=== PATIENT | male | born 1965 | race Caucasian/White ===

== ENCOUNTER 2023-11-13 15:38 | Inpatient (IN) ==
--- NOTE | 2023-11-13 16:05 | Emergency Department Note ---
Impression & Plan Severe sepsis, DKA (diabetic ketoacidosis), High anion gap metabolic acidosis, Acute pancreatitis, Pneumonia, Elevated troponin, Lactic acidosis, Cirrhosis, Symptomatic anemia ED Provider Note NAME: KATIANA [id number] ESTRELLITA AGE: 58 SEX: M : 1965 ARRIVES VIA: Ambulance INFORMANT: Patient ED PROVIDER(S): Saturnino Thompson MD CHIEF COMPLAINT: Cough congestion, nausea, vomiting, diarrhea, hypotension PLAN: Disposition: Admit MEDICAL DECISION MAKING: The patient is a 58-year-old gentleman, present inmate with a past medical history of type 2 diabetes, cirrhosis,liver cancer per his report who presents to his department via EMS for evaluation of nausea, vomiting, diarrhea and dizziness with hypotension in the setting of having symptoms of nausea and vomiting with mild congestion over the past week. Patient reports his blood sugars have been "all over the place." Patient denies any bloody or black stools. He reports his diarrhea has been brown. On arrival emergency department patient ill-appearing, afebrile with heart rate in the 110s and blood pressure 90s/50s 1. O2 saturation is 92% on room air. Patient has dry cracked mucous membranes. Abdomen is nontender. EKG without overt acute ischemia. CXR demonstrates peribronchial thickening without focal consolidation per my personal preliminary review/interpretation. WBC 12.6 K with neutrophil predominance. H/H 6.6/20.4 with MCV of 93. Platelets of 178K. INR was 1.5. VBG with a pH of 7.15 and pCO2 of 35 with lactic acid initially 16.2. Chemistry demonstrates anion gap metabolic acidosis with anion gap of 23 and bicarbonate of 13. Creatinine is within normal limits open BUN is elevated at 65. Glucose is 620 with sodium of 134 until corrects to 142. Potassium is 4.9. Serum osmolality is 337 consistent with free water deficit and so further suspect patient's anemia likely more severe. Magnesium 1.6 with repletion initiated. Total bili 1.9 with direct bilirubin 0.4 with LFTs otherwise normal. Lipase is mildly elevated 149. Procalcitonin is elevated at 0.63. UA without evidence of infection. Only trace ketones are noted and so suspect metabolic acidosis predominantly driven by lactic acidosis. Respiratory BioFire was negative. CT of the chest was performed and was negative for PE. Bronchial wall thickening and diffuse groundglass opacities consistent with pneumonia. CT of the abdomen pelvis demonstrates evidence of pancreatitis without evidence of acute peripancreatic collection. Prominent stomach with fat stranding about the duodenum. Suspect to be reactive to pancreatitis. Evidence of cirrhosis with splenomegaly and portal hypertension are seen. Heterogeneity of the liver is described in the setting of the patient's reported hepatocellular carcinoma. Patient was treated with 2 L of normal saline for initial IV fluid hydration/resuscitation with improvement in patient's blood pressure. He was also consented and transfused 2 units of PRBCs. Additionally, the patient was treated with 40 mg of IV Protonix and plan milligrams of IV Pepcid as well as Zofran. Empiric treatment of sepsis initiated with Zosyn. Insulin drip and maintenance IV fluids with KCl ordered. Case was discussed with Cecile Campos PAC with [facility], who will evaluate the patient for admission. Further management per admitting team. Triage Nursing notes reviewed and agree them. Prior/external medical records reviewed Vital Signs: reviewed Differential diagnosis: Sepsis, UTI, pneumonia, metabolic, electrolyte abnormalities, cardiac sources, intracerebral event, toxicologic, neurologic, as well as other pathologies. ER treatment provided: See below. Diagnostics interpreted by me: ECG: Sinus tachycardia, 111 bpm, no ectopy, no overt ST ovation or depression. Cardiac Monitoring: An order for continuous cardiac monitoring was placed and demonstrated Sinus tachycardia, 111 bpm, no ectopy. Laboratory studies: See below Imaging studies: See below Consultation(s): Cecile Campos [facility] HPI: The patient is a 58-year-old gentleman, present inmate with a past medical history of type 2 diabetes, cirrhosis,liver cancer per his report who presents to his department via EMS for evaluation of nausea, vomiting, diarrhea and dizziness with hypotension in the setting of having symptoms of nausea and vomiting with mild congestion over the past week. Patient reports his blood sugars have been "all over the place." Patient denies any bloody or black stools. He reports his diarrhea has been brown. ROS: See above HPI for pertinent positives & negatives. A total of 10 systems reviewed and were otherwise negative. VITALS:See Below PHYSICAL EXAMINATION: GENERAL: Awake, alert, ill-appearing, in no distress HENT: Normocephalic, atraumatic. Oropharynx dry/cracked MM. EYES: Normal conjunctiva. Sclera non-icteric. NECK: Supple. No nuchal rigidity. FROM. No JVD. RESPIRATORY: Rhonchi bilateral lower lung medrano and otherwise clear. CARDIAC: Tachycardic rate, normal rhythm. Extremities warm and well perfused. Pulses equal. ABDOMEN: Soft, non-distended. No tenderness to palpation. No rebound or guarding. No masses. MUSCULOSKELETAL: Chest examination reveals no tenderness. The back is symmetrical on inspection without obvious abnormality. There is no CVA tenderness to palpation. No joint edema. LOWER EXTREMITIES: Calves are equal size bilaterally and non-tender. No edema. No discoloration. NEURO: Normal sensorium. No sensory or motor deficits noted. SKIN: Moderate pallor. No rash or jaundice noted. ED COURSE: Critical Care: I have personally spent greater than 95 minutes of critical care time in the direct management of this patient. This includes bedside care, interpretation of diagnostic studies, and testing, discussion with consultants, patient, and family members, and other required patient management activities. This 95 minutes is in excess of all separately billable procedures. Saturnino Thompson MD Past Med/Surg History Problem List (Updated 11/14/23 @ 04:27 by Saturnino Thompson MD) Symptomatic anemia (Acute) ROMANA (acute kidney injury) High anion gap metabolic acidosis (Acute) Electrolyte abnormality Septic shock Elevated troponin (Acute) Lactic acidosis (Acute) Cirrhosis (Acute) Anemia Pneumonia (Acute) Acute pancreatitis (Acute) DKA (diabetic ketoacidosis) (Acute) Severe sepsis (Acute) Medical History HLD (hyperlipidemia) Neuropathy T2DM (type 2 diabetes mellitus) Hepatocellular carcinoma Surgical History Hx of cervical spine surgery Hx of bilateral hip replacements Family History Father Throat cancer Mother Diabetes Social History Smoking Status: Former smoker Second Hand Exposure: No; Do You Dip or Chew Tobacco: No; Tobacco Cessation Education Requested by Patient: No Hx Alcohol Use: No Hx Substance Use: No Preferred Language: Turkish Communication Ability: Effective Hop Strainer Required: No Beliefs That Will Affect Care: None Current Living Situation: Other Current Living Situation Comment: [facility] Other Information That Helps Us Care for You: No Feels Safe at Home: Yes Safety Concerns: Feels Safe At This Time Assistive Devices: None Allergies Allergies Allergy/AdvReac Type Severity Reaction Status Date / Time Fish Containing Products Allergy Unknown Verified 11/13/23 16:52 Home Meds Home Medications Medication Instructions Recorded Confirmed cetirizine 10 mg capsule 10 mg PO DAILY 11/13/23 11/13/23 diphenhydramine HCl 25 mg capsule 25 mg PO HS PRN allergies 11/13/23 11/13/23 (Banophen) insulin glargine 100 unit/mL 48 unit subcut BID 11/13/23 11/13/23 subcutaneous cartridge insulin regular human 100 unit/mL 1 sliding scale dose subcut 11/13/23 11/13/23 injection solution (Novolin R USEASDIRECTD Regular U-100 Insulin) metformin 1,000 mg tablet 1,000 mg PO BID 11/13/23 11/13/23 rosuvastatin 10 mg tablet 10 mg PO DAILY 11/13/23 11/13/23 thiamine HCl (vitamin B1) 50 mg 50 mg PO DAILY 11/13/23 11/13/23 tablet (Vitamin B-1) Results & Data (ED) Vital Signs Vital Signs - 24 hr 11/13/23 15:50 11/13/23 16:00 11/13/23 16:02 Temperature 35.8 C L Temperature Source Oral Pulse Rate 113 H 106 H Pulse Rate from SpO2 Sensor Pulse Rhythm Pulse Strength Respiratory Rate 24 Respiratory Depth Shallow Respiratory Pattern Rapid/Shallow Blood Pressure 90/56 L Blood Pressure Mean 67 Pulse Oximetry 92 Oxygen Delivery Method Room Air Room Air Oxygen Flow Rate Sepsis Recent Fever Within 48 Hours No Sepsis New/Unexplained Change in Mental Status No Sepsis Action Taken by Nursing Physician Notified Pulse Oximetry Post Tiitration 95 11/13/23 16:02 11/13/23 16:03 11/13/23 16:03 Temperature Temperature Source Pulse Rate 107 H Pulse Rate from SpO2 Sensor 107 H Pulse Rhythm Pulse Strength Respiratory Rate 18 Respiratory Depth Respiratory Pattern Blood Pressure 84/48 L Blood Pressure Mean 77 Pulse Oximetry 95 97 Oxygen Delivery Method Room Air Oxygen Flow Rate Sepsis Recent Fever Within 48 Hours Sepsis New/Unexplained Change in Mental Status Sepsis Action Taken by Nursing Pulse Oximetry Post Tiitration 11/13/23 16:04 11/13/23 16:15 11/13/23 16:27 Temperature 36.4 C L Temperature Source Oral Pulse Rate 109 H Pulse Rate from SpO2 Sensor 109 H Pulse Rhythm Pulse Strength Respiratory Rate 19 Respiratory Depth Respiratory Pattern Blood Pressure 93/53 L Blood Pressure Mean 61 Pulse Oximetry 94 Oxygen Delivery Method Oxygen Flow Rate Sepsis Recent Fever Within 48 Hours Sepsis New/Unexplained Change in Mental Status Sepsis Action Taken by Nursing Pulse Oximetry Post Tiitration 11/13/23 16:30 11/13/23 16:34 11/13/23 16:34 Temperature Temperature Source Pulse Rate Pulse Rate from SpO2 Sensor Pulse Rhythm Pulse Strength Respiratory Rate Respiratory Depth Respiratory Pattern Blood Pressure 74/55 L 89/57 L 89/57 L Blood Pressure Mean 65 64 64 Pulse Oximetry Oxygen Delivery Method Oxygen Flow Rate Sepsis Recent Fever Within 48 Hours Sepsis New/Unexplained Change in Mental Status Sepsis Action Taken by Nursing Pulse Oximetry Post Tiitration 11/13/23 16:36 11/13/23 16:42 11/13/23 16:59 Temperature Temperature Source Pulse Rate 108 H 111 H Pulse Rate from SpO2 Sensor 108 H 112 H Pulse Rhythm Pulse Strength Respiratory Rate 19 24 Respiratory Depth Respiratory Pattern Blood Pressure 107/57 L Blood Pressure Mean 89 Pulse Oximetry 95 93 Oxygen Delivery Method Oxygen Flow Rate Sepsis Recent Fever Within 48 Hours Sepsis New/Unexplained Change in Mental Status Sepsis Action Taken by Nursing Pulse Oximetry Post Tiitration 11/13/23 17:00 11/13/23 17:00 11/13/23 17:00 Temperature Temperature Source Pulse Rate Pulse Rate from SpO2 Sensor Pulse Rhythm Pulse Strength Respiratory Rate Respiratory Depth Respiratory Pattern Blood Pressure 99/68 L 99/68 L 99/68 L Blood Pressure Mean 84 84 84 Pulse Oximetry Oxygen Delivery Method Oxygen Flow Rate Sepsis Recent Fever Within 48 Hours Sepsis New/Unexplained Change in Mental Status Sepsis Action Taken by Nursing Pulse Oximetry Post Tiitration 11/13/23 17:00 11/13/23 17:03 11/13/23 17:06 Temperature Temperature Source Pulse Rate 115 H 114 H Pulse Rate from SpO2 Sensor 115 H 115 H Pulse Rhythm Pulse Strength Respiratory Rate 18 18 Respiratory Depth Respiratory Pattern Blood Pressure 99/68 L Blood Pressure Mean 84 Pulse Oximetry 94 95 Oxygen Delivery Method Oxygen Flow Rate Sepsis Recent Fever Within 48 Hours Sepsis New/Unexplained Change in Mental Status Sepsis Action Taken by Nursing Pulse Oximetry Post Tiitration 11/13/23 17:15 11/13/23 17:21 11/13/23 17:30 Temperature Temperature Source Pulse Rate 123 H Pulse Rate from SpO2 Sensor 124 H Pulse Rhythm Pulse Strength Respiratory Rate 25 H Respiratory Depth Respiratory Pattern Blood Pressure 98/66 L 119/94 Blood Pressure Mean 83 108 Pulse Oximetry 94 Oxygen Delivery Method Oxygen Flow Rate Sepsis Recent Fever Within 48 Hours Sepsis New/Unexplained Change in Mental Status Sepsis Action Taken by Nursing Pulse Oximetry Post Tiitration 11/13/23 17:30 11/13/23 17:39 11/13/23 17:42 Temperature Temperature Source Pulse Rate 124 H Pulse Rate from SpO2 Sensor 124 H 136 H Pulse Rhythm Pulse Strength Respiratory Rate 24 Respiratory Depth Respiratory Pattern Blood Pressure 119/94 Blood Pressure Mean 108 Pulse Oximetry 92 94 Oxygen Delivery Method Room Air Oxygen Flow Rate Sepsis Recent Fever Within 48 Hours Sepsis New/Unexplained Change in Mental Status Sepsis Action Taken by Nursing Pulse Oximetry Post Tiitration 11/13/23 17:45 11/13/23 17:45 11/13/23 17:45 Temperature Temperature Source Pulse Rate Pulse Rate from SpO2 Sensor Pulse Rhythm Pulse Strength Respiratory Rate Respiratory Depth Respiratory Pattern Blood Pressure 104/71 104/71 104/71 Blood Pressure Mean 79 79 79 Pulse Oximetry Oxygen Delivery Method Oxygen Flow Rate Sepsis Recent Fever Within 48 Hours Sepsis New/Unexplained Change in Mental Status Sepsis Action Taken by Nursing Pulse Oximetry Post Tiitration 11/13/23 17:52 11/13/23 17:54 11/13/23 17:57 Temperature 36.4 C L Temperature Source Oral Pulse Rate 121 H 121 H 120 H Pulse Rate from SpO2 Sensor 121 H 120 H Pulse Rhythm Regular Pulse Strength Normal Respiratory Rate 20 19 18 Respiratory Depth Respiratory Pattern Blood Pressure 104/71 Blood Pressure Mean 82 Pulse Oximetry 93 94 93 Oxygen Delivery Method Oxygen Flow Rate 0 Sepsis Recent Fever Within 48 Hours Sepsis New/Unexplained Change in Mental Status Sepsis Action Taken by Nursing Pulse Oximetry Post Tiitration 11/13/23 18:00 11/13/23 18:03 11/13/23 18:10 Temperature 36.4 C L Temperature Source Oral Pulse Rate 119 H 120 H Pulse Rate from SpO2 Sensor 119 H Pulse Rhythm Pulse Strength Respiratory Rate 18 20 Respiratory Depth Respiratory Pattern Blood Pressure 106/80 106/74 Blood Pressure Mean 91 84 Pulse Oximetry 94 94 Oxygen Delivery Method Oxygen Flow Rate Sepsis Recent Fever Within 48 Hours Sepsis New/Unexplained Change in Mental Status Sepsis Action Taken by Nursing Pulse Oximetry Post Tiitration 11/13/23 18:12 11/13/23 18:15 11/13/23 18:15 Temperature Temperature Source Pulse Rate 118 H Pulse Rate from SpO2 Sensor 119 H Pulse Rhythm Pulse Strength Respiratory Rate 24 Respiratory Depth Respiratory Pattern Blood Pressure 124/83 124/83 Blood Pressure Mean 100 100 Pulse Oximetry 94 Oxygen Delivery Method Oxygen Flow Rate Sepsis Recent Fever Within 48 Hours Sepsis New/Unexplained Change in Mental Status Sepsis Action Taken by Nursing Pulse Oximetry Post Tiitration 11/13/23 18:15 Temperature Temperature Source Pulse Rate Pulse Rate from SpO2 Sensor Pulse Rhythm Pulse Strength Respiratory Rate Respiratory Depth Respiratory Pattern Blood Pressure 124/83 Blood Pressure Mean 100 Pulse Oximetry Oxygen Delivery Method Oxygen Flow Rate Sepsis Recent Fever Within 48 Hours Sepsis New/Unexplained Change in Mental Status Sepsis Action Taken by Nursing Pulse Oximetry Post Tiitration Laboratory Data Attestation: I reviewed the patient's lab results. 11/13/23 22:36 11/14/23 00:34 Lab Results 11/13/23 11/13/23 11/13/23 Range/Units 16:02 16:07 16:10 WBC 12.60 H (4.8-10.8) K/ul RBC 2.19 L (4.70-6.10) M/uL Hgb 6.6 L* (14.0-18.0) g/dl POC Hgb 6.1 L* (14.0-18.0) g/dl Hct 20.4 L* (42.0-52.0) % POC Hct 18 L* (42-52) % MCV 93.2 (80.0-100.0) fL MCH 30.1 (25.0-34.0) pg MCHC 32.4 (32.0-36.0) g/dL RDW Std Deviation 53.7 H (36.4-46.3) fL RDW Coeff of Lauren 15.9 H (11.5-14.5) % Plt Count 178 (130-400) K/uL MPV 11.5 (9.4-12.4) fL Reticulocyte % (Auto) 4.07 H (0.50-2.00) % Reticulocyte # 0.090 (0.020-0.100) 10^6/uL Neutrophils % (Manual) 95 % Lymphocytes % (Manual) 3 % Monocytes % (Manual) 1 % Eosinophils % (Manual) 1 % Neutrophils # (Manual) 11.97 H (1.40-6.50) K/uL Total Absolute Neuts 11.97 H (1.4-6.5) K/uL Lymphocytes # (Manual) 0.38 L (1.2-3.4) K/uL Total Abs Lymphocytes 0.38 L (1.2-3.4) K/uL Monocytes # (Manual) 0.13 (0.11-0.59) K/uL Eosinophils # (Manual) 0.13 (0-0.50) K/uL RBC Morphology Unremarkable PT 15.6 H (9.0-12.0) Seconds INR 1.5 H (0.9-1.1) APTT 23 (21-31) Seconds PTT Ratio 0.9 VBG pH 7.15 L (7.36-7.41) VBG pCO2 35 L (38-50) mmHg VBG pO2 27 mmHg VBG HCO3 12 mmol/L VBG O2 Saturation < 60.0 % VBG Base Excess -15.7 mEq/L POC Sodium 132 L (135-144) mmol/L Sodium 134 L (136-145) mmol/L POC Potassium 4.8 (3.3-5.0) mmol/L Potassium 4.9 (3.5-5.1) mmol/L POC Chloride 100 L (101-112) mmol/L Chloride 98 (98-107) mmol/L Carbon Dioxide 13 L (21-32) mmol/L POC Total CO2 12 L (24-31) mmol/L Anion Gap 23 H (3-11) POC Anion Gap 26.0 H (16-25) mmol/L POC BUN 69 H (7-18) mg/dl BUN 65 H (6-23) mg/dl Creatinine 1.19 (0.6-1.4) mg/dl POC Creatinine 1.1 (0.6-1.3) mg/dl Est Cr Clr Drug Dosing 62.5 ml/min Est GFR ( Amer) 77.0 ml/min Est GFR (Non-Af Amer) 66.5 ml/min BUN/Creatinine Ratio 54.6 H (10-20) Glucose 620 H* (70-99(Fasting)) mg/dl POC Glucose (70-99) mg/dl POC Glucose (other) 552 H* (70-99) mg/dl Osmolality 337 H (280-300) mOsm/kg Lactate 16.2 H* (0.4-2.0) mmol/L Calcium 8.5 L (8.6-10.3) mg/dl POC Ioniz Calcium Bill 1.09 L (1.12-1.32) mmol/l Magnesium 1.6 L (1.7-2.4) mg/dl Iron 226 H (35-175) mcg/dl Unsaturated IBC < 55 L (155-355) mcg/dl Transferrin 194 L (200-360) mg/dl Ferritin 37.8 (8-388) ng/ml Total Bilirubin 1.9 H (0.2-1.0) mg/dl Direct Bilirubin 0.4 H (0-0.2) mg/dl AST 31 (13-39) U/L ALT 27 (7-52) U/L Alkaline Phosphatase 85 (34-104) U/L Troponin I High Sens 277.7 H* (0-20) pg/ml Total Protein 4.8 L (6.0-8.3) gm/dl Albumin 2.8 L (3.4-5.0) gm/dl Globulin 2.0 L (2.5-4.0) gm/dl Albumin/Globulin Ratio 1.4 (0.9-2) Lipase 149 H (11-82) U/L Vitamin B12 756 (180-914) pg/ml Folate > 22.30 (>5.38) ng/ml Procalcitonin 0.63 H (0-0.5) ng/ml Urine Color Urine Appearance (Clear) Urine pH (4.5-7.5) Ur Specific [place] (1.000-1.030) Urine Protein (Negative) Urine Glucose (UA) (Negative) Urine Ketones (Negative) Urine Blood (Negative) Urine Nitrite (Negative) Urine Bilirubin (Negative) Urine Urobilinogen (Negative) Ur Leukocyte Esterase (Negative) Adenovirus (PCR) Not Detected (NotDetected) B. pertussis DNA (PCR) Not Detected (NotDetected) B.parapertussis DNA PCR Not Detected (NotDetected) C. pneumoniae DNA (PCR) Not Detected (NotDetected) Coronavirus OC43 (PCR) Not Detected (NotDetected) Coronavirus HKU1 (PCR) Not Detected (NotDetected) Coronavirus 229E (PCR) Not Detected (NotDetected) SARS-CoV-2 (PCR) Not Detected (NotDetected) Coronavirus NL63 (PCR) Not Detected (NotDetected) Human Metapneumovir PCR Not Detected (NotDetected) Influenza Type A (PCR) Not Detected (NotDetected) Influenza Type B (PCR) Not Detected (NotDetected) M. pneumoniae (PCR) Not Detected (NotDetected) Parainfluenza 1 (PCR) Not Detected (NotDetected) Parainfluenza 2 (PCR) Not Detected (NotDetected) Parainfluenza 3 (PCR) Not Detected (NotDetected) Parainfluenza 4 (PCR) Not Detected (NotDetected) RSV (PCR) Not Detected (NotDetected) Entero/Rhino (PCR) Not Detected (NotDetected) Blood Type Blood Type Recheck Antibody Screen Crossmatch 11/13/23 11/13/23 11/13/23 Range/Units 16:29 17:36 17:55 WBC (4.8-10.8) K/ul RBC (4.70-6.10) M/uL Hgb (14.0-18.0) g/dl POC Hgb (14.0-18.0) g/dl Hct (42.0-52.0) % POC Hct (42-52) % MCV (80.0-100.0) fL MCH (25.0-34.0) pg MCHC (32.0-36.0) g/dL RDW Std Deviation (36.4-46.3) fL RDW Coeff of Lauren (11.5-14.5) % Plt Count (130-400) K/uL MPV (9.4-12.4) fL Reticulocyte % (Auto) (0.50-2.00) % Reticulocyte # (0.020-0.100) 10^6/uL Neutrophils % (Manual) % Lymphocytes % (Manual) % Monocytes % (Manual) % Eosinophils % (Manual) % Neutrophils # (Manual) (1.40-6.50) K/uL Total Absolute Neuts (1.4-6.5) K/uL Lymphocytes # (Manual) (1.2-3.4) K/uL Total Abs Lymphocytes (1.2-3.4) K/uL Monocytes # (Manual) (0.11-0.59) K/uL Eosinophils # (Manual) (0-0.50) K/uL RBC Morphology PT (9.0-12.0) Seconds INR (0.9-1.1) APTT (21-31) Seconds PTT Ratio VBG pH (7.36-7.41) VBG pCO2 (38-50) mmHg VBG pO2 mmHg VBG HCO3 mmol/L VBG O2 Saturation % VBG Base Excess mEq/L POC Sodium (135-144) mmol/L Sodium (136-145) mmol/L POC Potassium (3.3-5.0) mmol/L Potassium (3.5-5.1) mmol/L POC Chloride (101-112) mmol/L Chloride (98-107) mmol/L Carbon Dioxide (21-32) mmol/L POC Total CO2 (24-31) mmol/L Anion Gap (3-11) POC Anion Gap (16-25) mmol/L POC BUN (7-18) mg/dl BUN (6-23) mg/dl Creatinine (0.6-1.4) mg/dl POC Creatinine (0.6-1.3) mg/dl Est Cr Clr Drug Dosing ml/min Est GFR ( Amer) ml/min Est GFR (Non-Af Amer) ml/min BUN/Creatinine Ratio (10-20) Glucose (70-99(Fasting)) mg/dl POC Glucose (70-99) mg/dl POC Glucose (other) (70-99) mg/dl Osmolality (280-300) mOsm/kg Lactate (0.4-2.0) mmol/L Calcium (8.6-10.3) mg/dl POC Ioniz Calcium Bill (1.12-1.32) mmol/l Magnesium (1.7-2.4) mg/dl Iron (35-175) mcg/dl Unsaturated IBC (155-355) mcg/dl Transferrin (200-360) mg/dl Ferritin (8-388) ng/ml Total Bilirubin (0.2-1.0) mg/dl Direct Bilirubin (0-0.2) mg/dl AST (13-39) U/L ALT (7-52) U/L Alkaline Phosphatase (34-104) U/L Troponin I High Sens (0-20) pg/ml Total Protein (6.0-8.3) gm/dl Albumin (3.4-5.0) gm/dl Globulin (2.5-4.0) gm/dl Albumin/Globulin Ratio (0.9-2) Lipase (11-82) U/L Vitamin B12 (180-914) pg/ml Folate (>5.38) ng/ml Procalcitonin (0-0.5) ng/ml Urine Color Yellow Urine Appearance Clear (Clear) Urine pH 5.0 (4.5-7.5) Ur Specific [place] 1.038 H (1.000-1.030) Urine Protein Negative (Negative) Urine Glucose (UA) 3+ H (Negative) Urine Ketones Trace H (Negative) Urine Blood Negative (Negative) Urine Nitrite Negative (Negative) Urine Bilirubin Negative (Negative) Urine Urobilinogen Negative (Negative) Ur Leukocyte Esterase Negative (Negative) Adenovirus (PCR) (NotDetected) B. pertussis DNA (PCR) (NotDetected) B.parapertussis DNA PCR (NotDetected) C. pneumoniae DNA (PCR) (NotDetected) Coronavirus OC43 (PCR) (NotDetected) Coronavirus HKU1 (PCR) (NotDetected) Coronavirus 229E (PCR) (NotDetected) SARS-CoV-2 (PCR) (NotDetected) Coronavirus NL63 (PCR) (NotDetected) Human Metapneumovir PCR (NotDetected) Influenza Type A (PCR) (NotDetected) Influenza Type B (PCR) (NotDetected) M. pneumoniae (PCR) (NotDetected) Parainfluenza 1 (PCR) (NotDetected) Parainfluenza 2 (PCR) (NotDetected) Parainfluenza 3 (PCR) (NotDetected) Parainfluenza 4 (PCR) (NotDetected) RSV (PCR) (NotDetected) Entero/Rhino (PCR) (NotDetected) Blood Type O Positive Blood Type Recheck O Positive Antibody Screen NEGATIVE Crossmatch See Detail 11/13/23 11/13/23 Range/Units 17:56 18:20 WBC (4.8-10.8) K/ul RBC (4.70-6.10) M/uL Hgb (14.0-18.0) g/dl POC Hgb (14.0-18.0) g/dl Hct (42.0-52.0) % POC Hct (42-52) % MCV (80.0-100.0) fL MCH (25.0-34.0) pg MCHC (32.0-36.0) g/dL RDW Std Deviation (36.4-46.3) fL RDW Coeff of Lauren (11.5-14.5) % Plt Count (130-400) K/uL MPV (9.4-12.4) fL Reticulocyte % (Auto) (0.50-2.00) % Reticulocyte # (0.020-0.100) 10^6/uL Neutrophils % (Manual) % Lymphocytes % (Manual) % Monocytes % (Manual) % Eosinophils % (Manual) % Neutrophils # (Manual) (1.40-6.50) K/uL Total Absolute Neuts (1.4-6.5) K/uL Lymphocytes # (Manual) (1.2-3.4) K/uL Total Abs Lymphocytes (1.2-3.4) K/uL Monocytes # (Manual) (0.11-0.59) K/uL Eosinophils # (Manual) (0-0.50) K/uL RBC Morphology PT (9.0-12.0) Seconds INR (0.9-1.1) APTT (21-31) Seconds PTT Ratio VBG pH (7.36-7.41) VBG pCO2 (38-50) mmHg VBG pO2 mmHg VBG HCO3 mmol/L VBG O2 Saturation % VBG Base Excess mEq/L POC Sodium (135-144) mmol/L Sodium (136-145) mmol/L POC Potassium (3.3-5.0) mmol/L Potassium (3.5-5.1) mmol/L POC Chloride (101-112) mmol/L Chloride (98-107) mmol/L Carbon Dioxide (21-32) mmol/L POC Total CO2 (24-31) mmol/L Anion Gap (3-11) POC Anion Gap (16-25) mmol/L POC BUN (7-18) mg/dl BUN (6-23) mg/dl Creatinine (0.6-1.4) mg/dl POC Creatinine (0.6-1.3) mg/dl Est Cr Clr Drug Dosing ml/min Est GFR ( Amer) ml/min Est GFR (Non-Af Amer) ml/min BUN/Creatinine Ratio (10-20) Glucose (70-99(Fasting)) mg/dl POC Glucose 529 H* (70-99) mg/dl POC Glucose (other) (70-99) mg/dl Osmolality (280-300) mOsm/kg Lactate 16.3 H* (0.4-2.0) mmol/L Calcium (8.6-10.3) mg/dl POC Ioniz Calcium Bill (1.12-1.32) mmol/l Magnesium (1.7-2.4) mg/dl Iron (35-175) mcg/dl Unsaturated IBC (155-355) mcg/dl Transferrin (200-360) mg/dl Ferritin (8-388) ng/ml Total Bilirubin (0.2-1.0) mg/dl Direct Bilirubin (0-0.2) mg/dl AST (13-39) U/L ALT (7-52) U/L Alkaline Phosphatase (34-104) U/L Troponin I High Sens 338.3 H* D (0-20) pg/ml Total Protein (6.0-8.3) gm/dl Albumin (3.4-5.0) gm/dl Globulin (2.5-4.0) gm/dl Albumin/Globulin Ratio (0.9-2) Lipase (11-82) U/L Vitamin B12 (180-914) pg/ml Folate (>5.38) ng/ml Procalcitonin (0-0.5) ng/ml Urine Color Urine Appearance (Clear) Urine pH (4.5-7.5) Ur Specific [place] (1.000-1.030) Urine Protein (Negative) Urine Glucose (UA) (Negative) Urine Ketones (Negative) Urine Blood (Negative) Urine Nitrite (Negative) Urine Bilirubin (Negative) Urine Urobilinogen (Negative) Ur Leukocyte Esterase (Negative) Adenovirus (PCR) (NotDetected) B. pertussis DNA (PCR) (NotDetected) B.parapertussis DNA PCR (NotDetected) C. pneumoniae DNA (PCR) (NotDetected) Coronavirus OC43 (PCR) (NotDetected) Coronavirus HKU1 (PCR) (NotDetected) Coronavirus 229E (PCR) (NotDetected) SARS-CoV-2 (PCR) (NotDetected) Coronavirus NL63 (PCR) (NotDetected) Human Metapneumovir PCR (NotDetected) Influenza Type A (PCR) (NotDetected) Influenza Type B (PCR) (NotDetected) M. pneumoniae (PCR) (NotDetected) Parainfluenza 1 (PCR) (NotDetected) Parainfluenza 2 (PCR) (NotDetected) Parainfluenza 3 (PCR) (NotDetected) Parainfluenza 4 (PCR) (NotDetected) RSV (PCR) (NotDetected) Entero/Rhino (PCR) (NotDetected) Blood Type Blood Type Recheck Antibody Screen Crossmatch Administered Medications Insulin Human Regular 250 (units/ Sodium Chloride) 250 mls @ 10.3 mls/hr IV .Q24H [facility]; Protocol Stop: 12/13/23 18:14 Last Titration: 11/13/23 22:24 Dose: 10.3 mls/hr, 10.3 mls/hr Documented By: CF Co-signed By: ARR Titration: 11/13/23 20:54 Dose: 8.6 mls/hr, 8.6 mls/hr Documented By: CF Co-signed By: GUNNER Admin: 11/13/23 20:06 Dose: 7.2 mls/hr, 7.2 mls/hr Documented By: CF Co-signed By: JENSEN Piperacillin Sod/Tazobactam Sod (Zosyn) 4.5 gm in 100 mls @ 25 mls/hr IV Q8H [facility] Stop: 11/21/23 00:00 Last Infusion: 11/14/23 03:56 Dose: Infused Documented By: ROSE MARIE Admin: 11/13/23 23:30 Dose: 25 mls/hr Documented By: ROSE MARIE Lactated Ringer's (Lr) 1,000 mls @ 150 mls/hr IV .Q6H40M [facility] Stop: 12/13/23 19:59 Last Admin: 11/14/23 04:07 Dose: 110 mls/hr Documented By: ROSE MARIE Infusion: 11/14/23 04:07 Dose: Infused Documented By: Admin: 11/13/23 20:12 Dose: 110 mls/hr Documented By: CF Pantoprazole Sodium 40 mg/ (Syringe) 10 mls @ 5 mls/min IV BID [facility] Stop: 12/13/23 20:59 Last Admin: 11/13/23 21:51 Dose: 5 mls/min Documented By: CF Doxycycline Hyclate 100 mg/ (Dextrose) 100 mls @ 50 mls/hr IV Q12H [facility] Stop: 11/20/23 20:59 Last Infusion: 11/14/23 03:09 Dose: Infused Documented By: Admin: 11/13/23 21:25 Dose: 50 mls/hr Documented By: ROSE MARIE Insulin Aspart (Insulin Aspart Per Unit Charge) 0 units SC ACHS [facility] Stop: 12/13/23 20:59 Last Admin: 11/13/23 20:09 Dose: Not Given Documented By: ROSE MARIE Miscellaneous (Pending D5 1/2ns+20meq Kcl Ivf) 1 each N/A Q2H [facility] Stop: 12/13/23 19:59 Last Admin: 11/14/23 03:56 Dose: Not Given Documented By: Admin: 11/14/23 01:30 Dose: Not Given Documented By: Admin: 11/13/23 23:30 Dose: Not Given Documented By: Admin: 11/13/23 21:51 Dose: Not Given Documented By: Admin: 11/13/23 20:11 Dose: Not Given Documented By: CF Discontinued Medications Sodium Chloride (Nss) 1,000 mls @ 999 mls/hr IV .Q1H1M [facility] Stop: 11/13/23 18:15 Last Infusion: 11/13/23 17:59 Dose: Infused Documented By: Admin: 11/13/23 16:24 Dose: 999 mls/hr Documented By: Infusion: 11/13/23 16:24 Dose: Infused Documented By: Admin: 11/13/23 16:23 Dose: 999 mls/hr Documented By: ELIJAH Famotidine (Pepcid 20mg Iv Push) 20 mg in 5 mls @ 2.5 mls/min IV NOW STA Stop: 11/13/23 16:05 Last Admin: 11/13/23 16:24 Dose: 2.5 mls/min Documented By: ELIJAH Pantoprazole Sodium 40 mg/ (Syringe) 10 mls @ 5 mls/min IV NOW ONE Stop: 11/13/23 16:42 Last Admin: 11/13/23 17:29 Dose: 5 mls/min Documented By: CONG Magnesium Sulfate/Dextrose (Magnesium Sulfate / D5w) 1 gm in 100 mls @ 100 mls/hr IV NOW STA Stop: 11/13/23 19:08 Last Infusion: 11/13/23 20:15 Dose: Infused Documented By: Admin: 11/13/23 18:20 Dose: 100 mls/hr Documented By: AWAIS Piperacillin Sod/Tazobactam Sod (Zosyn) 4.5 gm in 100 mls @ 200 mls/hr IV NOW ONE Stop: 11/13/23 18:39 Last Infusion: 11/13/23 19:52 Dose: Infused Documented By: Admin: 11/13/23 18:55 Dose: 200 mls/hr Documented By: ELIJAH Potassium Chloride/Sodium Chloride (1/2 Nss + 20meq Kcl 1000ml) 20 meq in 1,000 mls @ 250 mls/hr IV .Q4H [facility] Stop: 12/13/23 18:14 Last Admin: 11/13/23 20:18 Dose: Not Given Documented By: ROSE MARIE Magnesium Sulfate/Dextrose (Magnesium Sulfate / D5w) 1 gm in 100 mls @ 100 mls/hr IV Q1H [facility] Stop: 11/13/23 18:31 Last Infusion: 11/13/23 20:15 Dose: Infused Documented By: Admin: 11/13/23 19:11 Dose: 100 mls/hr Documented By: ELIJAH Lactated Ringer's (Lr) 1,000 mls @ 999 mls/hr IV .Q1H1M ONE Stop: 11/13/23 20:05 Last Infusion: 11/13/23 20:15 Dose: Infused Documented By: Admin: 11/13/23 19:11 Dose: 999 mls/hr Documented By: ELIJAH Calcium Gluconate () 1,000 mg in 60 mls @ 240 mls/hr IV Q15M [facility] Stop: 11/13/23 19:44 Last Infusion: 11/13/23 21:04 Dose: Infused Documented By: Admin: 11/13/23 20:43 Dose: 240 mls/hr Documented By: Infusion: 11/13/23 20:43 Dose: Infused Documented By: Admin: 11/13/23 20:28 Dose: 240 mls/hr Documented By: ROSE MARIE Magnesium Sulfate/Dextrose (Magnesium Sulfate / D5w) 1 gm in 100 mls @ 50 mls/hr IV Q2H [facility] Stop: 11/13/23 23:14 Last Infusion: 11/13/23 22:27 Dose: Infused Documented By: Admin: 11/13/23 20:11 Dose: 50 mls/hr Documented By: Infusion: 11/13/23 20:11 Dose: Infused Documented By: Admin: 11/13/23 20:10 Dose: 50 mls/hr Documented By: ROSE MARIE Potassium Chloride/Sodium Chloride (1/2 Nss + 20meq Kcl 1000ml) 20 meq in 1,000 mls @ 200 mls/hr IV .Q5H [facility] Stop: 12/13/23 19:44 Last Admin: 11/13/23 20:19 Dose: Not Given Documented By: ROSE MARIE Thiamine HCl 100 mg/ Syringe 10 mls @ 2 mls/min IV NOW STA Stop: 11/13/23 20:49 Last Admin: 11/13/23 21:25 Dose: 2 mls/min Documented By: ROSE MARIE Lactated Ringer's (Lr) 500 mls @ 999 mls/hr IV .Q31M ONE Stop: 11/13/23 22:00 Last Infusion: 11/13/23 22:28 Dose: Infused Documented By: Admin: 11/13/23 21:27 Dose: 999 mls/hr Documented By: ROSE MARIE Lactated Ringer's (Lr) 1,000 mls @ 999 mls/hr IV .Q1H1M ONE Stop: 11/14/23 00:05 Last Infusion: 11/14/23 03:09 Dose: Infused Documented By: Admin: 11/13/23 23:29 Dose: 999 mls/hr Documented By: ROSE MARIE Potassium Chloride (K Micah / Wtr) 10 meq in 100 mls @ 100 mls/hr IV Q1H [facility] Stop: 11/14/23 03:29 Last Admin: 11/14/23 03:56 Dose: 100 mls/hr Documented By: ROSE MARIE Infusion: 11/14/23 03:56 Dose: Infused Documented By: ROSE MARIE Admin: 11/14/23 02:57 Dose: 100 mls/hr Documented By: ROSE MARIE Ioversol (Optiray 320 125ml) 115 ml IV ONCE ONE Stop: 11/13/23 16:55 Last Admin: 11/13/23 16:54 Dose: 115 ml Documented By: SHAHIDA Tavares (Hhs Goal Range 250-350 Mg/Dl) 1 each N/A ONE ONE Stop: 11/13/23 18:11 Last Admin: 11/13/23 20:18 Dose: Not Given Documented By: ROSE MARIE Tavares (Stat Iv Infusion Titration Per Protocol) 1 each N/A NOW STA Stop: 11/13/23 18:11 Last Admin: 11/13/23 20:07 Dose: 1 each Documented By: ROSE MARIE Tavares (Dka Goal Range 150-250 Mg/Dl) 1 each N/A ONE ONE Stop: 11/13/23 19:35 Last Admin: 11/13/23 20:08 Dose: 1 each Documented By: ROSE MARIE Tavares (Pending D5 1/2ns+20meq Kcl Ivf) 1 each N/A Q2H [facility] Stop: 12/13/23 19:33 Last Admin: 11/13/23 20:19 Dose: Not Given Documented By: ROSE MARIE Ondansetron HCl (Ondansetron Inj 2 Mg/Ml 2 Ml Vial) 4 mg IV NOW STA Stop: 11/13/23 16:05 Last Admin: 11/13/23 16:24 Dose: 4 mg Documented By: AY Imaging Data Radiologist's Impression: Chest X-Ray 11/13/23 16:00 XR chest 1V portable CLINICAL HISTORY: Sepsis TECHNIQUE: Single frontal radiograph of the chest was obtained. Comparison: None available at the time of this dictation. FINDINGS: No lines and tubes are seen. The cardiomediastinal silhouette is normal. Peribronchial thickening is seen. No evidence of pleural effusion or pneumothorax. IMPRESSION: Peribronchial thickening is seen compatible with infectious/inflammatory airways disease or viral pneumonia. No latia consolidation is seen. ACT 112: Negative or not required by law. Electronically signed by: Eb Cullen M.D. 11/13/2023 4:48 PM Abdomen/Pelvis CT 11/13/23 16:39 CT abd pelvis IV con only CLINICAL HISTORY: sepsis, acute anemia TECHNIQUE: Helical axial images of the abdomen and pelvis were obtained and displayed. Automated dose lowering techniques and/or adjustment according to patient size were utilized for this exam. This exam was performed with intravenous contrast. COMPARISON: None available at the time of this dictation. FINDINGS: Lower chest: For findings above the diaphragm, please see CT chest performed same day. Liver: Nodular contour of the liver is seen compatible with cirrhosis. Heterogeneous appearance of the liver. Gallbladder and biliary tree: Cholelithiasis is seen without evidence of cholecystitis. No intra- or extrahepatic biliary ductal dilation. Pancreas: Pancreatic head edema is seen with peripancreatic fat stranding. No drainable fluid collections. Spleen: Splenomegaly is noted, the spleen measures 14 cm. Adrenals: Unremarkable. Kidneys and ureters: Unremarkable. Bladder: Unremarkable. Reproductive organs: Unremarkable. Bowel: Diverticulosis is seen without diverticulitis. The appendix is normal. There is markedly distention of the stomach. Lymph nodes Retroperitoneal: Unremarkable. Pelvic: Unremarkable. Mesenteric: Unremarkable. Peritoneum: Soft tissue stranding is seen in the mid abdomen. Vessels: Prominent paraesophageal varices are seen. Abdominal wall: Unremarkable. Bones: Degenerative changes in the visualized spine. IMPRESSION: 1. Findings are concerning for pancreatitis without evidence of acute peripancreatic collection. 2. Prominent stomach with fat stranding about the duodenum which is likely reactive from the pancreatitis. 3. Cirrhosis, splenomegaly, and findings of portal hypertension. There is heterogeneity of the liver in this patient with reported history of hepatocellular carcinoma. ACT 112: Negative or not required by law. Electronically signed by: Eb Cullen M.D. 11/13/2023 5:26 PM Chest CTA 11/13/23 16:39 CT angio chest PE protocol CLINICAL HISTORY: sepsis, tachy, hypoten, hypox r/o PE TECHNIQUE: Multidetector row helical CT of the chest was performed with angiographic protocol. Coronal and sagittal reformations were obtained. Coronal and sagittal MIPS were obtained from the axial data set and were submitted for review. Automated dose lowering techniques and/or adjustment according to patient size were utilized for this exam. CT DOSE: 1603.91 mGy.cm Comparison: Comparison is made to chest radiograph 11/13/2023 FINDINGS: Lungs and pleura: Bronchial wall thickening is seen. Faint diffuse groundglass opacities are in a tree-in-bud distribution. Heart and pericardium: Heart size is normal. No pericardial effusion. Vessels: Evaluation for pulmonary embolism is limited due to patient motion. No evidence of central or lobar embolus. Mediastinum and susana: Unremarkable. Chest wall and lower neck: Unremarkable. Abdomen: For findings below the diaphragm, please refer to CT of the abdomen dated the same. Bones: Unremarkable. IMPRESSION: Findings are compatible with pneumonia and bronchitis with no evidence of pulmonary embolus. ACT 112: Negative or not required by law. Electronically signed by: Eb Cullen M.D. 11/13/2023 5:16 PM Discharge Plan Visit Data Chief Complaint: Vomiting Stated Complaint: VOMITING, HIGH BLOOD SUGAR ED Provider: Saturnino Thompson Discharge Problem: Severe sepsis, DKA (diabetic ketoacidosis), High anion gap metabolic acidosis, Acute pancreatitis, Pneumonia, Elevated troponin, Lactic acidosis, Cirrhosis, Symptomatic anemia Patient Disposition: Admitted As Inpatient Discharge Instructions Interventions: ED Discharge Assessment Last Done: 11/13/23 19:32 Discharge Problem: DKA (diabetic ketoacidosis) Qualifiers: Diabetes mellitus type: type 2 Diabetes mellitus complication detail: without coma Qualified Code(s): E11.10 - Type 2 diabetes mellitus with ketoacidosis without coma Acute pancreatitis Qualifiers: Pancreatitis type: unspecified pancreatitis type Acute pancreatitis complication: unspecified Qualified Code(s): K85.90 - Acute pancreatitis without necrosis or infection, unspecified Pneumonia Qualifiers: Pneumonia type: due to unspecified organism Laterality: bilateral Lung location: unspecified part of lung Qualified Code(s): J18.9 - Pneumonia, unspecified organism Cirrhosis Qualifiers: Hepatic cirrhosis type: unspecified hepatic cirrhosis Ascites presence: u nspecified Qualified Code(s): K74.60 - Unspecified cirrhosis of liver
[2023-11-13 16:16] LABS: Base Excess VBG -15.7 mEq/L; HCO3 VBG 12 mmol/L; Oxygen Saturation VBG < 60.0 %; PCO2 VBG 35 mmHg (38-50); PO2 VBG 27 mmHg; pH VBG 7.15 (7.36-7.41)
[2023-11-13] MEDS: SODIUM CHLORIDE 0.9% 1,000 ML IV SCH (16:23)
[2023-11-13 16:24] LABS: iSTAT Creatinine 1.1 mg/dl (0.6-1.3); iSTAT Hemoglobin 6.1 g/dl (14.0-18.0); iSTAT Ionized Calcium 1.09 mmol/l (1.12-1.32); iSTAT Potassium 4.8 mmol/L (3.3-5.0)
[2023-11-13] MEDS: FAMOTIDINE 20MG IV PUSH 20 MG/5 ML SYR IV STA (16:24)
[2023-11-13] MEDS: ONDANSETRON INJ 2 MG/ML 2 ML VIAL IV STA (16:24)
--- NOTE | 2023-11-13 16:24 | Electrocardiogram Report ---
Test Reason : Blood Pressure : */* mmHG Vent. Rate : 111 BPM Atrial Rate : 111 BPM P-R Int : 138 ms QRS Dur : 90 ms QT Int : 362 ms P-R-T Axes : 53 28 57 degrees QTcB Int : 492 ms Sinus tachycardia Otherwise normal ECG No previous ECGs available Confirmed by Eliseo Mcdaniel ([id number]) on 11/13/2023 4:24:23 PM Referred By: Confirmed By: Eliseo Mcdaniel
[2023-11-13 16:27] LABS: Hematocrit (blood only) 20.4 % (42.0-52.0); Hemoglobin 6.6 g/dl (14.0-18.0); Mean Corpuscular Hemoglobin 30.1 pg (25.0-34.0); Mean Corpuscular Hgb Conc 32.4 g/dL (32.0-36.0); Mean Corpuscular Volume 93.2 fL (80.0-100.0); Mean Platelet Volume 11.5 fL (9.4-12.4); Platelet Count 178 K/uL (130-400); RDW Coefficient of Variation 15.9 % (11.5-14.5); RDW Standard Deviation 53.7 fL (36.4-46.3); Red Blood Count 2.19 M/uL (4.70-6.10)
[2023-11-13] MEDS ORDERED: SODIUM CHLORIDE 0.9% 250 ML IV PRN (16:28)
[2023-11-13 16:33] LABS: ALC (manual) 0.38 K/uL (1.2-3.4); ANC (manual) 11.97 K/uL (1.4-6.5); Eosinophils # (manual) 0.13 K/uL (0-0.50); Eosinophils % (manual) 1 %; Lymphocytes # (manual) 0.38 K/uL (1.2-3.4); Lymphocytes % (manual) 3 %; Monocytes # (manual) 0.13 K/uL (0.11-0.59); Monocytes % (manual) 1 %; Neutrophils # (manual) 11.97 K/uL (1.40-6.50); Neutrophils % (manual) 95 %; RBC Morphology Unremarkable
[2023-11-13 16:39] LABS: Reticulocyte % 4.07 % (0.50-2.00)
[2023-11-13 16:40] LABS: Alanine Aminotransferase 27 U/L (7-52); Albumin Globulin Ratio 1.4 (0.9-2); Albumin Level 2.8 gm/dl (3.4-5.0); Alkaline Phosphatase 85 U/L (34-104); Anion Gap 23 (3-11); Aspartate Aminotransferase 31 U/L (13-39); BUN Creatinine Ratio 54.6 (10-20); Bilirubin,Total 1.9 mg/dl (0.2-1.0); Blood Urea Nitrogen 65 mg/dl (6-23); Calcium 8.5 mg/dl (8.6-10.3); Carbon Dioxide 13 mmol/L (21-32); Chloride 98 mmol/L (98-107); Creatinine Clr Calc Pharmacy 62.5 ml/min; Est GFR (Non-African American) 66.5 ml/min; Glucose 620 mg/dl (70-99(Fasting)); Magnesium 1.6 mg/dl (1.7-2.4); Potassium 4.9 mmol/L (3.5-5.1); Sodium 134 mmol/L (136-145); Total Protein 4.8 gm/dl (6.0-8.3)
[2023-11-13 16:43] LABS: INR 1.5 (0.9-1.1); Partial Thromboplastin Ratio 0.9; Partial Thromboplastin Time 23 Seconds (21-31); Prothrombin Time 15.6 Seconds (9.0-12.0)
[2023-11-13 16:47] LABS: Troponin I High Sensitivity 277.7 pg/ml (0-20)
--- NOTE | 2023-11-13 16:49 | XRay Report ---
XR chest 1V portable CLINICAL HISTORY: Sepsis TECHNIQUE: Single frontal radiograph of the chest was obtained. Comparison: None available at the time of this dictation. FINDINGS: No lines and tubes are seen. The cardiomediastinal silhouette is normal. Peribronchial thickening is seen. No evidence of pleural effusion or pneumothorax. IMPRESSION: Peribronchial thickening is seen compatible with infectious/inflammatory airways disease or viral pne umonia. No latia consolidation is seen. ACT 112: Negative or not required by law. Electronically signed by: Eb Cullen M.D. 11/13/2023 4:48 PM
[2023-11-13] MEDS: OPTIRAY 320 125ml IV ONE (16:54)
[2023-11-13 17:13] LABS: Adenovirus PCR Not Detected (NotDetected); Bordetella parapertussis PCR Not Detected (NotDetected); Bordetella pertussis PCR Not Detected (NotDetected); Chlamydia pneumoniae PCR Not Detected (NotDetected); Coronavirus 229E PCR Not Detected (NotDetected); Coronavirus CoV-2 (COVID19)PCR Not Detected (NotDetected); Coronavirus HKU1 PCR Not Detected (NotDetected); Coronavirus NL63 PCR Not Detected (NotDetected); Coronavirus OC43PCR Not Detected (NotDetected); Human Metapneumovirus PCR Not Detected (NotDetected); Influenza A PCR Not Detected (NotDetected); Influenza B PCR Not Detected (NotDetected); Mycoplasma pneumoniae PCR Not Detected (NotDetected); Parainfluenza Virus 1 PCR Not Detected (NotDetected); Parainfluenza Virus 2 PCR Not Detected (NotDetected); Parainfluenza Virus 3 PCR Not Detected (NotDetected); Parainfluenza Virus 4 PCR Not Detected (NotDetected); Respiratory Syncytial VirusPCR Not Detected (NotDetected); Rhinovirus/Enterovirus PCR Not Detected (NotDetected)
--- NOTE | 2023-11-13 17:18 | CT Scan Report ---
CT angio chest PE protocol CLINICAL HISTORY: sepsis, tachy, hypoten, hypox r/o PE TECHNIQUE: Multidetector row helical CT of the chest was performed with angiographic protocol. Leon l and sagittal reformations were obtained. Coronal and sagittal MIPS were obtained from the axial elham a set and were submitted for review. Automated dose lowering techniques and/or adjustment according to patient size were utilized for this exam. CT DOSE: 1603.91 mGy.cm Comparison: Comparison is made to chest radiograph 11/13/2023 FINDINGS: Lungs and pleura: Bronchial wall thickening is seen. Faint diffuse groundglass opacities are in a bal e-in-bud distribution. Heart and pericardium: Heart size is normal. No pericardial effusion. Vessels: Evaluation for pulmonary embolism is limited due to patient motion. No evidence of central o r lobar embolus. Mediastinum and susana: Unremarkable. Chest wall and lower neck: Unremarkable. Abdomen: For findings below the diaphragm, please refer to CT of the abdomen dated the same. Bones: Unremarkable. IMPRESSION: Findings are compatible with pneumonia and bronchitis with no evidence of pulmonary embolus. ACT 112: Negative or not required by law. Electronically signed by: Eb Cullen M.D. 11/13/2023 5:16 PM
[2023-11-13 17:22] LABS: Iron 226 mcg/dl (35-175); Transferrin 194 mg/dl (200-360); Unsaturated Iron Binding Cap < 55 mcg/dl (155-355)
--- NOTE | 2023-11-13 17:28 | CT Scan Report ---
CT abd pelvis IV con only CLINICAL HISTORY: sepsis, acute anemia TECHNIQUE: Helical axial images of the abdomen and pelvis were obtained and displayed. Automated dose lowering techniques and/or adjustment according to patient size were utilized for this exam. This e xam was performed with intravenous contrast. COMPARISON: None available at the time of this dictation. FINDINGS: Lower chest: For findings above the diaphragm, please see CT chest performed same day. Liver: Nodular contour of the liver is seen compatible with cirrhosis. Heterogeneous appearance of th e liver. Gallbladder and biliary tree: Cholelithiasis is seen without evidence of cholecystitis. No intra- or extrahepatic biliary ductal dilation. Pancreas: Pancreatic head edema is seen with peripancreatic fat stranding. No drainable fluid collect ions. Spleen: Splenomegaly is noted, the spleen measures 14 cm. Adrenals: Unremarkable. Kidneys and ureters: Unremarkable. Bladder: Unremarkable. Reproductive organs: Unremarkable. Bowel: Diverticulosis is seen without diverticulitis. The appendix is normal. There is markedly diste ntion of the stomach. Lymph nodes Retroperitoneal: Unremarkable. Pelvic: Unremarkable. Mesenteric: Unremarkable. Peritoneum: Soft tissue stranding is seen in the mid abdomen. Vessels: Prominent paraesophageal varices are seen. Abdominal wall: Unremarkable. Bones: Degenerative changes in the visualized spine. IMPRESSION: 1. Findings are concerning for pancreatitis without evidence of acute peripancreatic collection. 2. Prominent stomach with fat stranding about the duodenum which is likely reactive from the pancrea titis. 3. Cirrhosis, splenomegaly, and findings of portal hypertension. There is heterogeneity of the liver in this patient with reported history of hepatocellular carcinoma. ACT 112: Negative or not required by law. Electronically signed by: Eb Cullen M.D. 11/13/2023 5:26 PM
[2023-11-13] MEDS: PANTOprazole 40 MG in SYRINGE 0 ML IV ONE (17:29)
[2023-11-13 17:43] LABS: Ferritin 37.8 ng/ml (8-388)
[2023-11-13 18:01] LABS: Folate (Folic Acid),Ser orPlas > 22.30 ng/ml (>5.38)
[2023-11-13 18:02] LABS: Vitamin B12 756 pg/ml (180-914)
[2023-11-13 18:06] LABS: Appearance Urine Clear (Clear); Bilirubin Urine Negative (Negative); Blood Urine Negative (Negative); Color Urine Yellow; Glucose Urine UA 3+ (Negative); Ketones Urine Trace (Negative); Leukocyte Esterase Urine Negative (Negative); Nitrite Urine Negative (Negative); Protein Urine Negative (Negative); Specific Gravity Urine 1.038 (1.000-1.030); Urobilinogen Urine Negative (Negative)
[2023-11-13] MEDS: MAGNESIUM SULFATE / D5W 1 GM/100 ML BAG IV STA (18:20)
[2023-11-13 18:34] LABS: Bilirubin Direct 0.4 mg/dl (0-0.2); Lipase 149 U/L (11-82)
[2023-11-13] MEDS ORDERED: PHARMACY GLYCEMIC MGMT CONSULT PRN ×2 (18:39→19:54)
[2023-11-13] MEDS: PIPERACILLIN/TAZOBACTAM 4.5 GM/100 ML BAG IV ONE (18:55)
[2023-11-13] MEDS: MAGNESIUM SULFATE / D5W 1 GM/100 ML BAG IV SCH ×2 (19:11→20:10)
[2023-11-13] MEDS: LACTATED RINGER'S 1,000 ML IV ONE ×2 (19:11→23:29)
[2023-11-13] MEDS ORDERED: CALCIUM GLUCONATE 1,000 MG/60 ML BAG IV STA (19:20)
[2023-11-13] MEDS ORDERED: GLUCOSE 40% GEL 15 GM TUBE PO PRN (19:30)
[2023-11-13] MEDS ORDERED: DEXTROSE 50% 50 ML SYRINGE IV PRN (19:30)
[2023-11-13] MEDS ORDERED: GLUCAGON FOR INJ 1 MG VIAL IM PRN (19:30)
[2023-11-13] MEDS ORDERED: GLUCOSE 10 TAB/TUBE PO PRN (19:30)
[2023-11-13] MEDS ORDERED: LACTATED RINGER'S 1,000 ML IV SCH (19:34)
--- NOTE | 2023-11-13 19:37 | Critical Care Consultation ---
Date of Consultation November 13, 2023 Assessment & Plan (1) DKA (diabetic ketoacidosis): (2) Acute pancreatitis: (3) Anemia: (4) Cirrhosis: (5) Lactic acidosis: (6) Elevated troponin: (7) Septic shock: (8) Electrolyte abnormality: (9) High anion gap metabolic acidosis: (10) ROMANA (acute kidney injury): Plan Reason Critically Ill: 58 YOM with reported history of hepatocellular carcinoma, reports to EMD for nausea, vomiting, diarrhea, and hyperglycemia. Found to be in DKA as well as with sever lactic acidosis and anemia to 6.6. He will be admitted to the ICU for management of his DKA, acid base disturbances, and trending of his HGB levels. Neuro - No acute needs CAM ICU: Negative - frequent re-orientation and attempt to maintain normal sleep wake cycle to prevent ICU delirium Cardiac - Elevated HsCTNI, Shock multifactorial, anemia - ECG without stemi- likely type II demand in setting of DKA, anemia, and lactic acidosis- -trend troponin- ECHO in am - Volume resuscitate- maintain MAPS >65 vasopressors if needed - anemia multifactorial however can't exclude possible UGIb- with vomiting hx and elevated BUN- transfused 1unit PRBC for HGB 6.6- will trend this and provide another unit of PRBC if downtrending HGB, worsening organ dysfunction, or ev idence of acute bleeding. Respiratory - Pneumonia/bronchitis - CTA chest without large PE - study limited secondary to patient movement - May have component of aspiration pneumonitis as well - CT with GGO - Continue Zosyn - will add doxy - respiratory biofire negative at this time GI - Distended stomach, pancreatitis, possible UGI, ? hepatic cancer - Patient with complaints of nausea/vomiting and abdomen is distended without evidence of obstruction- this may be multifactorial from possibly pancreatitis as well as elevated blood glucose levels causing gastroparesis- low threshold to place NGT if patient has another episode of vomiting. - Pancreatitis per imaging and with abdominal pain, n/v after eating- lipase 142 - NPO at this time - For his pancreatitis- volume resuscitate as above- will use urine output and end organ labs as resuscitation guide - ? Hepatic cancer dx- no records- liver is noted to be heterogenous and cirrhotic on imaging -- Check ammonia level- normal LFTS, but with elevated INR - consider vitamin K if INR continues to increase - Ammonia level now RENAL/LYTES - HAGAP metabolic acidosis, lactic acidosis, ROMANA pre-renal, multiple electrolyte disturbances - HAGAP metabolic acidosis- will send urine tox screen as well as ETOH level - ingestion less likely with normal renal indices, however will check for completness - resuscitate, insulin therapy, follow lactate levels- may be confounded by metformin use as well - if not clearing consider angio of abdomen to look for possible bowel infarction - should improve with correction of DKA and anemia - will need to follow closely as clinical picture becomes more clear and therapies that have been started have been completed - replete calcium, replete magnesium - No acute needs - lang if needed, however able to urinate on his own at this time ENDO - DKA - DKA with normal sodium, elevated glucose, acidosis, HCo3 <18 - DKA protocol with insulin infusion and crystalloid- goal decrease in BG no more than 150mg/dl/hour HEME - anemia - anemia that may be acute on chronic- however at this time can't exclude acute blood loss from GI bleed unspecified source - BN is elevated - Received 1 unit of PRBC in EMD- will hold on second unit at this time- transfuse for HGB <7, worsening end organ dysfunction, or evidence of acute blood loss - provide calcium following blood ID - Septic shock - source at this time- GI vs. pulm or both- continue with Zosyn and add doxy for now - organ dysfunction noted - romana, heart with elevated troponin- blood culture pending, stool culture ordered by primary service likely not useful but will follow. - provide liter of ringers now for his intravascular depletion - re-eval with repeat lactate, PH, and monitoring of UO- consider bedside POCUS for evaluation of IVC LINES/IV ACCESS - PIV x4, Continue use of these lines DVT PROPHYLAXIS - SCDS, hold on chemoprophylaxis at this time until clinical picture becomes more clear in regards to bleeding DISPO: ICU until acid base status improved and volume status improved, I have personally spent 50 minutes of critical care time in the direct management of this patient. This is a life/limb threatening event. This includes time spent evaluating patient, direct bedside care, chart review, placing orders, interpretation of diagnostic studies, discussion with consultants, patient, and family members, as well as other required patient management activities. This time is exclusive of all separately billable procedures, and teaching time and separate from and in addition to any other critical care service time. Thank you for allowing us to participate in the care of this patient. Please refer to my attending physician's documentation for any further recommendations. History of Present Illness Reason for Consultation: DKA with severe lactic acidosis Requesting Physician: Akilah Petty Attending Physician: Akilah Petty History of Present Illness 58 YOM prisoner with no records in our systme but he reports medical history of: Liver Cancer, Diabetes, bilateral hip replacement. Patient was brought to the EMD for complaints of persistent nausea, vomiting, abdominal pain and diarrhea. Patient reports that he has been having abdominal pain and nausea for the past week or so, however he is a difficult historian to keep on track. He reports that he has stopped eating over the past 2-3 days because of abdominal pain and nausea. He reports his blood sugars being elevated over the past few days. In the EMD he had routine labs performed, CT with IV contrast of abdomen, CTA of the chest completed and ECG with CXR. He was noted to be hyperglycemic with acidosis, low bicarb, lactate of 16 and HGB level of 6 with other associated electrolyte abnormalities. He was given 1 unit of blood, 2 liters of crystalloid infusion, and was started on insulin infusion. His imaging was reviewed as well as interpretation- concern for pancreatitis on imaging was not ed by the radiologist, as well as concern for pneumonia/bronchitis. Patient will be admitted to the ICU for continued resuscitation, management of his acid base disorder, electrolyte replacements. He may need NGT for gastric decompression as he is distended with frequent episodes of vomiting prior to arrival. The patient states he emesis has been brown to brick colored but he denies any latia blood, he also endorses his last normal BM 2 days ago that he reports was brown and soft. CODE: FULL Allergies Allergy/AdvReac Type Severity Reaction Status Date / Time Fish Containing Products Allergy Unknown Verified 11/13/23 16:52 Home Medications Medication Instructions Recorded Confirmed Type cetirizine 10 mg capsule 10 mg PO DAILY 11/13/23 11/13/23 History diphenhydramine HCl 25 mg capsule 25 mg PO HS PRN allergies 11/13/23 11/13/23 History (Banophen) insulin glargine 100 unit/mL 48 unit subcut BID 11/13/23 11/13/23 History subcutaneous cartridge insulin regular human 100 unit/mL 1 sliding scale dose subcut 11/13/23 11/13/23 History injection solution (Novolin R USEASDIRECTD Regular U-100 Insulin) metformin 1,000 mg tablet 1,000 mg PO BID 11/13/23 11/13/23 History rosuvastatin 10 mg tablet 10 mg PO DAILY 11/13/23 11/13/23 History thiamine HCl (vitamin B1) 50 mg 50 mg PO DAILY 11/13/23 11/13/23 History tablet (Vitamin B-1) Patient History Medical History HLD (hyperlipidemia) Neuropathy T2DM (type 2 diabetes mellitus) Hepatocellular carcinoma Surgical History Hx of cervical spine surgery Hx of bilateral hip replacements Family History Father Throat cancer Mother Diabetes Social History Smoking Status: Former smoker Second Hand Exposure: No; Do You Dip or Chew Tobacco: No; Tobacco Cessation Education Requested by Patient: No Hx Alcohol Use: No Hx Substance Use: No Preferred Language: Amharic Communication Ability: Effective Extension Service Specialist Required: No Beliefs That Will Affect Care: None Current Living Situation: Other Current Living Situation Comment: [facility] Other Information That Helps Us Care for You: No Feels Safe at Home: Yes Safety Concerns: Feels Safe At This Time Assistive Devices: None Review of Systems Review of Systems: REVIEW OF SYSTEMS: Constitutional: No fever, sweats or chills Eyes: No diplopia, no worsening or blurred vision ENT: normal hearing, no trouble swallowing Respiratory: (+) cough,dyspnea at rest or on exertion, no sputum Cardiovascular: No chest pain, tightness or palpitations Abdomen: (+) pain, nausea, vomiting, diarrhea Musculoskeletal: No joint pain, calf pain, swelling Neurologic: No weakness, numbness/tingling, or balance problems Skin: No rash or itch Physical Exam Physical Exam: PHYSICAL EXAM: General: awake, alert, Head: Normocephalic, atraumatic ENT: PERRL, EOMI, no pharyngeal exudate, mucous membranes dry Neuro: AAO x 3, speech clear difficult to keep on track with thoughts, strength intact bilaterally 5/5, sensation intact no pronator drift Chest: equal rise and fall of the chest, no accessory muscle use, expiratory wheeze, non productive cough Cardiac: Regular rate and rhythm, telemetry reviewed, skin warm dry, cap refill <3 seconds, peripheral pulses +2 no JVD, no murmur, no JVD, no edema GI: NABS x 4 quadrants, soft, nontender to palpation, no rebound, guarding or tenderness : Spontaneously voiding, no pain, no CVA tenderness, Extremities: Normal inspection, no peripheral edema or erythema, calfs no ntender to palpation Psych: Normal mood and affect Results & Data Results & Data Vital Signs (Past 12 Hours) Vital Signs Temp Pulse Resp BP Pulse Ox O2 Del Method O2 Flow Rate 11/13/23 19:17 36.5 C 122 H 20 117/62 95 0 11/13/23 19:00 94 Room Air 11/13/23 19:00 98/77 L 11/13/23 18:45 111/67 11/13/23 18:40 110/72 11/13/23 18:40 110/72 11/13/23 18:30 88/65 L 11/13/23 18:30 120 H 28 H 94 11/13/23 18:25 36.5 C 114 H 24 124/74 94 11/13/23 18:15 124/83 11/13/23 18:15 124/83 11/13/23 18:15 124/83 11/13/23 18:12 118 H 24 94 11/13/23 18:10 36.4 C L 120 H 20 106/74 94 11/13/23 18:03 119 H 18 94 11/13/23 18:00 106/80 11/13/23 17:57 120 H 18 93 11/13/23 17:54 121 H 19 94 11/13/23 17:52 36.4 C L 121 H 20 104/71 93 0 11/13/23 17:45 104/71 11/13/23 17:45 104/71 11/13/23 17:45 104/71 11/13/23 17:42 94 Room Air 11/13/23 17:39 124 H 24 92 11/13/23 17:30 119/94 11/13/23 17:30 119/94 11/13/23 17:21 123 H 25 H 94 11/13/23 17:15 98/66 L 11/13/23 17:06 114 H 18 95 11/13/23 17:03 115 H 18 94 11/13/23 17:00 99/68 L 11/13/23 17:00 99/68 L 11/13/23 17:00 99/68 L 11/13/23 17:00 99/68 L 11/13/23 16:59 107/57 L 11/13/23 16:42 111 H 24 93 11/13/23 16:36 108 H 19 95 11/13/23 16:34 89/57 L 11/13/23 16:34 89/57 L 11/13/23 16:30 74/55 L 11/13/23 16:27 109 H 19 94 11/13/23 16:15 93/53 L 11/13/23 16:04 36.4 C L 11/13/23 16:03 84/48 L 11/13/23 16:03 107 H 18 97 11/13/23 16:02 95 Room Air 11/13/23 16:02 Room Air 11/13/23 16:00 106 H 11/13/23 15:50 35.8 C L 113 H 24 90/56 L 92 Room Air Laboratory Results Abnormal lab results 11/13/23 11/13/23 11/13/23 Range/Units 16:02 16:10 16:29 WBC 12.60 H (4.8-10.8) K/ul RBC 2.19 L (4.70-6.10) M/uL Hgb 6.6 L* (14.0-18.0) g/dl POC Hgb 6.1 L* (14.0-18.0) g/dl Hct 20.4 L* (42.0-52.0) % POC Hct 18 L* (42-52) % RDW Std Deviation 53.7 H (36.4-46.3) fL RDW Coeff of Lauren 15.9 H (11.5-14.5) % Reticulocyte % (Auto) 4.07 H (0.50-2.00) % Neutrophils # (Manual) 11.97 H (1.40-6.50) K/uL Total Absolute Neuts 11.97 H (1.4-6.5) K/uL Lymphocytes # (Manual) 0.38 L (1.2-3.4) K/uL Total Abs Lymphocytes 0.38 L (1.2-3.4) K/uL PT 15.6 H (9.0-12.0) Seconds INR 1.5 H (0.9-1.1) VBG pH 7.15 L (7.36-7.41) VBG pCO2 35 L (38-50) mmHg POC Sodium 132 L (135-144) mmol/L Sodium 134 L (136-145) mmol/L POC Chloride 100 L (101-112) mmol/L Carbon Dioxide 13 L (21-32) mmol/L POC Total CO2 12 L (24-31) mmol/L Anion Gap 23 H (3-11) POC Anion Gap 26.0 H (16-25) mmol/L POC BUN 69 H (7-18) mg/dl BUN 65 H (6-23) mg/dl BUN/Creatinine Ratio 54.6 H (10-20) Glucose 620 H* (70-99(Fasting)) mg/dl POC Glucose (70-99) mg/dl POC Glucose (other) 552 H* (70-99) mg/dl Osmolality 337 H (280-300) mOsm/kg Lactate 16.2 H* (0.4-2.0) mmol/L Calcium 8.5 L (8.6-10.3) mg/dl POC Ioniz Calcium Bill 1.09 L (1.12-1.32) mmol/l Magnesium 1.6 L (1.7-2.4) mg/dl Iron 226 H (35-175) mcg/dl Unsaturated IBC < 55 L (155-355) mcg/dl Transferrin 194 L (200-360) mg/dl Total Bilirubin 1.9 H (0.2-1.0) mg/dl Direct Bilirubin 0.4 H (0-0.2) mg/dl Troponin I High Sens 277.7 H* (0-20) pg/ml Total Protein 4.8 L (6.0-8.3) gm/dl Albumin 2.8 L (3.4-5.0) gm/dl Globulin 2.0 L (2.5-4.0) gm/dl Lipase 149 H (11-82) U/L Procalcitonin 0.63 H (0-0.5) ng/ml Ur Specific [place] (1.000-1.030) Urine Glucose (UA) (Negative) Urine Ketones (Negative) Crossmatch See Detail 11/13/23 11/13/23 11/13/23 Range/Units 17:55 17:56 18:20 WBC (4.8-10.8) K/ul RBC (4.70-6.10) M/uL Hgb (14.0-18.0) g/dl POC Hgb (14.0-18.0) g/dl Hct (42.0-52.0) % POC Hct (42-52) % RDW Std Deviation (36.4-46.3) fL RDW Coeff of Lauren (11.5-14.5) % Reticulocyte % (Auto) (0.50-2.00) % Neutrophils # (Manual) (1.40-6.50) K/uL Total Absolute Neuts (1.4-6.5) K/uL Lymphocytes # (Manual) (1.2-3.4) K/uL Total Abs Lymphocytes (1.2-3.4) K/uL PT (9.0-12.0) Seconds INR (0.9-1.1) VBG pH (7.36-7.41) VBG pCO2 (38-50) mmHg POC Sodium (135-144) mmol/L Sodium (136-145) mmol/L POC Chloride (101-112) mmol/L Carbon Dioxide (21-32) mmol/L POC Total CO2 (24-31) mmol/L Anion Gap (3-11) POC Anion Gap (16-25) mmol/L POC BUN (7-18) mg/dl BUN (6-23) mg/dl BUN/Creatinine Ratio (10-20) Glucose (70-99(Fasting)) mg/dl POC Glucose 529 H* (70-99) mg/dl POC Glucose (other) (70-99) mg/dl Osmolality (280-300) mOsm/kg Lactate 16.3 H* (0.4-2.0) mmol/L Calcium (8.6-10.3) mg/dl POC Ioniz Calcium Bill (1.12-1.32) mmol/l Magnesium (1.7-2.4) mg/dl Iron (35-175) mcg/dl Unsaturated IBC (155-355) mcg/dl Transferrin (200-360) mg/dl Total Bilirubin (0.2-1.0) mg/dl Direct Bilirubin (0-0.2) mg/dl Troponin I High Sens 338.3 H* D (0-20) pg/ml Total Protein (6.0-8.3) gm/dl Albumin (3.4-5.0) gm/dl Globulin (2.5-4.0) gm/dl Lipase (11-82) U/L Procalcitonin (0-0.5) ng/ml Ur Specific [place] 1.038 H (1.000-1.030) Urine Glucose (UA) 3+ H (Negative) Urine Ketones Trace H (Negative) Crossmatch Diagnostic Findings Chest X-Ray 11/13/23 16:00 XR chest 1V portable CLINICAL HISTORY: Sepsis TECHNIQUE: Single frontal radiograph of the chest was obtained. Comparison: None available at the time of this dictation. FINDINGS: No lines and tubes are seen. The cardiomediastinal silhouette is normal. Peribronchial thickening is seen. No evidence of pleural effusion or pneumothorax. IMPRESSION: Peribronchial thickening is seen compatible with infectious/inflammatory airways disease or viral pneumonia. No latia consolidation is seen. ACT 112: Negative or not required by law. Electronically signed by: Eb Cullen M.D. 11/13/2023 4:48 PM Abdomen/Pelvis CT 11/13/23 16:39 CT abd pelvis IV con only CLINICAL HISTORY: sepsis, acute anemia TECHNIQUE: Helical axial images of the abdomen and pelvis were obtained and displayed. Automated dose lowering techniques and/or adjustment according to patient size were utilized for this exam. This exam was performed with int ravenous contrast. COMPARISON: None available at the time of this dictation. FINDINGS: Lower chest: For findings above the diaphragm, please see CT chest performed same day. Liver: Nodular contour of the liver is seen compatible with cirrhosis. Heterogeneous appearance of the liver. Gallbladder and biliary tree: Cholelithiasis is seen without evidence of cholecystitis. No intra- or extrahepatic biliary ductal dilation. Pancreas: Pancreatic head edema is seen with peripancreatic fat stranding. No drainable fluid collections. Spleen: Splenomegaly is noted, the spleen measures 14 cm. Adrenals: Unremarkable. Kidneys and ureters: Unremarkable. Bladder: Unremarkable. Reproductive organs: Unremarkable. Bowel: Diverticulosis is seen without diverticulitis. The appendix is normal. There is markedly distention of the stomach. Lymph nodes Retroperitoneal: Unremarkable. Pelvic: Unremarkable. Mesenteric: Unremarkable. Peritoneum: Soft tissue stranding is seen in the mid abdomen. Vessels: Prominent paraesophageal varices are seen. Abdominal wall: Unremarkable. Bones: Degenerative changes in the visualized spine. IMPRESSION: 1. Findings are concerning for pancreatitis without evidence of acute peripancreatic collection. 2. Prominent stomach with fat stranding about the duodenum which is likely reactive from the pancreatitis. 3. Cirrhosis, splenomegaly, and findings of portal hypertension. There is heterogeneity of the liver in this patient with reported history of hepatocellular carcinoma. ACT 112: Negative or not required by law. Electronically signed by: Eb Cullen M.D. 11/13/2023 5:26 PM Chest CTA 11/13/23 16:39 CT angio chest PE protocol CLINICAL HISTORY: sepsis, tachy, hypoten, hypox r/o PE TECHNIQUE: Multidetector row helical CT of the chest was performed with angiographic protocol. Coronal and sagittal reformations were obtained. Coronal and sagittal MIPS were obtained from the axial data set and were submitted for review. Automated dose lowering techniques and/or adjustment according to patient size were utilized for this exam. CT DOSE: 1603.91 mGy.cm Comparison: Comparison is made to chest radiograph 11/13/2023 FINDINGS: Lungs and pleura: Bronchial wall thickening is seen. Faint diffuse groundglass opacities are in a tree-in-bud distribution. Heart and pericardium: Heart size is normal. No pericardial effusion. Vessels: Evaluation for pulmonary embolism is limited due to patient motion. No evidence of central or lobar embolus. Mediastinum and susana: Unremarkable. Chest wall and lower neck: Unremarkable. Abdomen: For findings below the diaphragm, please refer to CT of the abdomen dated the same. Bones: Unremarkable. IMPRESSION: Findings are compatible with pneumonia and bronchitis with no evidence of pulmonary embolus. ACT 112: Negative or not required by law. Electronically signed by: Eb Cullen M.D. 11/13/2023 5:16 PM Medications Administered Home Medications cetirizine 10 mg capsule 10 mg PO DAILY 11/13/23 [History Confirmed 11/13/23] diphenhydramine HCl 25 mg capsule (Banophen) 25 mg PO HS PRN allergies 11/13/23 [History Confirmed 11/13/23] insulin glargine 100 unit/mL subcutaneous cartridge 48 unit subcut BID 11/13/23 [History Confirmed 11/13/23] insulin regular human 100 unit/mL injection solution (Novolin R Regular U-100 Insulin) 1 sliding scale dose subcut USEASDIRECTD 11/13/23 [History Confirmed 11/13/23] metformin 1,000 mg tablet 1,000 mg PO BID 11/13/23 [History Confirmed 11/13/23] rosuvastatin 10 mg tablet 10 mg PO DAILY 11/13/23 [History Confirmed 11/13/23] thiamine HCl (vitamin B1) 50 mg tablet (Vitamin B-1) 50 mg PO DAILY 11/13/23 [History Confirmed 11/13/23] Active Medications Dextrose (Dextrose 50% 50 Ml Syringe) 25 - 50 ml IV UD PRN; Protocol PRN Reason: Hypoglycemia Protocol Stop: 12/13/23 19:29 Glucagon (Glucagon For Inj 1 Mg Vial) 1 mg IM UD PRN; Protocol PRN Reason: Hypoglycemia Protocol Stop: 12/13/23 19:29 Glucose (Glucose 40% Gel 15 Gm Tube) 15 - 30 gm PO UD PRN; Protocol PRN Reason: Hypoglycemia Protocol Stop: 12/13/23 19:29 Glucose (Glucose 10 Tab/Tube) 4 - 8 tab PO UD PRN; Protocol PRN Reason: Hypoglycemia Protocol Stop: 12/13/23 19:29 Sodium Chloride (Nss) 250 mls @ 15 mls/hr IV .[id number] PRN PRN Reason: For Transfusion Duration Stop: 11/14/23 02:29 Insulin Human Regular 250 (units/ Sodium Chloride) 250 mls @ 2.7 mls/hr IV .Q24H CORDELL; Protocol Stop: 12/13/23 18:14 Lactated Ringer's (Lr) 1,000 mls @ 999 mls/hr IV .Q1H1M ONE Stop: 11/13/23 20:05 Last Admin: 11/13/23 19:11 Dose: 999 mls/hr Calcium Gluconate () 1,000 mg in 60 mls @ 240 mls/hr IV Q15M CORDELL Stop: 11/13/23 19:44 Magnesium Sulfate/Dextrose (Magnesium Sulfate / D5w) 1 gm in 100 mls @ 50 mls/hr IV Q2H CORDELL Stop: 11/13/23 23:14 Piperacillin Sod/Tazobactam Sod (Zosyn) 4.5 gm in 100 mls @ 25 mls/hr IV Q8H CORDELL Stop: 11/20/23 19:33 Potassium Chloride/Sodium Chloride (1/2 Nss + 20meq Kcl 1000ml) 20 meq in 1,000 mls @ 200 mls/hr IV .Q5H CORDELL Stop: 12/13/23 19:33 Insulin Aspart (Insulin Aspart Per Unit Charge) 0 units SC ACHS CORDELL Stop: 12/13/23 20:59 Insulin Aspart (Insulin Aspart Per Unit Charge) 0 units SC ACHS CORDELL Stop: 12/13/23 20:59 Miscellaneous (Carbohydrates For Hypoglycemia ) 15 - 30 gm PO UD PRN PRN Reason: Hypoglycemia Treatment Stop: 12/13/23 19:29 Miscellaneous (Icu Protocol For Hyperglycemia) 1 each N/A ACHS [facility] Stop: 11/15/23 20:59 Miscellaneous (Dka Goal Range 150-250 Mg/Dl) 1 each N/A ONE ONE Stop: 11/13/23 19:35 Miscellaneous (Pending D5 1/2ns+20meq Kcl Ivf) 1 each N/A Q2H CORDELL Stop: 12/13/23 19:33 Miscellaneous Information (Pharmacy Glycemic Mgmt Consult) 1 each N/A UD PRN; Protocol PRN Reason: Consult Stop: 12/13/23 18:38 Ondansetron HCl (Ondansetron Inj 2 Mg/Ml 2 Ml Vial) 4 mg IV Q6H PRN PRN Reason: Nausea And Vomiting Stop: 12/13/23 19:33 ECG Additional Comments: Vent. Rate : 111 BPM Atrial Rate : 111 BPM P-R Int : 138 ms QRS Dur : 90 ms QT Int : 362 ms P-R-T Axes : 53 28 57 degrees QTcB Int : 492 ms Sinus tachycardia Otherwise normal ECG No previous ECGs available Confirmed by Eliseo Mcdaniel ([id number]) on 11/13/2023 4:24:23 PM Coding Level of Care Code 69036 CRITICAL CARE 1ST 30-74M Diagnoses DKA (diabetic ketoacidosis) E11.10 Acute pancreatitis K85.90 Anemia D64.9 Cirrhosis K74.60 Lactic acidosis E87.20 Elevated troponin R79.89 Septic shock A41.9; R65.21 Electrolyte abnormality E87.8 High anion gap metabolic acidosis E87.29 ROMANA (acute kidney injury) N17.9
--- NOTE | 2023-11-13 19:40 | History & Physical Report ---
Date of Service November 13, 2023 Assessment & Plan (1) Severe sepsis: (2) DKA (diabetic ketoacidosis): (3) Acute pancreatitis: (4) Pneumonia: (5) Anemia: (6) T2DM (type 2 diabetes mellitus): (7) Hepatocellular carcinoma: Plan This is a 58 year old M who presents to ED from [facility] with PMH of Stage 3 Hepatocellular carcinoma, Uncontrolled T2DM, diabetic neuropathy and formal alcohol abuse 2/2 ill feeling x 2 weeks. Severe Sepsis in setting of Pneumonia and Acute Pancreatitis, possible odontogenic infection (pt being tx with oral antibiotic at residential per pt hx) DKA Lactic acidosis - pt started metformin 4 days ago admit to ICU - Dr. 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 Neuropathy: currently not on tx DVT ppx: SCDS for now in setting of anemia, unknown source FULL CODE Dispo: Admit to ICU, d/c to residential when medically able PCP: [facility] Pt was seen and examined in collaboration with Dr. Gore, please see addendum A total of 76 minutes was spent coordinating, documenting, and providing care for this patient excluding time spent in the performance of separately billed services. This included personally viewing all current laboratories and imaging studies, medication reconciliation, outpatient chart review, and discussion with specialists. History of Present Illness Chief Complaint: Ill feeling x 2 weeks. Primary Care Provider: LANDRY Connell This is a 58 year old M who presents to ED from [facility] with PMH of Stage 3 Hepatocellular carcinoma, Uncontrolled T2DM, diabetic neuropathy and formal alcohol abuse 2/2 ill feeling x 2 weeks. He states approx 2 weeks ago he developed URI sx and was just feeling unwell. 3-4 days ago after eating pudding and tacos he developed significant nausea, vomiting and diarrhea. He describes the vomit and diarrhea like, "pudding," but denies any latia blood. He has s ignificant nausea, abdominal pain and distension. He denies f/c/s, dizziness, lightheaded, chest pain, cough, dysuria or hematuria. He does complain of SOB at rest/exertion, wheezing, polyuria and polydipsia. He denies similar sx in the past. He previously was a heavy alcohol user drinking 1gallon of vodka daily. He quit 2.5 years ago. He states he was diagnosed with liver cancer 2.5 years ago at [facility] and at that time declined treatment. In ED pt was hypotensive and tachycardia. He was found to be severely acidotic with a pH of 7.15 and in DKA with BSG in 600s. He was notably anemic with hgb 6.6, elevated trop in 200s, lipase 149, mag 1.6, lactic acid 16.3. He was typed and crossed, started on 1 unit of PRBC, received 2L of IVF, magnesium supplementation and IV zosyn. Allergies Allergy/AdvReac Type Severity Reaction Status Date / Time Fish Containing Products Allergy Unknown Verified 11/13/23 16:52 Home Medications Medication Instructions Recorded Confirmed Type cetirizine 10 mg capsule 10 mg PO DAILY 11/13/23 11/13/23 History diphenhydramine HCl 25 mg capsule 25 mg PO HS PRN allergies 11/13/23 11/13/23 History (Banophen) insulin glargine 100 unit/mL 48 unit subcut BID 11/13/23 11/13/23 History subcutaneous cartridge insulin regular human 100 unit/mL 1 sliding scale dose subcut 11/13/23 11/13/23 History injection solution (Novolin R USEASDIRECTD Regular U-100 Insulin) metformin 1,000 mg tablet 1,000 mg PO BID 11/13/23 11/13/23 History rosuvastatin 10 mg tablet 10 mg PO DAILY 11/13/23 11/13/23 History thiamine HCl (vitamin B1) 50 mg 50 mg PO DAILY 11/13/23 11/13/23 History tablet (Vitamin B-1) Past Med/Surg History Problem List (Updated 08/21/24 @ 04:27 by Saturnino Thompson MD) Symptomatic anemia (Acute) ROMANA (acute kidney injury) High anion gap metabolic acidosis (Acute) Electrolyte abnormality Septic shock Elevated troponin (Acute) Lactic acidosis (Acute) Cirrhosis (Acute) Anemia Pneumonia (Acute) Acute pancreatitis (Acute) DKA (diabetic ketoacidosis) (Acute) Severe sepsis (Acute) Medical History HLD (hyperlipidemia) Neuropathy T2DM (type 2 diabetes mellitus) Hepatocellular carcinoma Surgical History Hx of cervical spine surgery Hx of bilateral hip replacements Family History Father Throat cancer Mother Diabetes Social History Smoking Status: Former smoker Second Hand Exposure: No; Do You Dip or Chew Tobacco: No; Tobacco Cessation Education Requested by Patient: No Hx Alcohol Use: No Hx Substance Use: No Preferred Language: Argentine Communication Ability: Unable Punchboard Inserter Required: No Beliefs That Will Affect Care: None Current Living Situation: Other Current Living Situation Comment: [facility] Other Information That Helps Us Care for You: No Feels Safe at Home: Yes Safety Concerns: Feels Safe At This Time Assistive Devices: None Review of Systems Review of Systems: All systems reviewed & are unremarkable except as noted in HPI & below Physical Exam Physical Exam: Constitutional: Acute ill appearing male, vitals as above, NAD, sitting up in bed, answers questions approp Head: Normocephalic, Atraumatic Eyes: PERRL, conjunctivae normal, anicteric sclerae ENMT: external ear and nose normal, oropharynx dry and very poor dentition Neck: trachea midline, no thyromegaly normal visual inspection Respiratory: increased respiratory effort, lungs clear to auscultation, +rhonchi, no rales. no accessory muscle use Cardiovascular: tachycardic rate, regular rhythm, no murmur, no edema Vessels: no JVD or carotid bruit Chest: normal inspection of chest Abdomen: distended abdomen, firm, absent bowel sounds, TTP, no rebound, guarding Musculoskeletal: no cyanosis or clubbing, extremities AROM x 4 Skin: no rashes, warm and dry normal turgor Neurologic: PERRL, EOMI, accommodation nl, no face palsy, no dysarthria CN's II-XI intact bilaterally and moves all extremities Psychiatric: A+Ox3, euthymic affect : deferred Results & Data Results & Data Vital Signs (Past 12 Hours) Vital Signs Temp Pulse Resp BP Pulse Ox O2 Del Method O2 Flow Rate 11/13/23 18:10 36.4 C L 120 H 20 106/74 94 11/13/23 17:52 36.4 C L 121 H 20 104/71 93 0 11/13/23 17:45 104/71 11/13/23 17:45 104/71 11/13/23 17:45 104/71 11/13/23 17:42 94 Room Air 11/13/23 17:39 124 H 24 92 11/13/23 17:30 119/94 11/13/23 17:30 119/94 11/13/23 17:21 123 H 25 H 94 11/13/23 17:15 98/66 L 11/13/23 17:06 114 H 18 95 11/13/23 17:03 115 H 18 94 11/13/23 17:00 99/68 L 11/13/23 17:00 99/68 L 11/13/23 17:00 99/68 L 11/13/23 17:00 99/68 L 11/13/23 16:59 107/57 L 11/13/23 16:42 111 H 24 93 11/13/23 16:36 108 H 19 95 11/13/23 16:34 89/57 L 11/13/23 16:34 89/57 L 11/13/23 16:30 74/55 L 11/13/23 16:27 109 H 19 94 11/13/23 16:15 93/53 L 11/13/23 16:04 36.4 C L 11/13/23 16:03 84/48 L 11/13/23 16:03 107 H 18 97 11/13/23 16:02 95 Room Air 11/13/23 16:02 Room Air 11/13/23 16:00 106 H 11/13/23 15:50 35.8 C L 113 H 24 90/56 L 92 Room Air Laboratory Results I have independently reviewed and interpreted patient's admitting labs including CBC, CMP, mag, trop, lipase, iron panel, procal, b12, folate, vbg Diagnostic Findings Chest X-Ray 11/13/23 16:00 XR chest 1V portable CLINICAL HISTORY: Sepsis TECHNIQUE: Single frontal radiograph of the chest was obtained. Comparison: None available at the time of this dictation. FINDINGS: No lines and tubes are seen. The cardiomediastinal silhouette is normal. Peribronchial thickening is seen. No evidence of pleural effusion or pneumothorax. IMPRESSION: Peribronchial thickening is seen compatible with infectious/inflammatory airways disease or viral pneumonia. No latia consolidation is seen. ACT 112: Negative or not required by law. Electronically signed by: Eb Cullen M.D. 11/13/2023 4:48 PM Abdomen/Pelvis CT 11/13/23 16:39 CT abd pelvis IV con only CLINICAL HISTORY: sepsis, acute anemia TECHNIQUE: Helical axial images of the abdomen and pelvis were obtained and displayed. Automated dose lowering techniques and/or adjustment according to patient size were utilized for this exam. This exam was performed with intravenous contrast. COMPARISON: None available at the time of this dictation. FINDINGS: Lower chest: For findings above the diaphragm, please see CT chest performed same day. Liver: Nodular contour of the liver is seen compatible with cirrhosis. Heterogeneous appearance of the liver. Gallbladder and biliary tree: Cholelithiasis is seen without evidence of cholecystitis. No intra- or extrahepatic biliary ductal dilation. Pancreas: Pancreatic head edema is seen with peripancreatic fat stranding. No drainable fluid collections. Spleen: Splenomegaly is noted, the spleen measures 14 cm. Adrenals: Unremarkable. Kidneys and ureters: Unremarkable. Bladder: Unremarkable. Reproductive organs: Unremarkable. Bowel: Diverticulosis is seen without diverticulitis. The appendix is normal. There is markedly distention of the stomach. Lymph nodes Retroperitoneal: Unremarkable. Pelvic: Unremarkable. Mesenteric: Unremarkable. Peritoneum: Soft tissue stranding is seen in the mid abdomen. Vessels: Prominent paraesophageal varices are seen. Abdominal wall: Unremarkable. Bones: Degenerative changes in the visualized spine. IMPRESSION: 1. Findings are concerning for pancreatitis without evidence of acute peripancreatic collection. 2. Prominent stomach with fat stranding about the duodenum which is likely re active from the pancreatitis. 3. Cirrhosis, splenomegaly, and findings of portal hypertension. There is heterogeneity of the liver in this patient with reported history of hepatocellular carcinoma. ACT 112: Negative or not required by law. Electronically signed by: Eb Cullen M.D. 11/13/2023 5:26 PM Chest CTA 11/13/23 16:39 CT angio chest PE protocol CLINICAL HISTORY: sepsis, tachy, hypoten, hypox r/o PE TECHNIQUE: Multidetector row helical CT of the chest was performed with angiographic protocol. Coronal and sagittal reformations were obtained. Coronal and sagittal MIPS were obtained from the axial data set and were submitted for review. Automated dose lowering techniques and/or adjustment according to patient size were utilized for this exam. CT DOSE: 1603.91 mGy.cm Comparison: Comparison is made to chest radiograph 11/13/2023 FINDINGS: Lungs and pleura: Bronchial wall thickening is seen. Faint diffuse groundglass opacities are in a tree-in-bud distribution. Heart and pericardium: Heart size is normal. No pericardial effusion. Vessels: Evaluation for pulmonary embolism is limited due to patient motion. No evidence of central or lobar embolus. Mediastinum and susana: Unremarkable. Chest wall and lower neck: Unremarkable. Abdomen: For findings below the diaphragm, please refer to CT of the abdomen dated the same. Bones: Unremarkable. IMPRESSION: Findings are compatible with pneumonia and bronchitis with no evidence of pulmonary embolus. ACT 112: Negative or not required by law. Electronically signed by: Eb Cullen M.D. 11/13/2023 5:16 PM Medications Administered Medication List Lactated Ringer's (Lr) 1,000 mls @ 999 mls/hr IV .Q1H1M ONE Stop: 11/13/23 20:05 Last Admin: 11/13/23 19:11 Dose: 999 mls/hr Documented By: ELIJAH Discontinued Medications Sodium Chloride (Nss) 1,000 mls @ 999 mls/hr IV .Q1H1M CORDELL Stop: 11/13/23 18:15 Last Infusion: 11/13/23 17:59 Dose: Infused Documented By: Admin: 11/13/23 16:24 Dose: 999 mls/hr Documented By: Infusion: 11/13/23 16:24 Dose: Infused Documented By: Admin: 11/13/23 16:23 Dose: 999 mls/hr Documented By: ELIJAH Famotidine (Pepcid 20mg Iv Push) 20 mg in 5 mls @ 2.5 mls/min IV NOW STA Stop: 11/13/23 16:05 Last Admin: 11/13/23 16:24 Dose: 2.5 mls/min Documented By: ELIJAH Pantoprazole Sodium 40 mg/ (Syringe) 10 mls @ 5 mls/min IV NOW ONE Stop: 11/13/23 16:42 Last Admin: 11/13/23 17:29 Dose: 5 mls/min Documented By: CONG Magnesium Sulfate/Dextrose (Magnesium Sulfate / D5w) 1 gm in 100 mls @ 100 mls/hr IV NOW STA Stop: 11/13/23 19:08 Last Admin: 11/13/23 18:20 Dose: 100 mls/hr Documented By: AWAIS Piperacillin Sod/Tazobactam Sod (Zosyn) 4.5 gm in 100 mls @ 200 mls/hr IV NOW ONE Stop: 11/13/23 18:39 Last Admin: 11/13/23 18:55 Dose: 200 mls/hr Documented By: ELIJAH Magnesium Sulfate/Dextrose (Magnesium Sulfate / D5w) 1 gm in 100 mls @ 100 mls/hr IV Q1H CORDELL Stop: 11/13/23 18:31 Last Admin: 11/13/23 19:11 Dose: 100 mls/hr Documented By: ELIJAH Ioversol (Optiray 320 125ml) 115 ml IV ONCE ONE Stop: 11/13/23 16:55 Last Admin: 11/13/23 16:54 Dose: 115 ml Documented By: SHAHIDA Ondansetron HCl (Ondansetron Inj 2 Mg/Ml 2 Ml Vial) 4 mg IV NOW STA Stop: 11/13/23 16:05 Last Admin: 11/13/23 16:24 Dose: 4 mg Documented By: ELIJAH ECG Additional Comments: I have independently reviewed and interpreted patient's admitting EKG which revealed: ST 111bpm, no st t wave change COVID-19 Results Results COVID-19 Adm Lab Results: RBC 2.25 M/uL (4.70-6.10) L 11/14/23 WBC 20.66 K/ul (4.8-10.8) H 11/14/23 Hgb 6.8 g/dl (14.0-18.0) L* 11/14/23 Hct 20.0 % (42.0-52.0) L* 11/14/23 Plt Count 94 K/uL (130-400) L 11/14/23 Neutrophils (%) (Auto) 84.8 % 11/14/23 Lymphocytes (%) (Auto) 6.0 % 11/14/23 Monocytes # (Auto) 1.73 K/uL (0.11-0.59) H 11/14/23 Eosinophils # (Auto) 0.03 K/uL (0.00-0.50) 11/14/23 Immature Granulocyte % (Auto) 0.6 % 11/14/23 Neutrophils # (Auto) 17.51 K/uL (1.40-6.50) H 11/14/23 Lymphocytes # (Auto) 1.24 K/uL (1.20-3.40) 11/14/23 Monocytes # (Auto) 1.73 K/uL (0.11-0.59) H 11/14/23 Eosinophils # (Auto) 0.03 K/uL (0.00-0.50) 11/14/23 Basophils # (Auto) 0.03 K/uL (0.00-0.20) 11/14/23 Immature Granulocyte # (Auto) 0.12 K/uL (0.01-0.20) 4 ANC 11.97 K/uL (1.4-6.5) H 11/13/23 ALC 0.38 K/uL (1.2-3.4) L 11/13/23 Neutrophils % (Manual) 95 % 11/13/23 Lymphocytes % (Manual) 3 % 11/13/23 Monocytes % (Manual) 1 % 11/13/23 Neutrophils # (Manual) 11.97 K/uL (1.40-6.50) H 11/13/23 Lymphocytes # (Manual) 0.38 K/uL (1.2-3.4) L 11/13/23 Monocytes # (Manual) 0.13 K/uL (0.11-0.59) 11/13/23 Eosinophils # (Manual) 0.13 K/uL (0-0.50) 11/13/23 Red Blood Cell Morphology Unremarkable 11/13/23 Polychromasia 1+ 11/14/23 Na 138 mmol/L (136-145) 11/14/23 K 4.3 mmol/L (3.5-5.1) 11/14/23 Cl 110 mmol/L (98-107) H 11/14/23 CO2 21 mmol/L (21-32) 11/14/23 Anion Gap 7 (3-11) 11/14/23 BUN 64 mg/dl (6-23) H 11/14/23 Creatinine 0.93 mg/dl (0.6-1.4) 11/14/23 BUN/Creatinine Ratio 68.8 (10-20) H 11/14/23 Glucose Level 167 mg/dl (70-99(Fasting)) H 11/14/23 Ca 9.1 mg/dl (8.6-10.3) 11/14/23 Phosphorus Level 2.7 mg/dl (2.5-4.9) 11/14/23 Total Bilirubin 1.9 mg/dl (0.2-1.0) H 11/13/23 Direct Bilirubin 0.4 mg/dl (0-0.2) H 11/13/23 AST/SGOT 31 U/L (13-39) 11/13/23 ALT/SGPT 27 U/L (7-52) 11/13/23 Alkaline Phosphatase 85 U/L (34-104) 11/13/23 Total Protein 4.8 gm/dl (6.0-8.3) L 11/13/23 Albumin 2.8 gm/dl (3.4-5.0) L 11/13/23 Globulin 2.0 gm/dl (2.5-4.0) L 11/13/23 Albumin/Globulin Ratio 1.4 (0.9-2) 11/13/23 Procalcitonin 0.63 ng/ml (0-0.5) H 11/13/23 Ferritin 37.8 ng/ml (8-388) 11/13/23 PTT 23 Seconds (21-31) 11/13/23 INR 1.5 (0.9-1.1) H 11/14/23 Triglycerides Level 90 mg/dl (0-150) 11/14/23 Adenovirus (PCR) Not Detected (NotDetected) 11/13/23 B. parapertussis DNA (PCR) Not Detected (NotDetected) 10/25 0 B. pertussis DNA (PCR) Not Detected (NotDetected) 11/13/23 C. pneumoniae DNA (PCR) Not Detected (NotDetected) 4 Coronavirus Type OC43 (PCR) Not Detected (NotDetected) Coronavirus Type HKU1 (PCR) Not Detected (NotDetected) Coronavirus Type 229E (PCR) Not Detected (NotDetected) COVID-19 PCR Not Detected (NotDetected) 11/13/23 Coronavirus Type NL63 (PCR) Not Detected (NotDetected) Human Metapneumovirus (PCR) Not Detected (NotDetected) Influenza Virus Type A (PCR) Not Detected (NotDetected) Influenza Virus Type B (PCR) Not Detected (NotDetected) M. pneumoniae (PCR) Not Detected (NotDetected) 11/13/23 Parainfluenza Type 1 (PCR) Not Detected (NotDetected) 10/25 Parainfluenza Type 2 (PCR) Not Detected (NotDetected) 10/25 Parainfluenza Type 3 (PCR) Not Detected (NotDetected) 10/25 Parainfluenza Type 4 (PCR) Not Detected (NotDetected) 10/25 RSV (PCR) Not Detected (NotDetected) 11/13/23 Enterovirus/Rhinovirus (PCR) Not Detected (NotDetected) Chest X-Ray 11/13/23 Code Status & VTE Plan Code Status FULL CODE VTE Prophylaxis Plan VTE Prophylaxis will be ordered: No Reason for no VTE drug order: Contraindicated Supervising Physician Co-Signing Physician Notes Pt was seen and examined by myself, Akilah Gore MD on the day of service. Care was coordinated with Cecile Patel PA-C. 58yoM presenting from the residential with N/V and concern for low blood pressure. On arrival noted to be significantly anemia with hgb in 6 range, septic with pneumonia, in DKA. Also noted pancreatitis. Pt has a Hx of liver cancer that he states he refused treatment for 2 years ago. Also notes chronic alcohol abuse history. On exam AAO, abdomen distended, firm and tender. No increased oxygen requirement. DKA- on insulin drip, IV fluids, glycemic consult, q4h BMP, mag, phos and VBG Anemia- anemia panel, transfuse as needed, goal hgb >7. Suspect GI bleed, pt noting questionable blood in stools. GI consulted, appreciate recs. Pancreatitis- lipase elevated, noted on CT, continue IVF Sepsis, pneumonia- procal elevated, continue Zosyn Otherwise as above. I spent a total [id number] coordinating, documenting, and providing care for this patient excluding time spent in the performance of separately billed services
[2023-11-13] MEDS ORDERED: PANTOprazole 40 MG in DEXTROSE 5% MINI-B 100 ML IV SCH ×2 (19:45→20:00)
[2023-11-13] MEDS: INSULIN REGULAR 250 UNITS in SODIUM CHLORIDE 0.9% 247.5 ML IV SCH (20:06)
[2023-11-13] MEDS: STAT IV Infusion **Titration per Protocol STA (20:07)
[2023-11-13] MEDS: DKA GOAL RANGE 150-250 mg/dl ONE (20:08)
[2023-11-13] MEDS: INSULIN ASPART PER UNIT CHARGE SC SCH (20:09)
[2023-11-13] MEDS: PENDING D5 1/2NS+20mEq KCL IVF SCH ×2 (20:11→20:19)
[2023-11-13] MEDS: LACTATED RINGER'S 1,000 ML IV SCH (20:12)
[2023-11-13] MEDS: HHS GOAL RANGE 250-350 mg/dl ONE (20:18)
[2023-11-13] MEDS: SODIUM CHLOR 0.45% + 20MEQ KCL 20 MEQ/1,000 ML BAG IV SCH ×2 (20:18→20:19)
[2023-11-13] MEDS: CALCIUM GLUCONATE 1,000 MG/60 ML BAG IV SCH (20:28)
[2023-11-13] MEDS ORDERED: ICU Protocol for HYPERglycemia SCH (21:00)
[2023-11-13] MEDS ORDERED: INSULIN ASPART PER UNIT CHARGE SC SCH (21:00)
[2023-11-13 21:23] LABS: BUN Creatinine Ratio 57.5 (10-20); Creatinine Clr Calc Pharmacy 70.2 ml/min; Est GFR (African American) 88.6 ml/min; Est GFR (Non-African American) 76.4 ml/min; Magnesium 2.1 mg/dl (1.7-2.4); Phosphorus 6.5 mg/dl (2.5-4.9)
[2023-11-13] MEDS: DOXYCYCLINE HYCLATE 100 MG in DEXTROSE 5% MINI-B 100 ML IV SCH (21:25)
[2023-11-13] MEDS: THIAMINE HCL 100 MG in SYRINGE 9 ML IV STA (21:25)
[2023-11-13] MEDS: LACTATED RINGER'S 500 ML IV ONE (21:27)
[2023-11-13 21:29] LABS: Amphetamines+Metham, Urine Neg (Neg); Barbiturates, Urine Neg (Neg); Benzodiazepine, Urine Neg (Neg); Cocaine, Urine Neg (Neg); Fentanyl, Urine Neg (Neg); MDMA (Ecstacy), Urine Neg (Neg); Marijuana, Urine Neg (Neg); Methadone, Urine Neg (Neg); Opiate, Urine Neg (Neg); Phencyclidine, Urine Neg (Neg)
[2023-11-13] MEDS: PANTOprazole 40 MG in SYRINGE 0 ML IV SCH (21:51)
[2023-11-13] MEDS: PIPERACILLIN/TAZOBACTAM 4.5 GM/100 ML BAG IV SCH (23:30)
[2023-11-14 01:26] LABS: BUN Creatinine Ratio 58.7 (10-20); Calcium 8.7 mg/dl (8.6-10.3); Creatinine Clr Calc Pharmacy 68.2 ml/min; Est GFR (African American) 85.7 ml/min; Est GFR (Non-African American) 73.9 ml/min; Magnesium 1.8 mg/dl (1.7-2.4); Phosphorus 3.5 mg/dl (2.5-4.9); Potassium 4.7 mmol/L (3.5-5.1)
[2023-11-14] MEDS: POTASSIUM CHLORIDE / WTR 10 MEQ/100 ML PLCT IV SCH (02:57)
[2023-11-14 04:52] LABS: INR 1.5 (0.9-1.1); Prothrombin Time 15.6 Seconds (9.0-12.0)
[2023-11-14 04:54] LABS: BUN Creatinine Ratio 64.7 (10-20); Calcium 8.7 mg/dl (8.6-10.3); Creatinine Clr Calc Pharmacy 72.9 ml/min; Est GFR (African American) 92.8 ml/min; Est GFR (Non-African American) 80.1 ml/min; Magnesium 1.8 mg/dl (1.7-2.4); Phosphorus 2.2 mg/dl (2.5-4.9); Potassium 4.4 mmol/L (3.5-5.1)
[2023-11-14 06:01] LABS: A calco-baum cmplx NotReported Not Detected (NotDetected); Bact fragilis Not Reported Not Detected (NotDetected); Blood Culture Id Panel See PCR Comment (NotDetected); C auris Not Reported Not Detected (NotDetected); Calbicans Not Reported Not Detected (NotDetected); Candida glabrata Not Reported Not Detected (NotDetected); Candida krusei Not Reported Not Detected (NotDetected); Cneoformans/gatti Not Reported Not Detected (NotDetected); Cparapsilosis Not Reported Not Detected (NotDetected); E cloacae compx Not Reported Not Detected (NotDetected); Efaecalis Not Reported Not Detected (NotDetected); Efaecium Not Reported Not Detected (NotDetected); Enterobacterales Not Reported Not Detected (NotDetected); Escherichia coli Not Reported Not Detected (NotDetected); H influenzae Not Reported Not Detected (NotDetected); K aerogenes Not Reported Not Detected (NotDetected); Koxytoca Not Reported Not Detected (NotDetected); Kpneumoniae grp Not Reported Not Detected (NotDetected); Lmonocyt Not Reported Not Detected (NotDetected); N meningitidis Not Reported Not Detected (NotDetected); P aeruginosa Not Reported Not Detected (NotDetected); Proteus spp Not Reported Not Detected (NotDetected); Salmonella spp Not Reported Not Detected (NotDetected); Staph lugdunensis Not Reported Not Detected (NotDetected); Staph spp. Not Reported Not Detected (NotDetected); Staphaureus Not Reported Not Detected (NotDetected); Staphepi Not Reported Not Detected (NotDetected); Stenmaltophilia Not Reported Not Detected (NotDetected); Strep agal(GrpB) Not Reported DETECTED (NotDetected); Strep pneum Not Reported Not Detected (NotDetected); Strep pyog (GrpA) Not Reported Not Detected (NotDetected); Strep spp Not Reported DETECTED (NotDetected); Streptococcus spp DETECTED (NotDetected)
[2023-11-14 06:01] LABS: Troponin I High Sensitivity 661.9 pg/ml (0-20)
[2023-11-14 06:10] LABS: Streptococcus agalactiae(GrpB) DETECTED (NotDetected)
[2023-11-14 06:10] LABS: Hemoglobin 6.8 g/dl (14.0-18.0); Mean Corpuscular Hemoglobin 30.2 pg (25.0-34.0); Mean Corpuscular Volume 88.9 fL (80.0-100.0); Mean Platelet Volume 11.1 fL (9.4-12.4); Platelet Count 94 K/uL (130-400); RDW Coefficient of Variation 15.3 % (11.5-14.5); RDW Standard Deviation 47.7 fL (36.4-46.3); Red Blood Count 2.25 M/uL (4.70-6.10); White Blood Count 20.66 K/ul (4.8-10.8)
[2023-11-14 06:11] LABS: Basophils # (auto) 0.03 K/uL (0.00-0.20); Basophils % (auto) 0.1 %; Eosinophils # (auto) 0.03 K/uL (0.00-0.50); Eosinophils % (auto) 0.1 %; Immature Granulocytes # (auto) 0.12 K/uL (0.01-0.20); Immature Granulocytes % (auto) 0.6 %; Lymphocytes # (auto) 1.24 K/uL (1.20-3.40); Monocytes # (auto) 1.73 K/uL (0.11-0.59); Monocytes % (auto) 8.4 %; Neutrophils # (auto) 17.51 K/uL (1.40-6.50); Neutrophils % (auto) 84.8 %; Platelet Estimate Decreased (Normal); Polychromasia 1+
[2023-11-14] MEDS: D5W AND 1/2NSS + 20MEQ KCL 20 MEQ/1,000 ML BAG IV SCH (06:56)
[2023-11-14 07:05] LABS: Estimated Average Glucose 209 mg/dl; Hemoglobin A1C 8.9 % (4.5-5.6)
--- NOTE | 2023-11-14 07:30 | Hospitalist Progress Note ---
Date of Service November 14, 2023 Assessment & Plan (1) Severe sepsis: (2) DKA (diabetic ketoacidosis): (3) Acute pancreatitis: (4) Pneumonia: (5) Anemia: (6) T2DM (type 2 diabetes mellitus): (7) Hepatocellular carcinoma: Plan This is a 58 year old M admitted from [facility] with PMHx significant for Stage 3 Hepatocellular carcinoma not currently being treated, Uncontrolled T2DM, diabetic neuropathy and hx of alcohol abuse. Had intractable N/V and was found to be septic in DKA. Severe Sepsis Bacteremia, gram positive Pt presenting with tachycardia, leukocytosis Infectious source likely pneumonia, possible odontogenic infection (pt being tx with oral antibiotic at long term per pt hx) lactate of 16 on admission, downtrending Procal elevated Chest CTA noting pneumonia UA without signs of infection Respiratory panel negative Blood Cx x1 set growing gram positive cocci in chains in one bottle Biofire noting strep MRSA negative On IV Rocephin and Doxycycline, continue ID consulted for gram pos bacteremia, appreciate recs TTE noting EF >70%, mild LVH, normal wall motion and no significant valvular pathology. Consider IRLANDA Continue to monitor DKA Lactic acidosis DMII pt started on metformin 4 days ago Septic with pneumonia as noted above, likely trigger for DKA Glucose level 620 on admission Hgba1c of 8.9 VBG on admission noting pH of 7.15 , pCO2 35, HCO3 of 12 Anion gap of 23 on admission UA with noted 3+ glucose and trace ketones Continue Insulin gtt, IVF glycemic pharmacy consult Serial labs Continue to monitor in the ICU Symptomatic Anemia Possible GI bleed hgb 6.6 on admission, suspect lower given volume depletion 2 units PRBC ordered, went up to 7 and now back down to 6.8 goal > 7 PPI gtt anemia panel with normal iron. folate and b12 levels GI consulted, appreciate recs Acute Metabolic Encephalopathy Pt with worsening mental status Ammonia elevated at 135 ---> 100 Tox screen negative Likely in setting of above Delirium precautions. Frequent reorientation, avoid sedating medications as able Continue to monitor Pancreatitis Abd tender, CT noting evidence of pancreatitis Lipase elevated at 149 Continue with LR@ 100 NPO currently, advance diet as tolerated Hepatocellular Carcinoma Cirrhosis Splenomegaly states he declined intervention when diagnosed 2 years ago at [facility] CT abd/pelvis noting "Cirrhosis, splenomegaly, and findings of portal hypertension" INR elevated at 1.5, likely in this setting GI consulted as noted above, appreciate recs Elevated troponin Demand ischemia Trop elevated at 277.7, uptrending suspect demand ischemia in setting of underlying illness no ecg change/chest pain Echo as above, noting EF >70%, mild LVH, normal wall motion and no significant valvular pathology Doubt ACS at this time Hypomagnesemia Hypocalcemia replete as needed Chronic conditions: Hx of alcohol abuse: States last drink about 2 years ago. Denies alcohol use while incarcerated HLD: statin therapy, lipid panel normal Neuropathy: currently not on tx Diet: currently NPO DVT ppx: SCDS for now in setting of anemia, unknown source FULL CODE Dispo: Currently admitted in the ICU, d/c to long term when medically able Admission and Anticipated Discharge Date Admission Date: November 13, 2023 Subjective pt was seen in the AM with guards at bedside. Lethargic. Responsive but quickly falls back asleep. oriented only to self Review of Systems Review of Systems: All systems reviewed & are unremarkable except as noted in Subjective Physical Exam Physical Exam: General: Alert, disoriented. Psych: mood and affect Neuro: disoriented HEENT: NC/AT CV: RRR Resp: no increased effort of breathing Abdomen: tender, firm Extremities: No edema in lower extremities bilaterally. Results & Data Results & Data Vital Signs (Past 12 Hours) Vital Signs Temp Pulse Pulse Resp BP BP Pulse Ox 11/14/23 06:58 36.8 C 124 H 24 115/57 L 94 11/14/23 06:43 36.8 C 124 H 24 113/57 L 93 11/14/23 06:24 36.8 C 127 H 25 H 113/57 L 95 11/14/23 06:00 122 H 23 95 11/14/23 06:00 104/61 11/14/23 06:00 104/61 11/14/23 06:00 104/61 11/14/23 05:39 118 H 22 95 11/14/23 05:03 120 H 22 95 11/14/23 05:00 93/56 L 11/14/23 04:54 121 H 23 94 11/14/23 04:39 123 H 24 96 11/14/23 04:06 125 H 22 96 11/14/23 04:00 36.8 C 11/14/23 04:00 113/61 11/14/23 03:57 132 H 25 H 96 11/14/23 03:30 118 H 23 96 11/14/23 03:12 116 H 22 96 11/14/23 03:00 93/58 L 11/14/23 02:51 120 H 22 97 11/14/23 02:02 127/63 11/14/23 02:02 127/63 11/14/23 01:36 119 H 23 96 11/14/23 01:03 120 H 23 95 11/14/23 00:33 127 H 28 H 98 11/14/23 00:00 36.8 C 11/14/23 00:00 93/61 L 11/14/23 00:00 93/61 L 11/14/23 00:00 126 H 20 99 11/14/23 00:00 128 H 11/13/23 23:45 130 H 22 98 11/13/23 23:44 126/63 11/13/23 23:44 126/63 11/13/23 23:27 129 H 26 H 97 11/13/23 23:18 128 H 21 96 11/13/23 22:33 124 H 22 97 11/13/23 22:03 121 H 20 97 11/13/23 22:00 119/53 L 11/13/23 22:00 119/53 L 11/13/23 22:00 119/53 L 11/13/23 21:42 118 H 20 96 11/13/23 21:12 117 H 20 96 11/13/23 20:42 124 H 24 98 11/13/23 20:03 118 H 20 98 11/13/23 20:00 36.8 C 11/13/23 20:00 100/59 L 11/13/23 20:00 100/59 L 11/13/23 19:57 118 H 22 98 11/13/23 19:48 36.8 C 121 H 18 127/82 96 11/13/23 19:43 115/76 11/13/23 19:43 115/76 11/13/23 19:42 120 H 22 98 11/13/23 19:34 11/13/23 19:34 11/13/23 19:34 122 H Pulse Ox O2 Del Method O2 Del Method 11/14/23 06:58 11/14/23 06:43 11/14/23 06:24 11/14/23 06:00 11/14/23 06:00 11/14/23 06:00 11/14/23 06:00 11/14/23 05:39 11/14/23 05:03 11/14/23 05:00 11/14/23 04:54 11/14/23 04:39 11/14/23 04:06 11/14/23 04:00 11/14/23 04:00 11/14/23 03:57 11/14/23 03:30 11/14/23 03:12 11/14/23 03:00 11/14/23 02:51 11/14/23 02:02 11/14/23 02:02 11/14/23 01:36 11/14/23 01:03 11/14/23 00:33 11/14/23 00:00 11/14/23 00:00 11/14/23 00:00 11/14/23 00:00 11/14/23 00:00 11/13/23 23:45 11/13/23 23:44 11/13/23 23:44 11/13/23 23:27 11/13/23 23:18 11/13/23 22:33 11/13/23 22:03 11/13/23 22:00 11/13/23 22:00 11/13/23 22:00 11/13/23 21:42 11/13/23 21:12 11/13/23 20:42 11/13/23 20:03 11/13/23 20:00 11/13/23 20:00 11/13/23 20:00 11/13/23 19:57 11/13/23 19:48 Room Air 11/13/23 19:43 11/13/23 19:43 11/13/23 19:42 11/13/23 19:34 Room Air 11/13/23 19:34 97 Room Air 11/13/23 19:34 Diagnostic Findings Chest X-Ray 11/13/23 16:00 XR chest 1V portable CLINICAL HISTORY: Sepsis TECHNIQUE: Single frontal radiograph of the chest was obtained. Comparison: None available at the time of this dictation. FINDINGS: No lines and tubes are seen. The cardiomediastinal silhouette is normal. Peribronchial thickening is seen. No evidence of pleural effusion or pneumothorax. IMPRESSION: Peribronchial thickening is seen compatible with infectious/inflammatory airways disease or viral pneumonia. No latia consolidation is seen. ACT 112: Negative or not required by law. Electronically signed by: Eb Cullen M.D. 11/13/2023 4:48 PM Abdomen/Pelvis CT 11/13/23 16:39 CT abd pelvis IV con only CLINICAL HISTORY: sepsis, acute anemia TECHNIQUE: Helical axial images of the abdomen and pelvis were obtained and displayed. Automated dose lowering techniques and/or adjustment according to patient size were utilized for this exam. This exam was performed with intra venous contrast. COMPARISON: None available at the time of this dictation. FINDINGS: Lower chest: For findings above the diaphragm, please see CT chest performed same day. Liver: Nodular contour of the liver is seen compatible with cirrhosis. Heterogeneous appearance of the liver. Gallbladder and biliary tree: Cholelithiasis is seen without evidence of cholecystitis. No intra- or extrahepatic biliary ductal dilation. Pancreas: Pancreatic head edema is seen with peripancreatic fat stranding. No drainable fluid collections. Spleen: Splenomegaly is noted, the spleen measures 14 cm. Adrenals: Unremarkable. Kidneys and ureters: Unremarkable. Bladder: Unremarkable. Reproductive organs: Unremarkable. Bowel: Diverticulosis is seen without diverticulitis. The appendix is normal. There is markedly distention of the stomach. Lymph nodes Retroperitoneal: Unremarkable. Pelvic: Unremarkable. Mesenteric: Unremarkable. Peritoneum: Soft tissue stranding is seen in the mid abdomen. Vessels: Prominent paraesophageal varices are seen. Abdominal wall: Unremarkable. Bones: Degenerative changes in the visualized spine. IMPRESSION: 1. Findings are concerning for pancreatitis without evidence of acute peripancreatic collection. 2. Prominent stomach with fat stranding about the duodenum which is likely reactive from the pancreatitis. 3. Cirrhosis, splenomegaly, and findings of portal hypertension. There is heterogeneity of the liver in this patient with reported history of hepatocellular carcinoma. ACT 112: Negative or not required by law. Electronically signed by: Eb Cullen M.D. 11/13/2023 5:26 PM Chest CTA 11/13/23 16:39 CT angio chest PE protocol CLINICAL HISTORY: sepsis, tachy, hypoten, hypox r/o PE TECHNIQUE: Multidetector row helical CT of the chest was performed with angiographic protocol. Coronal and sagittal reformations were obtained. Coronal and sagittal MIPS were obtained from the axial data set and were submitted for review. Automated dose lowering techniques and/or adjustment according to patient size were utilized for this exam. CT DOSE: 1603.91 mGy.cm Comparison: Comparison is made to chest radiograph 11/13/2023 FINDINGS: Lungs and pleura: Bronchial wall thickening is seen. Faint diffuse groundglass opacities are in a tree-in-bud distribution. Heart and pericardium: Heart size is normal. No pericardial effusion. Vessels: Evaluation for pulmonary embolism is limited due to patient motion. No evidence of central or lobar embolus. Mediastinum and susana: Unremarkable. Chest wall and lower neck: Unremarkable. Abdomen: For findings below the diaphragm, please refer to CT of the abdomen dated the same. Bones: Unremarkable. IMPRESSION: Findings are compatible with pneumonia and bronchitis with no evidence of pulmonary embolus. ACT 112: Negative or not required by law. Electronically signed by: Eb Cullen M.D. 11/13/2023 5:16 PM (2) DKA (diabetic ketoacidosis) Diabetes mellitus complication detail: without coma Diabetes mellitus type: type 2 Qualified Code(s): E11.10 - Type 2 diabetes mellitus with ketoacidosis without coma (3) Acute pancreatitis Acute pancreatitis complication: unspecified Pancreatitis type: unspecified pancreatitis type Qualified Code(s): K85.90 - Acute pancreatitis without necrosis or infection, unspecified (4) Pneumonia Laterality: bilateral Lung location: unspecified part of lung Pneumonia type: due to unspecified organism Qualified Code(s): J18.9 - Pneumonia, unspecified organism
--- NOTE | 2023-11-14 07:32 | Critical Care Progress Note ---
Date of Service November 14, 2023 Assessment & Plan (1) DKA (diabetic ketoacidosis): (2) Acute pancreatitis: (3) Anemia: (4) Cirrhosis: (5) Lactic acidosis: (6) Elevated troponin: (7) Septic shock: (8) Electrolyte abnormality: (9) High anion gap metabolic acidosis: (10) ROMANA (acute kidney injury): Plan Reason Critically Ill: 58 YOM with reported history of hepatocellular carcinoma, reports to EMD for nausea, vomiting, diarrhea, and hyperglycemia. Found to be in DKA as well as with sever lactic acidosis and anemia to 6.6. He will be admitted to the ICU for management of his DKA, acid base disturbances, and trending of his HGB levels. Neuro - No acute needs CAM ICU: Negative --Metabolic encephalopathy Could be from underlying sepsis as well as DKA Elevated ammonia level 835, trending down at 100 right now - frequent re-orientation and attempt to maintain normal sleep wake cycle to prevent ICU delirium Cardiac - Elevated HsCTNI, Shock multifactorial, anemia - ECG showing ST depressions in the lateral leads as well as V2, likely type II demand in setting of DKA, anemia, and lactic acidosis -Continue to trend troponin Respiratory - Pneumonia/bronchitis --Right lower lobe pneumonia Continue with antibiotics Follow sputum culture - respiratory biofire negative at this time CTA chest 11/13/2023 personally reviewed: Patchy groundglass opacities appreciated in the right lower lobe Elevated left hemidiaphragm Motion degraded study No significant mediastinal lymphadenopathy GI - Distended stomach, pancreatitis, possible UGI, ? hepatic cancer - Patient with complaints of nausea/vomiting and abdomen is distended without evidence of obstruction- this may be multifactorial from possibly pancreatitis as well as elevated blood glucose levels causing gastroparesis- low threshold to place NGT if patient has another episode of vomiting. -- Pancreatitis That meets the criteria as patient having epigastric pain as well as CT evidence of pancreatitis - NPO at this time - For his pancreatitis- volume resuscitate as above- will use urine output and end organ labs as resuscitation guide -- Questionable history of hepatic cancer dx- no records Liver is noted to be heterogenous and cirrhotic on imaging Vitamin K 5 mg given 11/14/2023 RENAL/LYTES - -- ROMANA Likely prerenal from hypotensive episode Monitor BUN/creatinine Avoid nephrotoxic medications Strict ins and outs --S/p HAGMA - No acute needs - lang if needed, however able to urinate on his own at this time ENDO - DKA --DKA Continue with insulin drip until anion gap closes Decreasing blood glucose no more than 100 in an hour Replace potassium IV when potassium level between 3.3-5.3 BMP every 4 hours Continue with IV fluids HEME - anemia --Acute blood loss anemia Patient does have bloody bowel with elevated BUN probability of upper GI bleed is there Keep hemoglobin greater than 7 GI has been consulted --Thrombocytopenia Could be from history of cirrhosis as well as acute blood loss Continue to monitor ID - --Right lower lobe pneumonia with gram-positive cocci in chains uremia Procalcitonin 0.63 Continue with antibiotics --Prophylaxis VTE: IPC GI: Pantoprazole twice daily Lines: Peripheral Diet: N.p.o. Plan: In/out: Positive for liters, urine output 1900 mL Phosphorus being replaced Patient is on D5 half NS with insulin drip Patient is somnolent, arousable and answers few questions, oriented only to self. Could be from pneumonia could also be from DKA Given the tachycardia follow-up TSH as well. I have personally spent 35 minutes of critical care time in the direct management of this patient. This is a life/limb threatening event. This includes time spent evaluating patient, direct bedside care, chart review, placing orders, interpretation of diagnostic studies, discussion with consultants, patient, and family members, as well as other required patient management activities. This time is exclusive of all separately billable procedures, and teaching time and separate from and in addition to any other critical care service time. Thank you for allowing us to participate in the care of this patient. Please refer to my attending physician's documentation for any further recommendations. Admission and Anticipated Discharge Date Admission Date: November 13, 2023 Subjective Patient seen and examined at bedside. No acute distress Patient's heart rate was in the 120s at the time of examination, systolic blood pressure also 120s. He was somnolent but easily arousable. Answering questions appropriately Denied any headache, no chest pain, no shortness of breath, did complain of some abdominal discomfort. No nausea or vomiting Was oriented only to self. Present RASS were in the room at the time of examination Review of Systems 2 Review of Systems: All systems reviewed & are unremarkable except as noted in Subjective Physical Exam 2 Physical Exam: Constitutional: No acute distress HEENT: EOMI, PERRLA Respiratory system: Decreased air entry bilaterally, no wheeze, no rhonchi, positive crackles bilaterally CVS: S1-S2 positive, no murmurs or gallops, tachycardia Abdomen: Soft, gastric tenderness, no rebound nondistended, positive bowel sounds x4 Extremities: +2 pulses bilaterally radialis/ dorsalis pedis, no cyanosis, no edema Neuro: Somnolent but easily arousable, oriented to self Psych: Flat mood and affect G/U: No Lang Skin: no rashes, warm and dry Lymphatic: no cervical or axillary lymphadenopathy Results & Data Results & Data Vital Signs (Past 12 Hours) Vital Signs Temp Pulse Pulse Resp BP BP Pulse Ox 11/14/23 06:58 36.8 C 124 H 24 115/57 L 94 11/14/23 06:43 36.8 C 124 H 24 113/57 L 93 11/14/23 06:24 36.8 C 127 H 25 H 113/57 L 95 11/14/23 06:00 122 H 23 95 11/14/23 06:00 104/61 11/14/23 06:00 104/61 11/14/23 06:00 104/61 11/14/23 05:39 118 H 22 95 11/14/23 05:03 120 H 22 95 11/14/23 05:00 93/56 L 11/14/23 04:54 121 H 23 94 11/14/23 04:39 123 H 24 96 11/14/23 04:06 125 H 22 96 11/14/23 04:00 36.8 C 11/14/23 04:00 113/61 11/14/23 03:57 132 H 25 H 96 11/14/23 03:30 118 H 23 96 11/14/23 03:12 116 H 22 96 11/14/23 03:00 93/58 L 11/14/23 02:51 120 H 22 97 11/14/23 02:02 127/63 11/14/23 02:02 127/63 11/14/23 01:36 119 H 23 96 11/14/23 01:03 120 H 23 95 11/14/23 00:33 127 H 28 H 98 11/14/23 00:00 36.8 C 11/14/23 00:00 93/61 L 11/14/23 00:00 93/61 L 11/14/23 00:00 126 H 20 99 11/14/23 00:00 128 H 11/13/23 23:45 130 H 22 98 11/13/23 23:44 126/63 11/13/23 23:44 126/63 11/13/23 23:27 129 H 26 H 97 11/13/23 23:18 128 H 21 96 11/13/23 22:33 124 H 22 97 11/13/23 22:03 121 H 20 97 11/13/23 22:00 119/53 L 11/13/23 22:00 119/53 L 11/13/23 22:00 119/53 L 11/13/23 21:42 118 H 20 96 11/13/23 21:12 117 H 20 96 11/13/23 20:42 124 H 24 98 11/13/23 20:03 118 H 20 98 11/13/23 20:00 36.8 C 11/13/23 20:00 100/59 L 11/13/23 20:00 100/59 L 11/13/23 19:57 118 H 22 98 11/13/23 19:48 36.8 C 121 H 18 127/82 96 11/13/23 19:43 115/76 11/13/23 19:43 115/76 11/13/23 19:42 120 H 22 98 11/13/23 19:34 11/13/23 19:34 11/13/23 19:34 122 H Pulse Ox O2 Del Method O2 Del Method 11/14/23 06:58 11/14/23 06:43 11/14/23 06:24 11/14/23 06:00 11/14/23 06:00 11/14/23 06:00 11/14/23 06:00 11/14/23 05:39 11/14/23 05:03 11/14/23 05:00 11/14/23 04:54 11/14/23 04:39 11/14/23 04:06 11/14/23 04:00 11/14/23 04:00 11/14/23 03:57 11/14/23 03:30 11/14/23 03:12 11/14/23 03:00 11/14/23 02:51 11/14/23 02:02 11/14/23 02:02 11/14/23 01:36 11/14/23 01:03 11/14/23 00:33 11/14/23 00:00 11/14/23 00:00 11/14/23 00:00 11/14/23 00:00 11/14/23 00:00 11/13/23 23:45 11/13/23 23:44 11/13/23 23:44 11/13/23 23:27 11/13/23 23:18 11/13/23 22:33 11/13/23 22:03 11/13/23 22:00 11/13/23 22:00 11/13/23 22:00 11/13/23 21:42 11/13/23 21:12 11/13/23 20:42 11/13/23 20:03 11/13/23 20:00 11/13/23 20:00 11/13/23 20:00 11/13/23 19:57 11/13/23 19:48 Room Air 11/13/23 19:43 11/13/23 19:43 11/13/23 19:42 11/13/23 19:34 Room Air 11/13/23 19:34 97 Room Air 11/13/23 19:34 Laboratory Results 11/14/23 04:04 11/14/23 04:04 Coding Level of Care Code 28778 CRITICAL CARE 1ST 30-74M Diagnoses DKA (diabetic ketoacidosis) E11.10 Diabetes mellitus complication detail: without coma Diabetes mellitus type: type 2 Acute pancreatitis K85.90 Acute pancreatitis complication: unspecified Pancreatitis type: unspecified pancreatitis type Anemia D64.9 Cirrhosis K74.60 Ascites presence: unspecified Hepatic cirrhosis type: unspecified hepatic cirrhosis Lactic acidosis E87.20 Elevated troponin R79.89 Septic shock A41.9; R65.21 Electrolyte abnormality E87.8 High anion gap metabolic acidosis E87.29 ROMANA (acute kidney injury) N17.9 (1) DKA (diabetic ketoacidosis) Diabetes mellitus complication detail: without coma Diabetes mellitus type: t ype 2 Qualified Code(s): E11.10 - Type 2 diabetes mellitus with ketoacidosis without coma (2) Acute pancreatitis Acute pancreatitis complication: unspecified Pancreatitis type: unspecified pancreatitis type Qualified Code(s): K85.90 - Acute pancreatitis without necrosis or infection, unspecified (4) Cirrhosis Ascites presence: unspecified Hepatic cirrhosis type: unspecified hepatic cirrhosis Qualified Code(s): K74.60 - Unspecified cirrhosis of liver
[2023-11-14] MEDS ORDERED: SODIUM PHOSPHATE 3 MMOL/1 ML INFUSION IV STA (07:33)
[2023-11-14] MEDS: THIAMINE HCL 100 MG in SYRINGE 9 ML IV SCH (07:40)
[2023-11-14] MEDS: SODIUM PHOSPHATE 15 MMOL in SODIUM CHLORIDE 0.9% 250 ML IV ONE (08:17)
[2023-11-14] MEDS: MAGNESIUM SULFATE / D5W 1 GM/100 ML BAG IV SCH (08:17)
--- NOTE | 2023-11-14 08:59 | Electrocardiogram Report ---
Test Reason : Blood Pressure : */* mmHG Vent. Rate : 115 BPM Atrial Rate : 115 BPM P-R Int : 148 ms QRS Dur : 90 ms QT Int : 350 ms P-R-T Axes : 46 23 68 degrees QTcB Int : [address] depression in Anterior leads , consider ischemia Abnormal ECG When compared with ECG of 13-Nov-2023 15:47, ST now depressed in Anterior leads Confirmed by Eliseo Mcdaniel ([id number]) on 11/14/2023 8:58:54 AM Referred By: [facility] Confirmed By: Eliseo Mcdaniel
[2023-11-14 09:01] LABS: BUN Creatinine Ratio 72.3 (10-20); Calcium 8.8 mg/dl (8.6-10.3); Creatinine Clr Calc Pharmacy 79.1 ml/min; Est GFR (African American) 102.4 ml/min; Est GFR (Non-African American) 88.4 ml/min; Magnesium 1.8 mg/dl (1.7-2.4); Phosphorus 1.8 mg/dl (2.5-4.9); Potassium 4.7 mmol/L (3.5-5.1)
[2023-11-14] MEDS: PHYTONADIONE 5 MG in DEXTROSE 5% 50 ML IV ONE (09:49)
[2023-11-14] MEDS: PLASMA-LYTE A 1,000 ML IV SCH (10:40)
[2023-11-14] MEDS: cefTRIAXone SODIUM 2,000 MG/50 ML BAG IV SCH (11:28)
[2023-11-14] MEDS: LANTUS PER UNIT CHARGE SC ONE (11:28)
[2023-11-14 12:22] LABS: BUN Creatinine Ratio 68.8 (10-20); Calcium 9.1 mg/dl (8.6-10.3); Est GFR (African American) 103.8 ml/min; Est GFR (Non-African American) 89.5 ml/min; Magnesium 2.1 mg/dl (1.7-2.4); Phosphorus 2.7 mg/dl (2.5-4.9); Potassium 4.3 mmol/L (3.5-5.1)
--- NOTE | 2023-11-14 12:51 | Gastrointestinal Consultation ---
Date of Consultation November 14, 2023 Assessment & Plan (1) Anemia: This gentleman has a number of different problems that are intertwined and difficult to sort out especially since he cannot give me any history. I assume he is having some UGI bleeding and with his cirrhosis I would start octreotide. He is still battling multiple metabolic issues that are being addressed. He is encephalopathic more than likely from his liver disease. This is likely multifactorial related to his metabolic issues and any gi bleeding. As this is not a life or issue from his bleeding now i would prefer not to do endoscopy until I can discuss with him and consent him. Would also like his other metabolic issues controlled. He is having somewhat frequent stools which should help with encephalopathy but you could consider lactulose or xifaxan when he can take PO. Will follow closely. (2) Cirrhosis: (3) Acute pancreatitis: History of Present Illness Reason for Consultation: multiple issues with gut Attending Physician: Akilah Gore MD History of Present Illness 58 year old man admitted because he "wasn't feeling good". I cannot get history from patient as he is too somnolent. He woke up only to tell me he wasn't feeling good and then went back to sleep. On admission he was found to have pancreatitis by CT scan along with evidence of cirrhosis. He also had a distended stomach that was felt to be related to pancreatitis. He was also admitted with anemia. Apparently he had a bloody stool last night, I don't know about bleeding prior as he is unable to give me a history. Intermediate guards report black stools today. Also with history of "hepatocellular carcinoma" but he refused treatment. Further history will be obtained when patient is awake enough for me to question him. He was also admitted with significant metabolic acidosis related to DKA. Allergies Allergy/AdvReac Type Severity Reaction Status Date / Time Fish Containing Products Allergy Unknown Verified 11/13/23 16:52 Home Medications Medication Instructions Recorded Confirmed Type cetirizine 10 mg capsule 10 mg PO DAILY 11/13/23 11/13/23 History diphenhydramine HCl 25 mg capsule 25 mg PO HS PRN allergies 11/13/23 11/13/23 History (Banophen) insulin glargine 100 unit/mL 48 unit subcut BID 11/13/23 11/13/23 History subcutaneous cartridge insulin regular human 100 unit/mL 1 sliding scale dose subcut 11/13/23 11/13/23 History injection solution (Novolin R USEASDIRECTD Regular U-100 Insulin) metformin 1,000 mg tablet 1,000 mg PO BID 11/13/23 11/13/23 History rosuvastatin 10 mg tablet 10 mg PO DAILY 11/13/23 11/13/23 History thiamine HCl (vitamin B1) 50 mg 50 mg PO DAILY 11/13/23 11/13/23 History tablet (Vitamin B-1) Patient History Medical History HLD (hyperlipidemia) Neuropathy T2DM (type 2 diabetes mellitus) Hepatocellular carcinoma Surgical History Hx of cervical spine surgery Hx of bilateral hip replacements Family History Father Throat cancer Mother Diabetes Social History Smoking Status: Former smoker Second Hand Exposure: No; Do You Dip or Chew Tobacco: No; Tobacco Cessation Education Requested by Patient: No Hx Alcohol Use: No Hx Substance Use: No Preferred Language: Dutch Communication Ability: Unable Recruitment Intern Required: No Beliefs That Will Affect Care: None Current Living Situation: Other Current Living Situation Comment: [facility] Other Information That Helps Us Care for You: No Feels Safe at Home: Yes Safety Concerns: Feels Safe At This Time Assistive Devices: None Review of Systems Review of Systems: All systems reviewed & are unremarkable except as noted in HPI & below Physical Exam 2 Physical Exam: somnolent, barely arousable Respiratory: normal respiratory effort, lungs clear to auscultation Cardiovascular: RRR, no murmur, no edema Gastrointestinal (Abdomen): Inspection/Auscultation: abdomen normal to inspect ion Percussion/Palpation: abdomen soft Results & Data Vital Signs (Past 12 Hours) Vital Signs Temp Pulse Resp BP Pulse Ox 11/14/23 10:32 125 H 25 H 96 11/14/23 10:02 92 11/14/23 09:53 124 H 23 97 11/14/23 09:47 37.0 C 122 H 24 117/53 L 93 11/14/23 09:45 117/53 L 11/14/23 09:45 117/53 L 11/14/23 09:45 117/53 L 11/14/23 09:23 122 H 25 H 96 11/14/23 09:15 131/64 11/14/23 09:14 119 H 26 H 97 11/14/23 09:08 118 H 23 96 11/14/23 09:00 128/62 11/14/23 09:00 128/62 11/14/23 09:00 128/62 11/14/23 08:28 37.2 C 121 H 22 124/61 96 11/14/23 07:28 37.0 C 125 H 20 107/57 L 94 11/14/23 06:58 36.8 C 124 H 24 115/57 L 94 11/14/23 06:43 36.8 C 124 H 24 113/57 L 93 11/14/23 06:24 36.8 C 127 H 25 H 113/57 L 95 11/14/23 06:00 122 H 23 95 11/14/23 06:00 104/61 11/14/23 06:00 104/61 11/14/23 06:00 104/61 11/14/23 05:39 118 H 22 95 11/14/23 05:03 120 H 22 95 11/14/23 05:00 93/56 L 11/14/23 04:54 121 H 23 94 11/14/23 04:39 123 H 24 96 11/14/23 04:06 125 H 22 96 11/14/23 04:00 36.8 C 11/14/23 04:00 113/61 11/14/23 03:57 132 H 25 H 96 11/14/23 03:30 118 H 23 96 11/14/23 03:12 116 H 22 96 11/14/23 03:00 93/58 L 11/14/23 02:51 120 H 22 97 11/14/23 02:02 127/63 11/14/23 02:02 127/63 11/14/23 01:36 119 H 23 96 11/14/23 01:03 120 H 23 95 Laboratory Results 11/14/23 11/14/23 11/14/23 Range/Units Unknown 11:43 11:02 WBC (4.8-10.8) K/ul RBC (4.70-6.10) M/uL Hgb (14.0-18.0) g/dl POC Hgb (14.0-18.0) g/dl Hct (42.0-52.0) % POC Hct (42-52) % MCV (80.0-100.0) fL MCH (25.0-34.0) pg MCHC (32.0-36.0) g/dL RDW Std Deviation (36.4-46.3) fL RDW Coeff of Lauren (11.5-14.5) % Plt Count (130-400) K/uL MPV (9.4-12.4) fL Immature Gran % (Auto) % Neut % (Auto) % Lymph % (Auto) % Sutton % (Auto) % Eos % (Auto) % Baso % (Auto) % Reticulocyte % (Auto) (0.50-2.00) % Neut # (Auto) (1.40-6.50) K/uL Lymph # (Auto) (1.20-3.40) K/uL Sutton # (Auto) (0.11-0.59) K/uL Eos # (Auto) (0.00-0.50) K/uL Baso # (Auto) (0.00-0.20) K/uL Reticulocyte # (0.020-0.100) 10^6/uL Immature Gran # (Auto) (0.01-0.20) K/uL Neutrophils % (Manual) % Lymphocytes % (Manual) % Monocytes % (Manual) % Eosinophils % (Manual) % Neutrophils # (Manual) (1.40-6.50) K/uL Total Absolute Neuts (1.4-6.5) K/uL Lymphocytes # (Manual) (1.2-3.4) K/uL Total Abs Lymphocytes (1.2-3.4) K/uL Monocytes # (Manual) (0.11-0.59) K/uL Eosinophils # (Manual) (0-0.50) K/uL Platelet Estimate (Normal) RBC Morphology Polychromasia PT (9.0-12.0) Seconds INR (0.9-1.1) APTT (21-31) Seconds PTT Ratio VBG pH 7.31 L (7.36-7.41) VBG pCO2 (38-50) mmHg VBG pO2 mmHg VBG HCO3 mmol/L VBG O2 Saturation % VBG Base Excess mEq/L POC Sodium (135-144) mmol/L Sodium 138 (136-145) mmol/L POC Potassium (3.3-5.0) mmol/L Potassium 4.3 (3.5-5.1) mmol/L POC Chloride (101-112) mmol/L Chloride 110 H (98-107) mmol/L Carbon Dioxide 21 (21-32) mmol/L POC Total CO2 (24-31) mmol/L Anion Gap 7 (3-11) POC Anion Gap (16-25) mmol/L POC BUN (7-18) mg/dl BUN 64 H (6-23) mg/dl Creatinine 0.93 (0.6-1.4) mg/dl POC Creatinine (0.6-1.3) mg/dl Est Cr Clr Drug Dosing 80.0 ml/min Est GFR ( Amer) 103.8 ml/min Est GFR (Non-Af Amer) 89.5 ml/min BUN/Creatinine Ratio 68.8 H (10-20) Glucose 167 H (70-99(Fasting)) mg/dl POC Glucose 183 H (70-99) mg/dl POC Glucose (other) (70-99) mg/dl Estimat Average Glucose mg/dl Hemoglobin A1c (4.5-5.6) % Osmolality (280-300) mOsm/kg Lactate (0.4-2.0) mmol/L Calcium 9.1 (8.6-10.3) mg/dl POC Ioniz Calcium Bill (1.12-1.32) mmol/l Phosphorus 2.7 (2.5-4.9) mg/dl Magnesium 2.1 (1.7-2.4) mg/dl Iron (35-175) mcg/dl Unsaturated IBC (155-355) mcg/dl Transferrin (200-360) mg/dl Ferritin (8-388) ng/ml Total Bilirubin (0.2-1.0) mg/dl Direct Bilirubin (0-0.2) mg/dl AST (13-39) U/L ALT (7-52) U/L Alkaline Phosphatase (34-104) U/L Ammonia (18-72) umol/L Troponin I High Sens (0-20) pg/ml Total Protein (6.0-8.3) gm/dl Albumin (3.4-5.0) gm/dl Globulin (2.5-4.0) gm/dl Albumin/Globulin Ratio (0.9-2) Triglycerides (0-150) mg/dl Cholesterol (0-200) mg/dl LDL Cholesterol, Calc mg/dl VLDL Cholesterol, Calc (0-30) mg/dl HDL Cholesterol mg/dl Cholesterol/HDL Ratio (0-5) Lipase (11-82) U/L Vitamin B12 (180-914) pg/ml Folate (>5.38) ng/ml Procalcitonin (0-0.5) ng/ml TSH (0.300-4.500) uIu/ml Urine Color Urine Appearance (Clear) Urine pH (4.5-7.5) Ur Specific [place] (1.000-1.030) Urine Protein (Negative) Urine Glucose (UA) (Negative) Urine Ketones (Negative) Urine Blood (Negative) Urine Nitrite (Negative) Urine Bilirubin (Negative) Urine Urobilinogen (Negative) Ur Leukocyte Esterase (Negative) Nasal Screen MRSA (PCR) (Negative) Stl C. cayetanensis PCR Pending Stool Rotavirus A PCR Pending Stl Adenov F 40/41 PCR Pending Stool Astrovirus (PCR) Pending Stool Campylobacter PCR Pending Stl C. diff Tox B Gene Pending Stool Cryptosporidium PCR Pending Stl E.coli Shiga Tox PCR Pending Stl Enterotoxigenic E PCR Pending Stool EAEC (PCR) Pending Stl E. histolytica PCR Pending Stool Giardia Lamblia PCR Pending Stool Salmonella PCR Pending Stool Sapovirus (PCR) Pending Stl P. shigelloides PCR Pending Stl Shigella/EIEC PCR Pending St Y.enterocolitica PCR Pending Stool Vibrio (PCR) Pending Stl Vibrio cholerae PCR Pending Stl Norovirus GI/GII PCR Pending Urine Opiates Screen (Neg) Ur Methadone, Qual (Neg) Urine Fentanyl Screen (Neg) Urine Barbiturates (Neg) Ur Phencyclidine (PCP) (Neg) U Amphetamin/Meth Scrn (Neg) MDMA (Ecstasy) Screen (Neg) U Benzodiazepines Scrn (Neg) Ur Cocaine Metabolite (Neg) U Marijuana (THC) Screen (Neg) Ethyl Alcohol mg/dL (<10.0) mg/dl Adenovirus (PCR) (NotDetected) B. pertussis DNA (PCR) (NotDetected) B.parapertussis DNA PCR (NotDetected) C. pneumoniae DNA (PCR) (NotDetected) Coronavirus OC43 (PCR) (NotDetected) Coronavirus HKU1 (PCR) (NotDetected) Coronavirus 229E (PCR) (NotDetected) SARS-CoV-2 (PCR) (NotDetected) Coronavirus NL63 (PCR) (NotDetected) Human Metapneumovir PCR (NotDetected) Influenza Type A (PCR) (NotDetected) Influenza Type B (PCR) (NotDetected) M. pneumoniae (PCR) (NotDetected) Parainfluenza 1 (PCR) (NotDetected) Parainfluenza 2 (PCR) (NotDetected) Parainfluenza 3 (PCR) (NotDetected) Parainfluenza 4 (PCR) (NotDetected) RSV (PCR) (NotDetected) Entero/Rhino (PCR) (NotDetected) Streptococcus sp PCR (NotDetected) Strep agalactiae (PCR) (NotDetected) Bld Cult ID Panel PCR (NotDetected) Blood Type Blood Type Recheck Antibody Screen Crossmatch 11/14/23 11/14/23 11/14/23 Range/Units 10:31 09:55 08:41 WBC (4.8-10.8) K/ul RBC (4.70-6.10) M/uL Hgb (14.0-18.0) g/dl POC Hgb (14.0-18.0) g/dl Hct (42.0-52.0) % POC Hct (42-52) % MCV (80.0-100.0) fL MCH (25.0-34.0) pg MCHC (32.0-36.0) g/dL RDW Std Deviation (36.4-46.3) fL RDW Coeff of Lauren (11.5-14.5) % Plt Count (130-400) K/uL MPV (9.4-12.4) fL Immature Gran % (Auto) % Neut % (Auto) % Lymph % (Auto) % Sutton % (Auto) % Eos % (Auto) % Baso % (Auto) % Reticulocyte % (Auto) (0.50-2.00) % Neut # (Auto) (1.40-6.50) K/uL Lymph # (Auto) (1.20-3.40) K/uL Sutton # (Auto) (0.11-0.59) K/uL Eos # (Auto) (0.00-0.50) K/uL Baso # (Auto) (0.00-0.20) K/uL Reticulocyte # (0.020-0.100) 10^6/uL Immature Gran # (Auto) (0.01-0.20) K/uL Neutrophils % (Manual) % Lymphocytes % (Manual) % Monocytes % (Manual) % Eosinophils % (Manual) % Neutrophils # (Manual) (1.40-6.50) K/uL Total Absolute Neuts (1.4-6.5) K/uL Lymphocytes # (Manual) (1.2-3.4) K/uL Total Abs Lymphocytes (1.2-3.4) K/uL Monocytes # (Manual) (0.11-0.59) K/uL Eosinophils # (Manual) (0-0.50) K/uL Platelet Estimate (Normal) RBC Morphology Polychromasia PT (9.0-12.0) Seconds INR (0.9-1.1) APTT (21-31) Seconds PTT Ratio VBG pH (7.36-7.41) VBG pCO2 (38-50) mmHg VBG pO2 mmHg VBG HCO3 mmol/L VBG O2 Saturation % VBG Base Excess mEq/L POC Sodium (135-144) mmol/L Sodium (136-145) mmol/L POC Potassium (3.3-5.0) mmol/L Potassium (3.5-5.1) mmol/L POC Chloride (101-112) mmol/L Chloride (98-107) mmol/L Carbon Dioxide (21-32) mmol/L POC Total CO2 (24-31) mmol/L Anion Gap (3-11) POC Anion Gap (16-25) mmol/L POC BUN (7-18) mg/dl BUN (6-23) mg/dl Creatinine (0.6-1.4) mg/dl POC Creatinine (0.6-1.3) mg/dl Est Cr Clr Drug Dosing ml/min Est GFR ( Amer) ml/min Est GFR (Non-Af Amer) ml/min BUN/Creatinine Ratio (10-20) Glucose (70-99(Fasting)) mg/dl POC Glucose 171 H 174 H (70-99) mg/dl POC Glucose (other) (70-99) mg/dl Estimat Average Glucose mg/dl Hemoglobin A1c (4.5-5.6) % Osmolality (280-300) mOsm/kg Lactate (0.4-2.0) mmol/L Calcium (8.6-10.3) mg/dl POC Ioniz Calcium Bill (1.12-1.32) mmol/l Phosphorus (2.5-4.9) mg/dl Magnesium (1.7-2.4) mg/dl Iron (35-175) mcg/dl Unsaturated IBC (155-355) mcg/dl Transferrin (200-360) mg/dl Ferritin (8-388) ng/ml Total Bilirubin (0.2-1.0) mg/dl Direct Bilirubin (0-0.2) mg/dl AST (13-39) U/L ALT (7-52) U/L Alkaline Phosphatase (34-104) U/L Ammonia (18-72) umol/L Troponin I High Sens 649.0 H* (0-20) pg/ml Total Protein (6.0-8.3) gm/dl Albumin (3.4-5.0) gm/dl Globulin (2.5-4.0) gm/dl Albumin/Globulin Ratio (0.9-2) Triglycerides (0-150) mg/dl Cholesterol (0-200) mg/dl LDL Cholesterol, Calc mg/dl VLDL Cholesterol, Calc (0-30) mg/dl HDL Cholesterol mg/dl Cholesterol/HDL Ratio (0-5) Lipase (11-82) U/L Vitamin B12 (180-914) pg/ml Folate (>5.38) ng/ml Procalcitonin (0-0.5) ng/ml TSH (0.300-4.500) uIu/ml Urine Color Urine Appearance (Clear) Urine pH (4.5-7.5) Ur Specific [place] (1.000-1.030) Urine Protein (Negative) Urine Glucose (UA) (Negative) Urine Ketones (Negative) Urine Blood (Negative) Urine Nitrite (Negative) Urine Bilirubin (Negative) Urine Urobilinogen (Negative) Ur Leukocyte Esterase (Negative) Nasal Screen MRSA (PCR) (Negative) Stl C. cayetanensis PCR Stool Rotavirus A PCR Stl Adenov F 40/41 PCR Stool Astrovirus (PCR) Stool Campylobacter PCR Stl C. diff Tox B Gene Stool Cryptosporidium PCR Stl E.coli Shiga Tox PCR Stl Enterotoxigenic E PCR Stool EAEC (PCR) Stl E. histolytica PCR Stool Giardia Lamblia PCR Stool Salmonella PCR Stool Sapovirus (PCR) Stl P. shigelloides PCR Stl Shigella/EIEC PCR St Y.enterocolitica PCR Stool Vibrio (PCR) Stl Vibrio cholerae PCR Stl Norovirus GI/GII PCR Urine Opiates Screen (Neg) Ur Methadone, Qual (Neg) Urine Fentanyl Screen (Neg) Urine Barbiturates (Neg) Ur Phencyclidine (PCP) (Neg) U Amphetamin/Meth Scrn (Neg) MDMA (Ecstasy) Screen (Neg) U Benzodiazepines Scrn (Neg) Ur Cocaine Metabolite (Neg) U Marijuana (THC) Screen (Neg) Ethyl Alcohol mg/dL (<10.0) mg/dl Adenovirus (PCR) (NotDetected) B. pertussis DNA (PCR) (NotDetected) B.parapertussis DNA PCR (NotDetected) C. pneumoniae DNA (PCR) (NotDetected) Coronavirus OC43 (PCR) (NotDetected) Coronavirus HKU1 (PCR) (NotDetected) Coronavirus 229E (PCR) (NotDetected) SARS-CoV-2 (PCR) (NotDetected) Coronavirus NL63 (PCR) (NotDetected) Human Metapneumovir PCR (NotDetected) Influenza Type A (PCR) (NotDetected) Influenza Type B (PCR) (NotDetected) M. pneumoniae (PCR) (NotDetected) Parainfluenza 1 (PCR) (NotDetected) Parainfluenza 2 (PCR) (NotDetected) Parainfluenza 3 (PCR) (NotDetected) Parainfluenza 4 (PCR) (NotDetected) RSV (PCR) (NotDetected) Entero/Rhino (PCR) (NotDetected) Streptococcus sp PCR (NotDetected) Strep agalactiae (PCR) (NotDetected) Bld Cult ID Panel PCR (NotDetected) Blood Type Blood Type Recheck Antibody Screen Crossmatch 11/14/23 11/14/23 11/14/23 Range/Units 08:33 08:24 07:33 WBC (4.8-10.8) K/ul RBC (4.70-6.10) M/uL Hgb (14.0-18.0) g/dl POC Hgb (14.0-18.0) g/dl Hct (42.0-52.0) % POC Hct (42-52) % MCV (80.0-100.0) fL MCH (25.0-34.0) pg MCHC (32.0-36.0) g/dL RDW Std Deviation (36.4-46.3) fL RDW Coeff of Lauren (11.5-14.5) % Plt Count (130-400) K/uL MPV (9.4-12.4) fL Immature Gran % (Auto) % Neut % (Auto) % Lymph % (Auto) % Sutton % (Auto) % Eos % (Auto) % Baso % (Auto) % Reticulocyte % (Auto) (0.50-2.00) % Neut # (Auto) (1.40-6.50) K/uL Lymph # (Auto) (1.20-3.40) K/uL Sutton # (Auto) (0.11-0.59) K/uL Eos # (Auto) (0.00-0.50) K/uL Baso # (Auto) (0.00-0.20) K/uL Reticulocyte # (0.020-0.100) 10^6/uL Immature Gran # (Auto) (0.01-0.20) K/uL Neutrophils % (Manual) % Lymphocytes % (Manual) % Monocytes % (Manual) % Eosinophils % (Manual) % Neutrophils # (Manual) (1.40-6.50) K/uL Total Absolute Neuts (1.4-6.5) K/uL Lymphocytes # (Manual) (1.2-3.4) K/uL Total Abs Lymphocytes (1.2-3.4) K/uL Monocytes # (Manual) (0.11-0.59) K/uL Eosinophils # (Manual) (0-0.50) K/uL Platelet Estimate (Normal) RBC Morphology Polychromasia PT (9.0-12.0) Seconds INR (0.9-1.1) APTT (21-31) Seconds PTT Ratio VBG pH 7.38 (7.36-7.41) VBG pCO2 (38-50) mmHg VBG pO2 mmHg VBG HCO3 mmol/L VBG O2 Saturation % VBG Base Excess mEq/L POC Sodium (135-144) mmol/L Sodium 138 (136-145) mmol/L POC Potassium (3.3-5.0) mmol/L Potassium 4.7 (3.5-5.1) mmol/L POC Chloride (101-112) mmol/L Chloride 111 H (98-107) mmol/L Carbon Dioxide 23 (21-32) mmol/L POC Total CO2 (24-31) mmol/L Anion Gap 4 (3-11) POC Anion Gap (16-25) mmol/L POC BUN (7-18) mg/dl BUN 68 H (6-23) mg/dl Creatinine 0.94 (0.6-1.4) mg/dl POC Creatinine (0.6-1.3) mg/dl Est Cr Clr Drug Dosing 79.1 ml/min Est GFR ( Amer) 102.4 ml/min Est GFR (Non-Af Amer) 88.4 ml/min BUN/Creatinine Ratio 72.3 H (10-20) Glucose 160 H (70-99(Fasting)) mg/dl POC Glucose 195 H (70-99) mg/dl POC Glucose (other) (70-99) mg/dl Estimat Average Glucose mg/dl Hemoglobin A1c (4.5-5.6) % Osmolality (280-300) mOsm/kg Lactate (0.4-2.0) mmol/L Calcium 8.8 (8.6-10.3) mg/dl POC Ioniz Calcium Bill (1.12-1.32) mmol/l Phosphorus 1.8 L (2.5-4.9) mg/dl Magnesium 1.8 (1.7-2.4) mg/dl Iron (35-175) mcg/dl Unsaturated IBC (155-355) mcg/dl Transferrin (200-360) mg/dl Ferritin (8-388) ng/ml Total Bilirubin (0.2-1.0) mg/dl Direct Bilirubin (0-0.2) mg/dl AST (13-39) U/L ALT (7-52) U/L Alkaline Phosphatase (34-104) U/L Ammonia 100.0 H (18-72) umol/L Troponin I High Sens (0-20) pg/ml Total Protein (6.0-8.3) gm/dl Albumin (3.4-5.0) gm/dl Globulin (2.5-4.0) gm/dl Albumin/Globulin Ratio (0.9-2) Triglycerides (0-150) mg/dl Cholesterol (0-200) mg/dl LDL Cholesterol, Calc mg/dl VLDL Cholesterol, Calc (0-30) mg/dl HDL Cholesterol mg/dl Cholesterol/HDL Ratio (0-5) Lipase (11-82) U/L Vitamin B12 (180-914) pg/ml Folate (>5.38) ng/ml Procalcitonin (0-0.5) ng/ml TSH 2.873 (0.300-4.500) uIu/ml Urine Color Urine Appearance (Clear) Urine pH (4.5-7.5) Ur Specific [place] (1.000-1.030) Urine Protein (Negative) Urine Glucose (UA) (Negative) Urine Ketones (Negative) Urine Blood (Negative) Urine Nitrite (Negative) Urine Bilirubin (Negative) Urine Urobilinogen (Negative) Ur Leukocyte Esterase (Negative) Nasal Screen MRSA (PCR) (Negative) Stl C. cayetanensis PCR Stool Rotavirus A PCR Stl Adenov F 40/41 PCR Stool Astrovirus (PCR) Stool Campylobacter PCR Stl C. diff Tox B Gene Stool Cryptosporidium PCR Stl E.coli Shiga Tox PCR Stl Enterotoxigenic E PCR Stool EAEC (PCR) Stl E. histolytica PCR Stool Giardia Lamblia PCR Stool Salmonella PCR Stool Sapovirus (PCR) Stl P. shigelloides PCR Stl Shigella/EIEC PCR St Y.enterocolitica PCR Stool Vibrio (PCR) Stl Vibrio cholerae PCR Stl Norovirus GI/GII PCR Urine Opiates Screen (Neg) Ur Methadone, Qual (Neg) Urine Fentanyl Screen (Neg) Urine Barbiturates (Neg) Ur Phencyclidine (PCP) (Neg) U Amphetamin/Meth Scrn (Neg) MDMA (Ecstasy) Screen (Neg) U Benzodiazepines Scrn (Neg) Ur Cocaine Metabolite (Neg) U Marijuana (THC) Screen (Neg) Ethyl Alcohol mg/dL (<10.0) mg/dl Adenovirus (PCR) (NotDetected) B. pertussis DNA (PCR) (NotDetected) B.parapertussis DNA PCR (NotDetected) C. pneumoniae DNA (PCR) (NotDetected) Coronavirus OC43 (PCR) (NotDetected) Coronavirus HKU1 (PCR) (NotDetected) Coronavirus 229E (PCR) (NotDetected) SARS-CoV-2 (PCR) (NotDetected) Coronavirus NL63 (PCR) (NotDetected) Human Metapneumovir PCR (NotDetected) Influenza Type A (PCR) (NotDetected) Influenza Type B (PCR) (NotDetected) M. pneumoniae (PCR) (NotDetected) Parainfluenza 1 (PCR) (NotDetected) Parainfluenza 2 (PCR) (NotDetected) Parainfluenza 3 (PCR) (NotDetected) Parainfluenza 4 (PCR) (NotDetected) RSV (PCR) (NotDetected) Entero/Rhino (PCR) (NotDetected) Streptococcus sp PCR (NotDetected) Strep agalactiae (PCR) (NotDetected) Bld Cult ID Panel PCR (NotDetected) Blood Type Blood Type Recheck Antibody Screen Crossmatch 11/14/23 11/14/23 11/14/23 Range/Units 06:30 04:04 03:49 WBC 20.66 H D (4.8-10.8) K/ul RBC 2.25 L (4.70-6.10) M/uL Hgb 6.8 L* (14.0-18.0) g/dl POC Hgb (14.0-18.0) g/dl Hct 20.0 L* (42.0-52.0) % POC Hct (42-52) % MCV 88.9 (80.0-100.0) fL MCH 30.2 (25.0-34.0) pg MCHC 34.0 (32.0-36.0) g/dL RDW Std Deviation 47.7 H (36.4-46.3) fL RDW Coeff of Lauren 15.3 H (11.5-14.5) % Plt Count 94 L (130-400) K/uL MPV 11.1 (9.4-12.4) fL Immature Gran % (Auto) 0.6 % Neut % (Auto) 84.8 % Lymph % (Auto) 6.0 % [place] % (Auto) 8.4 % Eos % (Auto) 0.1 % Baso % (Auto) 0.1 % Reticulocyte % (Auto) (0.50-2.00) % Neut # (Auto) 17.51 H (1.40-6.50) K/uL Lymph # (Auto) 1.24 (1.20-3.40) K/uL [place] # (Auto) 1.73 H (0.11-0.59) K/uL Eos # (Auto) 0.03 (0.00-0.50) K/uL Baso # (Auto) 0.03 (0.00-0.20) K/uL Reticulocyte # (0.020-0.100) 10^6/uL Immature Gran # (Auto) 0.12 (0.01-0.20) K/uL Neutrophils % (Manual) % Lymphocytes % (Manual) % Monocytes % (Manual) % Eosinophils % (Manual) % Neutrophils # (Manual) (1.40-6.50) K/uL Total Absolute Neuts (1.4-6.5) K/uL Lymphocytes # (Manual) (1.2-3.4) K/uL Total Abs Lymphocytes (1.2-3.4) K/uL Monocytes # (Manual) (0.11-0.59) K/uL Eosinophils # (Manual) (0-0.50) K/uL Platelet Estimate Decreased L (Normal) RBC Morphology Polychromasia 1+ PT 15.6 H (9.0-12.0) Seconds INR 1.5 H (0.9-1.1) APTT (21-31) Seconds PTT Ratio VBG pH 7.33 L (7.36-7.41) VBG pCO2 (38-50) mmHg VBG pO2 mmHg VBG HCO3 mmol/L VBG O2 Saturation % VBG Base Excess mEq/L POC Sodium (135-144) mmol/L Sodium 137 (136-145) mmol/L POC Potassium (3.3-5.0) mmol/L Potassium 4.4 (3.5-5.1) mmol/L POC Chloride (101-112) mmol/L Chloride 109 H (98-107) mmol/L Carbon Dioxide 20 L (21-32) mmol/L POC Total CO2 (24-31) mmol/L Anion Gap 8 (3-11) POC Anion Gap (16-25) mmol/L POC BUN (7-18) mg/dl BUN 66 H (6-23) mg/dl Creatinine 1.02 (0.6-1.4) mg/dl POC Creatinine (0.6-1.3) mg/dl Est Cr Clr Drug Dosing 72.9 ml/min Est GFR ( Amer) 92.8 ml/min Est GFR (Non-Af Amer) 80.1 ml/min BUN/Creatinine Ratio 64.7 H (10-20) Glucose 285 H (70-99(Fasting)) mg/dl POC Glucose 242 H 318 H* (70-99) mg/dl POC Glucose (other) (70-99) mg/dl Estimat Average Glucose 209 mg/dl Hemoglobin A1c 8.9 H (4.5-5.6) % Osmolality (280-300) mOsm/kg Lactate 5.6 H* (0.4-2.0) mmol/L Calcium 8.7 (8.6-10.3) mg/dl POC Ioniz Calcium Bill (1.12-1.32) mmol/l Phosphorus 2.2 L D (2.5-4.9) mg/dl Magnesium 1.8 (1.7-2.4) mg/dl Iron (35-175) mcg/dl Unsaturated IBC (155-355) mcg/dl Transferrin (200-360) mg/dl Ferritin (8-388) ng/ml Total Bilirubin (0.2-1.0) mg/dl Direct Bilirubin (0-0.2) mg/dl AST (13-39) U/L ALT (7-52) U/L Alkaline Phosphatase (34-104) U/L Ammonia (18-72) umol/L Troponin I High Sens 661.9 H* D (0-20) pg/ml Total Protein (6.0-8.3) gm/dl Albumin (3.4-5.0) gm/dl Globulin (2.5-4.0) gm/dl Albumin/Globulin Ratio (0.9-2) Triglycerides 90 (0-150) mg/dl Cholesterol 123 (0-200) mg/dl LDL Cholesterol, Calc 74 mg/dl VLDL Cholesterol, Calc 18 (0-30) mg/dl HDL Cholesterol 31 mg/dl Cholesterol/HDL Ratio 4.0 (0-5) Lipase (11-82) U/L Vitamin B12 (180-914) pg/ml Folate (>5.38) ng/ml Procalcitonin (0-0.5) ng/ml TSH (0.300-4.500) uIu/ml Urine Color Urine Appearance (Clear) Urine pH (4.5-7.5) Ur Specific [place] (1.000-1.030) Urine Protein (Negative) Urine Glucose (UA) (Negative) Urine Ketones (Negative) Urine Blood (Negative) Urine Nitrite (Negative) Urine Bilirubin (Negative) Urine Urobilinogen (Negative) Ur Leukocyte Esterase (Negative) Nasal Screen MRSA (PCR) (Negative) Stl C. cayetanensis PCR Stool Rotavirus A PCR Stl Adenov F 40/41 PCR Stool Astrovirus (PCR) Stool Campylobacter PCR Stl C. diff Tox B Gene Stool Cryptosporidium PCR Stl E.coli Shiga Tox PCR Stl Enterotoxigenic E PCR Stool EAEC (PCR) Stl E. histolytica PCR Stool Giardia Lamblia PCR Stool Salmonella PCR Stool Sapovirus (PCR) Stl P. shigelloides PCR Stl Shigella/EIEC PCR St Y.enterocolitica PCR Stool Vibrio (PCR) Stl Vibrio cholerae PCR Stl Norovirus GI/GII PCR Urine Opiates Screen (Neg) Ur Methadone, Qual (Neg) Urine Fentanyl Screen (Neg) Urine Barbiturates (Neg) Ur Phencyclidine (PCP) (Neg) U Amphetamin/Meth Scrn (Neg) MDMA (Ecstasy) Screen (Neg) U Benzodiazepines Scrn (Neg) Ur Cocaine Metabolite (Neg) U Marijuana (THC) Screen (Neg) Ethyl Alcohol mg/dL (<10.0) mg/dl Adenovirus (PCR) (NotDetected) B. pertussis DNA (PCR) (NotDetected) B.parapertussis DNA PCR (NotDetected) C. pneumoniae DNA (PCR) (NotDetected) Coronavirus OC43 (PCR) (NotDetected) Coronavirus HKU1 (PCR) (NotDetected) Coronavirus 229E (PCR) (NotDetected) SARS-CoV-2 (PCR) (NotDetected) Coronavirus NL63 (PCR) (NotDetected) Human Metapneumovir PCR (NotDetected) Influenza Type A (PCR) (NotDetected) Influenza Type B (PCR) (NotDetected) M. pneumoniae (PCR) (NotDetected) Parainfluenza 1 (PCR) (NotDetected) Parainfluenza 2 (PCR) (NotDetected) Parainfluenza 3 (PCR) (NotDetected) Parainfluenza 4 (PCR) (NotDetected) RSV (PCR) (NotDetected) Entero/Rhino (PCR) (NotDetected) Streptococcus sp PCR (NotDetected) Strep agalactiae (PCR) (NotDetected) Bld Cult ID Panel PCR (NotDetected) Blood Type Blood Type Recheck Antibody Screen Crossmatch 11/14/23 11/14/23 11/14/23 Range/Units 02:04 00:37 00:34 WBC (4.8-10.8) K/ul RBC (4.70-6.10) M/uL Hgb (14.0-18.0) g/dl POC Hgb (14.0-18.0) g/dl Hct (42.0-52.0) % POC Hct (42-52) % MCV (80.0-100.0) fL MCH (25.0-34.0) pg MCHC (32.0-36.0) g/dL RDW Std Deviation (36.4-46.3) fL RDW Coeff of Lauren (11.5-14.5) % Plt Count (130-400) K/uL MPV (9.4-12.4) fL Immature Gran % (Auto) % Neut % (Auto) % Lymph % (Auto) % Sutton % (Auto) % Eos % (Auto) % Baso % (Auto) % Reticulocyte % (Auto) (0.50-2.00) % Neut # (Auto) (1.40-6.50) K/uL Lymph # (Auto) (1.20-3.40) K/uL Sutton # (Auto) (0.11-0.59) K/uL Eos # (Auto) (0.00-0.50) K/uL Baso # (Auto) (0.00-0.20) K/uL Reticulocyte # (0.020-0.100) 10^6/uL Immature Gran # (Auto) (0.01-0.20) K/uL Neutrophils % (Manual) % Lymphocytes % (Manual) % Monocytes % (Manual) % Eosinophils % (Manual) % Neutrophils # (Manual) (1.40-6.50) K/uL Total Absolute Neuts (1.4-6.5) K/uL Lymphocytes # (Manual) (1.2-3.4) K/uL Total Abs Lymphocytes (1.2-3.4) K/uL Monocytes # (Manual) (0.11-0.59) K/uL Eosinophils # (Manual) (0-0.50) K/uL Platelet Estimate (Normal) RBC Morphology Polychromasia PT (9.0-12.0) Seconds INR (0.9-1.1) APTT (21-31) Seconds PTT Ratio VBG pH 7.29 L (7.36-7.41) VBG pCO2 (38-50) mmHg VBG pO2 mmHg VBG HCO3 mmol/L VBG O2 Saturation % VBG Base Excess mEq/L POC Sodium (135-144) mmol/L Sodium 138 (136-145) mmol/L POC Potassium (3.3-5.0) mmol/L Potassium 4.7 (3.5-5.1) mmol/L POC Chloride (101-112) mmol/L Chloride 107 (98-107) mmol/L Carbon Dioxide 18 L (21-32) mmol/L POC Total CO2 (24-31) mmol/L Anion Gap 13 H (3-11) POC Anion Gap (16-25) mmol/L POC BUN (7-18) mg/dl BUN 64 H (6-23) mg/dl Creatinine 1.09 (0.6-1.4) mg/dl POC Creatinine (0.6-1.3) mg/dl Est Cr Clr Drug Dosing 68.2 ml/min Est GFR ( Amer) 85.7 ml/min Est GFR (Non-Af Amer) 73.9 ml/min BUN/Creatinine Ratio 58.7 H (10-20) Glucose 403 H* (70-99(Fasting)) mg/dl POC Glucose 407 H* 438 H* (70-99) mg/dl POC Glucose (other) (70-99) mg/dl Estimat Average Glucose mg/dl Hemoglobin A1c (4.5-5.6) % Osmolality (280-300) mOsm/kg Lactate (0.4-2.0) mmol/L Calcium 8.7 (8.6-10.3) mg/dl POC Ioniz Calcium Bill (1.12-1.32) mmol/l Phosphorus 3.5 D (2.5-4.9) mg/dl Magnesium 1.8 (1.7-2.4) mg/dl Iron (35-175) mcg/dl Unsaturated IBC (155-355) mcg/dl Transferrin (200-360) mg/dl Ferritin (8-388) ng/ml Total Bilirubin (0.2-1.0) mg/dl Direct Bilirubin (0-0.2) mg/dl AST (13-39) U/L ALT (7-52) U/L Alkaline Phosphatase (34-104) U/L Ammonia (18-72) umol/L Troponin I High Sens (0-20) pg/ml Total Protein (6.0-8.3) gm/dl Albumin (3.4-5.0) gm/dl Globulin (2.5-4.0) gm/dl Albumin/Globulin Ratio (0.9-2) Triglycerides (0-150) mg/dl Cholesterol (0-200) mg/dl LDL Cholesterol, Calc mg/dl VLDL Cholesterol, Calc (0-30) mg/dl HDL Cholesterol mg/dl Cholesterol/HDL Ratio (0-5) Lipase (11-82) U/L Vitamin B12 (180-914) pg/ml Folate (>5.38) ng/ml Procalcitonin (0-0.5) ng/ml TSH (0.300-4.500) uIu/ml Urine Color Urine Appearance (Clear) Urine pH (4.5-7.5) Ur Specific [place] (1.000-1.030) Urine Protein (Negative) Urine Glucose (UA) (Negative) Urine Ketones (Negative) Urine Blood (Negative) Urine Nitrite (Negative) Urine Bilirubin (Negative) Urine Urobilinogen (Negative) Ur Leukocyte Esterase (Negative) Nasal Screen MRSA (PCR) (Negative) Stl C. cayetanensis PCR Stool Rotavirus A PCR Stl Adenov F 40/41 PCR Stool Astrovirus (PCR) Stool Campylobacter PCR Stl C. diff Tox B Gene Stool Cryptosporidium PCR Stl E.coli Shiga Tox PCR Stl Enterotoxigenic E PCR Stool EAEC (PCR) Stl E. histolytica PCR Stool Giardia Lamblia PCR Stool Salmonella PCR Stool Sapovirus (PCR) Stl P. shigelloides PCR Stl Shigella/EIEC PCR St Y.enterocolitica PCR Stool Vibrio (PCR) Stl Vibrio cholerae PCR Stl Norovirus GI/GII PCR Urine Opiates Screen (Neg) Ur Methadone, Qual (Neg) Urine Fentanyl Screen (Neg) Urine Barbiturates (Neg) Ur Phencyclidine (PCP) (Neg) U Amphetamin/Meth Scrn (Neg) MDMA (Ecstasy) Screen (Neg) U Benzodiazepines Scrn (Neg) Ur Cocaine Metabolite (Neg) U Marijuana (THC) Screen (Neg) Ethyl Alcohol mg/dL (<10.0) mg/dl Adenovirus (PCR) (NotDetected) B. pertussis DNA (PCR) (NotDetected) B.parapertussis DNA PCR (NotDetected) C. pneumoniae DNA (PCR) (NotDetected) Coronavirus OC43 (PCR) (NotDetected) Coronavirus HKU1 (PCR) (NotDetected) Coronavirus 229E (PCR) (NotDetected) SARS-CoV-2 (PCR) (NotDetected) Coronavirus NL63 (PCR) (NotDetected) Human Metapneumovir PCR (NotDetected) Influenza Type A (PCR) (NotDetected) Influenza Type B (PCR) (NotDetected) M. pneumoniae (PCR) (NotDetected) Parainfluenza 1 (PCR) (NotDetected) Parainfluenza 2 (PCR) (NotDetected) Parainfluenza 3 (PCR) (NotDetected) Parainfluenza 4 (PCR) (NotDetected) RSV (PCR) (NotDetected) Entero/Rhino (PCR) (NotDetected) Streptococcus sp PCR (NotDetected) Strep agalactiae (PCR) (NotDetected) Bld Cult ID Panel PCR (NotDetected) Blood Type Blood Type Recheck Antibody Screen Crossmatch 11/13/23 11/13/23 11/13/23 Range/Units Unknown 23:21 22:36 WBC (4.8-10.8) K/ul RBC (4.70-6.10) M/uL Hgb 7.0 L (14.0-18.0) g/dl POC Hgb (14.0-18.0) g/dl Hct (42.0-52.0) % POC Hct (42-52) % MCV (80.0-100.0) fL MCH (25.0-34.0) pg MCHC (32.0-36.0) g/dL RDW Std Deviation (36.4-46.3) fL RDW Coeff of Lauren (11.5-14.5) % Plt Count (130-400) K/uL MPV (9.4-12.4) fL Immature Gran % (Auto) % Neut % (Auto) % Lymph % (Auto) % Sutton % (Auto) % Eos % (Auto) % Baso % (Auto) % Reticulocyte % (Auto) (0.50-2.00) % Neut # (Auto) (1.40-6.50) K/uL Lymph # (Auto) (1.20-3.40) K/uL Sutton # (Auto) (0.11-0.59) K/uL Eos # (Auto) (0.00-0.50) K/uL Baso # (Auto) (0.00-0.20) K/uL Reticulocyte # (0.020-0.100) 10^6/uL Immature Gran # (Auto) (0.01-0.20) K/uL Neutrophils % (Manual) % Lymphocytes % (Manual) % Monocytes % (Manual) % Eosinophils % (Manual) % Neutrophils # (Manual) (1.40-6.50) K/uL Total Absolute Neuts (1.4-6.5) K/uL Lymphocytes # (Manual) (1.2-3.4) K/uL Total Abs Lymphocytes (1.2-3.4) K/uL Monocytes # (Manual) (0.11-0.59) K/uL Eosinophils # (Manual) (0-0.50) K/uL Platelet Estimate (Normal) RBC Morphology Polychromasia PT (9.0-12.0) Seconds INR (0.9-1.1) APTT (21-31) Seconds PTT Ratio VBG pH (7.36-7.41) VBG pCO2 (38-50) mmHg VBG pO2 mmHg VBG HCO3 mmol/L VBG O2 Saturation % VBG Base Excess mEq/L POC Sodium (135-144) mmol/L Sodium (136-145) mmol/L POC Potassium (3.3-5.0) mmol/L Potassium (3.5-5.1) mmol/L POC Chloride (101-112) mmol/L Chloride (98-107) mmol/L Carbon Dioxide (21-32) mmol/L POC Total CO2 (24-31) mmol/L Anion Gap (3-11) POC Anion Gap (16-25) mmol/L POC BUN (7-18) mg/dl BUN (6-23) mg/dl Creatinine (0.6-1.4) mg/dl POC Creatinine (0.6-1.3) mg/dl Est Cr Clr Drug Dosing ml/min Est GFR ( Amer) ml/min Est GFR (Non-Af Amer) ml/min BUN/Creatinine Ratio (10-20) Glucose (70-99(Fasting)) mg/dl POC Glucose 470 H* (70-99) mg/dl POC Glucose (other) (70-99) mg/dl Estimat Average Glucose mg/dl Hemoglobin A1c (4.5-5.6) % Osmolality (280-300) mOsm/kg Lactate 8.5 H* (0.4-2.0) mmol/L Calcium (8.6-10.3) mg/dl POC Ioniz Calcium Bill (1.12-1.32) mmol/l Phosphorus (2.5-4.9) mg/dl Magnesium (1.7-2.4) mg/dl Iron (35-175) mcg/dl Unsaturated IBC (155-355) mcg/dl Transferrin (200-360) mg/dl Ferritin (8-388) ng/ml Total Bilirubin (0.2-1.0) mg/dl Direct Bilirubin (0-0.2) mg/dl AST (13-39) U/L ALT (7-52) U/L Alkaline Phosphatase (34-104) U/L Ammonia (18-72) umol/L Troponin I High Sens 498.1 H* D (0-20) pg/ml Total Protein (6.0-8.3) gm/dl Albumin (3.4-5.0) gm/dl Globulin (2.5-4.0) gm/dl Albumin/Globulin Ratio (0.9-2) Triglycerides (0-150) mg/dl Cholesterol (0-200) mg/dl LDL Cholesterol, Calc mg/dl VLDL Cholesterol, Calc (0-30) mg/dl HDL Cholesterol mg/dl Cholesterol/HDL Ratio (0-5) Lipase (11-82) U/L Vitamin B12 (180-914) pg/ml Folate (>5.38) ng/ml Procalcitonin (0-0.5) ng/ml TSH (0.300-4.500) uIu/ml Urine Color Urine Appearance (Clear) Urine pH (4.5-7.5) Ur Specific [place] (1.000-1.030) Urine Protein (Negative) Urine Glucose (UA) (Negative) Urine Ketones (Negative) Urine Blood (Negative) Urine Nitrite (Negative) Urine Bilirubin (Negative) Urine Urobilinogen (Negative) Ur Leukocyte Esterase (Negative) Nasal Screen MRSA (PCR) Negative (Negative) Stl C. cayetanensis PCR Stool Rotavirus A PCR Stl Adenov F 40/41 PCR Stool Astrovirus (PCR) Stool Campylobacter PCR Stl C. diff Tox B Gene Stool Cryptosporidium PCR Stl E.coli Shiga Tox PCR Stl Enterotoxigenic E PCR Stool EAEC (PCR) Stl E. histolytica PCR Stool Giardia Lamblia PCR Stool Salmonella PCR Stool Sapovirus (PCR) Stl P. shigelloides PCR Stl Shigella/EIEC PCR St Y.enterocolitica PCR Stool Vibrio (PCR) Stl Vibrio cholerae PCR Stl Norovirus GI/GII PCR Urine Opiates Screen Neg (Neg) Ur Methadone, Qual Neg (Neg) Urine Fentanyl Screen Neg (Neg) Urine Barbiturates Neg (Neg) Ur Phencyclidine (PCP) Neg (Neg) U Amphetamin/Meth Scrn Neg (Neg) MDMA (Ecstasy) Screen Neg (Neg) U Benzodiazepines Scrn Neg (Neg) Ur Cocaine Metabolite Neg (Neg) U Marijuana (THC) Screen Neg (Neg) Ethyl Alcohol mg/dL (<10.0) mg/dl Adenovirus (PCR) (NotDetected) B. pertussis DNA (PCR) (NotDetected) B.parapertussis DNA PCR (NotDetected) C. pneumoniae DNA (PCR) (NotDetected) Coronavirus OC43 (PCR) (NotDetected) Coronavirus HKU1 (PCR) (NotDetected) Coronavirus 229E (PCR) (NotDetected) SARS-CoV-2 (PCR) (NotDetected) Coronavirus NL63 (PCR) (NotDetected) Human Metapneumovir PCR (NotDetected) Influenza Type A (PCR) (NotDetected) Influenza Type B (PCR) (NotDetected) M. pneumoniae (PCR) (NotDetected) Parainfluenza 1 (PCR) (NotDetected) Parainfluenza 2 (PCR) (NotDetected) Parainfluenza 3 (PCR) (NotDetected) Parainfluenza 4 (PCR) (NotDetected) RSV (PCR) (NotDetected) Entero/Rhino (PCR) (NotDetected) Streptococcus sp PCR (NotDetected) Strep agalactiae (PCR) (NotDetected) Bld Cult ID Panel PCR (NotDetected) Blood Type Blood Type Recheck Antibody Screen Crossmatch 11/13/23 11/13/23 11/13/23 Range/Units 22:01 20:34 20:26 WBC (4.8-10.8) K/ul RBC (4.70-6.10) M/uL Hgb (14.0-18.0) g/dl POC Hgb (14.0-18.0) g/dl Hct (42.0-52.0) % POC Hct (42-52) % MCV (80.0-100.0) fL MCH (25.0-34.0) pg MCHC (32.0-36.0) g/dL RDW Std Deviation (36.4-46.3) fL RDW Coeff of Lauren (11.5-14.5) % Plt Count (130-400) K/uL MPV (9.4-12.4) fL Immature Gran % (Auto) % Neut % (Auto) % Lymph % (Auto) % [place] % (Auto) % Eos % (Auto) % Baso % (Auto) % Reticulocyte % (Auto) (0.50-2.00) % Neut # (Auto) (1.40-6.50) K/uL Lymph # (Auto) (1.20-3.40) K/uL [place] # (Auto) (0.11-0.59) K/uL Eos # (Auto) (0.00-0.50) K/uL Baso # (Auto) (0.00-0.20) K/uL Reticulocyte # (0.020-0.100) 10^6/uL Immature Gran # (Auto) (0.01-0.20) K/uL Neutrophils % (Manual) % Lymphocytes % (Manual) % Monocytes % (Manual) % Eosinophils % (Manual) % Neutrophils # (Manual) (1.40-6.50) K/uL Total Absolute Neuts (1.4-6.5) K/uL Lymphocytes # (Manual) (1.2-3.4) K/uL Total Abs Lymphocytes (1.2-3.4) K/uL Monocytes # (Manual) (0.11-0.59) K/uL Eosinophils # (Manual) (0-0.50) K/uL Platelet Estimate (Normal) RBC Morphology Polychromasia PT (9.0-12.0) Seconds INR (0.9-1.1) APTT (21-31) Seconds PTT Ratio VBG pH 7.15 L (7.36-7.41) VBG pCO2 (38-50) mmHg VBG pO2 mmHg VBG HCO3 mmol/L VBG O2 Saturation % VBG Base Excess mEq/L POC Sodium (135-144) mmol/L Sodium 135 L (136-145) mmol/L POC Potassium (3.3-5.0) mmol/L Potassium 5.0 (3.5-5.1) mmol/L POC Chloride (101-112) mmol/L Chloride 103 (98-107) mmol/L Carbon Dioxide 11 L (21-32) mmol/L POC Total CO2 (24-31) mmol/L Anion Gap 21 H (3-11) POC Anion Gap (16-25) mmol/L POC BUN (7-18) mg/dl BUN 61 H (6-23) mg/dl Creatinine 1.06 (0.6-1.4) mg/dl POC Creatinine (0.6-1.3) mg/dl Est Cr Clr Drug Dosing 70.2 ml/min Est GFR ( Amer) 88.6 ml/min Est GFR (Non-Af Amer) 76.4 ml/min BUN/Creatinine Ratio 57.5 H (10-20) Glucose 550 H* (70-99(Fasting)) mg/dl POC Glucose 517 H* 536 H* (70-99) mg/dl POC Glucose (other) (70-99) mg/dl Estimat Average Glucose mg/dl Hemoglobin A1c (4.5-5.6) % Osmolality (280-300) mOsm/kg Lactate 13.1 H* (0.4-2.0) mmol/L Calcium 8.0 L (8.6-10.3) mg/dl POC Ioniz Calcium Bill (1.12-1.32) mmol/l Phosphorus 6.5 H (2.5-4.9) mg/dl Magnesium 2.1 (1.7-2.4) mg/dl Iron (35-175) mcg/dl Unsaturated IBC (155-355) mcg/dl Transferrin (200-360) mg/dl Ferritin (8-388) ng/ml Total Bilirubin (0.2-1.0) mg/dl Direct Bilirubin (0-0.2) mg/dl AST (13-39) U/L ALT (7-52) U/L Alkaline Phosphatase (34-104) U/L Ammonia 135.0 H (18-72) umol/L Troponin I High Sens 368.4 H* (0-20) pg/ml Total Protein (6.0-8.3) gm/dl Albumin (3.4-5.0) gm/dl Globulin (2.5-4.0) gm/dl Albumin/Globulin Ratio (0.9-2) Triglycerides (0-150) mg/dl Cholesterol (0-200) mg/dl LDL Cholesterol, Calc mg/dl VLDL Cholesterol, Calc (0-30) mg/dl HDL Cholesterol mg/dl Cholesterol/HDL Ratio (0-5) Lipase (11-82) U/L Vitamin B12 (180-914) pg/ml Folate (>5.38) ng/ml Procalcitonin (0-0.5) ng/ml TSH (0.300-4.500) uIu/ml Urine Color Urine Appearance (Clear) Urine pH (4.5-7.5) Ur Specific [place] (1.000-1.030) Urine Protein (Negative) Urine Glucose (UA) (Negative) Urine Ketones (Negative) Urine Blood (Negative) Urine Nitrite (Negative) Urine Bilirubin (Negative) Urine Urobilinogen (Negative) Ur Leukocyte Esterase (Negative) Nasal Screen MRSA (PCR) (Negative) Stl C. cayetanensis PCR Stool Rotavirus A PCR Stl Adenov F 40/41 PCR Stool Astrovirus (PCR) Stool Campylobacter PCR Stl C. diff Tox B Gene Stool Cryptosporidium PCR Stl E.coli Shiga Tox PCR Stl Enterotoxigenic E PCR Stool EAEC (PCR) Stl E. histolytica PCR Stool Giardia Lamblia PCR Stool Salmonella PCR Stool Sapovirus (PCR) Stl P. shigelloides PCR Stl Shigella/EIEC PCR St Y.enterocolitica PCR Stool Vibrio (PCR) Stl Vibrio cholerae PCR Stl Norovirus GI/GII PCR Urine Opiates Screen (Neg) Ur Methadone, Qual (Neg) Urine Fentanyl Screen (Neg) Urine Barbiturates (Neg) Ur Phencyclidine (PCP) (Neg) U Amphetamin/Meth Scrn (Neg) MDMA (Ecstasy) Screen (Neg) U Benzodiazepines Scrn (Neg) Ur Cocaine Metabolite (Neg) U Marijuana (THC) Screen (Neg) Ethyl Alcohol mg/dL < 10.0 (<10.0) mg/dl Adenovirus (PCR) (NotDetected) B. pertussis DNA (PCR) (NotDetected) B.parapertussis DNA PCR (NotDetected) C. pneumoniae DNA (PCR) (NotDetected) Coronavirus OC43 (PCR) (NotDetected) Coronavirus HKU1 (PCR) (NotDetected) Coronavirus 229E (PCR) (NotDetected) SARS-CoV-2 (PCR) (NotDetected) Coronavirus NL63 (PCR) (NotDetected) Human Metapneumovir PCR (NotDetected) Influenza Type A (PCR) (NotDetected) Influenza Type B (PCR) (NotDetected) M. pneumoniae (PCR) (NotDetected) Parainfluenza 1 (PCR) (NotDetected) Parainfluenza 2 (PCR) (NotDetected) Parainfluenza 3 (PCR) (NotDetected) Parainfluenza 4 (PCR) (NotDetected) RSV (PCR) (NotDetected) Entero/Rhino (PCR) (NotDetected) Streptococcus sp PCR (NotDetected) Strep agalactiae (PCR) (NotDetected) Bld Cult ID Panel PCR (NotDetected) Blood Type Blood Type Recheck Antibody Screen Crossmatch 11/13/23 11/13/23 11/13/23 Range/Units 19:36 18:25 18:20 WBC (4.8-10.8) K/ul RBC (4.70-6.10) M/uL Hgb (14.0-18.0) g/dl POC Hgb (14.0-18.0) g/dl Hct (42.0-52.0) % POC Hct (42-52) % MCV (80.0-100.0) fL MCH (25.0-34.0) pg MCHC (32.0-36.0) g/dL RDW Std Deviation (36.4-46.3) fL RDW Coeff of Lauren (11.5-14.5) % Plt Count (130-400) K/uL MPV (9.4-12.4) fL Immature Gran % (Auto) % Neut % (Auto) % Lymph % (Auto) % [place] % (Auto) % Eos % (Auto) % Baso % (Auto) % Reticulocyte % (Auto) (0.50-2.00) % Neut # (Auto) (1.40-6.50) K/uL Lymph # (Auto) (1.20-3.40) K/uL [place] # (Auto) (0.11-0.59) K/uL Eos # (Auto) (0.00-0.50) K/uL Baso # (Auto) (0.00-0.20) K/uL Reticulocyte # (0.020-0.100) 10^6/uL Immature Gran # (Auto) (0.01-0.20) K/uL Neutrophils % (Manual) % Lymphocytes % (Manual) % Monocytes % (Manual) % Eosinophils % (Manual) % Neutrophils # (Manual) (1.40-6.50) K/uL Total Absolute Neuts (1.4-6.5) K/uL Lymphocytes # (Manual) (1.2-3.4) K/uL Total Abs Lymphocytes (1.2-3.4) K/uL Monocytes # (Manual) (0.11-0.59) K/uL Eosinophils # (Manual) (0-0.50) K/uL Platelet Estimate (Normal) RBC Morphology Polychromasia PT (9.0-12.0) Seconds INR (0.9-1.1) APTT (21-31) Seconds PTT Ratio VBG pH (7.36-7.41) VBG pCO2 (38-50) mmHg VBG pO2 mmHg VBG HCO3 mmol/L VBG O2 Saturation % VBG Base Excess mEq/L POC Sodium (135-144) mmol/L Sodium (136-145) mmol/L POC Potassium (3.3-5.0) mmol/L Potassium (3.5-5.1) mmol/L POC Chloride (101-112) mmol/L Chloride (98-107) mmol/L Carbon Dioxide (21-32) mmol/L POC Total CO2 (24-31) mmol/L Anion Gap (3-11) POC Anion Gap (16-25) mmol/L POC BUN (7-18) mg/dl BUN (6-23) mg/dl Creatinine (0.6-1.4) mg/dl POC Creatinine (0.6-1.3) mg/dl Est Cr Clr Drug Dosing ml/min Est GFR ( Amer) ml/min Est GFR (Non-Af Amer) ml/min BUN/Creatinine Ratio (10-20) Glucose (70-99(Fasting)) mg/dl POC Glucose 550 H* 529 H* (70-99) mg/dl POC Glucose (other) (70-99) mg/dl Estimat Average Glucose mg/dl Hemoglobin A1c (4.5-5.6) % Osmolality (280-300) mOsm/kg Lactate (0.4-2.0) mmol/L Calcium (8.6-10.3) mg/dl POC Ioniz Calcium Bill (1.12-1.32) mmol/l Phosphorus (2.5-4.9) mg/dl Magnesium (1.7-2.4) mg/dl Iron (35-175) mcg/dl Unsaturated IBC (155-355) mcg/dl Transferrin (200-360) mg/dl Ferritin (8-388) ng/ml Total Bilirubin (0.2-1.0) mg/dl Direct Bilirubin (0-0.2) mg/dl AST (13-39) U/L ALT (7-52) U/L Alkaline Phosphatase (34-104) U/L Ammonia (18-72) umol/L Troponin I High Sens (0-20) pg/ml Total Protein (6.0-8.3) gm/dl Albumin (3.4-5.0) gm/dl Globulin (2.5-4.0) gm/dl Albumin/Globulin Ratio (0.9-2) Triglycerides (0-150) mg/dl Cholesterol (0-200) mg/dl LDL Cholesterol, Calc mg/dl VLDL Cholesterol, Calc (0-30) mg/dl HDL Cholesterol mg/dl Cholesterol/HDL Ratio (0-5) Lipase (11-82) U/L Vitamin B12 (180-914) pg/ml Folate (>5.38) ng/ml Procalcitonin (0-0.5) ng/ml TSH (0.300-4.500) uIu/ml Urine Color Urine Appearance (Clear) Urine pH (4.5-7.5) Ur Specific [place] (1.000-1.030) Urine Protein (Negative) Urine Glucose (UA) (Negative) Urine Ketones (Negative) Urine Blood (Negative) Urine Nitrite (Negative) Urine Bilirubin (Negative) Urine Urobilinogen (Negative) Ur Leukocyte Esterase (Negative) Nasal Screen MRSA (PCR) Negative (Negative) Stl C. cayetanensis PCR Stool Rotavirus A PCR Stl Adenov F 40/41 PCR Stool Astrovirus (PCR) Stool Campylobacter PCR Stl C. diff Tox B Gene Stool Cryptosporidium PCR Stl E.coli Shiga Tox PCR Stl Enterotoxigenic E PCR Stool EAEC (PCR) Stl E. histolytica PCR Stool Giardia Lamblia PCR Stool Salmonella PCR Stool Sapovirus (PCR) Stl P. shigelloides PCR Stl Shigella/EIEC PCR St Y.enterocolitica PCR Stool Vibrio (PCR) Stl Vibrio cholerae PCR Stl Norovirus GI/GII PCR Urine Opiates Screen (Neg) Ur Methadone, Qual (Neg) Urine Fentanyl Screen (Neg) Urine Barbiturates (Neg) Ur Phencyclidine (PCP) (Neg) U Amphetamin/Meth Scrn (Neg) MDMA (Ecstasy) Screen (Neg) U Benzodiazepines Scrn (Neg) Ur Cocaine Metabolite (Neg) U Marijuana (THC) Screen (Neg) Ethyl Alcohol mg/dL (<10.0) mg/dl Adenovirus (PCR) (NotDetected) B. pertussis DNA (PCR) (NotDetected) B.parapertussis DNA PCR (NotDetected) C. pneumoniae DNA (PCR) (NotDetected) Coronavirus OC43 (PCR) (NotDetected) Coronavirus HKU1 (PCR) (NotDetected) Coronavirus 229E (PCR) (NotDetected) SARS-CoV-2 (PCR) (NotDetected) Coronavirus NL63 (PCR) (NotDetected) Human Metapneumovir PCR (NotDetected) Influenza Type A (PCR) (NotDetected) Influenza Type B (PCR) (NotDetected) M. pneumoniae (PCR) (NotDetected) Parainfluenza 1 (PCR) (NotDetected) Parainfluenza 2 (PCR) (NotDetected) Parainfluenza 3 (PCR) (NotDetected) Parainfluenza 4 (PCR) (NotDetected) RSV (PCR) (NotDetected) Entero/Rhino (PCR) (NotDetected) Streptococcus sp PCR (NotDetected) Strep agalactiae (PCR) (NotDetected) Bld Cult ID Panel PCR (NotDetected) Blood Type Blood Type Recheck Antibody Screen Crossmatch 11/13/23 11/13/23 11/13/23 Range/Units 17:56 17:55 17:36 WBC (4.8-10.8) K/ul RBC (4.70-6.10) M/uL Hgb (14.0-18.0) g/dl POC Hgb (14.0-18.0) g/dl Hct (42.0-52.0) % POC Hct (42-52) % MCV (80.0-100.0) fL MCH (25.0-34.0) pg MCHC (32.0-36.0) g/dL RDW Std Deviation (36.4-46.3) fL RDW Coeff of Lauren (11.5-14.5) % Plt Count (130-400) K/uL MPV (9.4-12.4) fL Immature Gran % (Auto) % Neut % (Auto) % Lymph % (Auto) % Sutton % (Auto) % Eos % (Auto) % Baso % (Auto) % Reticulocyte % (Auto) (0.50-2.00) % Neut # (Auto) (1.40-6.50) K/uL Lymph # (Auto) (1.20-3.40) K/uL Sutton # (Auto) (0.11-0.59) K/uL Eos # (Auto) (0.00-0.50) K/uL Baso # (Auto) (0.00-0.20) K/uL Reticulocyte # (0.020-0.100) 10^6/uL Immature Gran # (Auto) (0.01-0.20) K/uL Neutrophils % (Manual) % Lymphocytes % (Manual) % Monocytes % (Manual) % Eosinophils % (Manual) % Neutrophils # (Manual) (1.40-6.50) K/uL Total Absolute Neuts (1.4-6.5) K/uL Lymphocytes # (Manual) (1.2-3.4) K/uL Total Abs Lymphocytes (1.2-3.4) K/uL Monocytes # (Manual) (0.11-0.59) K/uL Eosinophils # (Manual) (0-0.50) K/uL Platelet Estimate (Normal) RBC Morphology Polychromasia PT (9.0-12.0) Seconds INR (0.9-1.1) APTT (21-31) Seconds PTT Ratio VBG pH (7.36-7.41) VBG pCO2 (38-50) mmHg VBG pO2 mmHg VBG HCO3 mmol/L VBG O2 Saturation % VBG Base Excess mEq/L POC Sodium (135-144) mmol/L Sodium (136-145) mmol/L POC Potassium (3.3-5.0) mmol/L Potassium (3.5-5.1) mmol/L POC Chloride (101-112) mmol/L Chloride (98-107) mmol/L Carbon Dioxide (21-32) mmol/L POC Total CO2 (24-31) mmol/L Anion Gap (3-11) POC Anion Gap (16-25) mmol/L POC BUN (7-18) mg/dl BUN (6-23) mg/dl Creatinine (0.6-1.4) mg/dl POC Creatinine (0.6-1.3) mg/dl Est Cr Clr Drug Dosing ml/min Est GFR ( Amer) ml/min Est GFR (Non-Af Amer) ml/min BUN/Creatinine Ratio (10-20) Glucose (70-99(Fasting)) mg/dl POC Glucose (70-99) mg/dl POC Glucose (other) (70-99) mg/dl Estimat Average Glucose mg/dl Hemoglobin A1c (4.5-5.6) % Osmolality (280-300) mOsm/kg Lactate 16.3 H* (0.4-2.0) mmol/L Calcium (8.6-10.3) mg/dl POC Ioniz Calcium Bill (1.12-1.32) mmol/l Phosphorus (2.5-4.9) mg/dl Magnesium (1.7-2.4) mg/dl Iron (35-175) mcg/dl Unsaturated IBC (155-355) mcg/dl Transferrin (200-360) mg/dl Ferritin (8-388) ng/ml Total Bilirubin (0.2-1.0) mg/dl Direct Bilirubin (0-0.2) mg/dl AST (13-39) U/L ALT (7-52) U/L Alkaline Phosphatase (34-104) U/L Ammonia (18-72) umol/L Troponin I High Sens 338.3 H* D (0-20) pg/ml Total Protein (6.0-8.3) gm/dl Albumin (3.4-5.0) gm/dl Globulin (2.5-4.0) gm/dl Albumin/Globulin Ratio (0.9-2) Triglycerides (0-150) mg/dl Cholesterol (0-200) mg/dl LDL Cholesterol, Calc mg/dl VLDL Cholesterol, Calc (0-30) mg/dl HDL Cholesterol mg/dl Cholesterol/HDL Ratio (0-5) Lipase (11-82) U/L Vitamin B12 (180-914) pg/ml Folate (>5.38) ng/ml Procalcitonin (0-0.5) ng/ml TSH (0.300-4.500) uIu/ml Urine Color Yellow Urine Appearance Clear (Clear) Urine pH 5.0 (4.5-7.5) Ur Specific [place] 1.038 H (1.000-1.030) Urine Protein Negative (Negative) Urine Glucose (UA) 3+ H (Negative) Urine Ketones Trace H (Negative) Urine Blood Negative (Negative) Urine Nitrite Negative (Negative) Urine Bilirubin Negative (Negative) Urine Urobilinogen Negative (Negative) Ur Leukocyte Esterase Negative (Negative) Nasal Screen MRSA (PCR) (Negative) Stl C. cayetanensis PCR Stool Rotavirus A PCR Stl Adenov F 40/41 PCR Stool Astrovirus (PCR) Stool Campylobacter PCR Stl C. diff Tox B Gene Stool Cryptosporidium PCR Stl E.coli Shiga Tox PCR Stl Enterotoxigenic E PCR Stool EAEC (PCR) Stl E. histolytica PCR Stool Giardia Lamblia PCR Stool Salmonella PCR Stool Sapovirus (PCR) Stl P. shigelloides PCR Stl Shigella/EIEC PCR St Y.enterocolitica PCR Stool Vibrio (PCR) Stl Vibrio cholerae PCR Stl Norovirus GI/GII PCR Urine Opiates Screen (Neg) Ur Methadone, Qual (Neg) Urine Fentanyl Screen (Neg) Urine Barbiturates (Neg) Ur Phencyclidine (PCP) (Neg) U Amphetamin/Meth Scrn (Neg) MDMA (Ecstasy) Screen (Neg) U Benzodiazepines Scrn (Neg) Ur Cocaine Metabolite (Neg) U Marijuana (THC) Screen (Neg) Ethyl Alcohol mg/dL (<10.0) mg/dl Adenovirus (PCR) (NotDetected) B. pertussis DNA (PCR) (NotDetected) B.parapertussis DNA PCR (NotDetected) C. pneumoniae DNA (PCR) (NotDetected) Coronavirus OC43 (PCR) (NotDetected) Coronavirus HKU1 (PCR) (NotDetected) Coronavirus 229E (PCR) (NotDetected) SARS-CoV-2 (PCR) (NotDetected) Coronavirus NL63 (PCR) (NotDetected) Human Metapneumovir PCR (NotDetected) Influenza Type A (PCR) (NotDetected) Influenza Type B (PCR) (NotDetected) M. pneumoniae (PCR) (NotDetected) Parainfluenza 1 (PCR) (NotDetected) Parainfluenza 2 (PCR) (NotDetected) Parainfluenza 3 (PCR) (NotDetected) Parainfluenza 4 (PCR) (NotDetected) RSV (PCR) (NotDetected) Entero/Rhino (PCR) (NotDetected) Streptococcus sp PCR (NotDetected) Strep agalactiae (PCR) (NotDetected) Bld Cult ID Panel PCR (NotDetected) Blood Type Blood Type Recheck O Positive Antibody Screen Crossmatch 11/13/23 11/13/23 11/13/23 Range/Units 16:29 16:10 16:07 WBC (4.8-10.8) K/ul RBC (4.70-6.10) M/uL Hgb (14.0-18.0) g/dl POC Hgb 6.1 L* (14.0-18.0) g/dl Hct (42.0-52.0) % POC Hct 18 L* (42-52) % MCV (80.0-100.0) fL MCH (25.0-34.0) pg MCHC (32.0-36.0) g/dL RDW Std Deviation (36.4-46.3) fL RDW Coeff of Lauren (11.5-14.5) % Plt Count (130-400) K/uL MPV (9.4-12.4) fL Immature Gran % (Auto) % Neut % (Auto) % Lymph % (Auto) % Sutton % (Auto) % Eos % (Auto) % Baso % (Auto) % Reticulocyte % (Auto) (0.50-2.00) % Neut # (Auto) (1.40-6.50) K/uL Lymph # (Auto) (1.20-3.40) K/uL Sutton # (Auto) (0.11-0.59) K/uL Eos # (Auto) (0.00-0.50) K/uL Baso # (Auto) (0.00-0.20) K/uL Reticulocyte # (0.020-0.100) 10^6/uL Immature Gran # (Auto) (0.01-0.20) K/uL Neutrophils % (Manual) % Lymphocytes % (Manual) % Monocytes % (Manual) % Eosinophils % (Manual) % Neutrophils # (Manual) (1.40-6.50) K/uL Total Absolute Neuts (1.4-6.5) K/uL Lymphocytes # (Manual) (1.2-3.4) K/uL Total Abs Lymphocytes (1.2-3.4) K/uL Monocytes # (Manual) (0.11-0.59) K/uL Eosinophils # (Manual) (0-0.50) K/uL Platelet Estimate (Normal) RBC Morphology Polychromasia PT (9.0-12.0) Seconds INR (0.9-1.1) APTT (21-31) Seconds PTT Ratio VBG pH (7.36-7.41) VBG pCO2 (38-50) mmHg VBG pO2 mmHg VBG HCO3 mmol/L VBG O2 Saturation % VBG Base Excess mEq/L POC Sodium 132 L (135-144) mmol/L Sodium (136-145) mmol/L POC Potassium 4.8 (3.3-5.0) mmol/L Potassium (3.5-5.1) mmol/L POC Chloride 100 L (101-112) mmol/L Chloride (98-107) mmol/L Carbon Dioxide (21-32) mmol/L POC Total CO2 12 L (24-31) mmol/L Anion Gap (3-11) POC Anion Gap 26.0 H (16-25) mmol/L POC BUN 69 H (7-18) mg/dl BUN (6-23) mg/dl Creatinine (0.6-1.4) mg/dl POC Creatinine 1.1 (0.6-1.3) mg/dl Est Cr Clr Drug Dosing ml/min Est GFR ( Amer) ml/min Est GFR (Non-Af Amer) ml/min BUN/Creatinine Ratio (10-20) Glucose (70-99(Fasting)) mg/dl POC Glucose (70-99) mg/dl POC Glucose (other) 552 H* (70-99) mg/dl Estimat Average Glucose mg/dl Hemoglobin A1c (4.5-5.6) % Osmolality (280-300) mOsm/kg Lactate (0.4-2.0) mmol/L Calcium (8.6-10.3) mg/dl POC Ioniz Calcium Bill 1.09 L (1.12-1.32) mmol/l Phosphorus (2.5-4.9) mg/dl Magnesium (1.7-2.4) mg/dl Iron (35-175) mcg/dl Unsaturated IBC (155-355) mcg/dl Transferrin (200-360) mg/dl Ferritin (8-388) ng/ml Total Bilirubin (0.2-1.0) mg/dl Direct Bilirubin (0-0.2) mg/dl AST (13-39) U/L ALT (7-52) U/L Alkaline Phosphatase (34-104) U/L Ammonia (18-72) umol/L Troponin I High Sens (0-20) pg/ml Total Protein (6.0-8.3) gm/dl Albumin (3.4-5.0) gm/dl Globulin (2.5-4.0) gm/dl Albumin/Globulin Ratio (0.9-2) Triglycerides (0-150) mg/dl Cholesterol (0-200) mg/dl LDL Cholesterol, Calc mg/dl VLDL Cholesterol, Calc (0-30) mg/dl HDL Cholesterol mg/dl Cholesterol/HDL Ratio (0-5) Lipase (11-82) U/L Vitamin B12 (180-914) pg/ml Folate (>5.38) ng/ml Procalcitonin (0-0.5) ng/ml TSH (0.300-4.500) uIu/ml Urine Color Urine Appearance (Clear) Urine pH (4.5-7.5) Ur Specific [place] (1.000-1.030) Urine Protein (Negative) Urine Glucose (UA) (Negative) Urine Ketones (Negative) Urine Blood (Negative) Urine Nitrite (Negative) Urine Bilirubin (Negative) Urine Urobilinogen (Negative) Ur Leukocyte Esterase (Negative) Nasal Screen MRSA (PCR) (Negative) Stl C. cayetanensis PCR Stool Rotavirus A PCR Stl Adenov F 40/41 PCR Stool Astrovirus (PCR) Stool Campylobacter PCR Stl C. diff Tox B Gene Stool Cryptosporidium PCR Stl E.coli Shiga Tox PCR Stl Enterotoxigenic E PCR Stool EAEC (PCR) Stl E. histolytica PCR Stool Giardia Lamblia PCR Stool Salmonella PCR Stool Sapovirus (PCR) Stl P. shigelloides PCR Stl Shigella/EIEC PCR St Y.enterocolitica PCR Stool Vibrio (PCR) Stl Vibrio cholerae PCR Stl Norovirus GI/GII PCR Urine Opiates Screen (Neg) Ur Methadone, Qual (Neg) Urine Fentanyl Screen (Neg) Urine Barbiturates (Neg) Ur Phencyclidine (PCP) (Neg) U Amphetamin/Meth Scrn (Neg) MDMA (Ecstasy) Screen (Neg) U Benzodiazepines Scrn (Neg) Ur Cocaine Metabolite (Neg) U Marijuana (THC) Screen (Neg) Ethyl Alcohol mg/dL (<10.0) mg/dl Adenovirus (PCR) Not Detected (NotDetected) B. pertussis DNA (PCR) Not Detected (NotDetected) B.parapertussis DNA PCR Not Detected (NotDetected) C. pneumoniae DNA (PCR) Not Detected (NotDetected) Coronavirus OC43 (PCR) Not Detected (NotDetected) Coronavirus HKU1 (PCR) Not Detected (NotDetected) Coronavirus 229E (PCR) Not Detected (NotDetected) SARS-CoV-2 (PCR) Not Detected (NotDetected) Coronavirus NL63 (PCR) Not Detected (NotDetected) Human Metapneumovir PCR Not Detected (NotDetected) Influenza Type A (PCR) Not Detected (NotDetected) Influenza Type B (PCR) Not Detected (NotDetected) M. pneumoniae (PCR) Not Detected (NotDetected) Parainfluenza 1 (PCR) Not Detected (NotDetected) Parainfluenza 2 (PCR) Not Detected (NotDetected) Parainfluenza 3 (PCR) Not Detected (NotDetected) Parainfluenza 4 (PCR) Not Detected (NotDetected) RSV (PCR) Not Detected (NotDetected) Entero/Rhino (PCR) Not Detected (NotDetected) Streptococcus sp PCR DETECTED A (NotDetected) Strep agalactiae (PCR) DETECTED A (NotDetected) Bld Cult ID Panel PCR See PCR Comment (NotDetected) Blood Type O Positive Blood Type Recheck Antibody Screen NEGATIVE Crossmatch See Detail 11/13/23 Range/Units 16:02 WBC 12.60 H (4.8-10.8) K/ul RBC 2.19 L (4.70-6.10) M/uL Hgb 6.6 L* (14.0-18.0) g/dl POC Hgb (14.0-18.0) g/dl Hct 20.4 L* (42.0-52.0) % POC Hct (42-52) % MCV 93.2 (80.0-100.0) fL MCH 30.1 (25.0-34.0) pg MCHC 32.4 (32.0-36.0) g/dL RDW Std Deviation 53.7 H (36.4-46.3) fL RDW Coeff of Lauren 15.9 H (11.5-14.5) % Plt Count 178 (130-400) K/uL MPV 11.5 (9.4-12.4) fL Immature Gran % (Auto) % Neut % (Auto) % Lymph % (Auto) % Sutton % (Auto) % Eos % (Auto) % Baso % (Auto) % Reticulocyte % (Auto) 4.07 H (0.50-2.00) % Neut # (Auto) (1.40-6.50) K/uL Lymph # (Auto) (1.20-3.40) K/uL Sutton # (Auto) (0.11-0.59) K/uL Eos # (Auto) (0.00-0.50) K/uL Baso # (Auto) (0.00-0.20) K/uL Reticulocyte # 0.090 (0.020-0.100) 10^6/uL Immature Gran # (Auto) (0.01-0.20) K/uL Neutrophils % (Manual) 95 % Lymphocytes % (Manual) 3 % Monocytes % (Manual) 1 % Eosinophils % (Manual) 1 % Neutrophils # (Manual) 11.97 H (1.40-6.50) K/uL Total Absolute Neuts 11.97 H (1.4-6.5) K/uL Lymphocytes # (Manual) 0.38 L (1.2-3.4) K/uL Total Abs Lymphocytes 0.38 L (1.2-3.4) K/uL Monocytes # (Manual) 0.13 (0.11-0.59) K/uL Eosinophils # (Manual) 0.13 (0-0.50) K/uL Platelet Estimate (Normal) RBC Morphology Unremarkable Polychromasia PT 15.6 H (9.0-12.0) Seconds INR 1.5 H (0.9-1.1) APTT 23 (21-31) Seconds PTT Ratio 0.9 VBG pH 7.15 L (7.36-7.41) VBG pCO2 35 L (38-50) mmHg VBG pO2 27 mmHg VBG HCO3 12 mmol/L VBG O2 Saturation < 60.0 % VBG Base Excess -15.7 mEq/L POC Sodium (135-144) mmol/L Sodium 134 L (136-145) mmol/L POC Potassium (3.3-5.0) mmol/L Potassium 4.9 (3.5-5.1) mmol/L POC Chloride (101-112) mmol/L Chloride 98 (98-107) mmol/L Carbon Dioxide 13 L (21-32) mmol/L POC Total CO2 (24-31) mmol/L Anion Gap 23 H (3-11) POC Anion Gap (16-25) mmol/L POC BUN (7-18) mg/dl BUN 65 H (6-23) mg/dl Creatinine 1.19 (0.6-1.4) mg/dl POC Creatinine (0.6-1.3) mg/dl Est Cr Clr Drug Dosing 62.5 ml/min Est GFR ( Amer) 77.0 ml/min Est GFR (Non-Af Amer) 66.5 ml/min BUN/Creatinine Ratio 54.6 H (10-20) Glucose 620 H* (70-99(Fasting)) mg/dl POC Glucose (70-99) mg/dl POC Glucose (other) (70-99) mg/dl Estimat Average Glucose mg/dl Hemoglobin A1c (4.5-5.6) % Osmolality 337 H (280-300) mOsm/kg Lactate 16.2 H* (0.4-2.0) mmol/L Calcium 8.5 L (8.6-10.3) mg/dl POC Ioniz Calcium Bill (1.12-1.32) mmol/l Phosphorus (2.5-4.9) mg/dl Magnesium 1.6 L (1.7-2.4) mg/dl Iron 226 H (35-175) mcg/dl Unsaturated IBC < 55 L (155-355) mcg/dl Transferrin 194 L (200-360) mg/dl Ferritin 37.8 (8-388) ng/ml Total Bilirubin 1.9 H (0.2-1.0) mg/dl Direct Bilirubin 0.4 H (0-0.2) mg/dl AST 31 (13-39) U/L ALT 27 (7-52) U/L Alkaline Phosphatase 85 (34-104) U/L Ammonia (18-72) umol/L Troponin I High Sens 277.7 H* (0-20) pg/ml Total Protein 4.8 L (6.0-8.3) gm/dl Albumin 2.8 L (3.4-5.0) gm/dl Globulin 2.0 L (2.5-4.0) gm/dl Albumin/Globulin Ratio 1.4 (0.9-2) Triglycerides (0-150) mg/dl Cholesterol (0-200) mg/dl LDL Cholesterol, Calc mg/dl VLDL Cholesterol, Calc (0-30) mg/dl HDL Cholesterol mg/dl Cholesterol/HDL Ratio (0-5) Lipase 149 H (11-82) U/L Vitamin B12 756 (180-914) pg/ml Folate > 22.30 (>5.38) ng/ml Procalcitonin 0.63 H (0-0.5) ng/ml TSH (0.300-4.500) uIu/ml Urine Color Urine Appearance (Clear) Urine pH (4.5-7.5) Ur Specific [place] (1.000-1.030) Urine Protein (Negative) Urine Glucose (UA) (Negative) Urine Ketones (Negative) Urine Blood (Negative) Urine Nitrite (Negative) Urine Bilirubin (Negative) Urine Urobilinogen (Negative) Ur Leukocyte Esterase (Negative) Nasal Screen MRSA (PCR) (Negative) Stl C. cayetanensis PCR Stool Rotavirus A PCR Stl Adenov F 40/41 PCR Stool Astrovirus (PCR) Stool Campylobacter PCR Stl C. diff Tox B Gene Stool Cryptosporidium PCR Stl E.coli Shiga Tox PCR Stl Enterotoxigenic E PCR Stool EAEC (PCR) Stl E. histolytica PCR Stool Giardia Lamblia PCR Stool Salmonella PCR Stool Sapovirus (PCR) Stl P. shigelloides PCR Stl Shigella/EIEC PCR St Y.enterocolitica PCR Stool Vibrio (PCR) Stl Vibrio cholerae PCR Stl Norovirus GI/GII PCR Urine Opiates Screen (Neg) Ur Methadone, Qual (Neg) Urine Fentanyl Screen (Neg) Urine Barbiturates (Neg) Ur Phencyclidine (PCP) (Neg) U Amphetamin/Meth Scrn (Neg) MDMA (Ecstasy) Screen (Neg) U Benzodiazepines Scrn (Neg) Ur Cocaine Metabolite (Neg) U Marijuana (THC) Screen (Neg) Ethyl Alcohol mg/dL (<10.0) mg/dl Adenovirus (PCR) (NotDetected) B. pertussis DNA (PCR) (NotDetected) B.parapertussis DNA PCR (NotDetected) C. pneumoniae DNA (PCR) (NotDetected) Coronavirus OC43 (PCR) (NotDetected) Coronavirus HKU1 (PCR) (NotDetected) Coronavirus 229E (PCR) (NotDetected) SARS-CoV-2 (PCR) (NotDetected) Coronavirus NL63 (PCR) (NotDetected) Human Metapneumovir PCR (NotDetected) Influenza Type A (PCR) (NotDetected) Influenza Type B (PCR) (NotDetected) M. pneumoniae (PCR) (NotDetected) Parainfluenza 1 (PCR) (NotDetected) Parainfluenza 2 (PCR) (NotDetected) Parainfluenza 3 (PCR) (NotDetected) Parainfluenza 4 (PCR) (NotDetected) RSV (PCR) (NotDetected) Entero/Rhino (PCR) (NotDetected) Streptococcus sp PCR (NotDetected) Strep agalactiae (PCR) (NotDetected) Bld Cult ID Panel PCR (NotDetected) Blood Type Blood Type Recheck Antibody Screen Crossmatch Diagnostic Findings Chest X-Ray 11/13/23 16:00 XR chest 1V portable CLINICAL HISTORY: Sepsis TECHNIQUE: Single frontal radiograph of the chest was obtained. Comparison: None available at the time of this dictation. FINDINGS: No lines and tubes are seen. The cardiomediastinal silhouette is normal. Peribronchial thickening is seen. No evidence of pleural effusion or pneumothorax. IMPRESSION: Peribronchial thickening is seen compatible with infectious/inflammatory airways disease or viral pneumonia. No latia consolidation is seen. ACT 112: Negative or not required by law. Electronically signed by: Eb Cullen M.D. 11/13/2023 4:48 PM Abdomen/Pelvis CT 11/13/23 16:39 CT abd pelvis IV con only CLINICAL HISTORY: sepsis, acute anemia TECHNIQUE: Helical axial images of the abdomen and pelvis were obtained and displayed. Automated dose lowering techniques and/or adjustment according to patient size were utilized for this exam. This exam was performed with intravenous contrast. COMPARISON: None available at the time of this dictation. FINDINGS: Lower chest: For findings above the diaphragm, please see CT chest performed same day. Liver: Nodular contour of the liver is seen compatible with cirrhosis. Heterogeneous appearance of the liver. Gallbladder and biliary tree: Cholelithiasis is seen without evidence of cholecystitis. No intra- or extrahepatic biliary ductal dilation. Pancreas: Pancreatic head edema is seen with peripancreatic fat stranding. No dr ainable fluid collections. Spleen: Splenomegaly is noted, the spleen measures 14 cm. Adrenals: Unremarkable. Kidneys and ureters: Unremarkable. Bladder: Unremarkable. Reproductive organs: Unremarkable. Bowel: Diverticulosis is seen without diverticulitis. The appendix is normal. There is markedly distention of the stomach. Lymph nodes Retroperitoneal: Unremarkable. Pelvic: Unremarkable. Mesenteric: Unremarkable. Peritoneum: Soft tissue stranding is seen in the mid abdomen. Vessels: Prominent paraesophageal varices are seen. Abdominal wall: Unremarkable. Bones: Degenerative changes in the visualized spine. IMPRESSION: 1. Findings are concerning for pancreatitis without evidence of acute peripancreatic collection. 2. Prominent stomach with fat stranding about the duodenum which is likely reactive from the pancreatitis. 3. Cirrhosis, splenomegaly, and findings of portal hypertension. There is heterogeneity of the liver in this patient with reported history of he patocellular carcinoma. ACT 112: Negative or not required by law. Electronically signed by: Eb Cullen M.D. 11/13/2023 5:26 PM Chest CTA 11/13/23 16:39 CT angio chest PE protocol CLINICAL HISTORY: sepsis, tachy, hypoten, hypox r/o PE TECHNIQUE: Multidetector row helical CT of the chest was performed with angiographic protocol. Coronal and sagittal reformations were obtained. Coronal and sagittal MIPS were obtained from the axial data set and were submitted for review. Automated dose lowering techniques and/or adjustment according to patient size were utilized for this exam. CT DOSE: 1603.91 mGy.cm Comparison: Comparison is made to chest radiograph 11/13/2023 FINDINGS: Lungs and pleura: Bronchial wall thickening is seen. Faint diffuse groundglass opacities are in a tree-in-bud distribution. Heart and pericardium: Heart size is normal. No pericardial effusion. Vessels: Evaluation for pulmonary embolism is limited due to patient motion. No evidence of central or lobar embolus. Mediastinum and susana: Unremarkable. Chest wall and lower neck: Unremarkable. Abdomen: For findings below the diaphragm, please refer to CT of the abdomen dated the same. Bones: Unremarkable. IMPRESSION: Findings are compatible with pneumonia and bronchitis with no evidence of pulmonary embolus. ACT 112: Negative or not required by law. Electronically signed by: Eb Cullen M.D. 11/13/2023 5:16 PM (2) Cirrhosis Ascites presence: unspecified Hepatic cirrhosis type: unspecified hepatic cirrhosis Qualified Code(s): K74.60 - Unspecified cirrhosis of liver (3) Acute pancreatitis Acute pancreatitis complication: unspecified Pancreatitis type: unspecified pancreatitis type Qualified Code(s): K85.90 - Acute pancreatitis without necrosis or infection, unspecified
--- NOTE | 2023-11-14 13:02 | Electrocardiogram Report ---
Test Reason : Blood Pressure : */* mmHG Vent. Rate : 124 BPM Atrial Rate : 124 BPM P-R Int : 140 ms QRS Dur : 80 ms QT Int : 308 ms P-R-T Axes : 39 25 49 degrees QTcB Int : 442 ms Sinus tachycardia Otherwise normal ECG When compared with ECG of 13-Nov-2023 17:05, ST no longer depressed in Anterior leads Confirmed by Eliseo Mcdaniel ([id number]) on 11/14/2023 1:02:23 PM Referred By: [facility] Confirmed By: Eliseo Mcdaniel
[2023-11-14] MEDS ORDERED: STAT IV/IM STA (13:11)
[2023-11-14 14:01] LABS: Adenovirus F 40/41 PCR Not Detected (NotDetected); Astrovirus PCR Not Detected (NotDetected); Campylobacter PCR Not Detected (NotDetected); Cryptosporidium PCR Not Detected (NotDetected); Cyclospora cayetanensis PCR Not Detected (NotDetected); Entamoeba histolytica PCR Not Detected (NotDetected); Enteroaggregative E.coli(EAEC) Not Detected (NotDetected); Enteropathogenic E.coli (EPEC) Not Detected (NotDetected); Enterotoxigenic E.coli (ETEC) Not Detected (NotDetected); Giardia lamblia PCR Not Detected (NotDetected); Norovirus GI/GII PCR Not Detected (NotDetected); Plesiomonas shigelloides PCR Not Detected (NotDetected); Rotavirus A PCR Not Detected (NotDetected); Salmonella PCR Not Detected (NotDetected); Sapovirus PCR Not Detected (NotDetected); Shiga-like Toxin E.coli (STEC) Not Detected (NotDetected); Shigella/Enteroinvasive E.coli Not Detected (NotDetected); Vibrio cholerae PCR Not Detected (NotDetected); Vibrio species PCR Not Detected (NotDetected); Yersinia enterocolitica PCR Not Detected (NotDetected)
[2023-11-14] MEDS: LACTULOSE SYRUP 20 GM/30 ML UDC PO SCH (14:16)
[2023-11-14] MEDS: OCTREOTIDE ACETATE 500 MCG in 0.9 % SODIUM CHLORIDE 100 ML IV SCH (14:16)
--- NOTE | 2023-11-14 14:19 | Pharmacy Report ---
Pharmacy Glycemic Short Note 2 - Date of Service November 14, 2023 - Glycemic Short BSG Results (Last 24 hours): 11/13/23 11/13/23 11/13/23 16:02 16:10 18:20 Glucose 620 H* POC Glucose 529 H* POC Glucose (other) 552 H* 11/13/23 11/13/23 11/13/23 19:36 20:26 20:34 Glucose 550 H* POC Glucose 550 H* 536 H* POC Glucose (other) 11/13/23 11/13/23 11/14/23 22:01 23:21 00:34 Glucose 403 H* POC Glucose 517 H* 470 H* POC Glucose (other) 11/14/23 11/14/23 11/14/23 00:37 02:04 03:49 Glucose POC Glucose 438 H* 407 H* 318 H* POC Glucose (other) 11/14/23 11/14/23 11/14/23 04:04 06:30 07:33 Glucose 285 H POC Glucose 242 H 195 H POC Glucose (other) 11/14/23 11/14/23 11/14/23 08:24 08:41 09:55 Glucose 160 H POC Glucose 174 H 171 H POC Glucose (other) 11/14/23 11/14/23 11/14/23 11:02 11:43 13:48 Glucose 167 H POC Glucose 183 H 144 H POC Glucose (other) OUTPATIENT ANTIDIABETIC REGIMEN: * Insulin glargine 48units BID * Novolin R per sliding scale * Metformin 1gm PO BID * A1c = 8.9% 11/14/23 (however this was after receipt of PRBCs) ASSESSMENT: * Type 2 diabetic admitted for DKA, HAGMA, lactic acidosis, sepsis, GBS bacteremia, UGIB, pancreatitis, possible PNA. * Initial labs: GLU 620m AG 23, Bicarb 13, vpH 7.15, LA 16.2 * HAGMA likely a combo of DKA and sepsis, lactic acidosis and cirrhosis * This AM pt remains on insulin drip at 8.2units/hr, goal range 150-250. Maint IVFs infusing with dextrose and potassium. Pt remains NPO. * Lactic acidosis improving, not completely resolved, however AG closed and Bicarb now > 15. * Pt was discussed at multidisciplinary rounds, will plan to begin the process of transitioning patient to SQ basal/bolus regimen. Will remove dextrose from maint IVFs to assist in transition in this type 2 diabetic. Of note, he did have high insulin doses listed on his med rec, but given uncertain compliance will begin with "moderate stress" basal insulin dosing initially. Of note, GI consult initiated octreotide gtt which can cause glucose dysregulation leading to hypo- or hyperglycemia. PLAN FOR INPATIENT GLYCEMIC CONTROL: * Hold outpatient oral diabetes medications (metformin) * Continue IV insulin infusion per protocol * Goal range 140-200mg/dL * Basal insulin * Lantus 18 SQ x 1; will reassess basal needs following removal of dextrose from mIVF's. I am hesitant to give more due to ongoing NPO status. * Bolus insulin * Novolog: Nutritional / Prandial insulin per carb ratio determined by insulin infusion rate adjustment calculator
[2023-11-14 15:46] LABS: Cdiff Antigen Negative; Cdiff Toxin A+B Negative Cdiff Toxin (Negative); Cdiff Toxin B Gene (2yr or >) Positive Cdiff Gene (Neg)
[2023-11-14] MEDS: rifAXIMin 550 MG TABLET PO ONE (16:12)
[2023-11-14 17:07] LABS: Hematocrit (blood only) 26.6 % (42.0-52.0); Hemoglobin 9.2 g/dl (14.0-18.0)
[2023-11-14 17:24] LABS: BUN Creatinine Ratio 65.9 (10-20); Calcium 9.1 mg/dl (8.6-10.3); Creatinine Clr Calc Pharmacy 87.5 ml/min; Est GFR (African American) 110.5 ml/min; Est GFR (Non-African American) 95.4 ml/min; Magnesium 2.1 mg/dl (1.7-2.4); Phosphorus 2.5 mg/dl (2.5-4.9); Potassium 3.9 mmol/L (3.5-5.1)
[2023-11-14 17:30] LABS: Troponin I High Sensitivity 668.6 pg/ml (0-20)
[2023-11-14 20:58] LABS: A calco-baum cmplx NotReported Not Detected (NotDetected); Bact fragilis Not Reported Not Detected (NotDetected); Blood Culture Id Panel PCR Panel Negative (NotDetected); C auris Not Reported Not Detected (NotDetected); Calbicans Not Reported Not Detected (NotDetected); Candida glabrata Not Reported Not Detected (NotDetected); Candida krusei Not Reported Not Detected (NotDetected); Cneoformans/gatti Not Reported Not Detected (NotDetected); Cparapsilosis Not Reported Not Detected (NotDetected); E cloacae compx Not Reported Not Detected (NotDetected); Efaecalis Not Reported Not Detected (NotDetected); Efaecium Not Reported Not Detected (NotDetected); Enterobacterales Not Reported Not Detected (NotDetected); Escherichia coli Not Reported Not Detected (NotDetected); H influenzae Not Reported Not Detected (NotDetected); K aerogenes Not Reported Not Detected (NotDetected); Koxytoca Not Reported Not Detected (NotDetected); Kpneumoniae grp Not Reported Not Detected (NotDetected); Lmonocyt Not Reported Not Detected (NotDetected); N meningitidis Not Reported Not Detected (NotDetected); P aeruginosa Not Reported Not Detected (NotDetected); Proteus spp Not Reported Not Detected (NotDetected); Salmonella spp Not Reported Not Detected (NotDetected); Staph lugdunensis Not Reported Not Detected (NotDetected); Staph spp. Not Reported Not Detected (NotDetected); Staphaureus Not Reported Not Detected (NotDetected); Staphepi Not Reported Not Detected (NotDetected); Stenmaltophilia Not Reported Not Detected (NotDetected); Strep agal(GrpB) Not Reported Not Detected (NotDetected); Strep pneum Not Reported Not Detected (NotDetected); Strep pyog (GrpA) Not Reported Not Detected (NotDetected); Strep spp Not Reported Not Detected (NotDetected)
[2023-11-14] MEDS: D5W AND LACTATED RINGERS 1,000 ML IV SCH (21:04)
[2023-11-14] MEDS: rifAXIMin 550 MG TABLET PO SCH (21:05)
[2023-11-14] MEDS: INSULIN ASPART PER UNIT CHARGE SC SCH (21:07)
[2023-11-14 23:08] LABS: BUN Creatinine Ratio 58.1 (10-20); Creatinine Clr Calc Pharmacy 86.5 ml/min; Est GFR (Non-African American) 94.9 ml/min; Potassium 4.1 mmol/L (3.5-5.1)
[2023-11-15 04:33] LABS: Basophils # (auto) 0.02 K/uL (0.00-0.20); Basophils % (auto) 0.2 %; Eosinophils # (auto) 0.27 K/uL (0.00-0.50); Eosinophils % (auto) 2.5 %; Hematocrit (blood only) 22.6 % (42.0-52.0); Hemoglobin 7.8 g/dl (14.0-18.0); Immature Granulocytes # (auto) 0.04 K/uL (0.01-0.20); Immature Granulocytes % (auto) 0.4 %; Lymphocytes # (auto) 1.19 K/uL (1.20-3.40); Lymphocytes % (auto) 11.2 %; Mean Corpuscular Hemoglobin 30.7 pg (25.0-34.0); Mean Corpuscular Hgb Conc 34.5 g/dL (32.0-36.0); Mean Platelet Volume 10.3 fL (9.4-12.4); Monocytes # (auto) 0.77 K/uL (0.11-0.59); Monocytes % (auto) 7.3 %; Neutrophils % (auto) 78.4 %; Platelet Count 69 K/uL (130-400); RDW Coefficient of Variation 15.9 % (11.5-14.5); RDW Standard Deviation 49.1 fL (36.4-46.3); Red Blood Count 2.54 M/uL (4.70-6.10); White Blood Count 10.59 K/ul (4.8-10.8)
[2023-11-15 05:08] LABS: Troponin I High Sensitivity 302.6 pg/ml (0-20)
[2023-11-15 05:12] LABS: Polychromasia 1+
[2023-11-15 05:23] LABS: INR 1.3 (0.9-1.1)
[2023-11-15 06:39] LABS: BUN Creatinine Ratio 53.1 (10-20); Calcium 7.7 mg/dl (8.6-10.3); Creatinine Clr Calc Pharmacy 91.8 ml/min; Est GFR (African American) 112.7 ml/min; Est GFR (Non-African American) 97.3 ml/min
--- NOTE | 2023-11-15 07:52 | Critical Care Progress Note ---
Date of Service November 15, 2023 Assessment & Plan (1) DKA (diabetic ketoacidosis): (2) Acute pancreatitis: (3) Anemia: (4) Cirrhosis: (5) Elevated troponin: (6) Septic shock: (7) Electrolyte abnormality: (8) High anion gap metabolic acidosis: (9) ROMANA (acute kidney injury): Plan Reason Critically Ill: 58 YOM with reported history of hepatocellular carcinoma, reports to EMD for nausea, vomiting, diarrhea, and hyperglycemia. Found to be in DKA as well as with sever lactic acidosis and anemia to 6.6. He will be admitted to the ICU for management of his DKA, acid base disturbances, and trending of his HGB levels. Neuro - No acute needs CAM ICU: Negative --Metabolic encephalopathy Could be from underlying sepsis as well as DKA Elevated ammonia level 135, trending down at 42 today TSH within normal limit Continue with rifaximin and lactulose - frequent re-orientation and attempt to maintain normal sleep wake cycle to prevent ICU delirium Cardiac - Elevated HsCTNI, Shock multifactorial, anemia - ECG showing ST depressions in the lateral leads as well as V2, likely type II demand in setting of DKA, anemia, and lactic acidosis -Continue to trend troponin Respiratory - Pneumonia/bronchitis --Right lower lobe pneumonia Continue with antibiotics Follow sputum culture - respiratory biofire negative at this time CTA chest 11/13/2023 personally reviewed: Patchy groundglass opacities appreciated in the right lower lobe Elevated left hemidiaphragm Motion degraded study No significant mediastinal lymphadenopathy GI - Distended stomach, pancreatitis, possible UGI, ? hepatic cancer - Patient with complaints of nausea/vomiting and abdomen is distended without evidence of obstruction- this may be multifactorial from possibly pancreatitis as well as elevated blood glucose levels causing gastroparesis- low threshold to place NGT if patient has another episode of vomiting. -- Pancreatitis That meets the criteria as patient having epigastric pain as well as CT evidence of pancreatitis - NPO at this time -- Questionable history of hepatic cancer dx- no records Liver is noted to be heterogenous and cirrhotic on imaging Vitamin K 5 mg given 11/14/2023 RENAL/LYTES - -- ROMANA --> improving Likely prerenal from hypotensive episode Monitor BUN/creatinine Avoid nephrotoxic medications Strict ins and outs --S/p HAGMA - No acute needs ENDO - DKA -- S/p DKA -- Continue with ICU hypoglycemia protocol HEME - anemia --Acute blood loss anemia likely from variceal bleed Patient does have bloody bowel with elevated BUN probability of upper GI bleed is there Keep hemoglobin greater than 7 Continue with octreotide GI on board --Thrombocytopenia Could be from history of cirrhosis as well as acute blood loss Continue to monitor ID - --Right lower lobe pneumonia with gram-positive cocci in chains as well as gram- negative cocci Procalcitonin 0.63 Continue with antibiotics --Prophylaxis VTE: IPC GI: Pantoprazole twice daily Lines: Peripheral Diet: N.p.o. Plan: In/out: Positive 911, urine output 2775, +5 L since coming to the hospital Decreased IV fluid rate to 75 mL an hour Given the gram-negative cocci, add Flagyl to the patient's antibiotic regimen Patient hemodynamically stable to be downgraded to medical floor Please note the above document was generated using voice recognition software. It may contain grammatical, syntax or spelling errors.Any formal questions or concerns about the content, text or information contained within the body of this dictation should be directly addressed to the provider for clarification. Admission and Anticipated Discharge Date Admission Date: November 13, 2023 Subjective Patient seen and examined at bedside. No acute distress, no adverse events overnight He was more alert than yesterday, answering all the questions appropriately Stated that the abdominal pain is significantly improved No nausea or vomiting No headache, no blurry vision No shortness of breath Review of Systems 2 Review of Systems: All systems reviewed & are unremarkable except as noted in Subjective and Unobtainable due to cognitive status Physical Exam 2 Physical Exam: Constitutional: No acute distress HEENT: EOMI, PERRLA Respiratory system: Decreased air entry bilaterally, no wheeze, no rhonchi, positive crackles bilaterally CVS: S1-S2 positive, no murmurs or gallops Abdomen: Soft, gastric tenderness, no rebound nondistended, positive bowel sounds x4 Extremities: +2 pulses bilaterally radialis/ dorsalis pedis, no cyanosis, no edema Neuro: Alert oriented to self and place Psych: Normal mood and affect G/U: Positive [place] Skin: no rashes, warm and dry Lymphatic: no cervical or axillary lymphadenopathy Results & Data Results & Data Vital Signs (Past 12 Hours) Vital Signs Pulse Resp BP Pulse Ox O2 Del Method 11/15/23 04:06 100 H 21 96 11/15/23 03:51 119 H 21 96 11/15/23 03:06 115 H 21 94 11/15/23 03:00 145/88 H 11/15/23 02:57 115 H 22 95 11/15/23 02:36 103 H 20 94 11/15/23 02:09 98 H 19 93 11/15/23 02:00 122/74 11/15/23 01:48 100 H 20 94 11/15/23 01:42 112 H 21 95 11/15/23 01:00 135/72 11/15/23 01:00 102 H 21 94 11/15/23 00:30 99 H 18 93 11/15/23 00:00 105 H 19 94 11/15/23 00:00 115/71 11/15/23 00:00 115/71 11/15/23 00:00 117 H 11/14/23 23:36 113 H 20 97 11/14/23 23:03 112 H 18 95 11/14/23 22:30 112 H 21 95 11/14/23 22:00 119 H 21 96 11/14/23 21:30 125 H 20 95 11/14/23 21:24 129 H 18 96 11/14/23 21:00 141/117 H 11/14/23 20:57 108 H 21 96 11/14/23 20:39 117 H 21 96 11/14/23 20:00 116/68 11/14/23 20:00 116/68 11/14/23 20:00 116/68 11/14/23 20:00 104 H 19 95 11/14/23 20:00 Room Air Laboratory Results 11/15/23 04:22 11/15/23 04:22 Coding Level of Care Code 79849 SUB INP/OBS CARE 3/50MIN Diagnoses DKA (diabetic ketoacidosis) E11.10 Diabetes mellitus complication detail: without coma Diabetes mellitus type: type 2 Acute pancreatitis K85.90 Acute pancreatitis complication: unspecified Pancreatitis type: unspecified pancreatitis type Anemia D64.9 Cirrhosis K74.60 Ascites presence: unspecified Hepatic cirrhosis type: unspecified hepatic cirrhosis Elevated troponin R79.89 Septic shock A41.9; R65.21 Electrolyte abnormality E87.8 High anion gap metabolic acidosis E87.29 ROMANA (acute kidney injury) N17.9 (1) DKA (diabetic ketoacidosis) Diabetes mellitus complication detail: without coma Diabetes mellitus type: t ype 2 Qualified Code(s): E11.10 - Type 2 diabetes mellitus with ketoacidosis without coma (2) Acute pancreatitis Acute pancreatitis complication: unspecified Pancreatitis type: unspecified pancreatitis type Qualified Code(s): K85.90 - Acute pancreatitis without necrosis or infection, unspecified (4) Cirrhosis Ascites presence: unspecified Hepatic cirrhosis type: unspecified hepatic cirrhosis Qualified Code(s): K74.60 - Unspecified cirrhosis of liver
[2023-11-15] MEDS: LANTUS PER UNIT CHARGE SC SCH (08:20)
[2023-11-15 08:58] LABS: Magnesium 1.8 mg/dl (1.7-2.4); Phosphorus 2.4 mg/dl (2.5-4.9)
[2023-11-15] MEDS ORDERED: POTASSIUM PHOS 3 MMOL/1 ML INFUSION IV STA (09:04)
[2023-11-15] MEDS: POTASSIUM PHOSPHATE 9 MMOL in SODIUM CHLORIDE 0.9% 250 ML IV ONE (09:29)
[2023-11-15] MEDS: MAGNESIUM SULFATE / D5W 1 GM/100 ML BAG IV SCH (09:29)
[2023-11-15] MEDS: metroNIDAZOLE 500 MG/100 ML BAG IV SCH (10:34)
--- NOTE | 2023-11-15 11:23 | Pharmacy Report ---
Pharmacy Glycemic Short Note 2 - Date of Service November 15, 2023 - Glycemic Short BSG Results (Last 24 hours): 11/14/23 11/14/23 11/14/23 11:43 13:48 14:55 Glucose 167 H POC Glucose 144 H 121 H 11/14/23 11/14/23 11/14/23 16:11 16:48 16:58 Glucose 94 POC Glucose 83 80 11/14/23 11/14/23 11/14/23 18:04 18:59 20:44 Glucose POC Glucose 98 125 H 152 H 11/14/23 11/15/23 11/15/23 22:39 01:32 03:56 Glucose 188 H POC Glucose 273 H 268 H 11/15/23 11/15/23 04:22 07:55 Glucose 255 H POC Glucose 238 H OUTPATIENT ANTIDIABETIC REGIMEN: * Insulin glargine 48units BID * Novolin R per sliding scale * Metformin 1gm PO BID * A1c = 8.9% 11/14/23 (however this was after receipt of PRBCs) ASSESSMENT: 11/14 * Patient was transitioned off insulin drip yesterday following removal of dextrose from mIVFs and receipt of 18 units basal insulin. BSGs trended down into the 80s leading discontinue of insulin drip. BSGs hovered in the 80-120s range off the insulin drip indicating 18 units of basal per day is near his requirement (not his home regimen). BSGs then quickly climbed into the 250- 270s range following resumption of dextrose containing mIVFs last evening. Patient is very sensitive to IV dextrose provision. * Patient was discussed on multidisciplinary rounds today. Plan is to continue dextrose containing mIVFs with hopes GI will be able to eval the patient today for possible procedure. Plan to give Novolog Q 4 hrs to proactively treat hyperglycemia caused by IV dextrose rather than giving long acting insulin as doing so would increase risk of prolonged hypoglycemia if IVFs changed/discontinued. 11/13 * Type 2 diabetic admitted for DKA, HAGMA, lactic acidosis, sepsis, GBS bacteremia, UGIB, pancreatitis, possible PNA. * Initial labs: GLU 620m AG 23, Bicarb 13, vpH 7.15, LA 16.2 * HAGMA likely a combo of DKA and sepsis, lactic acidosis and cirrhosis * This AM pt remains on insulin drip at 8.2units/hr, goal range 150-250. Maint IVFs infusing with dextrose and potassium. Pt remains NPO. * Lactic acidosis improving, not completely resolved, however AG closed and Bicarb now > 15. * Pt was discussed at multidisciplinary rounds, will plan to begin the process of transitioning patient to SQ basal/bolus regimen. Will remove dextrose from maint IVFs to assist in transition in this type 2 diabetic. Of note, he did have high insulin doses listed on his med rec, but given uncertain compliance will begin with "moderate stress" basal insulin dosing initially. Of note, GI consult initiated octreotide gtt which can cause glucose dysregulation leading to hypo- or hyperglycemia. PLAN FOR INPATIENT GLYCEMIC CONTROL: * Hold outpatient oral diabetes medications (metformin) * Basal insulin * Lantus 9 SQ BID * Bolus insulin * Novolog SQ Q 4 hrs per the following scale WHILE NPO AND WHILE RECEIVING D5LR mIVF's * Nursing: please contact pharmacy for new Novolog order if ordered a diet or if no longer receiving D5LR maint IVFs
--- NOTE | 2023-11-15 11:27 | Hospitalist Progress Note ---
Date of Service November 15, 2023 Assessment & Plan (1) Severe sepsis: (2) DKA (diabetic ketoacidosis): (3) Acute pancreatitis: (4) Pneumonia: (5) Anemia: (6) T2DM (type 2 diabetes mellitus): (7) Hepatocellular carcinoma: Plan This is a 58 year old M admitted from [facility] with PMHx significant for Stage 3 Hepatocellular carcinoma not currently being treated, Uncontrolled T2DM, diabetic neuropathy and hx of alcohol abuse. Had intractable N/V and was found to be septic in DKA with symptomatic anemia requiring transfusion. Required ICU level of care. Severe Sepsis Bacteremia, gram positive Pt presenting with tachycardia, leukocytosis Infectious source likely pneumonia, possible odontogenic infection (pt being tx with oral antibiotic at [facility] per pt hx) lactate of 16 on admission, downtrending Procal elevated Chest CTA noting pneumonia UA without signs of infection Respiratory panel negative Blood Cx x1 set growing Group B beta strep in one bottle, ?contaminant in other (Prob.sony gram negative cocci) Biofire noting strep MRSA negative On IV Rocephin and Doxycycline, continue ID consulted for gram pos bacteremia, appreciate recs TTE noting EF >70%, mild LVH, normal wall motion and no significant valvular pathology. Consider IRLANDA Continue to monitor DKA Lactic acidosis DMII pt started on metformin 4 days ago Septic with pneumonia as noted above, likely trigger for DKA Glucose level 620 on admission Hgba1c of 8.9 VBG on admission noting pH of 7.15 , pCO2 35, HCO3 of 12 Anion gap of 23 on admission UA with noted 3+ glucose and trace ketones Continue Insulin gtt, IVF glycemic pharmacy consult Serial labs Continue to monitor improving Symptomatic Anemia Possible GI bleed hgb 6.6 on admission, suspect lower given volume depletion s/p 2 units pRBC transfused, follow Hgb goal hgb > 7 IV PPI anemia panel with normal iron. folate and b12 levels GI consulted, appreciate recs -pt started on octreotide -s/p EGD on 11/14- noted Grade 1 varices, moderate portal gastropathy -per GI if bleeding persists get CTA abdomen/pelvis -consider colonoscopy later in the course Continue to monitor, transfuse as needed Acute Metabolic Encephalopathy Pt with worsening mental status Ammonia elevated at 135 ---> 100-->42 Tox screen negative Likely in setting of above Delirium precautions. Frequent reorientation, avoid sedating medications as able Continue to monitor Hepatocellular Carcinoma Cirrhosis Splenomegaly hyperammonemia states he declined intervention when diagnosed 2 years ago at [facility] CT abd/pelvis noting "Cirrhosis, splenomegaly, and findings of portal hypertension" Ammonia elevated at 135 ---> 100-->42 INR elevated at 1.5, likely in this setting GI consulted as noted above, appreciate recs -started on lactulose, rifaximin -with improved ammonia level, GI advised to continue with just rifaximin Pancreatitis Abd tender, CT noting evidence of pancreatitis Lipase elevated at 149 Continue with LR@ 100 and dextrose NPO currently, advance diet as tolerated Elevated troponin Demand ischemia Trop elevated at 277.7, uptrending suspect demand ischemia in setting of underlying illness no ecg change/chest pain Echo as above, noting EF >70%, mild LVH, normal wall motion and no significant valvular pathology Doubt ACS at this time Hypomagnesemia Hypocalcemia replete as needed Chronic conditions: Hx of alcohol abuse: States last drink about 2 years ago. Denies alcohol use while incarcerated HLD: statin therapy, lipid panel normal Neuropathy: currently not on tx Diet: currently NPO DVT ppx: SCDS for now in setting of anemia, unknown source FULL CODE Dispo: d/c to [facility] when medically able Admission and Anticipated Discharge Date Admission Date: November 13, 2023 Subjective Pt AAOx2 today, much more alert. seen with guard at bedside while still in the ICU. Downgraded. Review of Systems Review of Systems: All systems reviewed & are unremarkable except as noted in Subjective Physical Exam Physical Exam: General: Alert, disoriented. Psych: mood and affect Neuro: disoriented HEENT: NC/AT CV: RRR Resp: no increased effort of breathing Abdomen: tender, firm Extremities: No edema in lower extremities bilaterally. Results & Data Results & Data Vital Signs (Past 12 Hours) Vital Signs Temp Pulse Pulse Resp BP BP Pulse Ox 11/15/23 07:53 37.4 C 97 H 18 139/85 97 11/15/23 04:06 100 H 21 96 11/15/23 03:51 119 H 21 96 11/15/23 03:06 115 H 21 94 11/15/23 03:00 145/88 H 11/15/23 02:57 115 H 22 95 11/15/23 02:36 103 H 20 94 11/15/23 02:09 98 H 19 93 11/15/23 02:00 122/74 11/15/23 01:48 100 H 20 94 11/15/23 01:42 112 H 21 95 11/15/23 01:00 135/72 11/15/23 01:00 102 H 21 94 11/15/23 00:30 99 H 18 93 11/15/23 00:00 105 H 19 94 11/15/23 00:00 115/71 11/15/23 00:00 115/71 11/15/23 00:00 117 H 11/14/23 23:36 113 H 20 97 O2 Del Method 11/15/23 07:53 Room Air 11/15/23 04:06 11/15/23 03:51 11/15/23 03:06 11/15/23 03:00 11/15/23 02:57 11/15/23 02:36 11/15/23 02:09 11/15/23 02:00 11/15/23 01:48 11/15/23 01:42 11/15/23 01:00 11/15/23 01:00 11/15/23 00:30 11/15/23 00:00 11/15/23 00:00 11/15/23 00:00 11/15/23 00:00 11/14/23 23:36 Diagnostic Findings Chest X-Ray 11/13/23 16:00 XR chest 1V portable CLINICAL HISTORY: Sepsis TECHNIQUE: Single frontal radiograph of the chest was obtained. Comparison: None available at the time of this dictation. FINDINGS: No lines and tubes are seen. The cardiomediastinal silhouette is normal. Peribronchial thickening is seen. No evidence of pleural effusion or pneumothorax. IMPRESSION: Peribronchial thickening is seen compatible with infectious/inflammatory airways disease or viral pneumonia. No latia consolidation is seen. ACT 112: Negative or not required by law. Electronically signed by: Eb Cullen M.D. 11/13/2023 4:48 PM Abdomen/Pelvis CT 11/13/23 16:39 CT abd pelvis IV con only CLINICAL HISTORY: sepsis, acute anemia TECHNIQUE: Helical axial images of the abdomen and pelvis were obtained and displayed. Automated dose lowering techniques and/or adjustment according to patient size were utilized for this exam. This exam was performed with intravenous contrast. COMPARISON: None available at the time of this dictation. FINDINGS: Lower chest: For findings above the diaphragm, please see CT chest performed same day. Liver: Nodular contour of the liver is seen compatible with cirrhosis. Heterogeneous appearance of the liver. Gallbladder and biliary tree: Cholelithiasis is seen without evidence of cholecystitis. No intra- or extrahepatic biliary ductal dilation. Pancreas: Pancreatic head edema is seen with peripancreatic fat stranding. No drainable fluid collections. Spleen: Splenomegaly is noted, the spleen measures 14 cm. Adrenals: Unremarkable. Kidneys and ureters: Unremarkable. Bladder: Unremarkable. Reproductive organs: Unremarkable. Bowel: Diverticulosis is seen without diverticulitis. The appendix is normal. There is markedly distention of the stomach. Lymph nodes Retroperitoneal: Unremarkable. Pelvic: Unremarkable. Mesenteric: Unremarkable. Peritoneum: Soft tissue stranding is seen in the mid abdomen. Vessels: Prominent paraesophageal varices are seen. Abdominal wall: Unremarkable. Bones: Degenerative changes in the visualized spine. IMPRESSION: 1. Findings are concerning for pancreatitis without evidence of acute peripancreatic collection. 2. Prominent stomach with fat stranding about the duodenum which is likely reactive from the pancreatitis. 3. Cirrhosis, splenomegaly, and findings of portal hypertension. There is heterogeneity of the liver in this patient with reported history of hepatocellular carcinoma. ACT 112: Negative or not required by law. Electronically signed by: Eb Cullen M.D. 11/13/2023 5:26 PM Chest CTA 11/13/23 16:39 CT angio chest PE protocol CLINICAL HISTORY: sepsis, tachy, hypoten, hypox r/o PE TECHNIQUE: Multidetector row helical CT of the chest was performed with angiographic protocol. Coronal and sagittal reformations were obtained. Coronal and sagittal MIPS were obtained from the axial data set and were submitted for review. Automated dose lowering techniques and/or adjustment according to patient size were utilized for this exam. CT DOSE: 1603.91 mGy.cm Comparison: Comparison is made to chest radiograph 11/13/2023 FINDINGS: Lungs and pleura: Bronchial wall thickening is seen. Faint diffuse groundglass opacities are in a tree-in-bud distribution. Heart and pericardium: Heart size is normal. No pericardial effusion. Vessels: Evaluation for pulmonary embolism is limited due to patient motion. No evidence of central or lobar embolus. Mediastinum and susana: Unremarkable. Chest wall and lower neck: Unremarkable. Abdomen: For findings below the diaphragm, please refer to CT of the abdomen dated the same. Bones: Unremarkable. IMPRESSION: Findings are compatible with pneumonia and bronchitis with no evidence of pulmonary embolus. ACT 112: Negative or not required by law. Electronically signed by: Eb Cullen M.D. 11/13/2023 5:16 PM (2) DKA (diabetic ketoacidosis) Diabetes mellitus complication detail: without coma Diabetes mellitus type: type 2 Qualified Code(s): E11.10 - Type 2 diabetes mellitus with ketoacidosis without coma (3) Acute pancreatitis Acute pancreatitis complication: unspecified Pancreatitis type: unspecified pancreatitis type Qualified Code(s): K85.90 - Acute pancreatitis without necrosis or infection, unspecified (4) Pneumonia Laterality: bilateral Lung location: unspecified part of lung Pneumonia type: due to unspecified organism Qualified Code(s): J18.9 - Pneumonia, unspecified organism
--- NOTE | 2023-11-15 11:50 | Gastroenterology Progress Note ---
Date of Service November 15, 2023 Assessment & Plan (1) Symptomatic anemia: Plan: Doubt he has hepatocellular carcinoma, more than likely they told him he had cirrhosis. Will go ahead and do EGD today. He agrees Admission and Anticipated Discharge Date Admission Date: November 13, 2023 Subjective patient much more alert today. Says he was told he had "liver cancer" but medical at [facility]. No biopsies. No outside referral. Feeling much better today but still having a lot of melenic stools. Hgb 7.8 today Physical Exam Physical Exam: Alert, oriented, communicative Results & Data Vital Signs (Past 12 Hours) Vital Signs Temp Pulse Pulse Resp BP BP Pulse Ox 11/15/23 08:00 11/15/23 07:53 37.4 C 97 H 18 139/85 97 11/15/23 06:47 86 11/15/23 04:06 100 H 21 96 11/15/23 03:51 119 H 21 96 11/15/23 03:06 115 H 21 94 11/15/23 03:00 145/88 H 11/15/23 02:57 115 H 22 95 11/15/23 02:36 103 H 20 94 11/15/23 02:09 98 H 19 93 11/15/23 02:00 122/74 11/15/23 01:48 100 H 20 94 11/15/23 01:42 112 H 21 95 11/15/23 01:00 135/72 11/15/23 01:00 102 H 21 94 11/15/23 00:30 99 H 18 93 11/15/23 00:00 105 H 19 94 11/15/23 00:00 115/71 11/15/23 00:00 115/71 11/15/23 00:00 117 H O2 Del Method 11/15/23 08:00 Room Air 11/15/23 07:53 Room Air 11/15/23 06:47 11/15/23 04:06 11/15/23 03:51 11/15/23 03:06 11/15/23 03:00 11/15/23 02:57 11/15/23 02:36 11/15/23 02:09 11/15/23 02:00 11/15/23 01:48 11/15/23 01:42 11/15/23 01:00 11/15/23 01:00 11/15/23 00:30 11/15/23 00:00 11/15/23 00:00 11/15/23 00:00 11/15/23 00:00
[2023-11-15] MEDS ORDERED: INSULIN ASPART 100 UNITS/ML 3 ML PEN SC SCH (12:00)
--- NOTE | 2023-11-15 12:12 | Anesthesiology Consultation ---
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 Donita Duckworth Jr, MD Height/Weight Height: 5 ft 7 in Weight: 72.5 kg Allergies Allergy/AdvReac Type Severity Reaction Status Date / Time Fish Containing Products Allergy Unknown Verified 11/13/23 16:52 Medications Home Medications Medication Instructions Recorded Confirmed Last Taken cetirizine 10 mg capsule 10 mg PO DAILY 11/13/23 11/13/23 Unknown diphenhydramine HCl 25 mg capsule 25 mg PO HS PRN allergies 11/13/23 11/13/23 Unknown (Banophen) insulin glargine 100 unit/mL 48 unit subcut BID 11/13/23 11/13/23 Unknown subcutaneous cartridge insulin regular human 100 unit/mL 1 sliding scale dose subcut 11/13/23 11/13/23 Unknown injection solution (Novolin R USEASDIRECTD Regular U-100 Insulin) metformin 1,000 mg tablet 1,000 mg PO BID 11/13/23 11/13/23 Unknown rosuvastatin 10 mg tablet 10 mg PO DAILY 11/13/23 11/13/23 Unknown thiamine HCl (vitamin B1) 50 mg 50 mg PO DAILY 11/13/23 11/13/23 Unknown tablet (Vitamin B-1) Active Medications Generic Name Dose Route Start Last Admin Trade Name Freq PRN Reason Stop Dose Admin Pantoprazole Sodium 40 mg/ 10 mls @ 5 mls/min 11/13/23 21:00 11/15/23 08:02 Syringe IV 12/13/23 20:59 5 mls/min BID CORDELL Administration Thiamine HCl 100 mg/ Syringe 10 mls @ 2 mls/min 11/14/23 09:00 11/15/23 08:02 IV 12/14/23 08:59 2 mls/min QAM CORDELL Administration Doxycycline Hyclate 100 mg/ 100 mls @ 50 mls/hr 11/13/23 21:00 11/15/23 11:18 Dextrose IV 11/18/23 10:59 Infused Q12H CORDELL Infusion Ceftriaxone Sodium 2,000 mg in 50 mls @ 100 mls/hr 11/14/23 11:00 11/15/23 10:34 Rocephin IV 11/28/23 10:59 50 mls/hr Q24H CORDELL Administration Octreotide Acetate 500 mcg/ 100.5 mls @ 10.05 mls/hr 11/14/23 13:15 11/15/23 10:34 Sodium Chloride IV 12/14/23 13:14 50 mcg/hr .Q10H CORDELL 10.1 mls/hr Administration 50 MCG/HR Dextrose/Lactated Ringer's 1,000 mls @ 75 mls/hr 11/14/23 18:45 11/15/23 06:22 D5w And Lactated Ringers IV 12/14/23 18:44 110 mls/hr .[id number] CORDELL Administration Magnesium Sulfate/Dextrose 1 gm in 100 mls @ 50 mls/hr 11/15/23 09:15 11/15/23 09:29 Magnesium Sulfate / D5w IV 11/15/23 13:14 50 mls/hr Q2H CORDELL Administration Metronidazole 500 mg in 100 mls @ 100 mls/hr 11/15/23 10:00 11/15/23 10:34 Flagyl IV 11/22/23 09:59 100 mls/hr Q8H CORDELL Administration Insulin Glargine 9 units 11/15/23 09:00 11/15/23 08:20 Lantus Per Unit Charge SC 12/15/23 08:59 9 units BID CORDELL Administration Lactulose 20 gm 11/14/23 14:00 11/15/23 08:03 Lactulose Syrup 20 Gm/30 Ml Udc PO 12/14/23 13:59 20 gm TID CORDELL Administration Rifaximin 550 mg 11/14/23 21:00 11/15/23 08:03 Rifaximin 550 Mg Tablet PO 12/14/23 20:59 550 mg BID CORDELL Administration Past Medical History Medical History HLD (hyperlipidemia) Neuropathy T2DM (type 2 diabetes mellitus) Hepatocellular carcinoma Past Family History Family History Father Throat cancer Mother Diabetes Past Surgical History Surgical History Hx of cervical spine surgery Hx of bilateral hip replacements Social History Smoking Status: Former smoker Do You Dip or Chew Tobacco: No Hx Alcohol Use: No Alcohol type: hard liquor Hx Substance Use: No Physical Exam Vital Signs Last Vital Signs Temp 37.4 C 11/15/23 07:53 Pulse 97 H 11/15/23 07:53 Resp 18 11/15/23 07:53 BP 139/85 11/15/23 07:53 Pulse Ox 97 11/15/23 07:53 O2 Del Method Room Air 11/15/23 08:00 O2 Flow Rate 0 11/13/23 19:17 Testing Laboratory Results 11/15/23 04:22 11/15/23 04:22 PT 14.0 Seconds (9.0-12.0) H 11/15/23 04:22 INR 1.3 (0.9-1.1) H 11/15/23 04:22 APTT 23 Seconds (21-31) 11/13/23 16:02 Hemoglobin A1c 8.9 % (4.5-5.6) H 11/14/23 04:04 Urine Color Yellow 11/13/23 17:55 Urine Appearance Clear (Clear) 11/13/23 17:55 Urine pH 5.0 (4.5-7.5) 11/13/23 17:55 Ur Specific [place] 1.038 (1.000-1.030) H 11/13/23 17:55 Urine Protein Negative (Negative) 11/13/23 17:55 Urine Glucose (UA) 3+ (Negative) H 11/13/23 17:55 Urine Ketones Trace (Negative) H 11/13/23 17:55 Urine Nitrite Negative (Negative) 11/13/23 17:55 Ur Leukocyte Esterase Negative (Negative) 11/13/23 17:55 Blood Type O Positive 11/13/23 16:29 Antibody Screen NEGATIVE 11/13/23 16:29 11/13/23 16:29 Aerobic Blood Culture - Preliminary Blood Gram positive cocci in chains Anaerobic Blood Culture - Preliminary Gram negative cocci 11/15/23 11/15/23 11/15/23 07:55 03:56 01:32 POC Glucose 238 H 268 H 273 H Electrocardiogram Date: 11/15/23 Findings: + ST @ (108) Chest X-Ray Date: 11/15/23 XR chest 1V portable CLINICAL HISTORY: Sepsis TECHNIQUE: Single frontal radiograph of the chest was obtained. Comparison: None available at the time of this dictation. FINDINGS: No lines and tubes are seen. The cardiomediastinal silhouette is normal. Peribronchial thickening is seen. No evidence of pleural effusion or pneumothorax. IMPRESSION: Peribronchial thickening is seen compatible with infectious/inflammatory airways disease or viral pneumonia. No latia consolidation is seen. Echocardiogram Date: 11/14/23 EF: >70 LV Function: normal RWMA: + none Other Findings: + LVH (mild)
[2023-11-15] MEDS: INSULIN ASPART PER UNIT CHARGE SC SCH (12:15)
--- NOTE | 2023-11-15 13:02 | Electrocardiogram Report ---
Test Reason : Blood Pressure : */* mmHG Vent. Rate : 108 BPM Atrial Rate : 108 BPM P-R Int : 136 ms QRS Dur : 84 ms QT Int : 362 ms P-R-T Axes : 24 14 33 degrees QTcB Int : 485 ms Sinus tachycardia Otherwise normal ECG When compared with ECG of 14-Nov-2023 12:16, No significant change was found Confirmed by Eliseo Mcdaniel ([id number]) on 11/15/2023 1:02:19 PM Referred By: [facility] Confirmed By: Eliseo Mcdaniel
[2023-11-15] MEDS: ALBUTEROL 0.083% NEBU SOLN 3 ML VIAL INH STA (13:10)
--- NOTE | 2023-11-15 13:32 | GI REPORT ---
[facility] Patient: KATIANA HARO : 1965 Sex at : Male Age: 58 Years Procedure: Upper GI endoscopy Date: 11/15/2023 Attending Physician: Falguni Duckworth MD Referring MD: Akilah Gore Md Indications: - Melena Medications: - Monitored Anesthesia Care - Propofol per Anesthesia - See the Anesthesia note for documentation of the administered medications Complications: - No immediate complications. Estimated Blood Loss: - Estimated blood loss: None. Procedure: - ASA Grade Assessment: III - A patient with severe systemic disease. - The egd scope was introduced through the mouth and advanced to the second part of the duodenum. - The upper GI endoscopy was accomplished without difficulty. - The patient tolerated the procedure well. Findings: - Grade I varices were found in the lower third of the esophagus and in the middle third of the esophagus. There was no blood at all in esophagus. No stigmata of hemorrhage and no red weal signs., - Moderate portal hypertensive gastropathy was found in the entire examined stomach. There was no blood at all in the stomach - The examined duodenum was normal and without blood. Impression: - Grade I esophageal varices. - Portal hypertensive gastropathy. - Normal examined duodenum. - No specimens collected. Recommendation: - Return patient to ICU for ongoing care. If bleeding persists would consider getting CTA. As time go might consider colonoscopy Procedure Code(s): - 73770, Esophagogastroduodenoscopy, flexible, transoral; diagnostic, including collection of specimen(s) by brushing or washing, when performed (separate procedure) Diagnosis Code(s): - K92.1, Melena (includes Hematochezia) - I85.00, Esophageal varices without bleeding - K76.6, Portal hypertension - K31.89, Other diseases of stomach and duodenum CPT(R) - 2023 copyright [employer]. All Rights Reserved. The CPT codes, CCI edits and ICD codes generated are intended as suggestions and were generated based on input data. These codes are preliminary and upon toolman review may be revised to meet current compliance and payer requirements. The provider is responsible for the final determination of appropriate codes, and modifiers. Dr. Falguni Duckworth MD This document has been electronically signed. Note Initiated:11/15/2023 Note Completed:11/15/2023 1:31 PM [id number]
--- NOTE | 2023-11-15 14:16 | Anesthesiology Progress Note ---
Date of Service November 15, 2023 Anesthesia Post Procedure Vital Signs Vital Signs: Temp Pulse Pulse Pulse Resp BP BP 11/15/23 14:02 103 H 20 11/15/23 13:47 105 H 20 11/15/23 13:32 113 H 20 11/15/23 13:10 97 H 20 11/15/23 12:33 37.2 C 103 H 18 11/15/23 12:00 36.9 C 110 H 21 158/94 H 11/15/23 08:00 11/15/23 07:53 37.4 C 97 H 18 139/85 11/15/23 06:47 86 11/15/23 04:06 100 H 21 11/15/23 03:51 119 H 21 11/15/23 03:06 115 H 21 11/15/23 03:00 145/88 H 11/15/23 02:57 115 H 22 11/15/23 02:36 103 H 20 11/15/23 02:09 98 H 19 11/15/23 02:00 122/74 11/15/23 01:48 100 H 20 11/15/23 01:42 112 H 21 11/15/23 01:00 135/72 11/15/23 01:00 102 H 21 11/15/23 00:30 99 H 18 11/15/23 00:00 105 H 19 11/15/23 00:00 115/71 11/15/23 00:00 115/71 11/15/23 00:00 117 H 11/14/23 23:36 113 H 20 11/14/23 23:03 112 H 18 11/14/23 22:30 112 H 21 11/14/23 22:00 119 H 21 11/14/23 21:30 125 H 20 11/14/23 21:24 129 H 18 11/14/23 21:00 141/117 H 11/14/23 20:57 108 H 21 11/14/23 20:39 117 H 21 11/14/23 20:00 116/68 11/14/23 20:00 116/68 11/14/23 20:00 116/68 11/14/23 20:00 104 H 19 11/14/23 20:00 11/14/23 19:34 11/14/23 19:30 112 H 18 11/14/23 19:09 118 H 21 11/14/23 19:00 120/76 11/14/23 17:28 37.2 C 11/14/23 17:00 121/75 11/14/23 17:00 111 H 20 11/14/23 16:39 111 H 18 11/14/23 16:03 108 H 19 11/14/23 16:00 111/58 L 11/14/23 15:51 110 H 19 11/14/23 15:30 108 H 19 11/14/23 15:12 108 H 21 11/14/23 15:00 130/83 11/14/23 15:00 130/83 11/14/23 14:54 113 H 20 11/14/23 14:51 112 H 19 11/14/23 14:25 139/74 BP Pulse Ox Pulse Ox O2 Del Method O2 Del Method 11/15/23 14:02 130/79 92 Room Air 11/15/23 13:47 121/88 90 Room Air 11/15/23 13:32 110/63 91 Room Air 11/15/23 13:10 94 Room Air 11/15/23 12:33 139/74 95 Room Air 11/15/23 12:00 96 Room Air 11/15/23 08:00 Room Air 11/15/23 07:53 97 Room Air 11/15/23 06:47 11/15/23 04:06 96 11/15/23 03:51 96 11/15/23 03:06 94 11/15/23 03:00 11/15/23 02:57 95 11/15/23 02:36 94 11/15/23 02:09 93 11/15/23 02:00 11/15/23 01:48 94 11/15/23 01:42 95 11/15/23 01:00 11/15/23 01:00 94 11/15/23 00:30 93 11/15/23 00:00 94 11/15/23 00:00 11/15/23 00:00 11/15/23 00:00 11/14/23 23:36 97 11/14/23 23:03 95 11/14/23 22:30 95 11/14/23 22:00 96 11/14/23 21:30 95 11/14/23 21:24 96 11/14/23 21:00 11/14/23 20:57 96 08/21/24 20:39 96 11/14/23 20:00 11/14/23 20:00 11/14/23 20:00 11/14/23 20:00 95 11/14/23 20:00 Room Air 11/14/23 19:34 94 Room Air 11/14/23 19:30 95 11/14/23 19:09 95 11/14/23 19:00 11/14/23 17:28 11/14/23 17:00 11/14/23 17:00 94 11/14/23 16:39 96 11/14/23 16:03 94 11/14/23 16:00 11/14/23 15:51 94 11/14/23 15:30 95 11/14/23 15:12 95 11/14/23 15:00 11/14/23 15:00 11/14/23 14:54 96 11/14/23 14:51 96 11/14/23 14:25 Transfer of Care Handoff Completed per policy Notes Mental Status: alert / awake / arousable and participated in evaluation Patient Amnestic to Procedure: Yes Nausea / Vomiting: adequately controlled Pain: adequately controlled Airway Patency, RR, SpO2: stable & adequate BP & HR: stable & adequate Hydration State: stable & adequate Anesthetic Complications: no major complications apparent
[2023-11-15] MEDS: PROPOFOL IV EMULSION 10 MG/ML 20 ML VIAL IV ONE (14:35)
[2023-11-15] MEDS: KETAMINE HCL 10MG/ML SYR ONE (14:35)
[2023-11-15] MEDS: LIDOCAINE 2% 2 ML VIAL/AMP(20MG/ML) INFIL ONE (14:35)
[2023-11-15 14:57] LABS: Hematocrit (blood only) 25.6 % (42.0-52.0); Hemoglobin 8.7 g/dl (14.0-18.0)
[2023-11-16 04:54] LABS: Calcium 7.2 mg/dl (8.6-10.3); Magnesium 1.9 mg/dl (1.7-2.4); Potassium 3.8 mmol/L (3.5-5.1)
[2023-11-16 04:55] LABS: INR 1.3 (0.9-1.1); Prothrombin Time 13.8 Seconds (9.0-12.0)
[2023-11-16 05:12] LABS: Hematocrit (blood only) 20.5 % (42.0-52.0); Hemoglobin 6.8 g/dl (14.0-18.0); Mean Corpuscular Hemoglobin 30.5 pg (25.0-34.0); Mean Corpuscular Hgb Conc 33.2 g/dL (32.0-36.0); Mean Corpuscular Volume 91.9 fL (80.0-100.0); Mean Platelet Volume 10.1 fL (9.4-12.4); Nucleated RBC # (auto) 0.02 K/uL (0.00-0.12); Nucleated RBC % (auto) 0.3 %; Platelet Count 59 K/uL (130-400); RDW Coefficient of Variation 16.1 % (11.5-14.5); Red Blood Count 2.23 M/uL (4.70-6.10); White Blood Count 6.36 K/ul (4.8-10.8)
[2023-11-16 05:15] LABS: BUN Creatinine Ratio 32.4 (10-20); Basophils # (auto) 0.01 K/uL (0.00-0.20); Basophils % (auto) 0.2 %; Creatinine Clr Calc Pharmacy 104.7 ml/min; Eosinophils # (auto) 0.31 K/uL (0.00-0.50); Eosinophils % (auto) 4.9 %; Est GFR (Non-African American) 102.7 ml/min; Immature Granulocytes # (auto) 0.03 K/uL (0.01-0.20); Immature Granulocytes % (auto) 0.5 %; Lymphocytes # (auto) 0.99 K/uL (1.20-3.40); Lymphocytes % (auto) 15.6 %; Monocytes # (auto) 0.61 K/uL (0.11-0.59); Monocytes % (auto) 9.6 %; Neutrophils # (auto) 4.41 K/uL (1.40-6.50); Neutrophils % (auto) 69.2 %; Phosphorus 2.2 mg/dl (2.5-4.9)
[2023-11-16] MEDS ORDERED: SODIUM CHLORIDE 0.9% 250 ML IV PRN (05:32)
--- NOTE | 2023-11-16 05:39 | Communication Note ---
Date of Service: November 16, 2023 Notified by RN of a.m. hemoglobin of 6.8 from 8.7 yesterday afternoon. No abdominal pain as per RN. 2 dark BMs overnight similar to yesterday as per RN. AP Progressive anemia Ongoing UGIB Transfuse PRBC to maintain hemoglobin of at least 7 Protonix infusion from current twice daily dosing CT angio abdomen pelvis as per GI endo note recommendations for ongoing bleeding.
[2023-11-16] MEDS: OPTIRAY 320 125ml IV ONE (06:19)
[2023-11-16] MEDS: PANTOprazole 40 MG in DEXTROSE 5% MINI-B 100 ML IV SCH (07:13)
[2023-11-16] MEDS: LANTUS PER UNIT CHARGE SC SCH (08:36)
--- NOTE | 2023-11-16 08:46 | CT Scan Report ---
Exam(s): CTA ABDOMEN + PELVIS IV Amt: 118 ML OPTIRAY 320 EXAM: CT Angiography Abdomen and Pelvis With Intravenous Contrast CLINICAL HISTORY: Reason for exam: gi bleed. TECHNIQUE: Axial computed tomographic angiography images of the abdomen and pelvis with intravenous contrast. CTDI is 30.92 mGy and DLP is 1103.84 mGy-cm. Automated exposure control was utilized for the study. A dose lowering technique was utilized adhering to the principles of ALARA. MIP reconstructed images were created and reviewed. COMPARISON: No relevant prior studies available. FINDINGS: VASCULATURE: Aorta: No acute findings. No abdominal aortic aneurysm. No dissection. Celiac trunk and mesenteric arteries: No acute findings. No occlusion or significant stenosis. Renal arteries: No acute findings. No occlusion or significant stenosis. Iliac arteries: No acute findings. No occlusion or significant stenosis. Lung bases: Unremarkable. No mass. No consolidation. ABDOMEN: Liver: Cirrhotic morphology of the liver. Gallbladder and bile ducts: Cholelithiasis with sludge. Gallbladder wall thickening is favored to relate to sit portal hypertension. If there is further concern for cholecystitis, consider HIDA imaging. No ductal dilation. Pancreas: Unremarkable. No ductal dilation. No mass. Spleen: The spleen measures 15.0 cm in maximum dimension. Small splenule. Innumerable splenic hypodensities. Findings may relate to splenic siderotic nodules. Adrenals: Unremarkable. No mass. Kidneys and ureters: Unremarkable. No hydronephrosis. No solid mass. Stomach and bowel: Increased density noted within the a sending colon without evidence of arterial blush. Findings may relate to enteric content. Hemorrhage is not excluded. Please note this is limited given monophasic imaging. Consider scintigraphic imaging if there is further concern. Abnormal thickening within the stomach extending to the gastric antrum. Findings may relate to portal hypertensive gastropathy. Gastritis also possible. Gastric varices and esophageal varices noted. No obstruction. PELVIS: Appendix: No findings to suggest acute appendicitis. Bladder: Unremarkable. No mass. Reproductive: Unremarkable as visualized. ABDOMEN and PELVIS: Intraperitoneal space: Moderate mesenteric ascites. No free air. Bones/joints: Bilateral total hip arthroplasty changes. Degenerative changes in the spine. No acute fracture. No dislocation. Soft tissues: Unremarkable. Lymph nodes: Unremarkable. No enlarged lymph nodes. IMPRESSION: 1. Increased density noted within the a sending colon without evidence of arterial blush. Findings may relate to enteric content. Hemorrhage is not excluded. Please note this is limited given monophasic imaging. Consider scintigraphic imaging if there is further concern. 2. Abnormal thickening within the stomach extending to the gastric antrum. Findings may relate to portal hypertensive gastropathy. Gastritis also possible. 3. Cholelithiasis with sludge. Gallbladder wall thickening is favored to relate to sit portal hypertension. If there is further concern for cholecystitis, consider HIDA imaging. 4. Innumerable splenic hypodensities. Findings may relate to splenic siderotic nodules. 5. Additional sequelae of portal hypertension as described. Electronically signed by: Vikas Brannon MD 11/16/23 08:46 AM
--- NOTE | 2023-11-16 10:54 | Pharmacy Report ---
Pharmacy Glycemic Short Note 2 - Date of Service November 16, 2023 - Glycemic Short BSG Results (Last 24 hours): 11/15/23 11/15/23 11/15/23 12:10 16:14 20:12 Glucose POC Glucose 196 H 150 H 134 H 11/16/23 11/16/23 11/16/23 00:24 04:15 04:16 Glucose 164 H POC Glucose 186 H 176 H 11/16/23 08:23 Glucose POC Glucose 128 H OUTPATIENT ANTIDIABETIC REGIMEN: * Insulin glargine 48units BID * Novolin R per sliding scale * Metformin 1gm PO BID * A1c = 8.9% 11/14/23 (however this was after receipt of PRBCs) ASSESSMENT: 11/15: * BSGs improved throughout the day yesterday, [phone] mg/dL. Received 18 units basal + 24 units bolus. * Fasting was 128 mg/dL today. Remains NPO. On ceftraixone and doxycycline for infection. Octreotide and pantoprazole drips running for GI bleed. Continues on D5LR at 75 cc/hr. * Will increase basal slightly today. No change to sliding scale. 11/14: * Patient was transitioned off insulin drip yesterday following removal of dextrose from mIVFs and receipt of 18 units basal insulin. BSGs trended down into the 80s leading discontinue of insulin drip. BSGs hovered in the 80-120s range off the insulin drip indicating 18 units of basal per day is near his requirement (not his home regimen). BSGs then quickly climbed into the 250- 270s range following resumption of dextrose containing mIVFs last evening. Patient is very sensitive to IV dextrose provision. * Patient was discussed on multidisciplinary rounds today. Plan is to continue dextrose containing mIVFs with hopes GI will be able to eval the patient today for possible procedure. Plan to give Novolog Q 4 hrs to proactively treat hyperglycemia caused by IV dextrose rather than giving long acting insulin as doing so would increase risk of prolonged hypoglycemia if IVFs changed/discontinued. 11/13: * Type 2 diabetic admitted for DKA, HAGMA, lactic acidosis, sepsis, GBS bacteremia, UGIB, pancreatitis, possible PNA. * Initial labs: GLU 620m AG 23, Bicarb 13, vpH 7.15, LA 16.2 * HAGMA likely a combo of DKA and sepsis, lactic acidosis and cirrhosis * This AM pt remains on insulin drip at 8.2units/hr, goal range 150-250. Maint IVFs infusing with dextrose and potassium. Pt remains NPO. * Lactic acidosis improving, not completely resolved, however AG closed and Bicarb now > 15. * Pt was discussed at multidisciplinary rounds, will plan to begin the process of transitioning patient to SQ basal/bolus regimen. Will remove dextrose from maint IVFs to assist in transition in this type 2 diabetic. Of note, he did have high insulin doses listed on his med rec, but given uncertain compliance will begin with "moderate stress" basal insulin dosing initially. Of note, GI consult initiated octreotide gtt which can cause glucose dysregulation leading to hypo- or hyperglycemia. PLAN FOR INPATIENT GLYCEMIC CONTROL: * Hold outpatient oral diabetes medications (metformin) * Basal insulin * Lantus 10 SC BID * Bolus insulin * Novolog SC Q 4 hrs per the following scale WHILE NPO AND WHILE RECEIVING D5LR mIVF's * Nursing: please contact pharmacy for new Novolog order if ordered a diet or if no longer receiving D5LR maint IVFs
[2023-11-16] MEDS ORDERED: POTASSIUM PHOS 3 MMOL/1 ML INFUSION IV STA (11:09)
[2023-11-16] MEDS: POTASSIUM PHOSPHATE 15 MMOL in SODIUM CHLORIDE 0.9% 250 ML IV ONE (11:31)
[2023-11-16] MEDS: POT PHOSPHATE MONOBASIC W/ SOD TAB PO SCH (11:46)
[2023-11-16] MEDS: CALCIUM GLUCONATE 1,000 MG/60 ML BAG IV SCH (12:05)
[2023-11-16 12:08] LABS: Hemoglobin 8.8 g/dl (14.0-18.0)
--- NOTE | 2023-11-16 13:57 | Gastroenterology Progress Note ---
Date of Service November 16, 2023 Assessment & Plan (1) Anemia: Plan: First he does not need to be on protonix drip as he had no acid related issues in his stomach. Will stop sandostatin tomorrow. CTA this morning was negative for active bleeding. Will continue to follow for now. Likely will need colonoscopy at some point but other issues being addressed. Hopefully has stopped bleeding Admission and Anticipated Discharge Date Admission Date: November 13, 2023 Subjective Feels fairly well. Hgb fell last night to upper 6's, was given one unit and corrected to 8.8. Had a couple of dark stools last night and then only one dark stool today on day shift. Was put on protonix drip this morning. Has been on sandostatin for two days now and EGD non impressive. On isolation for c. diff gene (+) Physical Exam Physical Exam: Still looks ill Results & Data Vital Signs (Past 12 Hours) Vital Signs Temp Pulse Pulse Resp BP BP Pulse Ox 11/16/23 10:48 36.8 C 80 22 112/66 94 11/16/23 10:15 37.0 C 78 24 121/69 93 11/16/23 09:15 37.0 C 82 17 120/71 95 11/16/23 08:45 37.0 C 88 17 114/72 93 11/16/23 08:35 37 C 89 16 119/73 94 11/16/23 08:30 37 C 84 18 122/74 94 11/16/23 08:00 11/16/23 07:56 37 C 93 H 18 119/73 93 11/16/23 04:47 36.8 C 86 18 118/71 94 O2 Del Method 11/16/23 10:48 11/16/23 10:15 11/16/23 09:15 11/16/23 08:45 11/16/23 08:35 11/16/23 08:30 11/16/23 08:00 Room Air 11/16/23 07:56 11/16/23 04:47 Room Air
--- NOTE | 2023-11-16 15:10 | Hospitalist Progress Note ---
Date of Service November 16, 2023 Assessment & Plan (1) Severe sepsis: (2) DKA (diabetic ketoacidosis): (3) Acute pancreatitis: (4) Pneumonia: (5) Anemia: (6) T2DM (type 2 diabetes mellitus): (7) Hepatocellular carcinoma: Plan This is a 58 year old M admitted from [facility] with PMHx significant for Stage 3 Hepatocellular carcinoma not currently being treated, Uncontrolled T2DM, diabetic neuropathy and hx of alcohol abuse. Had intractable N/V and was found to be septic in DKA with symptomatic anemia requiring transfusion. Required ICU level of care. Severe Sepsis Bacteremia, gram positive C diff gene positive +diarrhea Pt presenting with tachycardia, leukocytosis Infectious source likely pneumonia, possible odontogenic infection (pt being tx with oral antibiotic at custodial per pt hx) lactate of 16 on admission, downtrending Procal elevated Chest CTA noting pneumonia UA without signs of infection Respiratory panel negative Blood Cx x1 set growing Group B beta strep in one bottle, ?contaminant in other (Prob.sony gram negative cocci). Repeat Blood cx pending [employer] noting strep MRSA negative c diff gene positive with diarrhea TTE noting EF >70%, mild LVH, normal wall motion and no significant valvular pathology. Consider IRLANDA On IV Rocephin, Flagyl and Doxycycline initially ID consulted for gram pos bacteremia, appreciate recs. Recommended/stated the following: "I would suggest he remain on CTX 2g IV qd to extend through 11/27/23 (2 weeks total). OK to stop the metronidazole at this point and instead convert him to vancomycin 125mg po qid x 10 days, followed by 125mg po bid to extend for 7 days beyond cessation of the CTX (12/04/23). OK to stop the doxycycline-- no current indication." Transitioned to po vancomycin per recs of ID and continue with Rocephin 2g daily until 11/27/23 Continue to monitor DKA Lactic acidosis DMII pt started on metformin 4 days ago Septic with pneumonia as noted above, likely trigger for DKA Glucose level 620 on admission Hgba1c of 8.9 VBG on admission noting pH of 7.15 , pCO2 35, HCO3 of 12 Anion gap of 23 on admission UA with noted 3+ glucose and trace ketones Was on Insulin gtt, IVF glycemic pharmacy consult Serial labs Continue to monitor improving Symptomatic Anemia Possible GI bleed hgb 6.6 on admission, suspect lower given volume depletion s/p 3 units pRBC transfused, follow Hgb goal hgb > 7 IV PPI anemia panel with normal iron. folate and b12 levels GI consulted, appreciate recs -pt started on octreotide -s/p EGD on 11/14- noted Grade 1 varices, moderate portal gastropathy -per GI if bleeding persists get CTA abdomen/pelvis. CTA abdomen obtained on 11/15 with no acute bleed -consider colonoscopy later in the course -continue octreotide -d/c ppi Continue to monitor, transfuse as needed Acute Metabolic Encephalopathy Pt with worsening mental status Ammonia elevated at 135 ---> 100-->42 Tox screen negative Likely in setting of above Delirium precautions. Frequent reorientation, avoid sedating medications as able Continue to monitor Hepatocellular Carcinoma Cirrhosis Splenomegaly hyperammonemia states he declined intervention when diagnosed 2 years ago at [facility] CT abd/pelvis noting "Cirrhosis, splenomegaly, and findings of portal hypertension" Ammonia elevated at 135 ---> 100-->42 INR elevated at 1.5, likely in this setting GI consulted as noted above, appreciate recs -started on lactulose, rifaximin -with improved ammonia level, GI advised to continue with just rifaximin Pancreatitis Abd tender, CT noting evidence of pancreatitis Lipase elevated at 149 Continue with LR@ 100 and dextrose NPO currently, advance diet as tolerated Elevated troponin Demand ischemia Trop elevated at 277.7, uptrending suspect demand ischemia in setting of underlying illness no ecg change/chest pain Echo as above, noting EF >70%, mild LVH, normal wall motion and no significant valvular pathology Doubt ACS at this time Hypomagnesemia Hypocalcemia replete as needed Chronic conditions: Hx of alcohol abuse: States last drink about 2 years ago. Denies alcohol use while incarcerated HLD: statin therapy, lipid panel normal Neuropathy: currently not on tx Diet: currently NPO DVT ppx: SCDS for now in setting of anemia, unknown source FULL CODE Dispo: d/c to custodial when medically able Admission and Anticipated Discharge Date Admission Date: November 13, 2023 Subjective pt was seen in the AM. Alert, oriented x2. Appears back to baseline. Noting groin pain when he coughs Review of Systems Review of Systems: All systems reviewed & are unremarkable except as noted in Subjective Physical Exam Physical Exam: General: Alert Psych: mood and affect appropriate Neuro: oriented x2 HEENT: NC/AT CV: RRR Resp: no increased effort of breathing Abdomen: tender, firm, distended Extremities:trace edema in lower extremities bilaterally. Results & Data Results & Data Vital Signs (Past 12 Hours) Vital Signs Temp Pulse Pulse Resp BP BP Pulse Ox 11/16/23 10:48 36.8 C 80 22 112/66 94 11/16/23 10:15 37.0 C 78 24 121/69 93 11/16/23 09:15 37.0 C 82 17 120/71 95 11/16/23 08:45 37.0 C 88 17 114/72 93 11/16/23 08:35 37 C 89 16 119/73 94 11/16/23 08:30 37 C 84 18 122/74 94 11/16/23 08:00 11/16/23 07:56 37 C 93 H 18 119/73 93 11/16/23 04:47 36.8 C 86 18 118/71 94 O2 Del Method 11/16/23 10:48 11/16/23 10:15 11/16/23 09:15 11/16/23 08:45 11/16/23 08:35 11/16/23 08:30 11/16/23 08:00 Room Air 11/16/23 07:56 11/16/23 04:47 Room Air (2) DKA (diabetic ketoacidosis) Diabetes mellitus complication detail: without coma Diabetes mellitus type: type 2 Qualified Code(s): E11.10 - Type 2 diabetes mellitus with ketoacidosis without coma (3) Acute pancreatitis Acute pancreatitis complication: unspecified Pancreatitis type: unspecified pancreatitis type Qualified Code(s): K85.90 - Acute pancreatitis without necrosis or infection, unspecified (4) Pneumonia Laterality: bilateral Lung location: unspecified part of lung Pneumonia type: due to unspecified organism Qualified Code(s): J18.9 - Pneumonia, unsp ecified organism
--- NOTE | 2023-11-16 15:26 | Infectious Disease Consult ---
Date of Service November 16, 2023 Telehealth Information I performed this visit using a real-time telehealth connection between my location and the patients location ([facility]). After connecting through interactive tele-video, patient was identified by name and date of and/or wristband check.Patient (or authorized healthcare billing customer service representative) was informed that this was a telemedicine visit and it was being conducted confidentially over secure lines. My office door was closed and no o ne else was present in the room with me.Patient (or authorized healthcare billing customer service representative) provided consent to proceed with the visit, expressed an understanding of privacy and security of the telemedicine visit, and gave permission to have a hospital billing customer service representative in the room in order to assist with the visit and to conduct portions of the visit, as needed. I informed the patient (or authorized healthcare billing customer service representative) that I reviewed their record and presented the opportunity for them to ask any questions regarding the visit today. The patient agreed to participate. Assessment & Plan (1) Bacteremia due to group B Streptococcus: Plan: Source for this seems likely to have originated from his bowels. No obvious cutaneous source identified. Given his cirrhosis and portal HTN, translocation or a biliary origin may be responsible given the mild pancreatitis he had. No evidence of endocarditis or persistent infection currently. The anaerobic GNC that was also present is also from a GI source but is less clinically relevant. (2) C. difficile colitis: Plan: Found on admission and may just represent colonization, but cannot be distinguished clinically at this point. Bowel frequency seems improved, as is leukocytosis, though underlying cirrhosis and meds confound the picture slightly. (3) Cirrhosis: Plan: Likely from EtOH abuse (4) DKA (diabetic ketoacidosis): Plan: Improved with fluid management and insulin and probably linked to his underlying infection. (5) Elevated troponin: Plan: Demand ischemia that may have contributed to his respiratory findings. CT chest shows no definitive pneumonia and it is unlikely he has pneumonia. Ground glass likely edema related. Plan I would suggest he remain on CTX 2g IV qd to extend through 11/27/23 (2 weeks total). OK to stop the metronidazole at this point and instead convert him to vancomycin 125mg po qid x 10 days, followed by 125mg po bid to extend for 7 days beyond cessation of the CTX (12/04/23). OK to stop the doxycycline-- no current indication. ID will sign off for now. Please call with any questions or should his clinical course change. History of Present Illness History of Present Illness Mr. Kasper is a 58yo male prisoner with a h/o prior EtOH abuse and possible HCC. He presented to [facility] with a 2 week h/o malaise followed by N/V, diarrhea and confusion. In the ED he was noted to be in DKA with hypotension, lactic acidosis and have elevated troponins. He also had mild pancreatitis and was bacteremic with GBS and an anaerobic organism. He was admitted to the ICU and started on pip-tazo before eventually transitioning to CTX. He was diagnosed with C diff as well and has had a slow recovery. Yesterday he underwent EGD and had evidence of varices but no active bleeding. CT imaging showed cirrhotic liver changes. Hed reports still feeling unwell, but better than prior to admission. He denies any pain. He has had little PO intake but his diarrhea has improved. He has only had one BM so far today. He is on room air and at rest feels OK, but when ambulating top the bathroom feels like his breathing is "heav y." No redness, swelling or sores on his LE. Allergies Allergy/AdvReac Type Severity Reaction Status Date / Time Fish Containing Products Allergy Unknown Verified 11/13/23 16:52 Home Medications Medication Instructions Recorded Confirmed Type cetirizine 10 mg capsule 10 mg PO DAILY 11/13/23 11/13/23 History diphenhydramine HCl 25 mg capsule 25 mg PO HS PRN allergies 11/13/23 11/13/23 History (Banophen) insulin glargine 100 unit/mL 48 unit subcut BID 11/13/23 11/13/23 History subcutaneous cartridge insulin regular human 100 unit/mL 1 sliding scale dose subcut 11/13/23 11/13/23 History injection solution (Novolin R USEASDIRECTD Regular U-100 Insulin) metformin 1,000 mg tablet 1,000 mg PO BID 11/13/23 11/13/23 History rosuvastatin 10 mg tablet 10 mg PO DAILY 11/13/23 11/13/23 History thiamine HCl (vitamin B1) 50 mg 50 mg PO DAILY 11/13/23 11/13/23 History tablet (Vitamin B-1) Patient History Medical History HLD (hyperlipidemia) Neuropathy T2DM (type 2 diabetes mellitus) Hepatocellular carcinoma Surgical History Hx of cervical spine surgery Hx of bilateral hip replacements Family History Father Throat cancer Mother Diabetes Social History Smoking Status: Former smoker Second Hand Exposure: No; Do You Dip or Chew Tobacco: No; Tobacco Cessation Education Requested by Patient: No Hx Alcohol Use: No Hx Substance Use: No Preferred Language: Salvadorean Communication Ability: Unable 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 Breathing feels "heavy" with ambulation. CV- no chest pain or edema GI- No N/V, but has had some diarrhea, improving. Some melena noted. - No dysuria MSK- No pain Derm- no rash Neuro- No focal deficits Physical Exam Gen- NAD, cooperative with exam HEENT- NC AT, OP clear Neck- normal ROM Resp- On room air, respirations normal Ext- no LE edema Skin- no rash or skin breakdown Neuro- Alert and oriented Results & Data Vital Signs (Past 12 Hours) Vital Signs Temp Pulse Pulse Resp BP BP Pulse Ox 11/16/23 10:48 36.8 C 80 22 112/66 94 11/16/23 10:15 37.0 C 78 24 121/69 93 11/16/23 09:15 37.0 C 82 17 120/71 95 11/16/23 08:45 37.0 C 88 17 114/72 93 11/16/23 08:35 37 C 89 16 119/73 94 11/16/23 08:30 37 C 84 18 122/74 94 11/16/23 08:00 11/16/23 07:56 37 C 93 H 18 119/73 93 11/16/23 04:47 36.8 C 86 18 118/71 94 O2 Del Method 11/16/23 10:48 11/16/23 10:15 11/16/23 09:15 11/16/23 08:45 11/16/23 08:35 11/16/23 08:30 11/16/23 08:00 Room Air 11/16/23 07:56 11/16/23 04:47 Room Air Laboratory Results WBC 12.6 -> 20.6 -> 10.59 Hgb 7.8 Platelets 69 Na 142 Creatinine 0.81 BUN 43 Troponins 669 -> 302 NH3 100 -> 42 ALT 27 AST 31 Total bili 1.9 UA WNL Procal 0.63 Lipase 149 Lactate maxed at 16 Diagnostic Findings C diff positive on 11/14/23 RVP negative Blood cultures 11/12 with GBS and an anaerobic GNC TTE 11/14/[address] with pancreatitis, no abscesses, cirrhosis, splenomegaly Chest CT with ground glass opacities (3) Cirrhosis Ascites presence: unspecified Hepatic cirrhosis type: unspecified hepatic cirrhosis Qualified Code(s): K74.60 - Unspecified cirrhosis of liver (4) DKA (diabetic ketoacidosis) Diabetes mellitus complication detail: without coma Diabetes mellitus type: type 2 Qualified Code(s): E11.10 - Type 2 diabetes mellitus with ketoacidosis without coma
[2023-11-16] MEDS: CHERRY SYRUP 5 ML UDP PO SCH (17:53)
[2023-11-16] MEDS: VANCOMYCIN HCL 125 MG/2.5ML SOLN PO SCH (17:53)
--- NOTE | 2023-11-16 19:04 | XRay Report ---
XR chest 1V portable CLINICAL HISTORY: SOB TECHNIQUE: Single frontal radiograph of the chest was obtained. Comparison: Comparison is made to chest radiograph 11/13/2023 FINDINGS: No lines and tubes are seen. The cardiomediastinal silhouette is normal. Bilateral lower lung predomi nant airspace opacities are seen. No evidence of pleural effusion or pneumothorax. IMPRESSION: Bilateral lower lung predominant airspace opacities which may represent atelectasis, pneumonia, and/o r aspiration. ACT 112: Negative or not required by law. Electronically signed by: Eb Cullen M.D. 11/16/2023 7:03 PM
[2023-11-16] MEDS: ALBUT/IPRATROP 3MG/0.5MG NEB 3 ML VIAL NEB STA (21:24)
--- NOTE | 2023-11-16 21:43 | Communication Note ---
Date of Service: November 16, 2023 Patient noted to be wheezing as per RN. Productive cough not present during admission as per RN. No aspiration concerns. Chest x-ray as per my interpretation bilateral infiltrates AP HAP Likely aspiration given nausea/emesis symptoms prior to admission Pneumonia on CT imaging from admission 11/12, patient without cough symptoms at time of admission as per admission H&P Rule out viral pneumonia given confinement Ertapenem in place of current ceftriaxone Rx [employer] respiratory panel
[2023-11-16 22:41] LABS: Adenovirus PCR Not Detected (NotDetected); Bordetella parapertussis PCR Not Detected (NotDetected); Bordetella pertussis PCR Not Detected (NotDetected); Chlamydia pneumoniae PCR Not Detected (NotDetected); Coronavirus 229E PCR Not Detected (NotDetected); Coronavirus CoV-2 (COVID19)PCR Not Detected (NotDetected); Coronavirus HKU1 PCR Not Detected (NotDetected); Coronavirus NL63 PCR Not Detected (NotDetected); Coronavirus OC43PCR Not Detected (NotDetected); Human Metapneumovirus PCR Not Detected (NotDetected); Influenza A PCR Not Detected (NotDetected); Influenza B PCR Not Detected (NotDetected); Mycoplasma pneumoniae PCR Not Detected (NotDetected); Parainfluenza Virus 1 PCR Not Detected (NotDetected); Parainfluenza Virus 2 PCR Not Detected (NotDetected); Parainfluenza Virus 3 PCR Not Detected (NotDetected); Parainfluenza Virus 4 PCR Not Detected (NotDetected); Respiratory Syncytial VirusPCR Not Detected (NotDetected)
[2023-11-16 23:06] LABS: Rhinovirus/Enterovirus PCR DETECTED (NotDetected)
[2023-11-16] MEDS: ERTAPENEM SODIUM 1,000 MG in SYRINGE 0 ML IV SCH (23:09)
[2023-11-17] MEDS ORDERED: Nursing to Pharmacy Communication SCH (00:45)
[2023-11-17] MEDS: INSULIN ASPART PER UNIT CHARGE SC SCH (03:39)
[2023-11-17 06:15] LABS: Basophils # (auto) 0.03 K/uL (0.00-0.20); Basophils % (auto) 0.5 %; Eosinophils % (auto) 6.3 %; Hematocrit (blood only) 23.6 % (42.0-52.0); Hemoglobin 8.1 g/dl (14.0-18.0); Immature Granulocytes # (auto) 0.03 K/uL (0.01-0.20); Immature Granulocytes % (auto) 0.5 %; Lymphocytes # (auto) 0.75 K/uL (1.20-3.40); Lymphocytes % (auto) 11.8 %; Mean Corpuscular Hemoglobin 30.9 pg (25.0-34.0); Mean Corpuscular Hgb Conc 34.3 g/dL (32.0-36.0); Mean Corpuscular Volume 90.1 fL (80.0-100.0); Mean Platelet Volume 10.2 fL (9.4-12.4); Monocytes # (auto) 0.51 K/uL (0.11-0.59); Neutrophils # (auto) 4.65 K/uL (1.40-6.50); Neutrophils % (auto) 72.9 %; Nucleated RBC # (auto) 0.02 K/uL (0.00-0.12); Nucleated RBC % (auto) 0.3 %; Platelet Count 60 K/uL (130-400); RDW Coefficient of Variation 15.8 % (11.5-14.5); RDW Standard Deviation 48.5 fL (36.4-46.3); Red Blood Count 2.62 M/uL (4.70-6.10); White Blood Count 6.37 K/ul (4.8-10.8)
[2023-11-17] MEDS: ACETAMINOPHEN 500 MG TAB PO PRN (06:29)
--- NOTE | 2023-11-17 07:12 | XRay Report ---
SINGLE VIEW CHEST CLINICAL HISTORY: Wheezing FINDINGS: An AP, portable, upright chest radiograph is compared to study dated 11/16/2023 and correlat ed with chest CT dated 11/13/2023. The heart is enlarged. There is prominence of the pulmonary vascula ture. Scarring/atelectasis is seen at both lung bases. No airspace consolidation or large pleural eff usion is identified. No pneumothorax is seen. The skeletal structures are osteopenic. The bony thorax is grossly intact. IMPRESSION: Cardiomegaly with prominence of the pulmonary vasculature. Correlate clinically for evide nce of fluid overload/congestive change. ACT 112: Negative or not required by law. Electronically signed by: Jarrett Castro M.D. 11/17/2023 7:10 AM
[2023-11-17 07:46] LABS: BUN Creatinine Ratio 22.1 (10-20); Creatinine Clr Calc Pharmacy 113.2 ml/min; Est GFR (African American) 121.2 ml/min; Est GFR (Non-African American) 104.5 ml/min; Magnesium 1.7 mg/dl (1.7-2.4); Phosphorus 3.3 mg/dl (2.5-4.9); Potassium 3.7 mmol/L (3.5-5.1)
--- NOTE | 2023-11-17 10:44 | Communication Note ---
Date of Service: November 17, 2023 Patient still with dark stools but now being treated for c. diff and pneumonia. Will follow but will hold off on colon evaluation for now.
--- NOTE | 2023-11-17 12:04 | Hospitalist Progress Note ---
Date of Service November 17, 2023 Assessment & Plan (1) Severe sepsis: (2) DKA (diabetic ketoacidosis): (3) Acute pancreatitis: (4) Pneumonia: (5) Anemia: (6) T2DM (type 2 diabetes mellitus): (7) Hepatocellular carcinoma: Plan This is a 58 year old M admitted from [facility] with PMHx significant for Stage 3 Hepatocellular carcinoma not currently being treated, Uncontrolled T2DM, diabetic neuropathy and hx of alcohol abuse. Had intractable N/V and was found to be septic in DKA with symptomatic anemia requiring transfusion. Required ICU level of care. Shortness of Breath Enterovirus/Rhinovirus Infection Pt with reported SOB overnight Chest XRAY with possible congestion Biofire noting entero/rhinovirus No increased oxygen requirement at this time Severe Sepsis Bacteremia, gram positive C diff gene positive +diarrhea Pt presenting with tachycardia, leukocytosis Infectious source likely pneumonia, possible odontogenic infection (pt being tx with [facility] antibiotic [facility] per pt hx) lactate of 16 on admission, downtrending Procal elevated Chest CTA noting pneumonia UA without signs of infection Respiratory panel negative Blood Cx x1 set growing Group B beta strep in one bottle, ?contaminant in other (Prob.sony gram negative cocci). Repeat Blood cx pending Biofire noting strep MRSA negative c diff gene positive with diarrhea TTE noting EF >70%, mild LVH, normal wall motion and no significant valvular pathology. Consider IRLANDA On IV Rocephin, Flagyl and Doxycycline initially ID consulted for gram pos bacteremia, appreciate recs. Recommended/stated the following: "I would suggest he remain on CTX 2g IV qd to extend through 11/27/23 (2 weeks total). OK to stop the metronidazole at this point and instead convert him to vancomycin 125mg po qid x 10 days, followed by 125mg po bid to extend for 7 days beyond cessation of the CTX (12/04/23). OK to stop the doxycycline-- no current indication." Transitioned to po vancomycin per recs of ID and continue with Rocephin 2g daily until 11/27/2311/16- with concern for SOB overnight with concerns for aspiration, pt was transitioned from CTX to ertapenem Continue to monitor DKA Lactic acidosis DMII pt started on metformin 4 days ago Septic with pneumonia as noted above, likely trigger for DKA Glucose level 620 on admission Hgba1c of 8.9 VBG on admission noting pH of 7.15 , pCO2 35, HCO3 of 12 Anion gap of 23 on admission UA with noted 3+ glucose and trace ketones Was on Insulin gtt, IVF glycemic pharmacy consult Serial labs Continue to monitor improving Symptomatic Anemia Possible GI bleed hgb 6.6 on admission, suspect lower given volume depletion s/p 3 units pRBC transfused, follow Hgb goal hgb > 7 IV PPI anemia panel with normal iron. folate and b12 levels GI consulted, appreciate recs -pt started on octreotide -s/p EGD on 11/14- noted Grade 1 varices, moderate portal gastropathy -per GI if bleeding persists get CTA abdomen/pelvis. CTA abdomen obtained on 11/15 with no acute bleed -consider colonoscopy later in the course -continue octreotide -d/c ppi Continue to monitor, transfuse as needed Acute Metabolic Encephalopathy Pt with worsening mental status Ammonia elevated at 135 ---> 100-->42 Tox screen negative Likely in setting of above Delirium precautions. Frequent reorientation, avoid sedating medications as able Continue to monitor Hepatocellular Carcinoma Cirrhosis Splenomegaly hyperammonemia states he declined intervention when diagnosed 2 years ago at [facility] CT abd/pelvis noting "Cirrhosis, splenomegaly, and findings of portal hypertension" Ammonia elevated at 135 ---> 100-->42 INR elevated at 1.5, likely in this setting GI consulted as noted above, appreciate recs -started on lactulose, rifaximin -with improved ammonia level, GI advised to continue with just rifaximin Pancreatitis Abd tender, CT noting evidence of pancreatitis Lipase elevated at 149 Continue with LR@ 100 and dextrose NPO currently, advance diet as tolerated Elevated troponin Demand ischemia Trop elevated at 277.7, uptrending suspect demand ischemia in setting of underlying illness no ecg change/chest pain Echo as above, noting EF >70%, mild LVH, normal wall motion and no significant valvular pathology Doubt ACS at this time Hypomagnesemia Hypocalcemia replete as needed Chronic conditions: Hx of alcohol abuse: States last drink about 2 years ago. Denies alcohol use while incarcerated HLD: statin therapy, lipid panel normal Neuropathy: currently not on tx Diet: currently NPO DVT ppx: SCDS for now in setting of anemia, unknown source FULL CODE Dispo: d/c to jail when medically able Admission and Anticipated Discharge Date Admission Date: November 13, 2023 Subjective pt was seen with guard at bedside. States SOB still the same. Asking for diet to be advanced. Notes less frequent BMs. Review of Systems Review of Systems: All systems reviewed & are unremarkable except as noted in Subjective Physical Exam Physical Exam: General: Alert Psych: mood and affect appropriate Neuro: oriented x2 HEENT: NC/AT CV: RRR Resp: no increased effort of breathing Abdomen: tender, firm, distended Extremities:trace edema in lower extremities bilaterally. Results & Data Results & Data Vital Signs (Past 12 Hours) Vital Signs Temp Pulse Pulse Resp BP Pulse Ox O2 Del Method 11/17/23 11:56 36.9 C 72 17 122/71 92 Room Air 11/17/23 08:00 Room Air 11/17/23 08:00 87 11/17/23 07:40 36.5 C 88 17 108/69 Room Air 11/17/23 03:10 37.0 C 80 18 116/68 90 Room Air 11/17/23 00:25 Room Air Diagnostic Findings Chest X-Ray 11/13/23 16:00 XR chest 1V portable CLINICAL HISTORY: Sepsis TECHNIQUE: Single frontal radiograph of the chest was obtained. Comparison: None available at the time of this dictation. FINDINGS: No lines and tubes are seen. The cardiomediastinal silhouette is normal. Peribronchial thickening is seen. No evidence of pleural effusion or pneumothorax. IMPRESSION: Peribronchial thickening is seen compatible with infectious/inflammatory airways disease or viral pneumonia. No latia consolidation is seen. ACT 112: Negative or not required by law. Electronically signed by: Eb Cullen M.D. 11/13/2023 4:48 PM Abdomen/Pelvis CT 11/13/23 16:39 CT abd pelvis IV con only CLINICAL HISTORY: sepsis, acute anemia TECHNIQUE: Helical axial images of the abdomen and pelvis were obtained and di splayed. Automated dose lowering techniques and/or adjustment according to patient size were utilized for this exam. This exam was performed with intravenous contrast. COMPARISON: None available at the time of this dictation. FINDINGS: Lower chest: For findings above the diaphragm, please see CT chest performed same day. Liver: Nodular contour of the liver is seen compatible with cirrhosis. Heterogeneous appearance of the liver. Gallbladder and biliary tree: Cholelithiasis is seen without evidence of cholecystitis. No intra- or extrahepatic biliary ductal dilation. Pancreas: Pancreatic head edema is seen with peripancreatic fat stranding. No drainable fluid collections. Spleen: Splenomegaly is noted, the spleen measures 14 cm. Adrenals: Unremarkable. Kidneys and ureters: Unremarkable. Bladder: Unremarkable. Reproductive organs: Unremarkable. Bowel: Diverticulosis is seen without diverticulitis. The appendix is normal. There is markedly distention of the stomach. Lymph nodes Retroperitoneal: Unremarkable. Pelvic: Unremarkable. Mesenteric: Unremarkable. Peritoneum: Soft tissue stranding is seen in the mid abdomen. Vessels: Prominent paraesophageal varices are seen. Abdominal wall: Unremarkable. Bones: Degenerative changes in the visualized spine. IMPRESSION: 1. Findings are concerning for pancreatitis without evidence of acute peripancreatic collection. 2. Prominent stomach with fat stranding about the duodenum which is likely reactive from the pancreatitis. 3. Cirrhosis, splenomegaly, and findings of portal hypertension. There is he terogeneity of the liver in this patient with reported history of hepatocellular carcinoma. ACT 112: Negative or not required by law. Electronically signed by: Eb Cullen M.D. 11/13/2023 5:26 PM Chest CTA 11/13/23 16:39 CT angio chest PE protocol CLINICAL HISTORY: sepsis, tachy, hypoten, hypox r/o PE TECHNIQUE: Multidetector row helical CT of the chest was performed with angiographic protocol. Coronal and sagittal reformations were obtained. Coronal and sagittal MIPS were obtained from the axial data set and were submitted for review. Automated dose lowering techniques and/or adjustment according to patient size were utilized for this exam. CT DOSE: 1603.91 mGy.cm Comparison: Comparison is made to chest radiograph 11/13/2023 FINDINGS: Lungs and pleura: Bronchial wall thickening is seen. Faint diffuse groundglass opacities are in a tree-in-bud distribution. Heart and pericardium: Heart size is normal. No pericardial effusion. Vessels: Evaluation for pulmonary embolism is limited due to patient motion. No evidence of central or lobar embolus. Mediastinum and susana: Unremarkable. Chest wall and lower neck: Unremarkable. Abdomen: For findings below the diaphragm, please refer to CT of the abdomen dated the same. Bones: Unremarkable. IMPRESSION: Findings are compatible with pneumonia and bronchitis with no evidence of pulmonary embolus. ACT 112: Negative or not required by law. Electronically signed by: Eb Cullen M.D. 11/13/2023 5:16 PM Abdomen CTA 11/16/23 05:39 Exam(s): CTA ABDOMEN + PELVIS IV Amt: 118 ML OPTIRAY 320 EXAM: CT Angiography Abdomen and Pelvis With Intravenous Contrast CLINICAL HISTORY: Reason for exam: gi bleed. TECHNIQUE: Axial computed tomographic angiography images of the abdomen and pelvis with intravenous contrast. CTDI is 30.92 mGy and DLP is 1103.84 mGy-cm. Automated exposure control was utilized for the study. A dose lowering technique was utilized adhering to the principles of ALARA. MIP reconstructed images were created and reviewed. COMPARISON: No relevant prior studies available. FINDINGS: VASCULATURE: Aorta: No acute findings. No abdominal aortic aneurysm. No dissection. Celiac trunk and mesenteric arteries: No acute findings. No occlusion or significant stenosis. Renal arteries: No acute findings. No occlusion or significant stenosis. Iliac arteries: No acute findings. No occlusion or significant stenosis. Lung bases: Unremarkable. No mass. No consolidation. ABDOMEN: Liver: Cirrhotic morphology of the liver. Gallbladder and bile ducts: Cholelithiasis with sludge. Gallbladder wall thickening is favored to relate to sit portal hypertension. If there is further concern for cholecystitis, consider HIDA imaging. No ductal dilation. Pancreas: Unremarkable. No ductal dilation. No mass. Spleen: The spleen measures 15.0 cm in maximum dimension. Small splenule. Innumerable splenic hypodensities. Findings may relate to splenic siderotic nodules. Adrenals: Unremarkable. No mass. Kidneys and ureters: Unremarkable. No hydronephrosis. No solid mass. Stomach and bowel: Increased density noted within the a sending colon without evidence of arterial blush. Findings may relate to enteric content. Hemorrhage is not excluded. Please note this is limited given monophasic imaging. Consider scintigraphic imaging if there is further concern. Abnormal thickening within the stomach extending to the gastric antrum. Findings may relate to portal hypertensive gastropathy. Gastritis also possible. Gastric varices and esophageal varices noted. No obstruction. PELVIS: Appendix: No findings to suggest acute appendicitis. Bladder: Unremarkable. No mass. Reproductive: Unremarkable as visualized. ABDOMEN and PELVIS: Intraperitoneal space: Moderate mesenteric ascites. No free air. Bones/joints: Bilateral total hip arthroplasty changes. Degenerative changes in the spine. No acute fracture. No dislocation. Soft tissues: Unremarkable. Lymph nodes: Unremarkable. No enlarged lymph nodes. IMPRESSION: 1. Increased density noted within the a sending colon without evidence of arterial blush. Findings may relate to enteric content. Hemorrhage is not excluded. Please note this is limited given monophasic imaging. Consider scintigraphic imaging if there is further concern. 2. Abnormal thickening within the stomach extending to the gastric antrum. Findings may relate to portal hypertensive gastropathy. Gastritis also possible. 3. Cholelithiasis with sludge. Gallbladder wall thickening is favored to relate to sit portal hypertension. If there is further concern for cholecystitis, consider HIDA imaging. 4. Innumerable splenic hypodensities. Findings may relate to splenic siderotic nodules. 5. Additional sequelae of portal hypertension as described. Electronically signed by: Vikas Brannon MD 11/16/23 08:46 AM Chest X-Ray 11/16/23 18:05 XR chest 1V portable CLINICAL HISTORY: SOB TECHNIQUE: Single frontal radiograph of the chest was obtained. Comparison: Comparison is made to chest radiograph 11/13/2023 FINDINGS: No lines and tubes are seen. The cardiomediastinal silhouette is normal. Bilateral lower lung predominant airspace opacities are seen. No evidence of pleural effusion or pneumothorax. IMPRESSION: Bilateral lower lung predominant airspace opacities which may represent atelectasis, pneumonia, and/or aspiration. ACT 112: Negative or not required by law. Electronically signed by: Eb Cullen M.D. 11/16/2023 7:03 PM Chest X-Ray 11/16/23 21:13 SINGLE VIEW CHEST CLINICAL HISTORY: Wheezing FINDINGS: An AP, portable, upright chest radiograph is compared to study dated 11/16/2023 and correlated with chest CT dated 11/13/2023. The heart is enlarged. There is prominence of the pulmonary vasculature. Scarring/atelectasis is seen at both lung bases. No airspace consolidation or large pleural effusion is identified. No pneumothorax is seen. The skeletal structures are osteopenic. The bony thorax is grossly intact. IMPRESSION: Cardiomegaly with prominence of the pulmonary vasculature. Correlate clinically for evidence of fluid overload/congestive change. ACT 112: Negative or not required by law. Electronically signed by: Jarrett Castro M.D. 11/17/2023 7:10 AM (2) DKA (diabetic ketoacidosis) Diabetes mellitus complication detail: without coma Diabetes mellitus type: type 2 Qualified Code(s): E11.10 - Type 2 diabetes mellitus with ketoacidosis without coma (3) Acute pancreatitis Acute pancreatitis complication: unspecified Pancreatitis type: unspecified pancreatitis type Qualified Code(s): K85.90 - Acute pancreatitis without necrosis or infection, unspecified (4) Pneumonia Laterality: bilateral Lung location: unspecified part of lung Pneumonia type: due to unspecified organism Qualified Code(s): J18.9 - Pneumonia, unspecified organism
--- NOTE | 2023-11-17 14:59 | Pharmacy Report ---
Pharmacy Glycemic Short Note 2 - Date of Service November 17, 2023 - Glycemic Short BSG Results (Last 24 hours): 11/16/23 11/16/23 11/16/23 15:46 20:03 23:37 Glucose POC Glucose 176 H 197 H 145 H 11/17/23 11/17/23 11/17/23 03:35 05:49 07:31 Glucose 89 POC Glucose 86 102 H 11/17/23 11:16 Glucose POC Glucose 94 OUTPATIENT ANTIDIABETIC REGIMEN: * Insulin glargine 48units BID * Novolin R per sliding scale * Metformin 1gm PO BID * A1c = 8.9% 11/14/23 (however this was after receipt of PRBCs) ASSESSMENT: 11/15: * BSGs improved throughout the day yesterday, [phone] mg/dL. Received 18 units basal + 24 units bolus. * Fasting was 128 mg/dL today. Remains NPO. On ceftraixone and doxycycline for infection. Octreotide and pantoprazole drips running for GI bleed. Continues on D5LR at 75 cc/hr. * Will increase basal slightly today. No change to sliding scale. 11/14: * Patient was transitioned off insulin drip yesterday following removal of dextrose from mIVFs and receipt of 18 units basal insulin. BSGs trended down into the 80s leading discontinue of insulin drip. BSGs hovered in the 80-120s range off the insulin drip indicating 18 units of basal per day is near his requirement (not his home regimen). BSGs then quickly climbed into the 250- 270s range following resumption of dextrose containing mIVFs last evening. Patient is very sensitive to IV dextrose provision. * Patient was discussed on multidisciplinary rounds today. Plan is to continue dextrose containing mIVFs with hopes GI will be able to eval the patient today for possible procedure. Plan to give Novolog Q 4 hrs to proactively treat hyperglycemia caused by IV dextrose rather than giving long acting insulin as doing so would increase risk of prolonged hypoglycemia if IVFs changed/discontinued. 11/13: * Type 2 diabetic admitted for DKA, HAGMA, lactic acidosis, sepsis, GBS bacteremia, UGIB, pancreatitis, possible PNA. * Initial labs: GLU 620m AG 23, Bicarb 13, vpH 7.15, LA 16.2 * HAGMA likely a combo of DKA and sepsis, lactic acidosis and cirrhosis * This AM pt remains on insulin drip at 8.2units/hr, goal range 150-250. Maint IVFs infusing with dextrose and potassium. Pt remains NPO. * Lactic acidosis improving, not completely resolved, however AG closed and Bicarb now > 15. * Pt was discussed at multidisciplinary rounds, will plan to begin the process of transitioning patient to SQ basal/bolus regimen. Will remove dextrose from maint IVFs to assist in transition in this type 2 diabetic. Of note, he did have high insulin doses listed on his med rec, but given uncertain compliance will begin with "moderate stress" basal insulin dosing initially. Of note, GI consult initiated octreotide gtt which can cause glucose dysregulation leading to hypo- or hyperglycemia. PLAN FOR INPATIENT GLYCEMIC CONTROL: * Hold outpatient oral diabetes medications (metformin) * Basal insulin * Lantus 10 SC BID * Bolus insulin * Novolog SC Q 4 hrs per the following scale WHILE NPO AND WHILE RECEIVING D5LR mIVF's * Nursing: please contact pharmacy for new Novolog order if ordered a diet or if no longer receiving D5LR maint IVFs
--- NOTE | 2023-11-17 15:07 | Pharmacy Report ---
Pharmacy Glycemic Short Note 2 - Date of Service November 17, 2023 - Glycemic Short BSG Results (Last 24 hours): 11/16/23 11/16/23 11/16/23 15:46 20:03 23:37 Glucose POC Glucose 176 H 197 H 145 H 11/17/23 11/17/23 11/17/23 03:35 05:49 07:31 Glucose 89 POC Glucose 86 102 H 11/17/23 11:16 Glucose POC Glucose 94 OUTPATIENT ANTIDIABETIC REGIMEN: * Insulin glargine 48units BID * Novolin R per sliding scale * Metformin 1gm PO BID * A1c = 8.9% 11/14/23 (however this was after receipt of PRBCs) ASSESSMENT: 11/16: * Patient received total 31 units of insulin yesterday; 20 units basal + 11 units bolus. BSGs yesterday were [phone] mg/dl. * Fasting BSG today was 102 mg/dl. Novolog parameters ordered based on stress of 3. Sliding scale parameters discontinued. * Pre-lunch BSG trended down to 94 mg/dl. Basal insulin 10 units in AM was given but discontinued for HS since BSG trending down. * Clears ordered for diet but seems like patient is hardly eating. 11/15: BSGs improved throughout the day yesterday, [phone] mg/dL. Received 18 units basal + 24 units bolus. Fasting was 128 mg/dL today. Remains NPO. On ceftraixone and doxycycline for infection. Octreotide and pantoprazole drips running for GI bleed. Continues on D5LR at 75 cc/hr. Will increase basal slightly today. No change to sliding scale. 11/14: Patient was transitioned off insulin drip yesterday following removal of dextrose from mIVFs and receipt of 18 units basal insulin. BSGs trended down into the 80s leading discontinue of insulin drip. BSGs hovered in the 80-120s range off the insulin drip indicating 18 units of basal per day is near his requirement (not his home regimen). BSGs then quickly climbed into the 250-270s range following resumption of dextrose containing mIVFs last evening. Patient is very sensitive to IV dextrose provision. Patient was discussed on multidisciplinary rounds today. Plan is to continue dextrose containing mIVFs with hopes GI will be able to eval the patient today for possible procedure. Plan to give Novolog Q 4 hrs to proactively treat hyperglycemia caused by IV dextrose rather than giving long acting insulin as doing so would increase risk of prolonged hypoglycemia if IVFs changed/discontinued. 11/13: Type 2 diabetic admitted for DKA, HAGMA, lactic acidosis, sepsis, GBS bacteremia, UGIB, pancreatitis, possible PNA. Initial labs: GLU 620m AG 23, Bicarb 13, vpH 7.15, LA 16.2 HAGMA likely a combo of DKA and sepsis, lactic acidosis and cirrhosis This AM pt remains on insulin drip at 8.2units/hr, goal range 150-250. Maint IVFs infusing with dextrose and potassium. Pt remains NPO. Lactic acidosis improving, not completely resolved, however AG closed and Bicarb now > 15. Pt was discussed at multidisciplinary rounds, will plan to begin the process of transitioning patient to SQ basal/bolus regimen. Will remove dextrose from m aint IVFs to assist in transition in this type 2 diabetic. Of note, he did have high insulin doses listed on his med rec, but given uncertain compliance will begin with "moderate stress" basal insulin dosing initially. Of note, GI consult initiated octreotide gtt which can cause glucose dysregulation leading to hypo- or hyperglycemia. PLAN FOR INPATIENT GLYCEMIC CONTROL: * Hold outpatient oral diabetes medications * Basal insulin * Lantus 10 units SQ QAM * Bolus insulin * NovoLog per scale ACHS or Q6hrs while NPO * Goal Range: Low 110 mg/dL - High 140 mg/dL * Correction Factor: 20 mg/dL/unit * Nutritional / Prandial insulin per carb ratio of 1 unit per 7 grams CHO consumed
[2023-11-17] MEDS: FUROSEMIDE INJ 20 MG/2 ML VIAL IV ONE (22:54)
[2023-11-17] MEDS: ALBUT/IPRATROP 3MG/0.5MG NEB 3 ML VIAL NEB PRN (23:00)
[2023-11-18 07:22] LABS: Hematocrit (blood only) 26.9 % (42.0-52.0); Hemoglobin 9.1 g/dl (14.0-18.0); Mean Corpuscular Hemoglobin 30.8 pg (25.0-34.0); Mean Corpuscular Hgb Conc 33.8 g/dL (32.0-36.0); Mean Corpuscular Volume 91.2 fL (80.0-100.0); Mean Platelet Volume 10.8 fL (9.4-12.4); Platelet Count 69 K/uL (130-400); RDW Coefficient of Variation 16.1 % (11.5-14.5); RDW Standard Deviation 51.3 fL (36.4-46.3); Red Blood Count 2.95 M/uL (4.70-6.10); White Blood Count 6.83 K/ul (4.8-10.8)
[2023-11-18 07:31] LABS: Albumin Globulin Ratio 1.2 (0.9-2); Albumin Level 2.7 gm/dl (3.4-5.0); BUN Creatinine Ratio 21.3 (10-20); Bilirubin,Total 2.3 mg/dl (0.2-1.0); Calcium 6.9 mg/dl (8.6-10.3); Creatinine Clr Calc Pharmacy 126.1 ml/min; Est GFR (African American) 126.7 ml/min; Est GFR (Non-African American) 109.3 ml/min; Globulin 2.2 gm/dl (2.5-4.0); Magnesium 1.7 mg/dl (1.7-2.4); Potassium 3.7 mmol/L (3.5-5.1); Total Protein 4.9 gm/dl (6.0-8.3)
[2023-11-18] MEDS: LANTUS PER UNIT CHARGE SC SCH (09:03)
[2023-11-18] MEDS: ONDANSETRON INJ 2 MG/ML 2 ML VIAL IV PRN (10:03)
[2023-11-18] MEDS: CALCIUM 600MG + VIT D 400 IU TAB PO SCH (11:37)
[2023-11-18] MEDS: CALCIUM GLUCONATE 1,000 MG/60 ML BAG IV SCH (11:38)
--- NOTE | 2023-11-18 11:43 | Ultrasound Report ---
US abdomen ltd ascites CLINICAL HISTORY: Hx of cirrhosis, abd tenderness COMPARISON STUDY: Abdomen and pelvis CT 11/13/2023. FINDINGS: Interval of a small amount of scattered ascites seen throughout the abdomen and pelvis. The spleen remains enlarged measuring 16.5 cm in length. Cirrhotic liver with heterogeneous echotexture is again noted. The gallbladder is distended and demonstrates a thickened wall up to 3.6 mm. There is sludge seen within the gallbladder. IMPRESSION: 1. Small amount of scattered ascites. 2. Cirrhotic liver with heterogeneous echotexture. This may correspond to patient's history of underl irish hepatocellular carcinoma. 3. Gallbladder wall thickening which is mildly distended and contains sludge. This could be due to th e patient's diffuse edematous state. An acute cholecystitis also remains in the differential diagnosi s. 4. Persistent splenomegaly. ACT 112: Negative or not required by law. Electronically signed by: Santiago Overton M.D. 11/18/2023 11:42 AM
--- NOTE | 2023-11-18 11:46 | XRay Report ---
KUB HISTORY: abdominal pain, N/V, r/o ileus/SBO COMPARISON: Abdomen and pelvis CT 11/16/2023. FINDINGS: The bowel gas pattern is unremarkable. There are no dilated loops of small bowel to suggest an obstruction. No renal calculi. No ureteral calculi. No pneumoperitoneum or pneumatosis. Cholelit hiasis. Bilateral total hip arthroplasties. IMPRESSION: 1. Nonobstructive bowel gas pattern. 2. Cholelithiasis. ACT 112: Negative or not required by law. Electronically signed by: Santiago Overton M.D. 11/18/2023 11:44 AM
--- NOTE | 2023-11-18 13:22 | Hospitalist Progress Note ---
Date of Service November 18, 2023 Assessment & Plan (1) Severe sepsis: (2) DKA (diabetic ketoacidosis): (3) Acute pancreatitis: (4) Pneumonia: (5) Anemia: (6) T2DM (type 2 diabetes mellitus): (7) Hepatocellular carcinoma: Plan This is a 58 year old M admitted from [facility] with PMHx significant for Stage 3 Hepatocellular carcinoma not currently being treated, Uncontrolled T2DM, diabetic neuropathy and hx of alcohol abuse. Had intractable N/V and was found to be septic in DKA with symptomatic anemia requiring transfusion. Required ICU level of care. Shortness of Breath Enterovirus/Rhinovirus Infection Pt with reported SOB overnight Chest XRAY with possible congestion Biofire noting entero/rhinovirus No increased oxygen requirement at this time Severe Sepsis Bacteremia, gram positive C diff gene positive +diarrhea Pt presenting with tachycardia, leukocytosis Infectious source likely pneumonia, possible odontogenic infection (pt being tx with oral antibiotic at custodial per pt hx) lactate of 16 on admission, downtrending Procal elevated Chest CTA noting pneumonia UA without signs of infection Respiratory panel negative Blood Cx x1 set growing Group B beta strep in one bottle, ?contaminant in other (Prob.sony gram negative cocci). Repeat Blood cx pending Biofire noting strep MRSA negative c diff gene positive with diarrhea TTE noting EF >70%, mild LVH, normal wall motion and no significant valvular pathology. Consider IRLANDA On IV Rocephin, Flagyl and Doxycycline initially ID consulted for gram pos bacteremia, appreciate recs. Recommended/stated the following: "I would suggest he remain on CTX 2g IV qd to extend through 11/27/23 (2 weeks total). OK to stop the metronidazole at this point and instead convert him to vancomycin 125mg po qid x 10 days, followed by 125mg po bid to extend for 7 days beyond cessation of the CTX (12/04/23). OK to stop the doxycycline-- no current indication." Transitioned to po vancomycin per recs of ID and continue with Rocephin 2g daily until 11/27/2311/16- with concern for SOB overnight with concerns for aspiration, pt was transitioned from CTX to ertapenem Continue to monitor DKA Lactic acidosis DMII pt started on metformin 4 days ago Septic with pneumonia as noted above, likely trigger for DKA Glucose level 620 on admission Hgba1c of 8.9 VBG on admission noting pH of 7.15 , pCO2 35, HCO3 of 12 Anion gap of 23 on admission UA with noted 3+ glucose and trace ketones Was on Insulin gtt, IVF glycemic pharmacy consult Serial labs Continue to monitor improving Symptomatic Anemia Possible GI bleed hgb 6.6 on admission, suspect lower given volume depletion s/p 3 units pRBC transfused, follow Hgb goal hgb > 7 IV PPI anemia panel with normal iron. folate and b12 levels GI consulted, appreciate recs -pt started on octreotide -s/p EGD on 11/14- noted Grade 1 varices, moderate portal gastropathy -per GI if bleeding persists get CTA abdomen/pelvis. CTA abdomen obtained on 11/15 with no acute bleed -consider colonoscopy later in the course -continue octreotide -d/c ppi Continue to monitor, transfuse as needed Acute Metabolic Encephalopathy Pt with worsening mental status Ammonia elevated at 135 ---> 100-->42 Tox screen negative Likely in setting of above Delirium precautions. Frequent reorientation, avoid sedating medications as able Continue to monitor Hepatocellular Carcinoma Cirrhosis Splenomegaly hyperammonemia states he declined intervention when diagnosed 2 years ago at [facility] CT abd/pelvis noting "Cirrhosis, splenomegaly, and findings of portal hypertension" Ammonia elevated at 135 ---> 100-->42 INR elevated at 1.5, likely in this setting GI consulted as noted above, appreciate recs -started on lactulose, rifaximin -with improved ammonia level, GI advised to continue with just rifaximin 11/17- pt with abd pain, US noting scattered ascites Pancreatitis Abd tender, CT noting evidence of pancreatitis Lipase elevated at 149 Continue with LR@ 100 and dextrose NPO currently, advance diet as tolerated Thickened gallbladder US 11/17 ordered for abd pain and to rule out ascites noting possible concern for acute cholecystitis Liver enzymes elevated General Surgery consulted, appreciate recs Elevated troponin Demand ischemia Trop elevated at 277.7, uptrending suspect demand ischemia in setting of underlying illness no ecg change/chest pain Echo as above, noting EF >70%, mild LVH, normal wall motion and no significant valvular pathology Doubt ACS at this time Hypomagnesemia Hypocalcemia replete as needed Chronic conditions: Hx of alcohol abuse: States last drink about 2 years ago. Denies alcohol use while incarcerated HLD: statin therapy, lipid panel normal Neuropathy: currently not on tx Diet: currently NPO DVT ppx: SCDS for now in setting of anemia, unknown source FULL CODE Dispo: d/c to custodial when medically able Admission and Anticipated Discharge Date Admission Date: November 13, 2023 Subjective pt was seen with guard at bedside. Concerned today about abdominal pain and N/V while eating and taking meds this AM. Does not want to scale back on diet. Review of Systems 2 Review of Systems: All systems reviewed & are unremarkable except as noted in Subjective Physical Exam Physical Exam: General: Alert Psych: mood and affect appropriate Neuro: oriented x2 HEENT: NC/AT CV: RRR Resp: no increased effort of breathing Abdomen: tender, firm, distended Extremities:trace edema in lower extremities bilaterally. Results & Data Results & Data Vital Signs (Past 12 Hours) Vital Signs Temp Pulse Pulse Resp BP BP Pulse Ox 11/18/23 10:19 36.6 C 85 16 114/73 11/18/23 08:37 11/18/23 08:00 78 11/18/23 07:14 36.9 C 83 18 130/77 92 11/18/23 03:14 36.8 C 79 16 123/71 92 O2 Del Method 11/18/23 10:19 Room Air 11/18/23 08:37 Room Air 11/18/23 08:00 11/18/23 07:14 Room Air 11/18/23 03:14 Room Air (2) DKA (diabetic ketoacidosis) Diabetes mellitus complication detail: without coma Diabetes mellitus type: type 2 Qualified Code(s): E11.10 - Type 2 diabetes mellitus with ketoacidosis without coma (3) Acute pancreatitis Acute pancreatitis complication: unspecified Pancreatitis type: unspecified pancreatitis type Qualified Code(s): K85.90 - Acute pancreatitis without necrosis or infection, unspecified (4) Pneumonia Laterality: bilateral Lung location: unspecified part of lung Pneumonia type: due to unspecified organism Qualified Code(s): J18.9 - Pneumonia, unspecified organism
--- NOTE | 2023-11-18 15:27 | Surgery Consultation ---
<Statement entered by Fran Ca, - 11/19/23 16:15> This case was discussed with the surgical PA and I agree with this plan. Patient was resting when I attempted a visit to say hello. Please call surgery should he develop any questions. Date of Consultation November 18, 2023 Assessment & Plan (1) Abnormal abdominal ultrasound: 58-year-old male admitted due to DKA, GI bleed. Recent imaging and labwork reviewed. Gallbladder wall thickening and mild distention more likely due to edematous state from other current medical issues and less likely acute cholecystitis. No surgical intervention planned. If patient were to require intervention, would recommend percutaneous cholecystostomy tube as patient is a very poor surgical candidate. General Surgery will sign off at this time. Please reach out with any questions or concerns. Patient's assessment and plan reviewed with Dr. Ca. History of Present Illness Reason for Consultation: Possible acute cholecystitis on abdominal ultrasound Attending Physician: Akilah Gore MD History of Present Illness 58-year-old male who presented to [facility] from [facility] due to increased confusion, nausea and vomiting on 11/13/2023. Patient has a complicated medical history consisting of Stage 3 Hepatocellular Carcinoma which was diagnosed 2 years ago at [facility]. Per history and physical, patient declined treatment. Patient also has a history of alcohol abuse with liver cirrhosis, poorly controlled DM2. On admission, patient's Hgb was 6.6 (requiring 3 units of PRBC), ammonia was 135, glucose was 620, and lipase was 149. His troponin levels have been elevated. He was found to be septic in DKA along with a GI bleed. Patient was admitted to ICU. Since admission, patient has been followed by GI and had an EGD (Grade 1 varices) on 11/[address] Duckworth. CTA to investigate for continued bleeding was negative on 11/15. Patient is also currently being treated for active c. diff infection and pneumonia. Most recent labs show WBC 6.83; Hgb 9.1; Hct 26.9; Total Bili 2.3; AST 54; ALT 59; Alk Phos 69. Abdominal ultrasound was performed this morning that showed gallbladder wall thickening with mild distention. Currently, patient denies abdominal pain, just states that he has a "sour stomach." Reports that he continues to have many episodes of diarrhea. Allergies Allergy/AdvReac Type Severity Reaction Status Date / Time Fish Containing Products Allergy Unknown Verified 11/13/23 16:52 Home Medications Medication Instructions Recorded Confirmed Type cetirizine 10 mg capsule 10 mg PO DAILY 11/13/23 11/13/23 History diphenhydramine HCl 25 mg capsule 25 mg PO HS PRN allergies 11/13/23 11/13/23 History (Banophen) insulin glargine 100 unit/mL 48 unit subcut BID 11/13/23 11/13/23 History subcutaneous cartridge insulin regular human 100 unit/mL 1 sliding scale dose subcut 11/13/23 11/13/23 History injection solution (Novolin R USEASDIRECTD Regular U-100 Insulin) metformin 1,000 mg tablet 1,000 mg PO BID 11/13/23 11/13/23 History rosuvastatin 10 mg tablet 10 mg PO DAILY 11/13/23 11/13/23 History thiamine HCl (vitamin B1) 50 mg 50 mg PO DAILY 11/13/23 11/13/23 History tablet (Vitamin B-1) Patient History Medical History HLD (hyperlipidemia) Neuropathy T2DM (type 2 diabetes mellitus) Hepatocellular carcinoma Surgical History Hx of cervical spine surgery Hx of bilateral hip replacements Family History Father Throat cancer Mother Diabetes Social History Smoking Status: Former smoker Second Hand Exposure: No; Do You Dip or Chew Tobacco: No; Tobacco Cessation Education Requested by Patient: No Hx Alcohol Use: No Hx Substance Use: No Preferred Language: Guamanian Communication Ability: Unable Swing Ride Operator Required: No Beliefs That Will Affect Care: None Current Living Situation: Other Current Living Situation Comment: [facility] Other Information That Helps Us Care for You: No Feels Safe at Home: Yes Safety Concerns: Feels Safe At This Time Assistive Devices: None Review of Systems Constitutional: as per Subjective / HPI; no fever and no chills Respiratory: + cough and + chest congestion; no dyspn ea Cardiovascular: no chest pain Gastrointestinal: + abdominal pain (diffuse throughout abd omen); no nausea and no vomiting Physical Exam Constitutional: WD/WN, vitals as above Eyes: PERRL, conjunctivae normal, anicteric sclerae Respiratory: normal respiratory effort; no respiratory distress and no labored breathing Gastrointestinal (Abdomen): Inspection/Auscultation: + abdomen distended and + abdominal edema Percussion/Palpation: + abdomen tender (TTP in lower abdomen) and + hernia (asymptomatic left inguinal hernia) Results & Data Vital Signs (Past 12 Hours) Vital Signs Temp Pulse Pulse Resp BP BP Pulse Ox 11/18/23 14:12 78 11/18/23 10:19 36.6 C 85 16 114/73 11/18/23 08:37 11/18/23 08:00 78 11/18/23 07:14 36.9 C 83 18 130/77 92 O2 Del Method 11/18/23 14:12 11/18/23 10:19 Room Air 11/18/23 08:37 Room Air 11/18/23 08:00 11/18/23 07:14 Room Air PG Care Time/CCT Total # of Minutes Spent Total Time Spent with Patient: Total time spent is greater than 50% in coordination of care (as documented) at patient's floor/unit and/or counseling patient: Coding Level of Care Code 15670 IN/OBS CONSULT LVL 3,45M Diagnoses Abnormal abdominal ultrasound R93.5
[2023-11-18] MEDS: CARBOHYDRATES FOR HYPOGLYCEMIA PO PRN (16:33)
[2023-11-19 08:40] LABS: Albumin Globulin Ratio 1.4 (0.9-2); BUN Creatinine Ratio 19.4 (10-20); Bilirubin,Total 2.3 mg/dl (0.2-1.0); Calcium 6.9 mg/dl (8.6-10.3); Creatinine Clr Calc Pharmacy 124.1 ml/min; Est GFR (African American) 125.8 ml/min; Est GFR (Non-African American) 108.6 ml/min; Globulin 2.2 gm/dl (2.5-4.0); Magnesium 1.8 mg/dl (1.7-2.4); Phosphorus 2.7 mg/dl (2.5-4.9); Potassium 4.9 mmol/L (3.5-5.1); Total Protein 5.2 gm/dl (6.0-8.3)
--- NOTE | 2023-11-19 10:02 | Pharmacy Report ---
Pharmacy Glycemic Short Note 2 - Date of Service November 19, 2023 - Glycemic Short BSG Results (Last 24 hours): 11/18/23 11/18/23 11/18/23 11:28 16:26 16:31 Glucose POC Glucose 96 68 L* 66 L* 11/18/23 11/18/23 11/19/23 16:49 20:09 07:38 Glucose POC Glucose 80 187 H 193 H 11/19/23 07:43 Glucose 220 H POC Glucose OUTPATIENT ANTIDIABETIC REGIMEN: * Insulin glargine 48units BID * Novolin R per sliding scale * Metformin 1gm PO BID * A1c = 8.9% 11/14/23 (however this was after receipt of PRBCs) ASSESSMENT: 11/18: * Patient received 22 units of insulin yesterday, of which 10 units were basal * Fasting BSG trending upward 193 mg/dL this AM, will continue with 10 units. Will consider increasing if PO intake adequate today * BSGs trending down at dinner yesterday. PO intake previous days have been poor, will loosen novolog parameters this AM 11/16: * Patient received total 31 units of insulin yesterday; 20 units basal + 11 units bolus. BSGs yesterday were [phone] mg/dl. * Fasting BSG today was 102 mg/dl. Novolog parameters ordered based on stress of 3. Sliding scale parameters discontinued. * Pre-lunch BSG trended down to 94 mg/dl. Basal insulin 10 units in AM was given but discontinued for HS since BSG trending down. * Clears ordered for diet but seems like patient is hardly eating. 11/15: BSGs improved throughout the day yesterday, [phone] mg/dL. Received 18 units basal + 24 units bolus. Fasting was 128 mg/dL today. Remains NPO. On ceftraixone and doxycycline for infection. Octreotide and pantoprazole drips running for GI bleed. Continues on D5LR at 75 cc/hr. Will increase basal slightly today. No change to sliding scale. 11/14: Patient was transitioned off insulin drip yesterday following removal of dextrose from mIVFs and receipt of 18 units basal insulin. BSGs trended down into the 80s leading discontinue of insulin drip. BSGs hovered in the 80-120s range off the insulin drip indicating 18 units of basal per day is near his requirement (not his home regimen). BSGs then quickly climbed into the 250-270s range following resumption of dextrose containing mIVFs last evening. Patient is very sensitive to IV dextrose provision. Patient was discussed on multidisciplinary rounds today. Plan is to continue dextrose containing mIVFs with hopes GI will be able to eval the patient today for possible procedure. Plan to give Novolog Q 4 hrs to proactively treat hyperglycemia caused by IV dextrose rather than giving long acting insulin as doing so would increase risk of prolonged hypoglycemia if IVFs changed/discontinued. 11/13: Type 2 diabetic admitted for DKA, HAGMA, lactic acidosis, sepsis, GBS bacteremia, UGIB, pancreatitis, possible PNA. Initial labs: GLU 620m AG 23, Bicarb 13, vpH 7.15, LA 16.2 HAGMA likely a combo of DKA and sepsis, lactic acidosis and cirrhosis This AM pt remains on insulin drip at 8.2units/hr, goal range 150-250. Maint IVFs infusing with dextrose and potassium. Pt remains NPO. Lactic acidosis improving, not completely resolved, however AG closed and Bicarb now > 15. Pt was discussed at multidisciplinary rounds, will plan to begin the process of transitioning patient to SQ basal/bolus regimen. Will remove dextrose from maint IVFs to assist in transition in this type 2 diabetic. Of note, he did have high insulin doses listed on his med rec, but given uncertain compliance will begin with "moderate stress" basal insulin dosing initially. Of note, GI consult initiated octreotide gtt which can cause glucose dysregulation leading to hypo- or hyperglycemia. PLAN FOR INPATIENT GLYCEMIC CONTROL: * Hold outpatient oral diabetes medications * Basal insulin * Lantus 10 units SQ QAM * Bolus insulin * NovoLog per scale ACHS or Q6hrs while NPO * Goal Range: Low 110 mg/dL - High 140 mg/dL * Correction Factor: 30 mg/dL/unit * Nutritional / Prandial insulin per carb ratio of 1 unit per 11 grams CHO consumed
[2023-11-19 10:23] LABS: Hematocrit (blood only) 24.9 % (42.0-52.0); Hemoglobin 8.3 g/dl (14.0-18.0); Mean Corpuscular Hemoglobin 30.3 pg (25.0-34.0); Mean Corpuscular Hgb Conc 33.3 g/dL (32.0-36.0); Mean Corpuscular Volume 90.9 fL (80.0-100.0); Mean Platelet Volume 10.6 fL (9.4-12.4); Platelet Count 75 K/uL (130-400); RDW Coefficient of Variation 16.1 % (11.5-14.5); RDW Standard Deviation 52.5 fL (36.4-46.3); Red Blood Count 2.74 M/uL (4.70-6.10); White Blood Count 7.34 K/ul (4.8-10.8)
--- NOTE | 2023-11-19 12:12 | Communication Note ---
Date of Service: November 19, 2023 Discussed with nurse, diarrhea persists but only on day 2 vancomycin. Will consider colonoscopy later this week if no improvement
--- NOTE | 2023-11-19 16:22 | Hospitalist Progress Note ---
Date of Service November 19, 2023 Assessment & Plan (1) Severe sepsis: (2) DKA (diabetic ketoacidosis): (3) Acute pancreatitis: (4) Pneumonia: (5) Anemia: (6) T2DM (type 2 diabetes mellitus): (7) Hepatocellular carcinoma: Plan This is a 58 year old M admitted from [facility] with PMHx significant for Stage 3 Hepatocellular carcinoma not currently being treated, Uncontrolled T2DM, diabetic neuropathy and hx of alcohol abuse. Had intractable N/V and was found to be septic in DKA with symptomatic anemia requiring transfusion. Required ICU level of care. Shortness of Breath Enterovirus/Rhinovirus Infection Pt with reported SOB overnight Chest XRAY with possible congestion Biofire noting entero/rhinovirus No increased oxygen requirement at this time Severe Sepsis Bacteremia, gram positive C diff gene positive +diarrhea Pt presenting with tachycardia, leukocytosis Infectious source likely pneumonia, possible odontogenic infection (pt being tx with oral antibiotic at senior living per pt hx) lactate of 16 on admission, downtrending Procal elevated Chest CTA noting pneumonia UA without signs of infection Respiratory panel negative Blood Cx x1 set growing Group B beta strep in one bottle, ?contaminant in other (Prob.sony gram negative cocci). Repeat Blood cx pending Biofire noting strep MRSA negative c diff gene positive with diarrhea TTE noting EF >70%, mild LVH, normal wall motion and no significant valvular pathology. Consider IRLANDA On IV Rocephin, Flagyl and Doxycycline initially ID consulted for gram pos bacteremia, appreciate recs. Recommended/stated the following: "I would suggest he remain on CTX 2g IV qd to extend through 11/27/23 (2 weeks total). OK to stop the metronidazole at this point and instead convert him to vancomycin 125mg po qid x 10 days, followed by 125mg po bid to extend for 7 days beyond cessation of the CTX (12/04/23). OK to stop the doxycycline-- no current indication." Transitioned to po vancomycin per recs of ID and continue with Rocephin 2g daily until 11/27/2311/16- with concern for SOB overnight with concerns for aspiration, pt was transitioned from CTX to ertapenem 11/17-per GI recommending colonoscopy if no improvement of BMs Continue to monitor DKA Lactic acidosis DMII pt started on metformin 4 days ago Septic with pneumonia as noted above, likely trigger for DKA Glucose level 620 on admission Hgba1c of 8.9 VBG on admission noting pH of 7.15 , pCO2 35, HCO3 of 12 Anion gap of 23 on admission UA with noted 3+ glucose and trace ketones Was on Insulin gtt, IVF glycemic pharmacy consult Serial labs Continue to monitor improving Symptomatic Anemia Possible GI bleed hgb 6.6 on admission, suspect lower given volume depletion s/p 3 units pRBC transfused, follow Hgb goal hgb > 7 IV PPI anemia panel with normal iron. folate and b12 levels GI consulted, appreciate recs -pt started on octreotide -s/p EGD on 11/14- noted Grade 1 varices, moderate portal gastropathy -per GI if bleeding persists get CTA abdomen/pelvis. CTA abdomen obtained on 11/15 with no acute bleed -consider colonoscopy later in the course -continue octreotide -d/c ppi Continue to monitor, transfuse as needed Stable Acute Metabolic Encephalopathy Pt with worsening mental status Ammonia elevated at 135 ---> 100-->42 Tox screen negative Likely in setting of above Delirium precautions. Frequent reorientation, avoid sedating medications as able Continue to monitor Hepatocellular Carcinoma Cirrhosis Splenomegaly hyperammonemia states he declined intervention when diagnosed 2 years ago at [facility] CT abd/pelvis noting "Cirrhosis, splenomegaly, and findings of portal hypertension" Ammonia elevated at 135 ---> 100-->42 INR elevated at 1.5, likely in this setting GI consulted as noted above, appreciate recs -started on lactulose, rifaximin -with improved ammonia level, GI advised to continue with just rifaximin 11/17- pt with abd pain, US noting scattered ascites Pancreatitis Abd tender, CT noting evidence of pancreatitis Lipase elevated at 149 Continue with LR@ 100 and dextrose NPO currently, advance diet as tolerated Thickened gallbladder US 11/17 ordered for abd pain and to rule out ascites noting possible concern for acute cholecystitis Liver enzymes elevated General Surgery consulted, appreciate recs Elevated troponin Demand ischemia Trop elevated at 277.7, uptrending suspect demand ischemia in setting of underlying illness no ecg change/chest pain Echo as above, noting EF >70%, mild LVH, normal wall motion and no significant valvular pathology Doubt ACS at this time Hypomagnesemia Hypocalcemia replete as needed Chronic conditions: Hx of alcohol abuse: States last drink about 2 years ago. Denies alcohol use while incarcerated HLD: statin therapy, lipid panel normal Neuropathy: currently not on tx Diet: currently NPO DVT ppx: SCDS for now in setting of anemia, unknown source FULL CODE Dispo: d/c to senior living when medically able Admission and Anticipated Discharge Date Admission Date: November 13, 2023 Subjective pt was seen with guard at bedside. Episode of wretching this AM. per pt no teeth and he choked on watermelon. States no N/V. Review of Systems Review of Systems: All systems reviewed & are unremarkable except as noted in Subjective Physical Exam Physical Exam: General: Alert Psych: mood and affect appropriate Neuro: oriented x2 HEENT: NC/AT CV: RRR Resp: no increased effort of breathing Abdomen: tender, firm, distended Extremities:trace edema in lower extremities bilaterally. Results & Data Results & Data Vital Signs (Past 12 Hours) Vital Signs Temp Pulse Pulse Resp BP Pulse Ox O2 Del Method 11/19/23 10:53 36.8 C 89 16 119/67 96 Room Air 11/19/23 08:00 Room Air 11/19/23 08:00 80 11/19/23 08:00 36.9 C 78 18 124/73 95 Room Air (2) DKA (diabetic ketoacidosis) Diabetes mellitus complication detail: without coma Diabetes mellitus type: type 2 Qualified Code(s): E11.10 - Type 2 diabetes mellitus with ketoacidosis without coma (3) Acute pancreatitis Acute pancreatitis complication: unspecified Pancreatitis type: unspecified pancreatitis type Qualified Code(s): K85.90 - Acute pancreatitis without necrosis or infection, unspecified (4) Pneumonia Laterality: bilateral Lung location: unspecified part of lung Pneumonia type: due to unspecified organism Qualified Code(s): J18.9 - Pneumonia, unspecified organism
[2023-11-19] MEDS: LANTUS PER UNIT CHARGE SC ONE (17:31)
[2023-11-20 07:44] LABS: Hematocrit (blood only) 25.5 % (42.0-52.0); Hemoglobin 8.5 g/dl (14.0-18.0); Mean Corpuscular Hemoglobin 30.1 pg (25.0-34.0); Mean Corpuscular Hgb Conc 33.3 g/dL (32.0-36.0); Mean Corpuscular Volume 90.4 fL (80.0-100.0); Mean Platelet Volume 10.7 fL (9.4-12.4); Platelet Count 82 K/uL (130-400); RDW Coefficient of Variation 15.9 % (11.5-14.5); RDW Standard Deviation 51.3 fL (36.4-46.3); Red Blood Count 2.82 M/uL (4.70-6.10); White Blood Count 7.82 K/ul (4.8-10.8)
[2023-11-20 07:54] LABS: Albumin Globulin Ratio 1.3 (0.9-2); Albumin Level 2.8 gm/dl (3.4-5.0); BUN Creatinine Ratio 27.5 (10-20); Bilirubin,Total 1.8 mg/dl (0.2-1.0); Calcium 6.8 mg/dl (8.6-10.3); Creatinine Clr Calc Pharmacy 150.9 ml/min; Est GFR (African American) 136.4 ml/min; Est GFR (Non-African American) 117.7 ml/min; Globulin 2.2 gm/dl (2.5-4.0); Magnesium 1.7 mg/dl (1.7-2.4); Phosphorus 3.1 mg/dl (2.5-4.9)
[2023-11-20] MEDS: LANTUS PER UNIT CHARGE SC SCH (08:35)
[2023-11-20] MEDS: CALCIUM GLUCONATE 1,000 MG/60 ML BAG IV SCH (09:45)
--- NOTE | 2023-11-20 13:55 | Hospitalist Progress Note ---
Date of Service November 20, 2023 Assessment & Plan (1) Severe sepsis: (2) DKA (diabetic ketoacidosis): (3) Acute pancreatitis: (4) Pneumonia: (5) Anemia: (6) T2DM (type 2 diabetes mellitus): (7) Hepatocellular carcinoma: Plan This is a 58 year old M admitted from [facility] with PMHx significant for Stage 3 Hepatocellular carcinoma not currently being treated, Uncontrolled T2DM, diabetic neuropathy and hx of alcohol abuse. Had intractable N/V and was found to be septic in DKA with symptomatic anemia requiring transfusion. Required ICU level of care. Shortness of Breath Enterovirus/Rhinovirus Infection Possible aspiration Pt with reported SOB overnight Chest XRAY with possible congestion Biofire noting entero/rhinovirus No increased oxygen requirement at this time Rocephin was switched to ertapenem for possible aspiration coverage Speech consulted for possible aspiration Improved at this time Severe Sepsis Bacteremia, gram positive C diff gene positive +diarrhea Pt presenting with tachycardia, leukocytosis Infectious source likely pneumonia, possible odontogenic infection (pt being tx with oral antibiotic at snf per pt hx) lactate of 16 on admission, downtrending Procal elevated Chest CTA noting pneumonia UA without signs of infection Respiratory panel negative Blood Cx x1 set growing Group B beta strep in one bottle, ?contaminant in other (Prob.sony gram negative cocci). Repeat Blood cx pending Biofire noting strep MRSA negative c diff gene positive with diarrhea TTE noting EF >70%, mild LVH, normal wall motion and no significant valvular pathology. Consider IRLANDA On IV Rocephin, Flagyl and Doxycycline initially ID consulted for gram pos bacteremia, appreciate recs. Recommended/stated the following: "I would suggest he remain on CTX 2g IV qd to extend through 11/27/23 (2 weeks total). OK to stop the metronidazole at this point and instead convert him to vancomycin 125mg po qid x 10 days, followed by 125mg po bid to extend for 7 days beyond cessation of the CTX (12/04/23). OK to stop the doxycycline-- no current indication." Transitioned to po vancomycin per recs of ID and continued with Rocephin 2g daily until pt had episode of possible aspiration with SOB overnight on 11/16 11/16- with concern for SOB overnight with concerns for aspiration, pt was transitioned from CTX to ertapenem 11/17-per GI recommending colonoscopy if no improvement of BMs Improving DKA Lactic acidosis DMII pt started on metformin 4 days ago Septic with pneumonia as noted above, likely trigger for DKA Glucose level 620 on admission Hgba1c of 8.9 VBG on admission noting pH of 7.15 , pCO2 35, HCO3 of 12 Anion gap of 23 on admission UA with noted 3+ glucose and trace ketones Was on Insulin gtt, IVF glycemic pharmacy consult Serial labs Continue to monitor improving Symptomatic Anemia Possible GI bleed hgb 6.6 on admission, suspect lower given volume depletion s/p 3 units pRBC transfused, follow Hgb goal hgb > 7 anemia panel with normal iron. folate and b12 levels GI consulted, appreciate recs -pt started on octreotide -s/p EGD on 11/14- noted Grade 1 varices, moderate portal gastropathy -per GI if bleeding persists get CTA abdomen/pelvis. CTA abdomen obtained on 11/15 with no acute bleed -consider colonoscopy later in the course -continue octreotide -d/c ppi Continue to monitor, transfuse as needed Stable Acute Metabolic Encephalopathy Pt with worsening mental status Ammonia elevated at 135 ---> 100-->42 Tox screen negative Likely in setting of above Delirium precautions. Frequent reorientation, avoid sedating medications as able Continue to monitor Improved Hepatocellular Carcinoma Cirrhosis Splenomegaly hyperammonemia states he declined intervention when diagnosed 2 years ago at [facility] CT abd/pelvis noting "Cirrhosis, splenomegaly, and findings of portal hypertension" Ammonia elevated at 135 ---> 100-->42 INR elevated at 1.5, likely in this setting GI consulted as noted above, appreciate recs -started on lactulose, rifaximin -with improved ammonia level, GI advised to continue with just rifaximin 11/17- pt with abd pain, US noting scattered ascites Stable Pancreatitis Abd tender, CT noting evidence of pancreatitis Lipase elevated at 149 Continue with LR@ 100 and dextrose advance diet as tolerated Thickened gallbladder US 11/17 ordered for abd pain and to rule out ascites noting possible concern for acute cholecystitis Liver enzymes elevated General Surgery consulted, appreciate recs Elevated troponin Demand ischemia Trop elevated at 277.7, uptrending suspect demand ischemia in setting of underlying illness no ecg change/chest pain Echo as above, noting EF >70%, mild LVH, normal wall motion and no significant valvular pathology Doubt ACS at this time Hypomagnesemia Hypocalcemia replete as needed Chronic conditions: Hx of alcohol abuse: States last drink about 2 years ago. Denies alcohol use while incarcerated HLD: statin therapy, lipid panel normal Neuropathy: currently not on tx Diet: advancing as tolerated DVT ppx: SCDS for now in setting of anemia, unknown source FULL CODE Dispo: d/c to snf when medically able Admission and Anticipated Discharge Date Admission Date: November 13, 2023 Subjective pt seen laying in bed. Denied acute concerns today. Notes N/V had improved. no episodes of diarrhea Review of Systems Review of Systems: All systems reviewed & are unremarkable except as noted in Subjective Physical Exam Physical Exam: General: Alert Psych: mood and affect appropriate Neuro: oriented x2 HEENT: NC/AT CV: RRR Resp: no increased effort of breathing Abdomen: tender, firm, distended Extremities:trace edema in lower extremities bilaterally. Results & Data Results & Data Vital Signs (Past 12 Hours) Vital Signs Temp Pulse Pulse Resp BP Pulse Ox O2 Del Method 11/20/23 11:28 36.6 C 98 H 18 122/63 93 Room Air 11/20/23 10:22 90 11/20/23 10:08 Room Air 11/20/23 08:00 36.5 C 97 H 20 119/76 93 Room Air 11/20/23 03:41 36.7 C 92 H 18 108/63 90 Room Air (2) DKA (diabetic ketoacidosis) Diabetes mellitus complication detail: without coma Diabetes mellitus type: type 2 Qualified Code(s): E11.10 - Type 2 diabetes mellitus with ketoacidosis without coma (3) Acute pancreatitis Acute pancreatitis complication: unspecified Pancreatitis type: unspecified pancreatitis type Qualified Code(s): K85.90 - Acute pancreatitis without necrosis or infection, unspecified (4) Pneumonia Laterality: bilateral Lung location: unspecified part of lung Pneumonia type: due to unspecified organism Qualified Code(s): J18.9 - Pneumonia, unspecified organism
[2023-11-20] MEDS: HYDROCORTISONE 1% CRM 30 GM TUBE EXT PRN (20:41)
[2023-11-21 06:48] LABS: Basophils # (auto) 0.04 K/uL (0.00-0.20); Basophils % (auto) 0.5 %; Eosinophils # (auto) 0.45 K/uL (0.00-0.50); Eosinophils % (auto) 5.5 %; Hematocrit (blood only) 25.7 % (42.0-52.0); Hemoglobin 8.5 g/dl (14.0-18.0); Immature Granulocytes # (auto) 0.08 K/uL (0.01-0.20); Lymphocytes # (auto) 1.14 K/uL (1.20-3.40); Mean Corpuscular Hemoglobin 29.9 pg (25.0-34.0); Mean Corpuscular Hgb Conc 33.1 g/dL (32.0-36.0); Mean Corpuscular Volume 90.5 fL (80.0-100.0); Mean Platelet Volume 10.7 fL (9.4-12.4); Monocytes # (auto) 0.73 K/uL (0.11-0.59); Platelet Count 100 K/uL (130-400); RDW Coefficient of Variation 16.1 % (11.5-14.5); RDW Standard Deviation 52.5 fL (36.4-46.3); Red Blood Count 2.84 M/uL (4.70-6.10); White Blood Count 8.14 K/ul (4.8-10.8)
[2023-11-21 07:25] LABS: Albumin Globulin Ratio 1.3 (0.9-2); Albumin Level 2.9 gm/dl (3.4-5.0); Bilirubin,Total 1.6 mg/dl (0.2-1.0); Calcium 7.2 mg/dl (8.6-10.3); Creatinine Clr Calc Pharmacy 139.9 ml/min; Est GFR (African American) 132.2 ml/min; Est GFR (Non-African American) 114.1 ml/min; Globulin 2.3 gm/dl (2.5-4.0); Magnesium 1.6 mg/dl (1.7-2.4); Phosphorus 2.9 mg/dl (2.5-4.9); Potassium 3.9 mmol/L (3.5-5.1); Total Protein 5.2 gm/dl (6.0-8.3)
--- NOTE | 2023-11-21 07:53 | Hospitalist Progress Note ---
Date of Service November 21, 2023 Assessment & Plan (1) Severe sepsis: (2) DKA (diabetic ketoacidosis): (3) Acute pancreatitis: (4) Pneumonia: (5) Anemia: (6) T2DM (type 2 diabetes mellitus): (7) Hepatocellular carcinoma: Plan Mr. Kasper is a 58 year old M admitted from [facility] with PMHx significant for Stage 3 Hepatocellular carcinoma not currently being treated, Uncontrolled T2DM, diabetic neuropathy and hx of alcohol abuse. Had intractable N/V and was found to be septic in DKA with symptomatic anemia requiring transfusion. Required ICU level of care and now in PCU. #Portal Vein Thrombosis -Identified on CT 11/20 Discussion with GI regarding anticoagulation Plan for aspirin 325mg daily #Left inguinal hernia No surgical intervention #Decompensated Cirrhosis with HE *improving #Splenomegaly Reported hx of Hepatocellular Carcinoma, no documentation states he declined intervention when diagnosed 2 years ago at [facility] CT abd/pelvis noting "Cirrhosis, splenomegaly, and findings of portal hypertension" Ammonia elevated at 135 ---> 100-->42 INR elevated at 1.5, likely in this setting GI consulted as noted above, appreciate recs -started on lactulose, rifaximin -with improved ammonia level, GI advised to continue with just rifaximin 11/17- pt with abd pain, US noting scattered ascites Stable - Last EGD 11/15/2023: grade I varices, portal hypertensive gastropathy - PSE:resolved discontinued lactulose, Rifaximin 550 BID - Ascites: s/p para 11/20, start spironolactone 25mg daily and lasix 40mg daily - SBP: No evidence of SBP - EV: s/p octreotide gtt, PPI gtt due to acute anemia; ongoing C diff concerns, held PPI - HRS: Cr stable - Daily CMP + INR to calculate MELD; low Na diet - GI consulted #Shortness of Breath #Enterovirus/Rhinovirus Infection Possible aspiration Pt with reported SOB overnight Chest XRAY with possible congestion Biofire noting entero/rhinovirus No increased oxygen requirement at this time Improved, transition back to CTX #Severe Sepsis POA resolved #Bacteremia, gram positive #C diff gene colitis Pt presenting with tachycardia, leukocytosis Infectious source likely pneumonia, possible odontogenic infection ([facility]) lactate of 16 on admission, downtrending Procal elevated Chest CTA noting pneumonia UA without signs of infection Respiratory panel negative Blood Cx x1 set growing Group B beta strep in one bottle, ?contaminant in other (Prob.sony gram negative cocci). Repeat Blood cx pending Biofire noting strep MRSA negative c diff gene positive with diarrhea TTE noting EF >70%, mild LVH, normal wall motion and no significant valvular pathology. Consider IRLANDA On IV Rocephin, Flagyl and Doxycycline initially ID consulted for gram pos bacteremia, appreciate recs. Recommended/stated the following: "I would suggest he remain on CTX 2g IV qd to extend through 11/27/23 (2 weeks total). OK to stop the metronidazole at this point and instead convert him to vancomycin 125mg po qid x 10 days, followed by 125mg po bid to extend for 7 days beyond cessation of the CTX (12/04/23). OK to stop the doxycycline-- no current indication." Transitioned to po vancomycin per recs of ID and continued with Rocephin 2g daily EOT 11/26 CTM #DKA resolved Lactic acidosis DMII pt started on metformin 4 days ago Septic with pneumonia as noted above, likely trigger for DKA Glucose level 620 on admission Hgba1c of 8.9 VBG on admission noting pH of 7.15 , pCO2 35, HCO3 of 12 Anion gap of 23 on admission UA with noted 3+ glucose and trace ketones Was on Insulin gtt, IVF glycemic pharmacy consult Serial labs Continue to monitor improving #Symptomatic Anemia Possible GI bleed hgb 6.6 on admission, suspect lower given volume depletion s/p 3 units pRBC transfused, follow Hgb goal hgb > 7 anemia panel with normal iron. folate and b12 levels GI consulted, appreciate recs -pt started on octreotide -s/p EGD on 11/14- noted Grade 1 varices, moderate portal gastropathy -per GI if bleeding persists get CTA abdomen/pelvis. CTA abdomen obtained on 11/15 with no acute bleed -consider colonoscopy later in the course -discontinued octreotide -d/c ppi Continue to monitor, transfuse as needed Stable #Acute Metabolic Encephalopathy, likely iso decomp. cirrhosis Ammonia elevated at 135 ---> 100-->42 Tox screen negative Delirium precautions. Frequent reorientation, avoid sedating medications as able Continue to monitor Improved #Acute Pancreatitis, resolved Abd tender, CT noting evidence of pancreatitis Lipase elevated at 149 diet advanced, #Thickened gallbladder US 11/17 ordered for abd pain and to rule out ascites noting possible concern for acute cholecystitis Liver enzymes elevated General Surgery consulted, appreciate recs -no surgical intervention #Elevated troponin #Demand ischemia #Cornoary artery disease by CT imaging Trop elevated at 277.7, uptrending suspect demand ischemia in setting of underlying illness no ecg change/chest pain Echo as above, noting EF >70%, mild LVH, normal wall motion and no significant valvular pathology Doubt ACS at this time #Hypomagnesemia #Hypocalcemia replete as needed Chronic conditions: Hx of alcohol abuse: States last drink about 2 years ago. Denies alcohol use while incarcerated HLD: statin therapy, lipid panel normal Neuropathy: currently not on tx Diet: advancing as tolerated DVT ppx: SCDS for now in setting of anemia, unknown source FULL CODE Dispo: [facility] medically [facility] Admission and Anticipated Discharge Date Admission Date: November 13, 2023 Subjective Reports left scrotal pain and abdominal discomfort States diarrhea improving slowly Denies nausea or other acute concerns Physical Exam Constitutional: WD/WN, vitals as above Respiratory: normal respiratory effort, lungs clear to auscultation Cardiovascular: RRR, no murmur, no edema Gastrointestinal (Abdomen): distended, firm abdomen nontender Tender left testicle with mass noted and fluid Results & Data Results & Data Vital Signs (Past 12 Hours) Vital Signs Temp Pulse Pulse Resp BP Pulse Ox O2 Del Method 11/21/23 07:15 36.9 C 97 H 19 128/76 91 Room Air 11/21/23 03:31 36.8 C 97 H 20 117/74 92 Room Air 11/21/23 00:00 Room Air 11/20/23 22:55 36.9 C 97 H 18 123/71 92 Room Air 11/20/23 21:45 95 H Laboratory Results Short CBC 11/21/23 Range/Units 06:06 WBC 8.14 (4.8-10.8) K/ul Hgb 8.5 L (14.0-18.0) g/dl Hct 25.7 L (42.0-52.0) % Plt Count 100 L (130-400) K/uL BMP 11/21/23 06:06 Sodium 139 Potassium 3.9 Chloride 110 H Carbon Dioxide 25 BUN 11 Creatinine 0.55 L Glucose 185 H Calcium 7.2 L Liver Function 11/21/23 Range/Units 06:06 Total Bilirubin 1.6 H (0.2-1.0) mg/dl AST 33 (13-39) U/L ALT 35 (7-52) U/L Alkaline Phosphatase 92 (34-104) U/L Albumin 2.9 L (3.4-5.0) gm/dl Diagnostic Findings Abdomen/Pelvis CT 11/21/23 12:07 CT SCAN OF THE ABDOMEN AND PELVIS WITHOUT IV CONTRAST CLINICAL HISTORY: Nausea. Vomiting. Change in mental status. Cirrhosis with hepatocellular carcinoma. COMPARISON STUDY: Abdominal CT dated 11/16/2023. TECHNIQUE: CT scan of the abdomen and pelvis is performed from the lung bases to the proximal femora. Images are reviewed in the axial, sagittal, and coronal planes. IV contrast was not administered for this examination. A dose lowering technique was utilized adhering to the principles of ALARA. CT DOSE: 1131.79 mGy.cm FINDINGS: Lung bases: The heart is normal in size and without pericardial effusion. The coronary arteries are densely calcified. There is diminished attenuation of the cardiac blood pool is compared to the myocardium suggesting anemia. There are small right and trace left pleural effusions with dependent consolidation. Tree-in-bud airspace opacities are noted in both lower lobes. The distal esophagus appears thick walled. Gynecomastia is noted. Liver: The unenhanced liver is cirrhotic in morphology and markedly heterogeneous in attenuation. There is hypertrophy of the left lobe and nodularity of the hepatic surface contour. There is no intrahepatic biliary ductal dilatation. Hyperdense material within the main portal vein is consistent with portal venous thrombosis. Gallbladder: There are calcified gallstones well-distended gallbladder. Gallbladder wall thickening is nonspecific and likely related to adjacent hepatocellular disease and ascites. Spleen: The spleen is enlarged measuring 15.5 cm in length. Pancreas: There is nonspecific fluid and edema around the pancreas. Adrenal glands: Unremarkable. Kidneys: The unenhanced kidneys are normal in size and without hydronephrosis. Question medullary nephrocalcinosis. No discrete renal calculi are identified. There is no evidence of contour deforming renal mass lesion. Abdominal vasculature: The abdominal aorta is normal in course and caliber noting moderate atherosclerotic calcification. Bowel: There is no bowel obstruction. Liquid stool seen throughout the colon. The rectal wall appears thickened. The appendix is well-visualized and normal. The duodenal wall appears thickened and edematous with surrounding inflammation. Peritoneum: There is a moderate volume of abdominopelvic ascites. No intraperitoneal free air is identified. There is a fat-containing umbilical hernia. There are prominent retroperitoneal collateral vessels. Lymphadenopathy: None. Pelvic viscera: Evaluation of the pelvis is degraded by streak artifact from bilateral hip arthroplasties. The bladder is decompressed around a Zaragoza catheter and appears thick walled. The prostate gland is normal as visualized. There is fluid within a left inguinal hernia. Skeletal structures: The skeletal structures are osteopenic. There is mild lumbosacral spondylosis. No lytic or blastic lesions are seen. Bilateral hip arthroplasties are in place. Soft tissues: There is body wall edema. IMPRESSION: 1. The liver is cirrhotic in morphology and heterogeneous in attenuation. 2. A moderate volume of abdominopelvic ascites, splenomegaly, and retroperitoneal collaterals indicate portal hypertension. 3. Nonocclusive thrombus is seen within the main portal vein. This was better assessed on the recent contrast-enhanced examinations. 4. There is nonspecific peripancreatic infiltration and fluid. This may be related to edema/ascites. Correlate with clinical and laboratory findings for evidence of pancreatitis. 5. Cholelithiasis within a distended gallbladder. Gallbladder wall thickening is nonspecific and may be related to adjacent hepatocellular disease/ascites. If there is clinical concern for acute cholecystitis a nuclear hepatobiliary scan could be considered for further assessment. 6. The duodenum appears thick-walled and edematous with surrounding inflammation. Correlate clinically for evidence of duodenitis. If clinically warranted this could be further assessed with endoscopy. 7. The rectal wall appears thickened. Correlate clinically for evidence of a nonspecific proctitis. 8. Right larger than left pleural effusions with dependent consolidation. Tree-in-bud airspace opacities at both lung bases are likely infectious/inflammatory. 9. Liquid stool is seen throughout the colon. Correlate clinically for evidence of a diarrheal illness. 10. Additional findings as above. ACT 112: Negative or not required by law. Electronically signed by: Jarrett Castro M.D. 11/21/2023 2:24 PM Paracentesis Ultrasound 11/21/23 13:32 ULTRASOUND-GUIDED PARACENTESIS CLINICAL HISTORY: Ascites PROCEDURE: Procedure and risks were explained. Informed consent was obtained. A final timeout was completed. The abdomen was prepped and draped in sterile fashion. 1% lidocaine was utilized for skin anesthesia. Utilizing ultrasound guidance, a 5 Pakistani safety centesis catheter was advanced into the left lower quadrant pocket of ascites. Ultrasound images were obtained. A total of 1.3 L of ascites fluid was removed with 1 L sent to the lab. The catheter was removed and Band-Aid applied. The patient tolerated the procedure well. Vital signs will be monitored postprocedure. IMPRESSION: Ultrasound-guided paracentesis as above. Performed, dictated, and signed by Vikas Doran PA-C; to be co-signed by Dr. Jarrett Castro. Electronically signed by: Jarrett Castro M.D. 11/21/2023 4:44 PM (2) DKA (diabetic ketoacidosis) Diabetes mellitus complication detail: without coma Diabetes mellitus type: type 2 Qualified Code(s): E11.10 - Type 2 diabetes mellitus with ketoacidosis w ithout coma (3) Acute pancreatitis Acute pancreatitis complication: unspecified Pancreatitis type: unspecified pancreatitis type Qualified Code(s): K85.90 - Acute pancreatitis without necrosis or infection, unspecified (4) Pneumonia Laterality: bilateral Lung location: unspecified part of lung Pneumonia type: due to unspecified organism Qualified Code(s): J18.9 - Pneumonia, unspecified organism
[2023-11-21] MEDS: MAGNESIUM CHLORIDE W/CALCIUM 64MG DELAYED REL TAB PO SCH (08:43)
[2023-11-21] MEDS: MAGNESIUM SULFATE / D5W 1 GM/100 ML BAG IV SCH (08:44)
--- NOTE | 2023-11-21 09:35 | Pharmacy Report ---
Pharmacy Glycemic Short Note 2 - Date of Service November 21, 2023 - Glycemic Short BSG Results (Last 24 hours): 11/20/23 11/20/23 11/20/23 11:10 16:09 20:25 Glucose POC Glucose 195 H 275 H 105 H 11/21/23 11/21/23 06:06 07:12 Glucose 185 H POC Glucose 181 H OUTPATIENT ANTIDIABETIC REGIMEN: * Insulin glargine 48units BID * Novolin R per sliding scale * Metformin 1gm PO BID * A1c = 8.9% 11/14/23 (however this was after receipt of PRBCs) ASSESSMENT: 11/19: * Stressors stable * AM fasting BSG elevated. However, hesitant to increase too much due to AM BSG's below goal range when Lantus was increased earlier this admission. Cautious increase indicated. Patient on BID basal as an outpatient. Will try to split AM and PM as inpatient as well. * No change to Novolog 11/18: * Patient received 22 units of insulin yesterday, of which 10 units were basal * Fasting BSG trending upward 193 mg/dL this AM, will continue with 10 units. Will consider increasing if PO intake adequate today * BSGs trending down at dinner yesterday. PO intake previous days have been poor, will loosen novolog parameters this AM 11/16: * Patient received total 31 units of insulin yesterday; 20 units basal + 11 units bolus. BSGs yesterday were [phone] mg/dl. * Fasting BSG today was 102 mg/dl. Novolog parameters ordered based on stress of 3. Sliding scale parameters discontinued. * Pre-lunch BSG trended down to 94 mg/dl. Basal insulin 10 units in AM was given but discontinued for HS since BSG trending down. * Clears ordered for diet but seems like patient is hardly eating. 11/15: BSGs improved throughout the day yesterday, [phone] mg/dL. Received 18 units basal + 24 units bolus. Fasting was 128 mg/dL today. Remains NPO. On ceftraixone and doxycycline for infection. Octreotide and pantoprazole drips running for GI bleed. Continues on D5LR at 75 cc/hr. Will increase basal slightly today. No change to sliding scale. 11/14: Patient was transitioned off insulin drip yesterday following removal of dextrose from mIVFs and receipt of 18 units basal insulin. BSGs trended down into the 80s leading discontinue of insulin drip. BSGs hovered in the 80-120s range off the insulin drip indicating 18 units of basal per day is near his requirement (not his home regimen). BSGs then quickly climbed into the 250-270s range following resumption of dextrose containing mIVFs last evening. Patient is very sensitive to IV dextrose provision. Patient was discussed on multidisciplinary rounds today. Plan is to continue dextrose containing mIVFs with hopes GI will be able to eval the patient today for possible procedure. Plan to give Novolog Q 4 hrs to proactively treat hyperglycemia caused by IV dextrose rather than giving long acting insulin as doing so would increase risk of prolonged hypoglycemia if IVFs changed/discontinued. 11/13: Type 2 diabetic admitted for DKA, HAGMA, lactic acidosis, sepsis, GBS bacteremia, UGIB, pancreatitis, possible PNA. Initial labs: GLU 620m AG 23, Bicarb 13, vpH 7.15, LA 16.2 HAGMA likely a combo of DKA and sepsis, lactic acidosis and cirrhosis This AM pt remains on insulin drip at 8.2units/hr, goal range 150-250. Maint IVFs infusing with dextrose and potassium. Pt remains NPO. Lactic acidosis improving, not completely resolved, however AG closed and Bicarb now > 15. Pt was discussed at multidisciplinary rounds, will plan to begin the process of transitioning patient to SQ basal/bolus regimen. Will remove dextrose from maint IVFs to assist in transition in this type 2 diabetic. Of note, he did have high insulin doses listed on his med rec, but given uncertain compliance will begin with "moderate stress" basal insulin dosing initially. Of note, GI consult initiated octreotide gtt which can cause glucose dysregulation leading to hypo- or hyperglycemia. PLAN FOR INPATIENT GLYCEMIC CONTROL: * Hold outpatient oral diabetes medications * Basal insulin * Lantus 15 units SQ x1 this AM w an additional 5 units tonight (if BSG >100 mg/dL) * Bolus insulin * NovoLog per scale ACHS or Q6hrs while NPO * Goal Range: Low 110 mg/dL - High 140 mg/dL * Correction Factor: 30 mg/dL/unit * Nutritional / Prandial insulin per carb ratio of 1 unit per 11 grams CHO c onsumed
[2023-11-21] MEDS: FUROSEMIDE INJ 20 MG/2 ML VIAL IV ONE (11:31)
[2023-11-21] MEDS: SPIRONOLACTONE 12.5 MG TAB PO SCH (11:32)
--- NOTE | 2023-11-21 13:51 | Surgery Consultation ---
Date of Consultation November 21, 2023 Assessment & Plan (1) Left inguinal hernia: Patient is a pleasant 58-year-old male who presented to [facility] from [facility] due to increased confusion, nausea and vomiting on 11/13/2023. PMH Stage 3 Hepatocellular Carcinoma (Per history and physical, patient declined treatment) history of alcohol abuse with liver cirrhosis, poorly controlled DM2. On admission, patient's Hgb was 6.6 (requiring 3 units of PRBC), ammonia was 135, glucose was 620, and lipase was 149. His troponin levels have been elevated. He was found to be septic in DKA along with a GI bleed, he had an EGD (Grade 1 varices) on 11/[address] Duckworth. CTA to investigate for continued bleeding was negative on 11/15. Currently being treated for active c. diff infection and pneumonia. General surgery was consulted 11/18/23 for Gallbladder wall thickening and mild distention more likely due to edematous state from other current medical issues and less likely acute cholecystitis and general surgery signed off at that time. We were reconsulted 11/21/23 for a possible Left inguinal hernia. The patient reports he has been coughing more and two days ago notice a bulge in his left groin, with scrotal swelling. He reports discomfort at rest that worsens with movements. He reports he has never been told prior th at he has had a inguinal hernia. Past CT abd /pelvis scan reviewed and no mention for hernia on the report dated 11/13/23. The patient reports no nausea or vomiting and has been having multiple bowel movements. On exam pt has an edematous scrotum , I was able to appreciate a bulge on the left side. Dr. Smith present for exam. VSS Ordered stat CT abd/pelvis to r/o obstruction/incarceration . CT scan read as fluid in [facility] "Pelvic viscera: Evaluation of the pelvis is degraded by streak artifact from bilateral hip arthroplasties. The bladder is decompressed around a Zaragoza catheter and appears thick walled. The prostate gland is normal as visualized. There is fluid within a left inguinal hernia." No acute surgical intervention indicated, General surgery will sign off , please call with questions /concerns Supervising Physician Co-Signing Physician Notes Patient seen and examined, labs and imaging reviewed, agree with above. Admitted for sepsis and GI bleed in setting of untreated hepatocellular carcinoma. We were reconsulted for left inguinal hernia that he noticed a day or 2 ago. No pain with activity, little sore when touched. No changes in bowel habits. On exam afebrile stable vitals. He has a small partially reducible left inguinal hernia. We ordered a CT scan which showed fluid-filled hernia with no evidence of bowel involvement. Given his multiple medical problems would defer any type of surgical management unless absolutely necessary. Would recommend controlling his ascites. Surgery will sign off, call with questions or concerns History of Present Illness Reason for Consultation: [facility] Requesting Physician: Dr. Aldana Attending Physician: Haley Aldana MD History of Present Illness Patient is a pleasant 58-year-old male who presented to [facility] from [facility] due to increased confusion, nausea and vomiting on 11/13/2023. H Stage 3 Hepatocellular Carcinoma (Per history and physical, patient declined treatment) history of alcohol abuse with liver cirrhosis, poorly controlled DM2. On admission, patient's Hgb was 6.6 (requiring 3 units of PRBC), ammonia was 135, glucose was 620, and lipase was 149. His troponin levels have been elevated. He was found to be septic in DKA along with a GI bleed, he had an EGD (Grade 1 v arices) on 11/[address] Duckworth. CTA to investigate for continued bleeding was negative on 11/15. Currently being treated for active c. diff infection and pneumonia. General surgery was consulted 11/18/23 for Gallbladder wall thickening and mild distention more likely due to edematous state from other current medical issues and less likely acute cholecystitis and general surgery signed off at that time. We were reconsulted 11/21/23 for a possible Left inguinal hernia. The patient reports he has been coughing more and two days ago notice a bulge in his left groin, with scrotal swelling. He reports discomfort at rest that worsens with movements. He reports he has never been told prior that he has had a inguinal hernia. Past CT abd /pelvis scan reviewed and no mention for hernia on the report dated 11/13/23. The patient reports no nausea or vomiting and has been having multiple bowel movements. Allergies Allergy/AdvReac Type Severity Reaction Status Date / Time Fish Containing Products Allergy Unknown Verified 11/13/23 16:52 Home Medications Medication Instructions Recorded Confirmed Type cetirizine 10 mg capsule 10 mg PO DAILY 11/13/23 11/13/23 History diphenhydramine HCl 25 mg capsule 25 mg PO HS PRN allergies 11/13/23 11/13/23 History (Banophen) insulin glargine 100 unit/mL 48 unit subcut BID 11/13/23 11/13/23 History subcutaneous cartridge insulin regular human 100 unit/mL 1 sliding scale dose subcut 11/13/23 11/13/23 History injection solution (Novolin R USEASDIRECTD Regular U-100 Insulin) metformin 1,000 mg tablet 1,000 mg PO BID 11/13/23 11/13/23 History rosuvastatin 10 mg tablet 10 mg PO DAILY 11/13/23 11/13/23 History thiamine HCl (vitamin B1) 50 mg 50 mg PO DAILY 11/13/23 11/13/23 History tablet (Vitamin B-1) Patient History Medical History HLD (hyperlipidemia) Neuropathy T2DM (type 2 diabetes mellitus) Hepatocellular carcinoma Surgical History Hx of cervical spine surgery Hx of bilateral hip replacements Family History Father Throat cancer Mother Diabetes Social History Smoking Status: Former smoker Second Hand Exposure: No; Do You Dip or Chew Tobacco: No; Tobacco Cessation Education Requested by Patient: No Hx Alcohol Use: No Hx Substance Use: No Preferred Language: Tanzanian Communication Ability: Unable Sql Architect Required: No Beliefs That Will Affect Care: None Current Living Situation: Other Current Living Situation Comment: [facility] Other Information That Helps Us Care for You: No Feels Safe at Home: Yes Safety Concerns: Feels Safe At This Time Assistive Devices: None Review of Systems Constitutional: no fever and no chills Respiratory: + cough Gastrointestinal: no nausea and no vomiting Genitourinary: + scrotal swelling Physical Exam Constitutional: cooperative and comfortable; no acute distress Respiratory: normal respiratory effort and able to speak in complete sentences; no respiratory distress Cardiovascular: Rate/Rhythm: regular rate Gastrointestinal (Abdomen): Inspection/Auscultation: + abdomen distended Genitourinary: + hernia (Left side ) and + edematous sc rotum Results & Data Vital Signs (Past 12 Hours) Vital Signs Temp Pulse Resp BP Pulse Ox O2 Del Method 11/21/23 11:09 97.9 F 87 18 129/78 93 Room Air 11/21/23 07:15 98.4 F 97 H 19 128/76 91 Room Air 11/21/23 03:31 98.2 F 97 H 20 117/74 92 Room Air Diagnostic Findings [place], [place] [phone] CT Scan Report Patient: KATIANA HARO [id number] Admit Date: 11/13/23 MR#: [id number] Address1: [address] Ac[address] ID:[id number] Address2: Date: 1965 [facility] Zip: [place] [address] Age: 58 Location: Sex: M Room/Bed: [facility] Att Phy: Haley Aldana MD Diagnosis: DKA, SEPSIS, ACUTE PANCREATITIS Elayne Phy: [facility] Service Date: 11/21/23 Fam Phy: Interpreting Phy: Jarrett Castro MDAdmit Phy: Akilah Gore MD Ordering Phy: Kenney Baer cc: ~ CT SCAN OF THE ABDOMEN AND PELVIS WITHOUT IV CONTRAST CLINICAL HISTORY: Nausea. Vomiting. Change in mental status. Cirrhosis with hepatocellular carcinoma. COMPARISON STUDY: Abdominal CT dated 11/16/2023. TECHNIQUE: CT scan of the abdomen and pelvis is performed from the lung bases to the proximal femora. Images are reviewed in the axial, sagittal, and coronal planes. IV contrast was not administered for this examination. A dose lowering technique was utilized adhering to the principles of ALARA. CT DOSE: 1131.79 mGy.cm FINDINGS: Lung bases: The heart is normal in size and without pericardial effusion. The coronary arteries are densely calcified. There is diminished attenuation of the cardiac blood pool is compared to the myocardium suggesting anemia. There are small right and trace left pleural effusions with dependent consolidation. Tree-in-bud airspace opacities are noted in both lower lobes. The distal esophagus appears thick walled. Gynecomastia is noted. Liver: The unenhanced liver is cirrhotic in morphology and markedly heterogeneous in attenuation. There is hypertrophy of the left lobe and nodularity of the hepatic surface contour. There is no intrahepatic biliary ductal dilatation. Hyperdense material within the main portal vein is consistent with portal venous thrombosis. Gallbladder: There are calcified gallstones well-distended gallbladder. Gallbladder wall thickening is nonspecific and likely related to adjacent hepatocellular disease and ascites. Spleen: The spleen is enlarged measuring 15.5 cm in length. Pancreas: There is nonspecific fluid and edema around the pancreas. Adrenal glands: Unremarkable. Kidneys: The unenhanced kidneys are normal in size and without hydronephrosis. Question medullary nephrocalcinosis. No discrete renal calculi are identified. There is no evidence of contour deforming renal mass lesion. Abdominal vasculature: The abdominal aorta is normal in course and caliber noting moderate atherosclerotic calcification. Bowel: There is no bowel obstruction. Liquid stool seen throughout the colon. The rectal wall appears thickened. The appendix is well-visualized and normal. The duodenal wall appears thickened and edematous with surrounding inflammation. Peritoneum: There is a moderate volume of abdominopelvic ascites. No intraperitoneal free air is identified. There is a fat-containing umbilical hernia. There are prominent retroperitoneal collateral vessels. Lymphadenopathy: None. Pelvic viscera: Evaluation of the pelvis is degraded by streak artifact from bilateral hip arthroplasties. The bladder is decompressed around a Zaragoza catheter and appears thick walled. The prostate gland is normal as visualized. There is fluid within a left inguinal hernia. Skeletal structures: The skeletal structures are osteopenic. There is mild lumbosacral spondylosis. No lytic or blastic lesions are seen. Bilateral hip arthroplasties are in place. Soft tissues: There is body wall edema. IMPRESSION: 1. The liver is cirrhotic in morphology and heterogeneous in attenuation. 2. A moderate volume of abdominopelvic ascites, splenomegaly, and retroperitoneal collaterals indicate portal hypertension. 3. Nonocclusive thrombus is seen within the main portal vein. This was better assessed on the recent contrast-enhanced examinations. 4. There is nonspecific peripancreatic infiltration and fluid. This may be related to edema/ascites. Correlate with clinical and laboratory findings for evidence of pancreatitis. 5. Cholelithiasis within a distended gallbladder. Gallbladder wall thickening is nonspecific and may be related to adjacent hepatocellular disease/ascites. If there is clinical concern for acute cholecystitis a nuclear hepatobiliary scan could be considered for further assessment. 6. The duodenum appears thick-walled and edematous with surrounding inflammation. Correlate clinically for evidence of duodenitis. If clinically warranted this could be further assessed with endoscopy. 7. The rectal wall appears thickened. Correlate clinically for evidence of a nonspecific proctitis. 8. Right larger than left pleural effusions with dependent consolidation. Tree-in-bud airspace opacities at both lung bases are likely infectious/inflammatory. 9. Liquid stool is seen throughout the colon. Correlate clinically for evidence of a diarrheal illness. 10. Additional findings as above. ACT 112: Negative or not required by law. Electronically signed by: Jarrett Castro M.D. 11/21/2023 2:24 PM Dictated: 11/21/23 1411 Transcribed: 11/21/23 1411 Results CBC w Diff Results: RBC 2.84 M/uL (4.70-6.10) L 11/21/23 WBC 8.14 K/ul (4.8-10.8) 11/21/23 Hgb 8.5 g/dl (14.0-18.0) L 11/21/23 Hct 25.7 % (42.0-52.0) L 11/21/23 MCV 90.5 fL (80.0-100.0) 11/21/23 MCH 29.9 pg (25.0-34.0) 11/21/23 MCHC 33.1 g/dL (32.0-36.0) 11/21/23 RDW Standard Deviation 52.5 fL (36.4-46.3) H 11/21/23 RDW Coefficient of Variation 16.1 % (11.5-14.5) H 11/21/23 Plt Count 100 K/uL (130-400) L 11/21/23 MPV 10.7 fL (9.4-12.4) 11/21/23 Nucleated Red Blood Cells % (auto) 0.3 % 11/16 Nucleated RBC Absolute Count (auto) 0.02 K/uL (0.00-0.12) 0 11/17/23 Neutrophils (%) (Auto) 70.0 % 11/21/23 Lymphocytes (%) (Auto) 14.0 % 11/21/23 Monocytes # (Auto) 0.73 K/uL (0.11-0.59) H 11/21/23 Eosinophils # (Auto) 0.45 K/uL (0.00-0.50) 11/21/23 Immature Granulocyte % (Auto) 1.0 % 11/21/23 Neutrophils # (Auto) 5.70 K/uL (1.40-6.50) 11/21/23 Lymphocytes # (Auto) 1.14 K/uL (1.20-3.40) L 11/21/23 Monocytes # (Auto) 0.73 K/uL (0.11-0.59) H 11/21/23 Eosinophils # (Auto) 0.45 K/uL (0.00-0.50) 11/21/23 Basophils # (Auto) 0.04 K/uL (0.00-0.20) 11/21/23 Immature Granulocyte # (Auto) 0.08 K/uL (0.01-0.20) 4 ANC 11.97 K/uL (1.4-6.5) H 11/13/23 ALC 0.38 K/uL (1.2-3.4) L 11/13/23 Neutrophils % (Manual) 95 % 11/13/23 Lymphocytes % (Manual) 3 % 11/13/23 Monocytes % (Manual) 1 % 11/13/23 Eosinophils % (Manual) 1 % 11/13/23 Neutrophils # (Manual) 11.97 K/uL (1.40-6.50) H 11/13/23 Lymphocytes # (Manual) 0.38 K/uL (1.2-3.4) L 11/13/23 Monocytes # (Manual) 0.13 K/uL (0.11-0.59) 11/13/23 Eosinophils # (Manual) 0.13 K/uL (0-0.50) 11/13/23 Red Blood Cell Morphology Unremarkable 11/13/23 Polychromasia 1+ 11/15/23 Results CMP Results: Na 139 mmol/L (136-145) 11/21/23 K 3.9 mmol/L (3.5-5.1) 11/21/23 Cl 110 mmol/L (98-107) H 11/21/23 CO2 25 mmol/L (21-32) 11/21/23 Anion Gap 4 (3-11) 11/21/23 BUN 11 mg/dl (6-23) 11/21/23 Creatinine 0.55 mg/dl (0.6-1.4) L 11/21/23 Estimated GFR ( Amer) 132.2 ml/min 11/21/23 Estimated GFR (Non-Af Amer) 114.1 ml/min 11/21/23 BUN/Creatinine Ratio 20.0 (10-20) 11/21/23 Glu 185 mg/dl (70-99(Fasting)) H 11/21/23 Ca 7.2 mg/dl (8.6-10.3) L 11/21/23 Phosphorus Level 2.9 mg/dl (2.5-4.9) 11/21/23 Total Bilirubin 1.6 mg/dl (0.2-1.0) H 11/21/23 Direct Bilirubin 0.4 mg/dl (0-0.2) H 11/13/23 AST 33 U/L (13-39) 11/21/23 ALT 35 U/L (7-52) 11/21/23 Alkaline Phosphatase 92 U/L (34-104) 11/21/23 TP 5.2 gm/dl (6.0-8.3) L 11/21/23 Albumin 2.9 gm/dl (3.4-5.0) L 11/21/23 Globulin 2.3 gm/dl (2.5-4.0) L 11/21/23 Albumin/Globulin Ratio 1.3 (0.9-2) 11/21/23 PG Care Time/CCT Total # of Minutes Spent Total Time Spent with Patient: Total time spent is greater than 50% in coordination of care (as documented) at patient's floor/unit and/or counseling patient: Coding Level of Care Code 82406 IN/OBS CONSULT LVL 3,45M Diagnoses Left inguinal hernia K40.90
--- NOTE | 2023-11-21 14:26 | CT Scan Report ---
CT SCAN OF THE ABDOMEN AND PELVIS WITHOUT IV CONTRAST CLINICAL HISTORY: Nausea. Vomiting. Change in mental status. Cirrhosis with hepatocellular carcinom a. COMPARISON STUDY: Abdominal CT dated 11/16/2023. TECHNIQUE: CT scan of the abdomen and pelvis is performed from the lung bases to the proximal femora. Images are reviewed in the axial, sagittal, and coronal planes. IV contrast was not administered for this examination. A dose lowering technique was utilized adhering to the principles of ALARA. CT DOSE: 1131.79 mGy.cm FINDINGS: Lung bases: The heart is normal in size and without pericardial effusion. The coronary arteries are d ensely calcified. There is diminished attenuation of the cardiac blood pool is compared to the myocar dium suggesting anemia. There are small right and trace left pleural effusions with dependent consoli dation. Tree-in-bud airspace opacities are noted in both lower lobes. The distal esophagus appears th ick walled. Gynecomastia is noted. Liver: The unenhanced liver is cirrhotic in morphology and markedly heterogeneous in attenuation. The re is hypertrophy of the left lobe and nodularity of the hepatic surface contour. There is no intrahe patic biliary ductal dilatation. Hyperdense material within the main portal vein is consistent with p ortal venous thrombosis. Gallbladder: There are calcified gallstones well-distended gallbladder. Gallbladder wall thickening i s nonspecific and likely related to adjacent hepatocellular disease and ascites. Spleen: The spleen is enlarged measuring 15.5 cm in length. Pancreas: There is nonspecific fluid and edema around the pancreas. Adrenal glands: Unremarkable. Kidneys: The unenhanced kidneys are normal in size and without hydronephrosis. Question medullary nep hrocalcinosis. No discrete renal calculi are identified. There is no evidence of contour deforming re nal mass lesion. Abdominal vasculature: The abdominal aorta is normal in course and caliber noting moderate atheroscle rotic calcification. Bowel: There is no bowel obstruction. Liquid stool seen throughout the colon. The rectal wall appears thickened. The appendix is well-visualized and normal. The duodenal wall appears thickened and ne atous with surrounding inflammation. Peritoneum: There is a moderate volume of abdominopelvic ascites. No intraperitoneal free air is iden tified. There is a fat-containing umbilical hernia. There are prominent retroperitoneal collateral ve ssels. Lymphadenopathy: None. Pelvic viscera: Evaluation of the pelvis is degraded by streak artifact from bilateral hip arthroplas ties. The bladder is decompressed around a Zaragoza catheter and appears thick walled. The prostate glan d is normal as visualized. There is fluid within a left inguinal hernia. Skeletal structures: The skeletal structures are osteopenic. There is mild lumbosacral spondylosis. N o lytic or blastic lesions are seen. Bilateral hip arthroplasties are in place. Soft tissues: There is body wall edema. IMPRESSION: 1. The liver is cirrhotic in morphology and heterogeneous in attenuation. 2. A moderate volume of abdominopelvic ascites, splenomegaly, and retroperitoneal collaterals indicat e portal hypertension. 3. Nonocclusive thrombus is seen within the main portal vein. This was better assessed on the recent contrast-enhanced examinations. 4. There is nonspecific peripancreatic infiltration and fluid. This may be related to edema/ascites. Correlate with clinical and laboratory findings for evidence of pancreatitis. 5. Cholelithiasis within a distended gallbladder. Gallbladder wall thickening is nonspecific and may be related to adjacent hepatocellular disease/ascites. If there is clinical concern for acute cholecy stitis a nuclear hepatobiliary scan could be considered for further assessment. 6. The duodenum appears thick-walled and edematous with surrounding inflammation. Correlate clinicall y for evidence of duodenitis. If clinically warranted this could be further assessed with endoscopy. 7. The rectal wall appears thickened. Correlate clinically for evidence of a nonspecific proctitis. 8. Right larger than left pleural effusions with dependent consolidation. Tree-in-bud airspace opacit ies at both lung bases are likely infectious/inflammatory. 9. Liquid stool is seen throughout the colon. Correlate clinically for evidence of a diarrheal illnes s. 10. Additional findings as above. ACT 112: Negative or not required by law. Electronically signed by: Jarrett Castro M.D. 11/21/2023 2:24 PM
--- NOTE | 2023-11-21 14:47 | Ultrasound Report ---
ULTRASOUND-GUIDED PARACENTESIS CLINICAL HISTORY: Ascites PROCEDURE: Procedure and risks were explained. Informed consent was obtained. A final timeout was com pleted. The abdomen was prepped and draped in sterile fashion. 1% lidocaine was utilized for skin ane sthesia. Utilizing ultrasound guidance, a 5 Brazilian safety centesis catheter was advanced into the left lower q uadrant pocket of ascites. Ultrasound images were obtained. A total of 1.3 L of ascites fluid was rem estiven with 1 L sent to the lab. The catheter was removed and Band-Aid applied. The patient tolerated t he procedure well. Vital signs will be monitored postprocedure. IMPRESSION: Ultrasound-guided paracentesis as above. Performed, dictated, and signed by Vikas Doran PA-C; to be co-signed by Dr. Jarrett Castro. Electronically signed by: Jarrett Castro M.D. 11/21/2023 4:44 PM
[2023-11-21 16:12] LABS: Albumin Peritoneal Fluid < 1.5 gm/dl; Amylase Peritoneal Fluid < 10 U/L; Glucose Peritoneal Fluid 225 mg/dl; LDH Peritoneal Fluid < 25 U/L; Lipase Peritoneal Fluid 59 U/L; Total Protein Peritoneal Fluid < 3.0 gm/dl
--- NOTE | 2023-11-21 16:48 | Gastroenterology Progress Note ---
Date of Service November 21, 2023 Assessment & Plan (1) C. difficile colitis: Plan I think I will add cholestyramine to his regimen to see if it will help his diarrhea. Admission and Anticipated Discharge Date Admission Date: November 13, 2023 Subjective Pretty happy today. Had fluid taken off. Still with diarrhea but feels it may be getting better Physical Exam Physical Exam: He looks comfortable Results & Data Vital Signs (Past 12 Hours) Vital Signs Temp Pulse Resp BP Pulse Ox O2 Del Method 11/21/23 16:01 36.6 C 84 20 128/76 94 Room Air 11/21/23 11:09 36.6 C 87 18 129/78 93 Room Air 11/21/23 07:15 36.9 C 97 H 19 128/76 91 Room Air
[2023-11-21 17:55] LABS: Appearance Peritoneal Fluid Cloudy; Color Peritoneal Fluid Straw; Lymphocytes, Fluid 9 %; Mono,Macrophage,Mesothelial 63 %; Neutrophils, Fluid 28 %; RBC Peritoneal Fluid Auto < 2000 /uL; WBC Peritoneal Fluid Auto 229 /ul (0-300)
--- NOTE | 2023-11-21 19:04 | Ultrasound Report ---
ULTRASOUND TESTES AND SCROTUM CLINICAL HISTORY: Hydrocele. COMPARISON STUDY: Pelvic CT dated 11/21/2023 TECHNIQUE: Real-time, grayscale, and color Doppler sonography of the testes and scrotum is performed. Images are reviewed in the transverse and longitudinal planes. FINDINGS: The testes are mild atrophic. Echotexture is normal. The right testis measures 3.2 x 1.8 x 2.0 cm and the left testis measures 3.1 x 2.1 x 2.2 cm. No intratesticular mass is seen. Testicular blood flow is normal and symmetric. Normal Doppler waveforms are identified in both testes. The epididymal heads are normal in appearance. There is a pocket of fluid superior to the left testis which measures up to 7.5 cm in length. There i s a small left-sided varicocele. No hydrocele is seen on the right. The scrotal wall is thickened and heterogeneous. IMPRESSION: 1. No acute sonographic abnormality is seen involving the testes. 2. There is nonspecific scrotal wall thickening. 3. There is a 7.5 cm ovoid pocket of fluid superior to the left testis. This could represent a hydroc felicity or possibly loculated ascitic fluid. Correlate clinically. 4. Left-sided varicocele. ACT 112: Negative or not required by law. Electronically signed by: Jarrett Castro M.D. 11/21/2023 7:02 PM
[2023-11-21] MEDS: ASPIRIN 325 MG ECTAB PO SCH (20:38)
[2023-11-21] MEDS: cefTRIAXone SODIUM 2,000 MG/50 ML BAG IV SCH (20:41)
[2023-11-21] MEDS: LANTUS PER UNIT CHARGE SC ONE (20:55)
[2023-11-21] MEDS: CHOLESTYRAMINE LIGHT 4 GM PKT PO SCH (21:29)
[2023-11-21] MEDS ORDERED: CALCIUM CARBONATE 500 MG CHEWABLE TAB PO PRN (23:44)
[2023-11-22 07:48] LABS: Hemoglobin 8.6 g/dl (14.0-18.0); Mean Corpuscular Hemoglobin 30.1 pg (25.0-34.0); Mean Corpuscular Hgb Conc 33.1 g/dL (32.0-36.0); Mean Corpuscular Volume 90.9 fL (80.0-100.0); Mean Platelet Volume 10.5 fL (9.4-12.4); Platelet Count 79 K/uL (130-400); RDW Coefficient of Variation 15.5 % (11.5-14.5); RDW Standard Deviation 50.9 fL (36.4-46.3); Red Blood Count 2.86 M/uL (4.70-6.10); White Blood Count 5.36 K/ul (4.8-10.8)
[2023-11-22 08:14] LABS: Albumin Globulin Ratio 1.1 (0.9-2); Albumin Level 2.8 gm/dl (3.4-5.0); BUN Creatinine Ratio 17.9 (10-20); Bilirubin,Total 1.3 mg/dl (0.2-1.0); Calcium 7.2 mg/dl (8.6-10.3); Creatinine Clr Calc Pharmacy 137.4 ml/min; Est GFR (African American) 131.2 ml/min; Est GFR (Non-African American) 113.2 ml/min; Globulin 2.5 gm/dl (2.5-4.0); Magnesium 1.7 mg/dl (1.7-2.4); Phosphorus 3.4 mg/dl (2.5-4.9); Potassium 3.9 mmol/L (3.5-5.1); Total Protein 5.3 gm/dl (6.0-8.3)
[2023-11-22] MEDS: LANTUS PER UNIT CHARGE SC SCH (08:14)
[2023-11-22] MEDS: FUROSEMIDE 40 MG TAB PO SCH (08:16)
[2023-11-22] MEDS: SPIRONOLACTONE 25 MG TAB PO SCH (08:19)
--- NOTE | 2023-11-22 08:41 | Hospitalist Progress Note ---
Date of Service November 22, 2023 Assessment & Plan (1) Severe sepsis: (2) DKA (diabetic ketoacidosis): (3) Acute pancreatitis: (4) Pneumonia: (5) Anemia: (6) T2DM (type 2 diabetes mellitus): (7) Hepatocellular carcinoma: Plan Mr. Kasper is a 58 year old M admitted from [facility] with PMHx significant for Stage 3 Hepatocellular carcinoma not currently being treated, Uncontrolled T2DM, diabetic neuropathy and hx of alcohol abuse. Had intractable N/V and was found to be septic in DKA with symptomatic anemia requiring transfusion. Required ICU level of care and now in PCU. #Portal Vein Thrombosis -Identified on CT 11/20 Discussion with GI regarding anticoagulation continue aspirin 325mg daily #Left inguinal hernia No surgical intervention scrotal elevation #Decompensated Cirrhosis with HE *improving #Splenomegaly Reported hx of Hepatocellular Carcinoma, no documentation states he declined intervention when diagnosed 2 years ago at [facility] CT abd/pelvis noting "Cirrhosis, splenomegaly, and findings of portal hypertension" Ammonia elevated at 135 ---> 100-->42 INR elevated at 1.5, likely in this setting GI consulted as noted above, appreciate recs -with improved ammonia level, GI advised to continue with just rifaximin 11/17- pt with abd pain, US noting scattered ascites Stable - Last EGD 11/15/2023: grade I varices, portal hypertensive gastropathy - PSE:resolved discontinued lactulose, Rifaximin 550 BID - Ascites: s/p para 11/20, continue spironolactone increased to 50mg daily and lasix 40mg daily - SBP: No evidence of SBP - EV: s/p octreotide gtt, PPI gtt due to acute anemia; ongoing C diff concerns, held PPI - HRS: Cr stable - GI consulted #Shortness of Breath #Enterovirus/Rhinovirus Infection Possible aspiration Pt with reported SOB overnight Chest XRAY with possible congestion [employer]fire noting entero/rhinovirus No increased oxygen requirement at this time Improved, transition back to CTX eot 11/26 #Severe Sepsis POA resolved #Bacteremia, gram positive #C diff gene colitis Pt presenting with tachycardia, leukocytosis Infectious source likely pneumonia, possible odontogenic infection (pt being tx [facility] oral antibiotic at [facility] per pt h[facility]) lactate of 16 on admission, downtrending Procal elevated Chest CTA noting pneumonia UA without signs of infection Respiratory panel negative Blood Cx x1 set growing Group B beta strep in one bottle, ?contaminant in other (Prob.sony gram negative cocci). Repeat Blood cx pending [employer]fire noting strep MRSA negative c diff gene positive with diarrhea TTE noting EF >70%, mild LVH, normal wall motion and no significant valvular pathology. Consider IRLANDA On IV Rocephin, Flagyl and Doxycycline initially ID consulted for gram pos bacteremia, appreciate recs. Recommended/stated the following: "I would suggest he remain on CTX 2g IV qd to extend through 11/27/23 (2 weeks total). OK to stop the metronidazole at this point and instead convert him to vancomycin 125mg po qid x 10 days, followed by 125mg po bid to extend for 7 days beyond cessation of the CTX (12/04/23). OK to stop the doxycycline-- no current indication." Transitioned to po vancomycin per recs of ID and continued with Rocephin 2g daily EOT 11/26 CTM #DKA resolved Lactic acidosis DMII pt started on metformin 4 days ago Septic with pneumonia as noted above, likely trigger for DKA Glucose level 620 on admission Hgba1c of 8.9 VBG on admission noting pH of 7.15 , pCO2 35, HCO3 of 12 Anion gap of 23 on admission UA with noted 3+ glucose and trace ketones Was on Insulin gtt, IVF glycemic pharmacy consult Serial labs Continue to monitor improving #Symptomatic Anemia Possible GI bleed hgb 6.6 on admission, suspect lower given volume depletion s/p 3 units pRBC transfused, follow Hgb goal hgb > 7 anemia panel with normal iron. folate and b12 levels GI consulted, appreciate recs -pt started on octreotide -s/p EGD on 11/14- noted Grade 1 varices, moderate portal gastropathy -per GI if bleeding persists get CTA abdomen/pelvis. CTA abdomen obtained on 11/15 with no acute bleed -consider colonoscopy later in the course -discontinued octreotide -d/c ppi Continue to monitor, transfuse as needed Stable #Acute Metabolic Encephalopathy, likely iso decomp. cirrhosis Ammonia elevated at 135 ---> 100-->42 Tox screen negative Delirium precautions. Frequent reorientation, avoid sedating medications as able Continue to monitor Improved #Acute Pancreatitis, resolved Abd tender, CT noting evidence of pancreatitis Lipase elevated at 149 diet advanced, #Thickened gallbladder US 11/17 ordered for abd pain and to rule out ascites noting possible concern for acute cholecystitis Liver enzymes elevated General Surgery consulted, appreciate recs -no surgical intervention #Elevated troponin #Demand ischemia #Cornoary artery disease by CT imaging Trop elevated at 277.7, uptrending suspect demand ischemia in setting of underlying illness no ecg change/chest pain Echo as above, noting EF >70%, mild LVH, normal wall motion and no significant valvular pathology Doubt ACS at this time #Hypomagnesemia #Hypocalcemia replete as needed Chronic conditions: Hx of alcohol abuse: States last drink about 2 years ago. Denies alcohol use while incarcerated HLD: statin therapy, lipid panel normal Neuropathy: currently not on tx Diet: advancing as tolerated DVT ppx: SCDS for now in setting of anemia, unknown source FULL CODE Dispo: d/c to [facility] when medically able Admission and Anticipated Discharge Date Admission Date: November 13, 2023 Subjective Reports frustration with scrotal edema and hernia Discussed in depth with patient recommended elevation and discussed water pull He denies any other concerns and reports Physical Exam Constitutional: WD/WN, vitals as above Respiratory: normal respiratory effort, lungs clear to auscultation Cardiovascular: RRR, no murmur, no edema Gastrointestinal (Abdomen): protuberant, but softer than day prior Scrotal edema, Results & Data Results & Data Vital Signs (Past 12 Hours) Vital Signs Temp Pulse Pulse Resp BP Pulse Ox O2 Del Method 11/22/23 03:59 36.6 C 80 18 107/65 93 Room Air 11/21/23 23:36 36.8 C 85 18 112/66 93 Room Air 11/21/23 22:00 90 Laboratory Results Short CBC 11/22/23 Range/Units 07:12 WBC 5.36 (4.8-10.8) K/ul Hgb 8.6 L (14.0-18.0) g/dl Hct 26.0 L (42.0-52.0) % Plt Count 79 L (130-400) K/uL BMP 11/22/23 07:12 Sodium 140 Potassium 3.9 Chloride 110 H Carbon Dioxide 26 BUN 10 Creatinine 0.56 L Glucose 128 H Calcium 7.2 L Liver Function 11/22/23 Range/Units 07:12 Total Bilirubin 1.3 H (0.2-1.0) mg/dl AST 31 (13-39) U/L ALT 30 (7-52) U/L Alkaline Phosphatase 86 (34-104) U/L Albumin 2.8 L (3.4-5.0) gm/dl Medications Administered Home Medications Medication Instructions Recorded Confirmed Last Taken cetirizine 10 mg capsule 10 mg PO DAILY 11/13/23 11/13/23 Unknown diphenhydramine HCl 25 mg capsule 25 mg PO HS PRN allergies 11/13/23 11/13/23 Unknown (Banophen) insulin glargine 100 unit/mL 48 unit subcut BID 11/13/23 11/13/23 Unknown subcutaneous cartridge insulin regular human 100 unit/mL 1 sliding scale dose subcut 11/13/23 11/13/23 Unknown injection solution (Novolin R USEASDIRECTD Regular U-100 Insulin) metformin 1,000 mg tablet 1,000 mg PO BID 11/13/23 11/13/23 Unknown rosuvastatin 10 mg tablet 10 mg PO DAILY 11/13/23 11/13/23 Unknown thiamine HCl (vitamin B1) 50 mg 50 mg PO DAILY 11/13/23 11/13/23 Unknown tablet (Vitamin B-1) Active Medications Generic Name Dose Route Start Last Admin Trade Name Freq PRN Reason Stop Dose Admin Acetaminophen 500 mg 11/17/23 06:07 11/21/23 07:40 Acetaminophen 500 Mg Tab PO 12/17/23 06:06 500 mg Q6H PRN Administration fever/pain Albuterol 3 ml 11/17/23 22:28 11/19/23 23:54 Albut/Ipratrop 3mg/0.5mg Neb 3 Ml Vial NEB 12/17/23 22:27 3 ml Q2H PRN Administration sob wheeze Protocol Aspirin 325 mg 11/21/23 18:15 11/22/23 08:15 Aspirin 325 Mg Ectab PO 12/21/23 18:14 325 mg QAM CORDELL Administration Cetirizine HCl 10 mg 11/22/23 12:00 11/22/23 12:40 Cetirizine Hcl 10 Mg Tablet PO 12/22/23 11:59 10 mg DAILY CORDELL Administration Caba Syrup 5 ml 11/16/23 18:00 11/22/23 17:24 Caba Syrup 5 Ml Udp PO 11/26/23 17:59 5 ml Q6 CORDELL Administration Cholestyramine Resin 4 gm 11/21/23 22:00 11/22/23 08:57 Cholestyramine Light 4 Gm Pkt PO 12/21/23 21:59 4 gm BID@1000,2200 CORDELL Administration Furosemide 40 mg 11/22/23 09:00 11/22/23 08:16 Furosemide 40 Mg Tab PO 12/22/23 08:59 40 mg QAM CORDELL Administration Hydrocortisone 1 appln 11/20/23 13:54 11/21/23 07:32 Hydrocortisone 1% Crm 30 Gm Tube EXT 12/20/23 13:53 1 appln TID PRN Administration Rash Ceftriaxone Sodium 2,000 mg in 50 mls @ 100 mls/hr 11/21/23 21:45 11/21/23 21:11 Rocephin IV 11/28/23 21:44 Infused Q24H CORDELL Infusion Insulin Aspart 0 units 11/17/23 04:00 11/22/23 17:05 Insulin Aspart Per Unit Charge SC 12/17/23 03:59 9 units ACHS CORDELL Administration Insulin Glargine 12 units 11/22/23 09:00 11/22/23 08:14 Lantus Per Unit Charge SC 12/22/23 08:59 12 units BID CORDELL Administration Protocol Magnesium Chloride 64 mg 11/21/23 09:00 11/22/23 08:17 Magnesium Chloride W/Calcium 64mg Delayed Rel Tab PO 12/21/23 08:59 64 mg BID CORDELL Administration Miscellaneous 15 - 30 gm 11/13/23 19:30 11/18/23 16:33 Carbohydrates For Hypoglycemia PO 12/13/23 19:29 15 gm UD PRN Administration Hypoglycemia Treatment Ondansetron HCl 4 mg 11/13/23 19:34 11/18/23 10:03 Ondansetron Inj 2 Mg/Ml 2 Ml Vial IV 12/13/23 19:33 4 mg Q6H PRN Administration Nausea And Vomiting Potassium Phosphate 2 tab 11/16/23 13:00 11/22/23 17:25 Pot Phosphate Monobasic W/ Sod Tab PO 12/16/23 12:59 2 tab QID CORDELL Administration Rifaximin 550 mg 11/14/23 21:00 11/22/23 08:19 Rifaximin 550 Mg Tablet PO 12/14/23 20:59 550 mg BID CORDELL Administration Spironolactone 25 mg 11/22/23 09:00 11/22/23 08:19 Spironolactone 25 Mg Tab PO 12/22/23 08:59 25 mg DAILY CORDELL Administration Vancomycin HCl 125 mg 11/16/23 18:00 11/22/23 17:24 Vancomycin Hcl 125 Mg/2.5ml Soln PO 11/26/23 17:59 125 mg Q6 CORDELL Administration (2) DKA (diabetic ketoacidosis) Diabetes mellitus complication detail: without coma Diabetes mellitus type: type 2 Qualified Code(s): E11.10 - Type 2 diabetes mellitus with ketoacidosis without coma (3) Acute pancreatitis Acute pancreatitis complication: unspecified Pancreatitis type: unspecified pancreatitis type Qualified Code(s): K85.90 - Acute pancreatitis without necrosis or infection, unspecified (4) Pneumonia Laterality: bilateral Lung location: unspecified part of lung Pneumonia type: due to unspecified organism Qualified Code(s): J18.9 - Pneumonia, unspecified organism
--- NOTE | 2023-11-22 11:07 | Gastroenterology Progress Note ---
Date of Service November 22, 2023 Assessment & Plan (1) C. difficile colitis: Plan: I explained to him that his scrotal edema is likely related to his ascites. I did ask him to mention it to primary team though. His diarrhea seems to be improving. I am going off service for the next two weeks. If GI needed please call GI operation manager. Admission and Anticipated Discharge Date Admission Date: November 13, 2023 Subjective Says he feels well. Main concern is scrotal edema. Diarrhea starting to firm up. Physical Exam Physical Exam: He looks comfortable Results & Data Vital Signs (Past 12 Hours) Vital Signs Temp Pulse Resp BP Pulse Ox O2 Del Method 11/22/23 08:49 Room Air 11/22/23 07:10 36.7 C 87 19 121/73 92 Room Air 11/22/23 03:59 36.6 C 80 18 107/65 93 Room Air 11/21/23 23:36 36.8 C 85 18 112/66 93 Room Air
[2023-11-22] MEDS ORDERED: diphenhydrAMINE Capsule 25 MG CAP PO PRN (11:17)
[2023-11-22] MEDS ORDERED: THIAMINE HCL 100 MG TAB PO SCH (11:45)
[2023-11-22] MEDS: CETIRIZINE HCL 10 MG TABLET PO SCH (12:40)
[2023-11-22 18:36] VITALS: TEMP 98.1
[2023-11-23 07:33] VITALS: PULSE 95; RESP 16; O2SAT 92
[2023-11-23] MEDS: SPIRONOLACTONE 25 MG TAB PO SCH (07:52)
[2023-11-23] MEDS: THIAMINE HCL 100 MG TAB PO SCH (07:52)
[2023-11-23] MEDS: LANTUS PER UNIT CHARGE SC SCH (08:33)
--- NOTE | 2023-11-23 09:04 | Discharge Summary ---
Discharge Summary Date of Service November 23, 2023 Principal Dx & Hospital Course #1 = Principal Diagnosis (1) Severe sepsis: (2) DKA (diabetic ketoacidosis): (3) Acute pancreatitis: (4) Pneumonia: (5) Anemia: (6) T2DM (type 2 diabetes mellitus): (7) Hepatocellular carcinoma: Plan Mr. Kasper is a 58 year old M admitted from [facility] with PMHx significant for Stage 3 Hepatocellular carcinoma not currently being treated, Uncontrolled T2DM, diabetic neuropathy and hx of alcohol abuse. Had intractable N/V and was found to be septic in DKA with symptomatic anemia requiring transfusion. Required ICU level of care and successfully down graded. Patient was treated with IV antibiotic for bactermia though to be 2/2 gastrointestinal eitology. Patient's management for cirrhosis adjusted, with addition of lasix and spironolactone. Imaging revealed PVT, for which GI stated full dose asa would be appropriate. General surgery evaluated patient for inguinal hernia. No surgical intervention recommended given ongoing bacteremia and decompensated cirrhosis. On day of discharge, patient was indepenent. Denies any new concerns. US IV placed for continued IV abx. #Portal Vein Thrombosis -Identified on CT 11/20 Discussion with GI regarding anticoagulation continue aspirin 325mg daily #Left inguinal hernia No surgical intervention scrotal elevation #Decompensated Cirrhosis with HE *improving #Splenomegaly Reported hx of Hepatocellular Carcinoma, no documentation states he declined intervention when diagnosed 2 years ago at [facility] CT abd/pelvis noting "Cirrhosis, splenomegaly, and findings of portal hypertension" Ammonia elevated at 135 ---> 100-->42 INR elevated at 1.5, likely in this setting GI consulted as noted above, appreciate recs -with improved ammonia level, GI advised to continue with just rifaximin 11/17- pt with abd pain, US noting scattered ascites Stable - Last EGD 11/15/2023: grade I varices, portal hypertensive gastropathy - PSE:resolved discontinued lactulose, Rifaximin 550 BID - Ascites: s/p para 11/20, continue spironolactone increased to 50mg daily and lasix 40mg daily - SBP: No evidence of SBP - EV: s/p octreotide gtt, PPI gtt due to acute anemia; ongoing C diff concerns, held PPI - HRS: Cr stable #Shortness of Breath #Enterovirus/Rhinovirus Infection Possible aspiration Pt with reported SOB overnight Chest XRAY with possible congestion Biofire noting entero/rhinovirus No increased oxygen requirement at this time Improved, transition back to CTX eot 11/26 #Severe Sepsis POA resolved #Bacteremia, gram positive #C diff gene colitis Pt presenting with tachycardia, leukocytosis Infectious source likely pneumonia, possible odontogenic infection (pt being tx with oral antibiotic at [facility] per pt hx) lactate of 16 on admission, downtrending Procal elevated Chest CTA noting pneumonia UA without signs of infection Respiratory panel negative Blood Cx x1 set growing Group B beta strep in one bottle, ?contaminant in other (Prob.sony gram negative cocci). Repeat Blood cx pending [employer] noting strep MRSA negative c diff gene positive with diarrhea TTE noting EF >70%, mild LVH, normal wall motion and no significant valvular pathology. Consider IRLANDA On IV Rocephin, Flagyl and Doxycycline initially ID consulted for gram pos bacteremia, appreciate recs. Recommended/stated the following: "I would suggest he remain on CTX 2g IV qd to extend through 11/27/23 (2 weeks total). OK to stop the metronidazole at this point and instead convert him to vancomycin 125mg po qid x 10 days, followed by 125mg po bid to extend for 7 days beyond cessation of the CTX (12/04/23). OK to stop the doxycycline-- no current indication." Transitioned to po vancomycin per recs of ID and continued with Rocephin 2g daily EOT 11/26 CTM #DKA resolved Lactic acidosis DMII resume home metformin and insulin regimen #Symptomatic Anemia Possible GI bleed hgb 6.6 on admission, suspect lower given volume depletion s/p 3 units pRBC transfused, follow Hgb goal hgb > 7 anemia panel with normal iron. folate and b12 levels GI consulted, appreciate recs -pt started on octreotide -s/p EGD on 11/14- noted Grade 1 varices, moderate portal gastropathy -per GI if bleeding persists get CTA abdomen/pelvis. CTA abdomen obtained on 11/15 with no acute bleed -consider colonoscopy later in the course -discontinued octreotide -d/c ppi Continue to monitor, transfuse as needed Stable #Acute Metabolic Encephalopathy, likely iso decomp. cirrhosis Ammonia elevated at 135 ---> 100-->42 Tox screen negative Delirium precautions. Frequent reorientation, avoid sedating medications as able resolved #Acute Pancreatitis, resolved Abd tender, CT noting evidence of pancreatitis Lipase elevated at 149 diet advanced #Thickened gallbladder US 11/17 ordered for abd pain and to rule out ascites noting possible concern for acute cholecystitis Liver enzymes elevated General Surgery consulted, appreciate recs -no surgical intervention #Elevated troponin #Demand ischemia #Cornoary artery disease by CT imaging Trop elevated at 277.7, uptrending suspect demand ischemia in setting of underlying illness no ecg change/chest pain Echo as above, noting EF >70%, mild LVH, normal wall motion and no significant valvular pathology Doubt ACS at this time #Hypomagnesemia #Hypocalcemia replete as needed Chronic conditions: Hx of alcohol abuse: States last drink about 2 years ago. Denies alcohol use while incarcerated HLD: statin therapy, lipid panel normal Neuropathy: currently not on tx Notes For Next Care Provider Medication Changes From Visit ASA 325 daily for portal vein thrombosis Spironolactone 50mg daily Lasix 40 daily Rifaximin 550mg two times a day IV CTX until 11/26 PO vanco taper for c diff Admission HPI Per Admitting Provider This is a 58 year old M who presents to ED from [facility] with PMH of Stage 3 Hepatocellular carcinoma, Uncontrolled T2DM, diabetic neuropathy and formal alcohol abuse 2/2 ill feeling x 2 weeks. He states approx 2 weeks ago he developed URI sx and was just feeling unwell. 3-4 days ago after eating pudding and tacos he developed significant nausea, vomiting and diarrhea. He describes the vomit and diarrhea like, "pudding," but denies any latia blood. He has significant nausea, abdominal pain and distension. He denies f/c/s, dizziness, lightheaded, chest pain, cough, dysuria or hematuria. He does complain of SOB at rest/exertion, wheezing, polyuria and polydipsia. He denies similar sx in the past. He previously was a heavy alcohol user drinking 1gallon of vodka daily. He quit 2.5 years ago. He states he was diagnosed with liver cancer 2.5 years ago at [facility] and at that time declined treatment. In ED pt was hypotensive and tachycardia. He was found to be severely acidotic with a pH of 7.15 and in DKA with BSG in 600s. He was notably anemic with hgb 6.6, elevated trop in 200s, lipase 149, mag 1.6, lactic acid 16.3. He was typed and crossed, started on 1 unit of PRBC, received 2L of IVF, magnesium supplementation and IV zosyn. Admission Exam Per Admitting Provider Constitutional: Acute ill appearing male, vitals as above, NAD, sitting up in bed, answers questions approp Head: Normocephalic, Atraumatic Eyes: PERRL, conjunctivae normal, anicteric sclerae ENMT: external ear and nose normal, oropharynx dry and very poor dentition Neck: trachea midline, no thyromegaly normal visual inspection Respiratory: increased respiratory effort, lungs clear to auscultation, +rhonchi, no rales. no accessory muscle use Cardiovascular: tachycardic rate, regular rhythm, no murmur, no edema Vessels: no JVD or carotid bruit Chest: normal inspection of chest Abdomen: distended abdomen, firm, absent bowel sounds, TTP, no rebound, guarding Musculoskeletal: no cyanosis or clubbing, extremities AROM x 4 Skin: no rashes, warm and dry normal turgor Neurologic: PERRL, EOMI, accommodation nl, no face palsy, no dysarthria CN's II-XI intact bilaterally and moves all extremities Psychiatric: A+Ox3, euthymic affect : deferred Discharge Exam Constitutional WD/WN, vitals as above Respiratory normal respiratory effort, lungs clear to auscultation Cardiovascular RRR, no murmur, no edema Gastrointestinal (Abdomen) protuberant but soft Updated Medication List Medication Instructions Recorded Confirmed Type cetirizine 10 mg capsule 10 mg PO DAILY 11/13/23 11/13/23 History diphenhydramine HCl 25 mg capsule 25 mg PO HS PRN allergies 11/13/23 11/13/23 History (Banophen) insulin regular human 100 unit/mL 1 sliding scale dose subcut 11/13/23 11/13/23 History injection solution (Novolin R USEASDIRECTD Regular U-100 Insulin) metformin 1,000 mg tablet 1,000 mg PO BID 11/13/23 11/13/23 History rosuvastatin 10 mg tablet 10 mg PO DAILY 11/13/23 11/13/23 History aspirin 325 mg tablet,delayed 325 mg PO QAM #0 tabs 11/23/23 Rx release (Ecotrin) freeman flavor (bulk) 1 ea PO Q6 #0 mL 11/23/23 Rx cholestyramine-aspartame 4 gram 1 ea PO BID@1000,2200 #0 ea 11/23/23 Rx oral powder for susp in a packet (Prevalite) furosemide 40 mg tablet 40 mg PO QAM #0 tabs 11/23/23 Rx insulin glargine 100 unit/mL 24 unit (0.24 mL) SC BID #0 mL 11/23/23 Rx subcutaneous solution (Lantus U-100 Insulin) magnesium chloride 64 mg 64 mg PO BID #0 tabs 11/23/23 Rx (magnesium chloride) tablet,delayed release (Mag 64) rifaximin 550 mg tablet (Xifaxan) 550 mg PO BID #0 tabs 11/23/23 Rx spironolactone 25 mg tablet 50 mg (2 x 25 mg) PO DAILY #0 tabs 11/23/23 Rx thiamine HCl (vitamin B1) 50 mg 100 mg (2 x 50 mg) PO DAILY #0 tabs 11/23/23 11/13/23 Rx tablet (Vitamin B-1) vancomycin 1,000 mg intravenous 125 mg PO Q6 #0 ea 11/23/23 Rx injection Hospital Stay Data Consultations 11/13/23 18:20 ED Decision to Admit Stat 11/13/23 18:24 Consult [facility] Routine 11/13/23 19:43 Consult Gastroenterology Routine 11/14/23 11:51 Consult Infectious Diseases Routine 11/18/23 13:20 Consult General Surgery Routine 11/21/23 10:55 Consult General Surgery Routine Procedures Performed Operation Date: 11/15/23 17:10 Actual Procedures p Esophagogastroduodenoscopy - Falguni Duckworth Jr, MD Diagnostic Imagining Performed 11/13/23 16:39 CT abd pelvis IV con only Stat CT angio chest PE protocol Stat 11/16/23 05:39 CT angio abdomen w con Stat 11/18/23 10:18 US abdomen ltd ascites Urgent 11/21/23 12:07 CT abd pelvis wo con Stat 11/21/23 13:17 US scrotum/testicle Routine 11/21/23 13:32 IR paracentesis abd w/img US Routine Pending Results Patient Have Any Pending Studies at Discharge: No Discharge Instructions Given to Patient (Per Discharging Provider) You were admitted for severe illness and found to be septic with bacteremia and decompensated cirrhosis You were treated with IV antibiotics and you have fluid drained from your abdomen. You were noted to have fluid in your scrotum and a hernia. Surgery evaluated and recommended conservative management, such as bracing with briefs and avoiding heavy lifting or bearing down. Given active infection and cirrhosis, you are not safe for surgery at this time, however, in the future you can follow up with surgery to discuss. You were started on multiple medication to help with your fluid levels and your liver. -Continue Lasix 40mg daily -Continue Spironolactone 50mgd daily -Continue Rifaximin 550mg two times a day You will continue IV Ceftriaxone until 11/26. You will continue oral vancomycin 125mg four times a day until 11/26, then two times a day until 12/03 due to C. Diff infection. You were noted to have a portal vein thrombosis and will need to continue on a full dose aspirin at 325mg daily. Please follow up with a Bundle Tier And Labeler/Business Applications Manager for further and close management of your liver disease. Please continue insulin management, your glargine is at 24 Units two times a day. Total Time Total Time Spent Total Time Spent (In Minutes): 45
[2023-11-23 09:07] LABS: Albumin Globulin Ratio 1.1 (0.9-2); Albumin Level 2.9 gm/dl (3.4-5.0); BUN Creatinine Ratio 16.7 (10-20); Bilirubin,Total 1.2 mg/dl (0.2-1.0); Calcium 7.4 mg/dl (8.6-10.3); Creatinine Clr Calc Pharmacy 142.5 ml/min; Est GFR (African American) 133.2 ml/min; Est GFR (Non-African American) 114.9 ml/min; Globulin 2.6 gm/dl (2.5-4.0); Hematocrit (blood only) 26.5 % (42.0-52.0); Hemoglobin 8.8 g/dl (14.0-18.0); Magnesium 1.6 mg/dl (1.7-2.4); Mean Corpuscular Hemoglobin 30.6 pg (25.0-34.0); Mean Corpuscular Hgb Conc 33.2 g/dL (32.0-36.0); Mean Platelet Volume 10.6 fL (9.4-12.4); Phosphorus 3.6 mg/dl (2.5-4.9); Platelet Count 88 K/uL (130-400); Potassium 4.2 mmol/L (3.5-5.1); RDW Coefficient of Variation 15.9 % (11.5-14.5); Red Blood Count 2.88 M/uL (4.70-6.10); Total Protein 5.5 gm/dl (6.0-8.3); White Blood Count 6.95 K/ul (4.8-10.8)
[2023-11-23 10:09] VITALS: BP 130/77
== END 2023-11-23 11:51 | DRG 871 ==
LOC: ED 15:38 → SUATTDRO 18:24 → 1E 18:24 → 2S 11-16 23:00 → 3W 11-22 18:49